=== PATIENT | female | born 1940 | race Caucasian/White ===

== ENCOUNTER → 2017-08-31 12:13 | Outpatient (CLI) | payer MEDICARE, OTHER, SELFPAY ==
--- NOTE | 2017-08-31 12:18 | US_ITS ---
STUDY: ULTRASOUND BREAST - RIGHT REASON FOR EXAM: Female, 76 years old. Tenderness in the lower inner quadrant of the right breast. TECHNIQUE: Axial and longitudinal images of the RIGHT breast were performed with a high resolution ultrasound transducer. COMPARISON: Comparison is made with prior mammogram done earlier in the day. FINDINGS: RIGHT Breast: The lower inner quadrant of the breast was examined by ultrasound. There is a homogeneous fibroglandular tissue. No solid or cystic mass lesion is seen. US/Breast Limited Unilateral IMPRESSION: Unremarkable sonographic examination of the lower inner quadrant of the right breast. ASSESSMENT CATEGORY: BIRADS Category 1: Negative. A letter regarding these results will be sent to the patient by the facility within 30 days. Electronically Signed: Avi Umana MD at 9:20 EDT Tel [phone], Service support ,
--- NOTE | 2017-08-31 12:18 | BI_ITS ---
MAMMOGRAPHY - BILATERAL DIAGNOSTIC REASON FOR EXAM: Female, 76 years old. History of right breast lump. PERTINENT HISTORY: Non-contributory. TECHNIQUE: Digital bilateral breast lamonte (3D mammographic acquisition) in the CC and MLO projections. 2-D mediolateral oblique (MLO) and craniocaudad (CC) views of both breasts were obtained. CAD: Full Field Digital Mammography with Computer Added Detection was performed. COMPARISON: None. FINDINGS: Breast Composition: There are scattered areas of fibroglandular density. There are no dominant masses or suspicious calcifications. No other significant abnormalities are identified. BI/DIAG MAMM W/CAD, BILAT IMPRESSION: With the patient's history of a palpable abnormality in the right breast, correlation with ultrasound is recommended. ASSESSMENT CATEGORY: BIRADS Category 0: Incomplete. Need additional imaging evaluation. A letter regarding these results will be sent to the patient by the facility within 30 days. Approximately 10% of breast cancers are not detected by mammography. A normal mammogram should not delay biopsy of a clinically suspicious abnormality. Electronically Signed: Avi Umana MD at 11:18 EDT Tel [phone], Service support ,
== END ==
PROVIDERS: Family Provider Family Medicine; PCP Family Medicine; Visit Provider Family Medicine
DX: N60.11 Diffuse cystic mastopathy of right breast (principal)
CPT/HCPCS: 76642; 77062; 77063; 77066; G0279

== ENCOUNTER → 2017-10-26 07:36 | Outpatient (CLI) | payer MEDICARE, OTHER, SELFPAY ==
--- NOTE | 2017-10-26 07:49 | US_ITS ---
STUDY: THYROID ULTRASOUND REASON FOR EXAM: Female, 76 years old. Right thyroid nodule. TECHNIQUE: Ultrasound evaluation of the thyroid was performed with real-time and static mayers-scale imaging. COMPARISON: None. FINDINGS: RIGHT LOBE: The right lobe of the thyroid gland measures 3.7 cm x 1.7 cm x 1.3 cm. There is a homogeneous echotexture. There is a 3 mm x 3 mm x 3 mm cyst in the upper pole. Adjacent to this, there is a 4 mm x 4 mm x 2 mm cyst. In the lower pole, there is a 3 mm x 3 mm x 2 mm cyst with a septation. LEFT LOBE: The left lobe of the thyroid gland measures 4.1 cm x 1.8 cm x 1.0 cm. There is a homogeneous echotexture. There is a 5 mm x 5 mm x 4 mm hypoechoic solid and cystic nodule in the midpole. Adjacent to this, there is a 4 mm x 3 mm x 2 mm cyst. ISTHMUS: The isthmus measures 3.0 mm. The regional lymph nodes are normal. US/Thyroid IMPRESSION: Small bilateral thyroid cysts. Hypoechoic solid nodule measuring 5 mm x 5 mm x 4 mm in the midportion of the left lobe of the thyroid. Electronically Signed: Avi Umana MD at 12:38 EDT Tel [phone], Service support ,
== END ==
PROVIDERS: Family Provider Family Medicine; PCP Family Medicine; Visit Provider Otolaryngology Otolaryngology/Facial Plastic Surgery
DX: E04.1 Nontoxic single thyroid nodule (principal)
CPT/HCPCS: 76536

== ENCOUNTER → 2017-11-29 08:54 | Outpatient (CLI) | payer MEDICARE, OTHER, SELFPAY ==
--- NOTE | 2017-11-29 08:57 | NM_ITS ---
CLINICAL: 77-year-old female with reported history of thyroid nodularity and complaint of dysphagia. I-123 THYROID UPTAKE and SCAN COMPARISON: Thyroid ultrasound report 10/26/2017 FINDINGS: The patient was administered a 291 uCi I-123 capsule by mouth. The 4-hour I-123 radioactive iodine thyroidal uptake was calculated to be 12.2 % (normal 5 to 25 %). The 24-hour I-123 radioactive iodine thyroidal uptake was calculated to be 37.0 % (normal 5 to 40 %). The I-123 thyroid scan demonstrates homogeneous radiopharmaceutical concentration throughout both lobes of a U-shaped thyroid gland. There are no colloidal parenchymal hypofunctioning cold nodules noted in either lobe of the thyroid gland. NM/Thyroid Uptake Single or Mult IMPRESSION: 1. NORMAL 4- and UPPER LIMITS OF NORMAL 24-hour I-123 radioactive iodine thyroidal uptakes. Correlation with in vitro thyroid function studies may be of benefit if not recently obtained. 2. 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 (Royal et al, J Nucl Med 32: 1455, 1990). 3. No hypofunctioning-cold nodules are identified. Electronically Signed: Checo Multani DO at 10:03 EDT Tel , Service support ,
== END ==
PROVIDERS: Family Provider Family Medicine; PCP Family Medicine; Visit Provider Surgery
DX: K21.9 Gastro-esophageal reflux disease without esophagitis (principal); R13.10 Dysphagia, unspecified
CPT/HCPCS: 78012; A9516

== ENCOUNTER 2017-12-17 06:17 | Day surgery (SDC) | payer MEDICARE, OTHER, SELFPAY ==
[2017-12-17 06:30] VITALS: BP 141/60; PULSE 76; RESP 18; TEMP 36.3; O2SAT 98; BMI 29.7
--- NOTE | 2017-12-17 07:35 | PCM.OPRPT ---
Problem List (1) GERD (gastroesophageal reflux disease) Status: Chronic Qualifiers: Esophagitis presence: without esophagitis Qualified Code(s): K21.9 - Gastro-esophageal reflux disease without esophagitis (2) Dysphagia Status: Acute Qualifiers: Dysphagia type: unspecified Qualified Code(s): R13.10 - Dysphagia, unspecified Report of Operation Date of Procedure: 12/17/17 Pre-Operative Diagnosis: k21.9 gastroesophageal reflux disease without esophagitis. R 13.10 dysphagia Post-Operative Diagnosis: Same Surgery/Procedure Performed:: [id number] esophagogastroduodenoscopy with biopsy Type of Anesthesia:: MAC Description of Procedure: Patient was brought into the endoscopy suite back of her throat was sprayed with benzocaine spray. Bite-block was placed. She was given graded anesthesia. Scope was inserted into the back of the oropharynx and directed down through the esophagus into the stomach and into the duodenum without difficulty. Operative findings: 1. Duodenum: Normal appearance no mass lesions no ulcerations no signs of any bleeding. 2. Stomach normal in appearance no mass lesions slight erythema in the cardia of the stomach biopsy for H. pylori was obtained. There were no ulcerations there were no mass lesions prepylorus area looked entirely normal and the pylorus itself was widely patent. 3. Esophagus: Z line was at 37-38 cm. It looked entirely normal. There was no signs of esophagitis, there is no signs of stricturing, there is no signs of mass lesions, there is no varices. The rest of the esophagus all appeared normal. The upper esophageal sphincter was widely patent and the scope was easily able to traverse this. No obvious signs of anatomic defects related to her dysphagia. - Admit VTE Documentation VTE Present on Admission: No VTE Mechan Device Prophylaxis: None VTE Pharm Prophylaxis ordered?: No Reason prophylaxis not ordered:: Treatment Not Indicated
[2017-12-17 07:38] VITALS: BP 119/59; BP 141/60; PULSE 84; RESP 12; TEMP 36.3; O2SAT 95
[2017-12-17 07:43] VITALS: BP 141/60; BP 97/50; PULSE 65; RESP 14; O2SAT 94
[2017-12-17 07:48] VITALS: BP 105/52; BP 141/60; PULSE 63; RESP 14; O2SAT 94
[2017-12-17 07:55] VITALS: BP 102/50; BP 141/60; PULSE 77; RESP 16; TEMP 37.1
[2017-12-17 08:23] VITALS: BP 141/60
== END 2017-12-17 08:30 | disposition home or self-care (01) ==
LOC: EN 06:17 → AC 06:19
PROVIDERS: Family Provider Family Medicine; PCP Family Medicine; Visit Provider Surgery
PROC: 0DJ08ZZ Inspection of Upper Intestinal Tract, Via Natural or Artificial Opening Endoscopic (ICD-10-PCS; CPT 43235; principal; 2017-12-17 07:25)
DX: K21.9 Gastro-esophageal reflux disease without esophagitis (principal); R13.10 Dysphagia, unspecified; E04.2 Nontoxic multinodular goiter; Z78.0 Asymptomatic menopausal state; Z79.899 Other long term (current) drug therapy
CPT/HCPCS: 43239; J7120

== ENCOUNTER 2018-07-22 06:21 | Day surgery (SDC) | payer MEDICARE, OTHER, SELFPAY ==
[2018-07-01 08:07] VITALS: BMI 29.4
[2018-07-22 06:49] VITALS: BP 137/55; PULSE 73; RESP 16; TEMP 36.4; O2SAT 97; BMI 29.7
--- NOTE | 2018-07-22 07:30 | COLBX_PTH ---
PATIENT: JACI NAJERA LOC: EN U#:[id number] AGE/SX: 77/F ROOM: RE07/22/[address]: Dr. Jose Eduardo Gomez MD : 1940 BED: DIS: 07/22/2018 SPEC #: [id number] RECD: 07/22/18 09:59 STATUS: ANJALI JENNIFER #: [id number] NASH: 07/22/18 07:[address]: Jose Eduardo Gomez DEPT: SURGICAL PATHOLOGY RECD BY: Chris Whaley ENTERED: 07/22/18 13:11 SP TYPE: COLON BX OTHR DR: Dr. Yaya Lopez, Tissues: COLON BIOPSY Procedures: Surgery Specimen Level IV HEADER OPERATION: Colonoscopy (MAC) PRE-OP DIAGNOSIS: Diarrhea TISSUE SUBMITTED: Random colon biopsy MICROSCOPIC DIAGNOSIS Colon, random biopsy: Fragments of colonic mucosa with pigmented laden macrophages, consistent with melanosis coli. SJ:xiao 07/23/18 MICROSCOPIC DESCRIPTION Slides are reviewed. GROSS DESCRIPTION Received in fixative is one container labeled with the patient's name and designated random colon biopsy. The specimen consists of multiple irregular fragments of light vang soft tissue that in aggregate measure 1.5 x 0.5 x 0.1 cm. The specimen is totally submitted in one cassette. / SJ:rg 07/22/18 TC:5 CPT: 20395
[2018-07-22 08:00] VITALS: BP 121/55; BP 137/55; PULSE 71; RESP 16; TEMP 36.4; O2SAT 97
--- NOTE | 2018-07-22 08:01 | OP.ENDO_ITS ---
07/22/2018 Yaya Lopez Re : Colonoscopy procedure for Carmen Wilburnwen Lopez This procedure was performed on Sunday, July 22, 2018. My impressions and recommendations are as follows: Impressions : - Non-bleeding internal hemorrhoids. - The examination was otherwise normal. - Biopsies were taken with a cold forceps from the entire colon for evaluation of microscopic colitis. Recommendations : - Discharge patient to home. - Resume previous diet. - Continue present medications. - Await pathology results. - Repeat colonoscopy in 5 years for surveillance. - Return to my office in 1 week. My findings are described in the full procedure note, which is enclosed. If I can be of further assistance, please feel free to contact me at Doctor phone number(s): , Fax: [phone], Work: . Sincerely, MD Jose Eduardo Francois MD 07/22/2018 8:00:58 AM This report has been signed electronically.
[2018-07-22 08:05] VITALS: BP 118/63; BP 137/55; PULSE 77; RESP 16; O2SAT 98
[2018-07-22 08:10] VITALS: BP 126/64; BP 137/55; PULSE 64; RESP 18; O2SAT 97
[2018-07-22 08:15] VITALS: BP 124/64; BP 137/55; PULSE 62; RESP 77; TEMP 36.2; O2SAT 98
[2018-07-22 08:38] VITALS: BP 137/55
== END 2018-07-22 08:50 | disposition home or self-care (01) ==
LOC: EN 06:21 → AC 06:24
PROVIDERS: Family Provider Family Medicine; PCP Family Medicine; Referring Provider Surgery; Visit Provider Surgery
PROC: 0DJD8ZZ Inspection of Lower Intestinal Tract, Via Natural or Artificial Opening Endoscopic (ICD-10-PCS; CPT 45378; principal; 2018-07-22 07:25)
DX: R19.7 Diarrhea, unspecified (principal); K64.8 Other hemorrhoids; K21.9 Gastro-esophageal reflux disease without esophagitis; M19.90 Unspecified osteoarthritis, unspecified site; M54.9 Dorsalgia, unspecified; G89.29 Other chronic pain; Z78.0 Asymptomatic menopausal state; Z79.899 Other long term (current) drug therapy
CPT/HCPCS: 45380; 88305; J7120

== ENCOUNTER → 2018-10-17 09:17 | Outpatient (CLI) | payer MEDICARE, OTHER, SELFPAY ==
--- NOTE | 2018-10-17 09:21 | US_ITS ---
STUDY: ULTRASOUND BREAST - RIGHT REASON FOR EXAM: Female, 77 years old. Palpable lump in the right breast. TECHNIQUE: Axial and longitudinal images of the RIGHT breast were performed with a high resolution ultrasound transducer. COMPARISON: Comparison is made with prior ultrasound of the breasts dated August 31, 2017. FINDINGS: RIGHT Breast: Once again, the inferior aspect of the right breast was examined by ultrasound. No sonographic abnormality is seen. US/Breast Limited Unilateral IMPRESSION: No sonographic abnormality is seen. ASSESSMENT CATEGORY: BIRADS Category 1: Negative. A letter regarding these results will be sent to the patient by the facility within 30 days. Electronically Signed: Avi Umana, at 11:28 EDT , Service support ,
--- NOTE | 2018-10-17 09:21 | BI_ITS ---
MAMMOGRAPHY - BILATERAL DIAGNOSTIC REASON FOR EXAM: Female, 77 years old. Palpable abnormality in the lower inner quadrant of the right breast. PERTINENT HISTORY: Non-contributory. TECHNIQUE: Digital bilateral breast lamonte (3D mammographic acquisition) in the CC and MLO projections. 2-D mediolateral oblique (MLO) and craniocaudad (CC) views of both breasts were obtained. CAD: Full Field Digital Mammography with Computer Added Detection was performed. COMPARISON: Comparison is made with prior study dated August 31, 2017. FINDINGS: Breast Composition: There are scattered areas of fibroglandular density. There are no dominant masses or suspicious calcifications. No other significant abnormalities are identified. There has been no significant change since the prior study. BI/DIAG MAMM W/CAD, BILAT IMPRESSION: Stable bilateral diagnostic mammogram. With the patient's history of a palpable abnormality in the right breast, correlation with ultrasound is recommended. ASSESSMENT CATEGORY: BIRADS Category 0: Incomplete. Need additional imaging evaluation. A letter regarding these results will be sent to the patient by the facility within 30 days. Approximately 10% of breast cancers are not detected by mammography. A normal mammogram should not delay biopsy of a clinically suspicious abnormality. Electronically Signed: Avi Umana, at 11:27 EDT , Service support ,
== END ==
PROVIDERS: Family Provider Family Medicine; PCP Family Medicine; Referring Provider Family Medicine; Visit Provider Family Medicine
DX: N60.11 Diffuse cystic mastopathy of right breast (principal); N63.14 Unspecified lump in the right breast, lower inner quadrant
CPT/HCPCS: 76642; 77062; 77066; G0279

== ENCOUNTER 2019-01-19 11:52 | Emergency (ER) | payer MEDICARE, OTHER, SELFPAY ==
[2019-01-19 11:53] VITALS: BP 171/73; PULSE 77; RESP 18; TEMP 36.8; O2SAT 98; BMI 29.9
--- NOTE | 2019-01-19 12:13 | RAD_ITS ---
STUDY: X-RAY CHEST REASON FOR EXAM: Female, 78 years old. Cough and dyspnea TECHNIQUE: Single AP portable view of the chest. COMPARISON: 08/07/2015 FINDINGS: The lungs are clear and expanded. There is no demonstrated pleural abnormality. Normal size heart. Normal mediastinum and gt. Normal visualized pulmonary arteries. Normal visualized aortic arch and descending thoracic aorta. Normal visualized thoracic spine. Normal visualized ribs, clavicles, and shoulders. There is no demonstrated abnormality of the visualized soft tissue structures of the upper abdomen. RAD/Chest 1 View (Portable) IMPRESSION: Normal x-ray examination of the chest. Electronically Signed: Napoleon Miller DO at 12:45 EDT Tel , Service support ,
--- NOTE | 2019-01-19 12:13 | EKG12_ITS ---
Test Reason : SOB Blood Pressure : / mmHG Vent. Rate : 060 BPM Atrial Rate : 060 BPM P-R Int : 188 ms QRS Dur : 082 ms QT Int : 396 ms P-R-T Axes : 051 -42 018 degrees QTc Int : 396 ms Normal sinus rhythm Left axis deviation Minimal voltage criteria for LVH, may be normal variant Abnormal ECG Confirmed by KAREN JUSTICE, SHRADDHA ([id number]), field map editor RAKEL STEPHEN ([id number]) on 01/20/2019 9:07:11 AM Referred By: EL Confirmed By:SHRADDHA JONES MD
[2019-01-19 12:40] LABS: Absolute Lymphocyte Count 1.43 X10^3/uL (0.83-4.51); Absolute Neutrophil Count 2.5 X10^3/uL (2.0-7.7); Basophil# 0.02 X10^3/uL; Basophil% 0.4 % (0-1); Eosinophils% 2.1 % (0-5); Hematocrit 37.8 % (37-47); Hemoglobin 12.3 g/dL (12.0-15.0); Lymphocyte # 1.43 X10^3/ul (4.0); Lymphocyte % 30.6 % (19-41); Mean Corp Hgb Conc 32.5 g/dL (32-36); Mean Corpuscular Hgb 29.7 pg (27.0-32.0); Mean Corpuscular Volume 91.3 fL (81-99); Mean Platelet Vol. 10.4 fl (6.2-12.0); Monocyte# 0.57 X10^3/uL; Monocyte% 12.2 % (0-10); NRBC Flagged by Analyzer 0 % (0-5); Neutrophil # 2.54 X10^3/uL (2.7-7.7); Neutrophil % 54.5 % (47-70); Platelet Count 189 K/mm3 (150-450); RBC Distribution Width CV 12.8 % (11.6-14.6); RBC Distribution Width SD 42.6 fl (35.1-43.9); Red Blood Count 4.14 M/mm3 (4.2-5.4); White Blood Count 4.7 K/mm3 (4.4-11.0)
[2019-01-19 12:47] VITALS: BP 136/62; BP 137/66; BP 141/69; PULSE 61; PULSE 63
[2019-01-19] MEDS: 0.9% Normal Saline 1,000 ML 150 ML IV (12:56)
[2019-01-19 13:03] LABS: Anion Gap 3 (5-15); BUN 16 mg/dL (7-18); BUN/Creat Ratio 17.7 RATIO (10-20); Calcium,Total 8.7 mg/dL (8.5-10.1); Chloride 107 mmol/L (98-107); EST Glomerular Filtration Rate 64 mL/min (>60); Est Glom Filt Rate - Afr Amer 77 mL/min (>60); Estimated Creatinine Clearance 42.62 ml/min; Glucose 126 mg/dL (74-106); Potassium 3.7 mmol/L (3.5-5.1); Sodium Level 139 mmol/L (136-145)
[2019-01-19 13:06] LABS: Bacteria 0 SEEN /hpf (None Seen); Mucous, Urine 0 SEEN /hpf (<or=2+); Red Blood Cells-Urine 0 SEEN /hpf (0-5); White Blood Cells 0 SEEN /hpf (0-5)
[2019-01-19 13:13] LABS: Color, Urine Yellow (Yellow); Glucose, Dipstick Normal (Normal); Ketone-Dipstick Negative (Negative); Leukocyte Esterase-Dipstick Negative /ul (Negative); Nitrite-Dipstick Negative (Negative); Occult Blood-Urine Negative /ul (Negative); Protein-Dipstick Negative (Negative); Specific Gravity, Urine 1.005 (1.002-1.030); Urine Bilirubin Dipstick Negative (Negative); Urine Clarity Sl. Cloudy (Clear); Urine Urobilinogen Normal (Normal)
[2019-01-19 13:19] LABS: Squamous Epithelial Cells - UA 0-5 SEEN /hpf (5-10)
--- NOTE | 2019-01-19 13:25 | ED.VISSUMM ---
- ER Visit Summary Date of Service: 01/19/19 Chief Complaint: [Not feeling well and generalized weakness.] History of Present Illness: The patient is a 78 F [presents with symptoms of not feeling well that she noticed this morning. Patient states that she had an episode 2 days ago where she had a spell that lasted about an hour to where she felt like maybe her heart was racing and felt like maybe she could get a full breath. Patient states after that resolved had no issues until this morning. Once again patient just feels very fatigued and somewhat lightheaded. Patient states that she felt like her arms were weak. Patient felt like her whole body was shaking. Patient states that she had similar symptoms a few years ago when she had a stress test at that time and no etiology was ever found. Patient states that she does not feel more stress than usual. She has no history of prior anxiety or panic attacks. She denies any chest pain. She denies recent travel or surgery. She denies recent illness other than she did have a sore throat and was recently started on cefuroxime. She does have a slight cough.] Physical Examination: [HEENT-PERRLA, EOMI. Cranial nerves II through XII grossly intact. TMs clear. Mucous membranes moist. No adenopathy. No significant pharyngeal erythema. Uvula midline without trismus. Cardiovascular-regular rate and rhythm without murmur or ectopy Lungs-clear to auscultation, chest wall stable without crepitus or subcu emphysema Abdomen-normoactive bowel sounds, soft, nontender, no rebound or rigidity, no peritoneal signs. Extremities-intact ?4, normal range of motion, normal pulses, atraumatic] Test Results: [EKG obtained on arrival showed sinus rhythm with a ventricular rate of 60 bpm with no acute segment changes. CBC with differential was normal. Chemistries normal. Urinalysis normal. Troponin was less than 0.15. Orthostatic vital signs were negative. Chest x-ray was normal.] Emergency Department Course and Treatment: [Patient was given normal saline on arrival.] Treatment Plan: [Follow-up with primary care physician 3 to 5 days.] Etiology of symptoms unclear although I suspect possibly anxiety. Disposition: [Discharged home stable condition.] Impression: [Generalized weakness-etiology uncertain] This note was generated with [employer] software. It may contain incorrect words, spelling, and punctuation that were not noted in review of the chart prior to signing ED Disposition - Plan for ED Patient: Referrals: Yaya Lopez [Primary Care Provider] -
--- NOTE | 2019-01-19 13:28 | ED.DEP ---
ED Disposition - Plan for ED Patient: Instructions: WEAKNESS, Unk Cause Referrals: Yaya Lopez [Primary Care Provider] - 3-5 Days
[2019-01-19 13:34] VITALS: BP 116/69; PULSE 64; RESP 17; O2SAT 96
== END 2019-01-19 13:43 | disposition home or self-care (01) ==
LOC: ED 12:16
PROVIDERS: Emergency Provider Emergency Medicine; Family Provider Family Medicine; PCP Family Medicine
DX: R53.1 Weakness (principal); R19.7 Diarrhea, unspecified; R35.0 Frequency of micturition; J02.9 Acute pharyngitis, unspecified; R05 Cough; K21.9 Gastro-esophageal reflux disease without esophagitis; Z79.899 Other long term (current) drug therapy
CPT/HCPCS: 71045; 80048; 81001; 84484; 85025; 93005; 96360; 99285; J7030; A4216

== ENCOUNTER → 2019-05-07 09:51 | Outpatient (CLI) | payer MEDICARE, OTHER, SELFPAY ==
[2019-05-07 09:51] VITALS: BMI 29.1
[2019-05-07 10:10] LABS: Absolute Lymphocyte Count 1.76 X10^3/uL (0.83-4.51); Absolute Neutrophil Count 3.1 X10^3/uL (2.0-7.7); Basophil# 0.02 X10^3/uL; Basophil% 0.4 % (0-1); Eosinophil# 0.05 X10^3/uL; Eosinophils% 0.9 % (0-5); Hematocrit 41.3 % (37-47); Hemoglobin 13.6 g/dL (12.0-15.0); Lymphocyte # 1.76 X10^3/ul (4.0); Lymphocyte % 31.9 % (19-41); Mean Corp Hgb Conc 32.9 g/dL (32-36); Mean Corpuscular Hgb 29.8 pg (27.0-32.0); Mean Corpuscular Volume 90.6 fL (81-99); Mean Platelet Vol. 9.8 fl (6.2-12.0); Monocyte# 0.57 X10^3/uL; Monocyte% 10.3 % (0-10); NRBC Flagged by Analyzer 0 % (0-5); Neutrophil % 56.3 % (47-70); Platelet Count 190 K/mm3 (150-450); RBC Distribution Width CV 13.2 % (11.6-14.6); RBC Distribution Width SD 43.9 fl (35.1-43.9); Red Blood Count 4.56 M/mm3 (4.2-5.4); White Blood Count 5.5 K/mm3 (4.4-11.0)
[2019-05-07 10:32] LABS: AST(SGOT) 29 U/L (15-37); Alanine Aminotransfer ALT/SGPT 31 U/L (13-56); Albumin, Serum 3.6 g/dL (3.2-5.0); Alkaline Phosphatase 157 U/L (45-117); Anion Gap 4 (5-15); BUN 14 mg/dL (7-18); BUN/Creat Ratio 13.7 RATIO (10-20); Chloride 104 mmol/L (98-107); Creatinine, Serum 1.02 mg/dL (0.55-1.02); EST Glomerular Filtration Rate 56 mL/min (>60); Est Glom Filt Rate - Afr Amer 67 mL/min (>60); Globulin 3.6 g/dL (2.2-4.2); Glucose 105 mg/dL (74-106); Potassium 4.1 mmol/L (3.5-5.1); Protein, Total 7.2 g/dL (6.4-8.2); Sodium Level 139 mmol/L (136-145)
== END ==
PROVIDERS: Family Provider Family Medicine; PCP Family Medicine; Referring Provider Surgery; Visit Provider Surgery
DX: K80.20 Calculus of gallbladder without cholecystitis without obstruction (principal); Q44.5 Other congenital malformations of bile ducts
CPT/HCPCS: 36415; 80053; 85025

== ENCOUNTER 2019-05-08 11:24 | Observation (INO) | payer MEDICARE, OTHER, SELFPAY ==
[2019-05-07 09:26] VITALS: BMI 29.1
[2019-05-07 09:53] VITALS: BMI 29.9
--- NOTE | 2019-05-07 09:55 | PCM.HP.BLA ---
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 History and Physical Date of Admission: 05/08/19 Intake Vital Signs 05/07/19 Height 5 ft 3 in 05/07/19 Weight: 164 lb 8 oz 05/07/19 BP 152/83 H 05/07/19 Respiration 1 L 05/07/19 Pulse 79 05/07/19 Temp 98.2 F 05/07/19 Pulse Oximetry (%) 95 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 Required: No Is patient in pain?: No Allergies clarithromycin [From Biaxin] Adverse Reaction (Verified 05/07/19 09:25) Nausea Sulfa (Sulfonamide Antibiotics) Adverse Reaction (Verified 05/07/19 09:25) Nausea Medications Calcium Carbonate/Vitamin D3 [Calcium 600-Vit D3 400 Caplet] 1 ea PO DAILY 08/07/15 [History Confirmed 05/07/19] Omeprazole [Prilosec] 20 mg PO BID 08/07/15 [History Confirmed 05/07/19] ascorbate calcium (vitamin C) 500 mg tablet 500 mg PO DAILY 05/07/19 [History Confirmed 05/07/19] PFS Medical History GERD (gastroesophageal reflux disease) (Chronic) Chronic back pain (Acute) Osteoarthritis (Acute) Surgical History History of colonoscopy (Acute ~06/2018) S/P appendectomy (Acute) S/P cardiac catheterization (Acute) S/P colonoscopy (Acute) S/P hemorrhoidectomy (Acute) S/P partial hysterectomy (Acute) Family History Father Heart disease Thyroid disorder goiter Mother Cancer stomach Social History (Updated 05/07/19 @ 09:53 by Joni Garcias MD) Smoking Status: Never smoker alcohol intake: never substance use type: does not use additional social history: no aspirin no ibuprofen HPI HPI HPI: JACI NAJERA, is a 78 F who presents to the office today for HPI HPI HPI: JACI NAJERA, is a 78 F who presents to the office today for right upper quadrant pain. The patient reports that for the last few months she has been having right upper quadrant pain as well as epigastric pain. Patient reports nausea but no vomiting. She reports that fried food makes the pain worse. ROS General General: Yes fatigue; no weight change, appetite, colon cancer or breast cancer HEENT HEENT: Yes difficulty swallowing; no eye injury, eye surgery, swollen glands or hoarseness Endo Endocrine: No thyroid disease, diabetes mellitus, thyroid cancer, Hair loss, heat intolerance or cold intolerance Skin Skin: Yes changing moles; no rash Breast Breast: No left breast lump, right breast lump, nipple discharge, breast pain, abnormal mammogram, abnormal US or breast enlargement Musc Musculoskeletal: Yes arthritis; no back problems, rheumatoid arthritis, gout or joint pain Cardio Cardiovascular: No murmur, pacemaker, heart disease, atrial fibrillation, high blood pressure, heart attack, heart stent, palpitations, shortness of breat with exertion or chest pain Psych Psychiatric: No depression, anxiety or hearing voices Resp Respiratory: No shortness of breath, No sleep apnea, Yes cough, No COPD, No asthma, No emphysema, No wheezing Gastro Gastrointestinal: Yes abdominal pain, No nausea or vomiting, Yes diarrhea, No constipation, No blood in stool, Yes acid reflux, No hemorrhoids, No ulcers, No gallbladder problem, No black,tarry stools Jordan Hematologic: No blood thinners, No blood disorders, No bleeding, No anemia, No blood clots Exam Const General: cooperative Orientation: alert, oriented x3 HENAZ Head: normal to inspection Ears: hearing grossly normal bilaterally Eyes General: appearance normal, both eyes and all related structures Visual Alvarez: normal visual alvarez by confrontation Neck Neck: normal visual inspection Chest Chest palpation & inspection: normal inspection of the chest Breast Palpation: No nipple discharge Resp Effort & Inspection: normal respiratory effort Auscultation: clear to auscultation bilaterally Cardio Rate: regular rate Rhythm: regular rhythm Heart Sounds: no murmurs GI Inspection: non-distended Palpation: soft, tender in the RUQ Musc Cervical Spine: normal cervical lordosis, cervical ROM normal Skin General: no rashes or lesions noted Neuro General: alert, oriented x3 Cranial Nerves: CN's II-XI intact bilaterally Cognition: normal cognition Extrem General: normal to inspection, full ROM Psych Appearance: grossly normal Affect: normal affect Assessment & Plan Problems 1. 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 Bile duct, common, cystic dilatation Q44.5 Plan The patient is having right upper quadrant pain. She had an outside ultrasound performed in March which showed low-level echoes in the gallbladder as well as sludge and dilation of her common bile duct suspicious for distal obstruction. She has been having right upper quadrant pain especially with eating fatty foods. She is also been having diarrhea and nausea. I recommend laparoscopic cholecystectomy with possible common duct exploration. I discussed that she may be having common bile duct dilation due to a stone in the common bile duct. I discussed possibility of performing ERCP if I was unable to remove the stone through a common duct exploration. I discussed the procedure in detail with the patient. I discussed the risks, benefits, and alternatives of the procedure. I discussed the risks including but not limited to bleeding, infection, injury to surrounding organs such as the liver, bile duct, bowels. I did discuss the possibility of having to convert to an open procedure as well as the possibility that if any injuries occurred this may necessitate further surgery at a tertiary care center. I will order labs today to check LFTs. Joni Garcias MD Pager: [facility] [address] [place] [address], [address] [place] [address] Office:
[2019-05-08] VITALS (16 sets, daily range): BP systolic 93–157; BP diastolic 46–67; PULSE 75–94; RESP 14–18; TEMP 36.4–37.9; O2SAT 91–99; BMI 29.0
--- NOTE | 2019-05-08 08:00 | EKG12_ITS ---
Test Reason : PRE-OP Blood Pressure : / mmHG Vent. Rate : 084 BPM Atrial Rate : 084 BPM P-R Int : 158 ms QRS Dur : 082 ms QT Int : 356 ms P-R-T Axes : 037 -44 047 degrees QTc Int : 420 ms Normal sinus rhythm Left axis deviation Abnormal ECG When compared with ECG of 19-JAN-2019 12:29, No significant change was found Confirmed by KIRK JUSTICE, BINH ([id number]), make up editor MARI SANDERSON ([id number]) on 05/09/2019 1:32:05 PM Referred By: Joni Garcias Confirmed By:ARIANA BRADLEY MD
[2019-05-08] MEDS: Lactated Ringers 1,000 ML 100 ML IV (08:39)
--- NOTE | 2019-05-08 09:35 | GALL_PTH ---
PATIENT: JACI NAJERA LOC: MS3 U#:[id number] AGE/SX: 78/F ROOM: OH323 RE05/08/[address]: Dr. Joni Garcias MD : 1940 BED: 1 DIS: 05/09/2019 SPEC #: [id number] RECD: 05/08/19 11:32 STATUS: ANJALI REWendy #: [id number] NASH: 05/08/19 09:[address]: Joni Garcias DEPT: SURGICAL PATHOLOGY RECD BY: Chris Whaley ENTERED: 05/08/19 13:44 SP TYPE: KRISTY QUINONES DR: Dr. Yaya Lopez DO Tissues: Gallbladder, NOS Procedures: Surgery Specimen Level III HEADER OPERATION: Laparoscopic cholecystectomy with IOC PRE-OP DIAGNOSIS: Calculus of gallbladder with chronic cholecystitis with obstruction K80.11; bile duct dilatation Q44.5 TISSUE SUBMITTED: Gallbladder MICROSCOPIC DIAGNOSIS Gallbladder, cholecystectomy: Chronic cholecystitis and sludge. AM:xiao 05/09/19 MICROSCOPIC DESCRIPTION Slides are reviewed. GROSS DESCRIPTION Received is one container labeled with the patient's name and designated gallbladder. The specimen consists of a gallbladder measuring 6.5 x 3 x 2 cm. The external surface is smooth and glistening. Focally, it is granular, hemorrhagic and contains cautery artifact. The lumen of the gallbladder contains yellow-green mucoid bile and sludge. No stones are identified in the container or in the gallbladder. The mucosa is bile-stained and without any mass lesions. The gallbladder wall averages 0.2 cm in thickness and is free of mass lesions. Risk Control Analyst sections of the gallbladder and the cystic duct at margin of resection are submitted in one cassette. / AM:xiao 05/08/19 TC:3 [facility]: [id number]
--- NOTE | 2019-05-08 09:35 | RAD_ITS ---
STUDY: INTRAOPERATIVE CHOLANGIOGRAM. REASON FOR EXAM: Female, 78 years old. 1 CHOLANGIOGRAM, PT GIVEN GLUCO VIANEY AFTER CINE RUN AND 3 STILL PICTURES FOLLOWED. FLUOROSCOPY TIME (if supplied): ( 83.5 seconds ) minutes/seconds TECHNIQUE: An intraoperative Cholangiogram was performed by the surgeon. Imaging was submitted. COMPARISON: None. FINDINGS: There is evidence of dilated intrahepatic biliary ducts. The common bile duct is dilated. Multiple small filling defects are seen in the distal portion of the common bile duct. A small amount of contrast is seen entering the duodenum. Findings are in keeping with retained stones. RAD/Cholangiogram/ O R,Initial IMPRESSION: Dilated intrahepatic and extrahepatic biliary ducts with findings suggesting multiple tiny stones in the distal portion of the common bile duct. Electronically Signed: Avi Umana, at 11:10 EST , Service support ,
[2019-05-08] MEDS: Bupiv/Epi 0.25% 30 ML Vial (10:34)
[2019-05-08] MEDS: 0.9% Normal Saline 1,000 ML 100 ML IV ×2 (13:18→23:27)
--- NOTE | 2019-05-08 14:08 | OP.PCM_ITS ---
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 Specimen's removed: Gallbladder and contents Description of Procedure: After obtaining informed consent patient was brought back to the operating room. General anesthesia was induced. The abdomen was prepped and draped in usual sterile fashion. A small midline incision was made superior to the umbilicus and deepened to the level of fascia. The fascia was elevated and incised. Next the peritoneum was elevated and incised in the same fashion. Finger sweep was performed and the Roberts trocar was placed into the abdomen. The balloon was inflated. The abdomen was inflated to 15 mmHg. Next a camera was introduced into the abdomen and the abdomen was inspected. Next under direct visualization three 5-mm ports were placed one subxiphoid and 2 subcostal. Next the gallbladder was elevated and retracted toward the right shoulder. The peritoneum was stripped from the gallbladder. The infundibulum was located and retracted laterally. Next the triangle of Calot was dissected and the cystic duct and cystic artery were identified. Cholangiograms were performed. A clip was placed in the proximal cystic duct. Next the cystic duct was nicked with the scissors and the Ranfac catheter was placed through a right upper quadrant incision and into the cystic duct and a clip was placed over it. Under fluoroscopy contrast was instilled into the gallbladder and the common duct, cystic duct as well as proximal hepatic ducts were identified. There was good filling of the common bile duct and it appeared dilated. There was poor filling of the duodenum. There was a small wisp of contrast I did make it into the du odenum. The patient appeared to have several small stones in distal common bile duct causing partial obstruction. The clip was removed from the cystic duct and the Ranfac catheter was removed from the cystic duct. The infundibulum was grasped once more. Three hemolock clips were placed across the cystic duct. The cystic duct was then divided leaving 2 clips on the stump. The cystic artery was clipped and divided in the same fashion. The hook cautery was then used to take the gallbladder off of the gallbladder bed. Hemostasis was obtained. Gallbladder fossa was irrigated and no active bleeding or bile leakage was noted. Next the camera switched to a 5 mm camera and introduced in the subxiphoid port. An Endopouch bag was placed through the umbilical port and the gallbladder was placed into it. The gallbladder was then removed through the umbilical incision. The camera was then reinserted through the umbilical port. The gallbladder fossa was inspected once more and noted to be hemostatic with no leaking bile. The abdomen was suctioned dry. The 5 mm ports were removed under direct visualization. The umbilical port was then removed and the air was removed from the abdomen. Next using an 0 Vicryl suture the umbilical fascia was closed in a [id number] fashion. The umbilical port site was irrigated local anesthetic was administered to all the incisions. All the incisions were closed with interrupted subcuticular 4-0 Monocryl sutures followed by Steri-Strips and dressings. The patient was awoken and taken to PACU in stable condition. - Admit VTE Documentation VTE Mechan Device Prophylaxis: SCD's
--- NOTE | 2019-05-08 14:11 | PN_ITS ---
Progress Note The patient was have found to have several small stones in the distal common bile duct causing partial obstruction of the common duct with dilation. I discussed ERCP with the patient and her family. I will perform ERCP tomorrow morning. I discussed the risks including but not limited to bleeding, infection, perforation of the bile duct or bowel, pancreatitis. The patient understands and is well to proceed. Joni Garcias MD Pager: [facility] [address] [address] [address] [place] [address] Office: [facility] Vital Signs/Narrative: Vital Signs Temp Pulse Resp BP Pulse Ox 05/08/19 13:10 98.2 F 89 16 137/58 H 94 05/08/19 12:36 99.0 F 78 16 133/55 H 95 05/08/19 12:30 94 16 129/51 H 95 05/08/19 12:15 88 18 144/56 H 95 05/08/19 12:00 84 18 133/61 H 94 05/08/19 11:45 76 16 140/63 H 99 05/08/19 11:30 81 16 139/55 H 98 05/08/19 11:15 79 16 157/62 H 96 05/08/19 11:00 97.6 F L 75 16 150/61 H 98
[2019-05-08] MEDS: 0.9% Saline Lock 10 ML Syringe IV (23:53)
[2019-05-08] MEDS: Acetaminophen 325 MG Tablet 650 MG PO (23:53)
[2019-05-09] VITALS (7 sets, daily range): BP systolic 99–115; BP diastolic 46–59; PULSE 68–86; RESP 12–20; TEMP 36.2–37.3; O2SAT 89–100; BMI 29.0
[2019-05-09 05:55] LABS: Absolute Lymphocyte Count 0.91 X10^3/uL (0.83-4.51); Absolute Neutrophil Count 7.9 X10^3/uL (2.0-7.7); Basophil# 0.01 X10^3/uL; Basophil% 0.1 % (0-1); Eosinophil# 0.13 X10^3/uL; Eosinophils% 1.3 % (0-5); Hematocrit 31.6 % (37-47); Hemoglobin 10.5 g/dL (12.0-15.0); Lymphocyte # 0.91 X10^3/ul (4.0); Lymphocyte % 8.9 % (19-41); Mean Corp Hgb Conc 33.2 g/dL (32-36); Mean Corpuscular Hgb 30.3 pg (27.0-32.0); Mean Corpuscular Volume 91.1 fL (81-99); Mean Platelet Vol. 10.3 fl (6.2-12.0); Monocyte% 11.8 % (0-10); NRBC Flagged by Analyzer 0 % (0-5); Neutrophil # 7.92 X10^3/uL (2.7-7.7); Neutrophil % 77.6 % (47-70); POSITIVE MORPHOLOGY YES; Platelet Count 136 K/mm3 (150-450); RBC Distribution Width CV 13.5 % (11.6-14.6); RBC Distribution Width SD 45.5 fl (35.1-43.9); Red Blood Count 3.47 M/mm3 (4.2-5.4); White Blood Count 10.2 K/mm3 (4.4-11.0)
--- NOTE | 2019-05-09 06:00 | RAD_ITS ---
STUDY: ERCP. REASON FOR EXAM: Female, 78 years old. SPHINCTEROTOMY, BALLOON PASS. 50 IMAGES FLUOROSCOPY TIME (if supplied): ( 100 seconds. ) minutes/seconds TECHNIQUE: An ERCP was performed by the surgeon. Contrast was injected. A single loop of the 49 images was submitted. COMPARISON: Comparison is made with prior examination dated May 08, 2019. FINDINGS: The surgeon performed sphincterotomy with balloon extraction of the distal common bile ducts. There is free flow of contrast into the duodenum. RAD/ERCP Biliary Only IMPRESSION: Successful sphincterotomy and extraction of the multiple small distal common bile duct stones. Electronically Signed: Avi Umana, at 8:20 EST , Service support ,
[2019-05-09 06:20] LABS: Differential Indicated SCAN CRITERIA MET
[2019-05-09 06:31] LABS: Differential Comment SCANNED
--- NOTE | 2019-05-09 06:40 | DCINST_ITS ---
Discharge Diet: Light diet - advance as tolerated Discharge Activity: Return to Normal Activity, May Not Drive - for 2-3 days or while taking narcotic pain medicataions., - - Do not drive, work heavy equipment or sign legal documents for 24 hours. May shower in (days): 1 - with the bandage in place. Lifting Restrictions: 20 lbs for 2 weeks Additional Activity Instructions:: Pain medication may cause nausea. You should typically eat light foods as you take your pain medications. Pain medication may also cause constipation. If this is a problem for you, please discuss with your doctor. Call your doctor if your incision/area has: Continuous Slow Oozing, Sudden Increased Bleeding, Increased Pain/ Swelling, Increased Redness, Foul Smelling Discharge, Fever of 101 or Higher Call your doctor if you observe: Fever of 101 or Higher Suture Line Care: Avoid Pulling/Pushing, Avoid Pinching/Bending Additional Dressing/Incision Instructions:: Leave operative bandaids on for 2 days. When you remove dressing, leave Steri-Strips on until your follow-up appointment, or until the Steri-Strips fall off on their own. Allergies/Adverse Reactions: Allergies clarithromycin [From Biaxin] Adverse Reaction (Verified 05/08/19 08:13) Nausea Sulfa (Sulfonamide Antibiotics) Adverse Reaction (Verified 05/08/19 08:13) Nausea Medications to take at Discharge Calcium Carbonate/Vitamin D3 [Calcium 600-Vit D3 400 Caplet] 1 ea PO DAILY 08/07/15 Omeprazole [Prilosec] 20 mg PO BID 08/07/15 ascorbate calcium (vitamin C) 500 mg tablet 500 mg PO DAILY 05/07/19 Acetaminophen [Tylenol Tablet] 650 mg PO Q6H PRN PRN tab 05/09/19 Ibuprofen [Motrin] 600 mg PO Q6H PRN PRN tab 05/09/19 Primary Care Physician: Yaya Lopez [Primary Care Provider] - Test Results: Test results from this visit will be discussed in further detail at your follow- up appointment, if applicable. Please Follow Up With: Joni Garcias MD When: Please call to schedule 2 week follow up appointment. [phone]
[2019-05-09 06:43] LABS: ALB/GLOB Ratio 0.9 RATIO (0.9-2.4); AST(SGOT) 273 U/L (15-37); Alanine Aminotransfer ALT/SGPT 404 U/L (13-56); Albumin, Serum 2.4 g/dL (3.2-5.0); Alkaline Phosphatase 115 U/L (45-117); Anion Gap 5 (5-15); BUN 13 mg/dL (7-18); BUN/Creat Ratio 15.6 RATIO (10-20); Calcium,Total 7.8 mg/dL (8.5-10.1); Chloride 108 mmol/L (98-107); Creatinine, Serum 0.83 mg/dL (0.55-1.02); EST Glomerular Filtration Rate 70 mL/min (>60); Est Glom Filt Rate - Afr Amer 85 mL/min (>60); Estimated Creatinine Clearance 46.21 ml/min; Globulin 2.8 g/dL (2.2-4.2); Glucose 85 mg/dL (74-106); Potassium 3.8 mmol/L (3.5-5.1); Protein, Total 5.2 g/dL (6.4-8.2); Sodium Level 140 mmol/L (136-145)
[2019-05-09] MEDS: Lactated Ringers 1,000 ML 100 ML IV (06:58)
[2019-05-09] MEDS: Pantoprazole Sodium 20 MG Tablet PO (10:57)
--- NOTE | 2019-05-14 10:39 | OP.ERCP_ITS ---
Patient Name: Carmen Porter Procedure Date: 05/09/2019 5:46 AM Date of : 1940 Age: 78 Procedure: ERCP Indications: Bile duct stone(s) Providers: Joni Garcias MD Referring MD: Joni Garcias MD Medicines: General Anesthesia Patient Profile: This is a 78 year old female. Refer to note in patient chart for documentation of history and physical. Complications: No immediate complications. Estimated blood loss: Minimal. Procedure: Pre-Anesthesia Assessment: - Prior to the procedure, a History and Physical was performed, and patient medications and allergies were reviewed. The patient's tolerance of previous anesthesia was also reviewed. The risks and benefits of the procedure and the sedation options and risks were discussed with the patient. All questions were answered, and informed consent was obtained. Prior Anticoagulants: The patient has taken no previous anticoagulant or antiplatelet agents. After reviewing the risks and benefits, the patient was deemed in satisfactory condition to undergo the procedure. After obtaining informed consent, the scope was passed under direct vision. Throughout the procedure, the patient's blood pressure, pulse, and oxygen saturations were monitored continuously. The duodenoscope was introduced through the mouth, and advanced to the duodenum and used to inject contrast into the bile duct. The ERCP was accomplished without difficulty. The patient tolerated the procedure well. Scope In: 6:21:56 AM Scope Out: 6:29:13 AM Total Procedure Duration Time 0 hours 7 minutes 17 seconds Findings: The major papilla was normal. A 0.035 inch x 260 cm straight Dreamwire was passed into the biliary tree. The sphincterotome was passed over the guidewire and the bile duct was then deeply cannulated. Contrast was injected. Biliary sphincterotomy was made with a monofilament sphincterotome using ERBE electrocautery. There was no post-sphincterotomy bleeding. The biliary tree was swept with a 12 mm balloon starting at the bifurcation. Sludge was swept from the duct. The endoscope was withdrawn from the patient. Impression: - The major papilla appeared normal. - A biliary sphincterotomy was performed. - The biliary tree was swept and sludge was found. Recommendation: - [facility]. - Resume previous diet. Procedure Code(s): --- Professional --- 39009, Endoscopic retrograde cholangiopancreatography (ERCP); with removal of calculi/debris from biliary/pancreatic duct(s) Diagnosis Code(s): --- Professional --- K80.50, Calculus of bile duct without cholangitis or cholecystitis without obstruction CPT copyright 2017 [employer]. All rights reserved. The codes documented in this report are preliminary and upon radiologic technologist chief review may be revised to meet current compliance requirements. Joni Garcias MD 05/09/2019 6:42:37 AM This report has been signed electronically. Number of Addenda: 0 Note Initiated On: 05/09/2019 5:46 AM
== END 2019-05-09 14:47 | disposition home or self-care (01) ==
LOC: SDC 12:41 → MS3 12:41
PROVIDERS: Admitting Provider Surgery; Family Provider Family Medicine; PCP Family Medicine; Referring Provider Surgery; Visit Provider Surgery
PROC: (CPT 47610; principal; 2019-05-08 09:15)
DX: K80.65 Calculus of gallbladder and bile duct with chronic cholecystitis with obstruction (principal); K21.9 Gastro-esophageal reflux disease without esophagitis; M19.90 Unspecified osteoarthritis, unspecified site; Z79.899 Other long term (current) drug therapy; Q44.5 Other congenital malformations of bile ducts
CPT/HCPCS: 43264; 47563; 36415; 74300; 74328; 76000; 80053; 85025; 88304; 93005; 96360; 96361; 99218; 99251; J7030; J7120; A4216; G0378; G0379; G0463; J1610; J2405

== ENCOUNTER → 2019-05-08 15:13 | Outpatient (CLI) | payer MEDICARE, OTHER, SELFPAY ==
[2019-05-08 13:10] VITALS: BMI 29.0
[2019-05-08 18:34] LABS: HIV - WCH Non-Reactive (Nonreactive); Hepatitis B Surface Antibody Non-Reactive; Hepatitis B Surface Antigen Non-Reactive (Nonreactive); Hepatitis C Antibody Non-Reactive (Nonreactive)
[2019-05-10 15:24] LABS: Hepatitis B Core Ab Total Negative (Negative)
== END ==
LOC: ED 15:43 → EDREF 05-22 13:45
PROVIDERS: Family Provider Family Medicine; PCP Family Medicine
DX: T75.89XA Other specified effects of external causes, initial encounter (principal)
CPT/HCPCS: 36415; 86703; 86704; 86706; 86803; 87340

== ENCOUNTER → 2019-05-14 09:51 | Outpatient (CLI) | payer MEDICARE, OTHER, SELFPAY ==
[2019-05-09 05:30] VITALS: BMI 29.0
[2019-05-14 10:53] LABS: Absolute Lymphocyte Count 1.43 X10^3/uL (0.83-4.51); Absolute Neutrophil Count 5.5 X10^3/uL (2.0-7.7); Basophil# 0.02 X10^3/uL; Basophil% 0.3 % (0-1); Eosinophil# 0.06 X10^3/uL; Eosinophils% 0.8 % (0-5); Hematocrit 40.1 % (37-47); Lymphocyte # 1.43 X10^3/ul (4.0); Lymphocyte % 18.9 % (19-41); Mean Corp Hgb Conc 32.4 g/dL (32-36); Mean Corpuscular Hgb 29.7 pg (27.0-32.0); Mean Corpuscular Volume 91.8 fL (81-99); Mean Platelet Vol. 10.2 fl (6.2-12.0); Monocyte# 0.58 X10^3/uL; Monocyte% 7.7 % (0-10); NRBC Flagged by Analyzer 0 % (0-5); Neutrophil # 5.46 X10^3/uL (2.7-7.7); Platelet Count 260 K/mm3 (150-450); RBC Distribution Width CV 13.3 % (11.6-14.6); RBC Distribution Width SD 45.3 fl (35.1-43.9); Red Blood Count 4.37 M/mm3 (4.2-5.4); White Blood Count 7.6 K/mm3 (4.4-11.0)
[2019-05-14 11:03] LABS: ALB/GLOB Ratio 0.8 RATIO (0.9-2.4); AST(SGOT) 21 U/L (15-37); Alanine Aminotransfer ALT/SGPT 89 U/L (13-56); Albumin, Serum 2.9 g/dL (3.2-5.0); Alkaline Phosphatase 131 U/L (45-117); Anion Gap 6 (5-15); BUN 10 mg/dL (7-18); BUN/Creat Ratio 11.6 RATIO (10-20); Calcium,Total 8.9 mg/dL (8.5-10.1); Chloride 105 mmol/L (98-107); Creatinine, Serum 0.86 mg/dL (0.55-1.02); EST Glomerular Filtration Rate 68 mL/min (>60); Est Glom Filt Rate - Afr Amer 82 mL/min (>60); Globulin 3.8 g/dL (2.2-4.2); Glucose 179 mg/dL (74-106); Potassium 3.7 mmol/L (3.5-5.1); Protein, Total 6.7 g/dL (6.4-8.2); Sodium Level 141 mmol/L (136-145)
== END ==
PROVIDERS: Family Provider Family Medicine; PCP Family Medicine; Referring Provider Surgery; Visit Provider Surgery
DX: K80.20 Calculus of gallbladder without cholecystitis without obstruction (principal); Q44.5 Other congenital malformations of bile ducts; R10.9 Unspecified abdominal pain; R14.0 Abdominal distension (gaseous)
CPT/HCPCS: 36415; 80053; 85025

== ENCOUNTER → 2020-01-02 10:45 | Outpatient (CLI) | payer MEDICARE, OTHER, SELFPAY ==
[2019-11-04 13:00] VITALS: BMI 29.0
--- NOTE | 2020-01-02 10:52 | BI_ITS ---
MAMMOGRAPHY - BILATERAL SCREENING REASON FOR EXAM: Female, 79 years old. Routine annual screening examination. PERTINENT HISTORY: Non-contributory. TECHNIQUE: Digital bilateral breast isaura (3D mammographic acquisition) in the CC and MLO projections. 2-D mediolateral oblique (MLO) and craniocaudad (CC) views of both breasts were obtained. CAD: Full Field Digital Mammography with Computer Added Detection was performed. COMPARISON: Comparison is made with prior study dated 10/17/2018 and 08/31/2017. FINDINGS: Breast Composition: There are scattered areas of fibroglandular density. There are no dominant masses or suspicious calcifications. Stable benign-appearing bilateral axillary lymph nodes. No other significant abnormalities are identified. There has been no significant change since the prior study. BI/SCREEN MAMM (CAD) W/ISAURA BILAT IMPRESSION: Stable bilateral screening mammogram. Yearly follow-up mammogram recommended. (A) ASSESSMENT CATEGORY: BIRADS Category 2: Benign. A letter regarding these results will be sent to the patient by the facility within 30 days. Approximately 10% of breast cancers are not detected by mammography. A normal mammogram should not delay biopsy of a clinically suspicious abnormality. [id number] Electronically Signed: Avi Umana, at 12:32 EDT , Service support ,
== END ==
PROVIDERS: PCP Family Medicine; Referring Provider Family Medicine; Visit Provider Family Medicine
DX: Z12.31 Encounter for screening mammogram for malignant neoplasm of breast (principal)
CPT/HCPCS: 77063; 77067

== ENCOUNTER 2020-08-25 10:41 | Emergency (ER) | payer MEDICARE, OTHER, SELFPAY ==
[2019-11-04 13:00] VITALS: BMI 29.0
[2020-08-25 10:42] VITALS: BP 163/72; PULSE 80; RESP 15; TEMP 36.4; O2SAT 98; BMI 29.7
--- NOTE | 2020-08-25 11:13 | EKG12_ITS ---
Test Reason : Blood Pressure : / mmHG Vent. Rate : 068 BPM Atrial Rate : 068 BPM P-R Int : 200 ms QRS Dur : 086 ms QT Int : 396 ms P-R-T Axes : 053 -40 034 degrees QTc Int : 421 ms Normal sinus rhythm Left axis deviation Poor R wave progression Abnormal ECG Confirmed by DELMY JUSTICE, RITA ([id number]), editor producer RAKEL STEPHEN ([id number]) on 08/27/2020 10:02:26 AM Referred By: ZANDER Confirmed By:RITA BROCK MD
--- NOTE | 2020-08-25 11:13 | CT_ITS ---
STUDY: CT BRAIN WITHOUT CONTRAST REASON FOR EXAM: Female, 79 years old. Headache RADIATION DOSAGE (If Supplied By Facility): CTDIvol = ( 44.99 ) mGy, DLP = ( 812.98 ) mGycm TECHNIQUE: Transaxial CT imaging of the brain was performed without administration of intravenous contrast material. Individualized dose optimization techniques were used for this CT. COMPARISON: None. FINDINGS: There is no acute bleed or infarct. There are chronic ischemic and atrophic changes. The ventricles are normal in configuration. There is no hydrocephalus. The visualized paranasal sinuses are clear. The mastoid air cells are well aerated. There is no skull fracture. There are postsurgical changes from a right frontal craniotomy. CT/Brain/Head without Contrast IMPRESSION: No acute intracranial abnormality. Chronic ischemic and atrophic changes. Electronically Signed: El Lock MD at 12:05 EDT Tel , Service support ,
--- NOTE | 2020-08-25 11:16 | EX.ED.VIS.HA ---
ED.HPI.ROSAS History of Present Illness Chief Complaint: Headache Informant: patient Onset/Context/Timing Onset: Today Context: Gradual Timing: Continuous Quality -Headache: Positive for Dull Location: Occiput and left anterior neck Worsened by: Nothing Relieved by: Nothing Associated Symptoms/Injury Associated Symptoms: Negative for Fever, Nausea, Vomiting, Sore Throat, Sinus Pressure, Numbness, Tingling, Preceding Aura, Visual Changes, Blurred Vision and Visual Loss Narrative Narrative: Patient presents with headache that began today. Patient states the pain started in her left anterior neck and is radiating up to her occipital area. 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 Patient denies any nausea or vomiting. Patient describes the pain as dull. Patient states nothing makes it better and nothing makes it worse. Patient denies any nausea or vomiting. Patient denies any photophobia. Patient denies any auras. Patient denies any paresthesias or weakness. Patient also states she had an episode of chest pain yesterday but this resolved after several minutes. Patient has not had any recurrence of the chest pain today. [facility] Medical History (Updated 08/25/20 @ 12:[address] Russell Tillman, DO) Chronic back pain GERD (gastroesophageal reflux disease) Osteoarthritis Home Medications calcium carbonate-vitamin D3 1 ea PO DAILY 08/07/15 [History Last Taken 08/07/15 08:30] omeprazole 20 mg PO BID 08/07/15 [History Last Taken 05/08/19 06:30 20 MG] ascorbate calcium (vitamin C) 500 mg tablet 500 mg PO DAILY 05/07/19 [History Last Taken Unknown] acetaminophen 650 mg PO Q6H PRN PRN tab 05/09/19 [Rx Last Taken Unknown] cetirizine [Zyrtec] 10 mg PO DAILY PRN 08/25/20 [History Last Taken Unknown] Allergy/AdvReac Type Severity Reaction Status Date / Time clarithromycin [From Biaxin] AdvReac Nausea Verified 08/25/20 10:44 Sulfa (Sulfonamide AdvReac Nausea Verified 08/25/20 10:44 Antibiotics) Family History Father Heart disease Thyroid disorder goiter Mother Cancer stomach Surgical History (Updated 08/25/20 @ 11:[address] Russell Tillman, DO) History of cholecystectomy (~04/2019) History of colonoscopy (~06/2018) History of craniotomy S/P appendectomy S/P cardiac catheterization S/P colonoscopy S/P hemorrhoidectomy S/P partial hysterectomy Social History Smoking Status: Never smoker alcohol intake: never substance use type: does not use additional social history: no aspirin no ibuprofen ROS ROS ED Constitutional Constitutional ED: Denies chills or fever(s) Eyes Eyes: Denies blurry vision or change in vision ENT ENT ED: Denies rhinorrhea or sore throat Cardiovascular Cardiovascular: Reports chest pain; Denies palpitations Respiratory/Chest Respiratory/Chest: Reports cough; Denies dyspnea Gastrointestinal Gastrointestinal: Denies nausea or vomiting Genitourinary Genitourinary ED: Denies dysuria or hematuria Musculoskeletal Musculoskeletal: Reports back pain and neck pain Integumentary Denies abscess or rash Neurologic Neurologic: Reports headache(s) Allergic/Immunologic Allergic/Immunologic ED: Denies mouth swelling or urticaria EXAM Physical Exam Const Vital Signs: 08/25/20 10:42 08/25/20 12:45 Temperature 97.5 F L Temperature Source Temporal Pulse Rate 80 66 Respiratory Rate 15 16 Blood Pressure 163/72 H 126/66 H Blood Pressure Mean 102 86 Pulse Ox 98 96 Oxygen Delivery Method Room Air Room Air Positive well nourished and well developed General Appearance ED: well developed HEENT Reports normocephalic and moist mucous membranes Resp normal respiratory effort and clear to auscultation bilaterally Cardio regular rate and regular rhythm GI non-tender and non-distended Auscultation: normoactive bowel sounds Palpation: soft Neuro oriented x3 and CN's II-XII intact bilaterally Sensorium / Orientation: awake and alert Motor Exam: strength 5/5 throughout MDM MDM MDM Narrative Medical decision making narrative: Patient was given Reglan and Benadryl. Patient was feeling better on reevaluation. Patient states her headache has nearly resolved. Patient was advised of her findings. Patient was instructed to follow-up with her primary care physician in 3 to 5 days. Patient understood and was agreeable with the plan. All questions were answered. Lab Data Attestation: I reviewed the patient's lab results. Labs: Laboratory Results - last 24 hr 08/25/20 08/25/20 08/25/20 11:30 11:30 11:30 WBC 4.8 RBC 4.35 Hgb 12.6 Hct 40.3 MCV 92.6 MCH 29.0 MCHC 31.3 L RDW Std Deviation 43.5 RDW Coeff of Haresh 12.7 Plt Count 198 MPV 9.4 Immature Gran % (Auto) 1.200 H Neut % (Auto) 64.1 Lymph % (Auto) 22.9 Gosper % (Auto) 11.2 H Eos % (Auto) 0.2 Baso % (Auto) 0.4 Absolute Neuts (auto) 3.1 Absolute Lymphs (auto) 1.11 Nucleated RBC % 0 Sodium 140 Potassium 3.5 Chloride 105 Carbon Dioxide 30.0 Anion Gap 5 BUN 13 Creatinine 0.89 Estim Creat Clear Calc 42.40 Est GFR (MDRD) Af Amer 78 Est GFR (MDRD) Non-Af 65 BUN/Creatinine Ratio 14.5 Glucose 124 H Calcium 9.0 Total Bilirubin 0.30 AST 14 L ALT 22 Alkaline Phosphatase 150 H Troponin I < 0.015 Total Protein 7.0 Albumin 3.5 Globulin 3.5 Albumin/Globulin Ratio 1.0 Urine Color Yellow Urine Clarity Clear Urine pH 6.5 Ur Specific Russell 1.010 Urine Protein Negative Urine Glucose (UA) Normal Urine Ketones Negative Urine Occult Blood Negative Urine Nitrite Negative Urine Bilirubin Negative Urine Urobilinogen Normal Ur Leukocyte Esterase Negative Urine RBC 0 SEEN Urine WBC 0 SEEN Ur Squamous Epith Cells 0-5 SEEN Urine Bacteria 0 SEEN Urine Mucus 0 SEEN Radiography Diagnostic Testing: Radiology Impression Brain CT 08/25/20 11:13 IMPRESSION: No acute intracranial abnormality. Chronic ischemic and atrophic changes. Electronically Signed: El Lock MD at 12:05 EDT Tel , Service support , EKG Initial EKG: Attestation: I personally reviewed and interpreted this EKG as follows: Interpretation: Sinus Rhythm (68) and No Acute Injury Pattern Comments: There is left axis deviation at -40 Prior EKG tracings: available for review Prior: Unchanged Discharge Plan Triage Chief Complaint: Headache ED Provider: Russell Tillman Dx/Rx/DC Orders Clinical Impression: Headache Instructions: ED Headache Unspecified Prescriptions: No Action ascorbate calcium (vitamin C) 500 mg tablet 500 mg PO DAILY RF: 0 omeprazole 40 MG capsule 20 mg PO BID RF: 0 calcium carbonate-vitamin D3 1 EACH tablet 1 ea PO DAILY RF: 0 acetaminophen 325 MG tablet 650 mg PO Q6H PRN PRN (Reason: Pain Score 1-10/10) RF: 0 cetirizine [Zyrtec] 10 mg Tablet 10 mg PO DAILY PRN (Reason: Allergy Symptoms) RF: 0 Primary Care Provider: Yaya Lopez Referrals: Yaya Lopez [Primary Care Provider] - 3-5 Days Disposition Disposition: Home, self care
[2020-08-25] MEDS: DiphenhydrAMINE 50 MG/ML Syringe 25 MG IV (11:36)
[2020-08-25] MEDS: Metoclopramide 10 MG/2 ML Vial IV (11:36)
[2020-08-25 11:48] LABS: Bacteria 0 SEEN /hpf (None Seen); Mucous, Urine 0 SEEN /hpf (<or=2+); Red Blood Cells-Urine 0 SEEN /hpf (0-5); White Blood Cells 0 SEEN /hpf (0-5)
[2020-08-25 11:52] LABS: Color, Urine Yellow (Yellow); Glucose, Dipstick Normal (Normal); Ketone-Dipstick Negative (Negative); Leukocyte Esterase-Dipstick Negative /ul (Negative); Nitrite-Dipstick Negative (Negative); Occult Blood-Urine Negative /ul (Negative); Protein-Dipstick Negative (Negative); Urine Bilirubin Dipstick Negative (Negative); Urine Clarity Clear (Clear); Urine Urobilinogen Normal (Normal); Urine pH 6.5 (5.0 - 8.0)
[2020-08-25 11:54] LABS: Absolute Lymphocyte Count 1.11 X10^3/uL (0.83-4.51); Absolute Neutrophil Count 3.1 X10^3/uL (2.0-7.7); Basophil# 0.02 X10^3/uL; Basophil% 0.4 % (0-1); Eosinophil# 0.01 X10^3/uL; Eosinophils% 0.2 % (0-5); Hematocrit 40.3 % (37-47); Hemoglobin 12.6 g/dL (12.0-15.0); Lymphocyte # 1.11 X10^3/ul (0.83-4.51); Lymphocyte % 22.9 % (19-41); Mean Corp Hgb Conc 31.3 g/dL (32-36); Mean Corpuscular Volume 92.6 fL (81-99); Mean Platelet Vol. 9.4 fl (6.2-12.0); Monocyte# 0.54 X10^3/uL; Monocyte% 11.2 % (0-10); NRBC Flagged by Analyzer 0 % (0-5); Neutrophil % 64.1 % (47-70); Platelet Count 198 K/mm3 (150-450); RBC Distribution Width CV 12.7 % (11.6-14.6); RBC Distribution Width SD 43.5 fl (35.1-43.9); Red Blood Count 4.35 M/mm3 (4.2-5.4); White Blood Count 4.8 K/mm3 (4.4-11.0)
[2020-08-25 11:57] LABS: Squamous Epithelial Cells - UA 0-5 SEEN /hpf (5-10)
[2020-08-25 12:08] LABS: Albumin, Serum 3.5 g/dL (3.2-5.0); BUN 13 mg/dL (7-18); BUN/Creat Ratio 14.5 RATIO (10-20); Creatinine, Serum 0.89 mg/dL (0.55-1.02); EST Glomerular Filtration Rate 65 mL/min (>60); Est Glom Filt Rate - Afr Amer 78 mL/min (>60); Glucose 124 mg/dL (74-106)
[2020-08-25 12:09] LABS: AST(SGOT) 14 U/L (15-37); Alanine Aminotransfer ALT/SGPT 22 U/L (13-56); Alkaline Phosphatase 150 U/L (45-117); Anion Gap 5 (5-15); Chloride 105 mmol/L (98-107); Globulin 3.5 g/dL (2.2-4.2); Potassium 3.5 mmol/L (3.5-5.1); Sodium Level 140 mmol/L (136-145)
[2020-08-25 12:45] VITALS: BP 126/66; PULSE 66; RESP 16; O2SAT 96
== END 2020-08-25 12:54 | disposition home or self-care (01) ==
PROVIDERS: Emergency Provider Emergency Medicine; PCP Family Medicine
DX: R51.9 Headache, unspecified (principal); M54.2 Cervicalgia; M54.9 Dorsalgia, unspecified; G89.29 Other chronic pain; M19.90 Unspecified osteoarthritis, unspecified site; K21.9 Gastro-esophageal reflux disease without esophagitis; Z79.899 Other long term (current) drug therapy
CPT/HCPCS: 70450; 80053; 81001; 84484; 85025; 93005; 96374; 96375; 99284; A4216

== ENCOUNTER → 2020-11-18 09:53 | Outpatient (CLI) | payer MEDICARE, OTHER, SELFPAY ==
[2020-11-18 12:57] LABS: CRP < 2.90 mg/L (0.0-3.0)
[2020-11-19 16:08] LABS: Endomysial Antibody IgA Negative (Negative)
[2020-11-19 22:39] LABS: Immunoglobulin A 70 mg/dL (64-422); t-Transglutaminase IgA <2 U/mL (0-3)
== END ==
PROVIDERS: PCP Family Medicine; Referring Provider Internal Medicine Gastroenterology; Visit Provider Internal Medicine Gastroenterology
DX: R19.7 Diarrhea, unspecified (principal)
CPT/HCPCS: 36415; 82784; 83516; 86140; 86255

== ENCOUNTER → 2021-01-25 08:51 | Outpatient (CLI) | payer MEDICARE, OTHER, SELFPAY ==
--- NOTE | 2021-01-25 08:54 | US_ITS ---
STUDY: ULTRASOUND BREAST - RIGHT REASON FOR EXAM: Female, 80 years old. Painful right palpable lump. TECHNIQUE: Axial and longitudinal images of the RIGHT breast were performed with a high resolution ultrasound transducer. # OF IMAGES: 15 COMPARISON: Comparison is made with prior mammogram done earlier in the day as well as prior ultrasound of the right breast dated 10/17/2018. FINDINGS: RIGHT Breast: The medial half of the right breast was examined by ultrasound. No sonographic abnormality is seen. US/Breast Limited Unilateral IMPRESSION: No sonographic abnormality is seen. ASSESSMENT CATEGORY: BIRADS Category 1: Negative. A letter regarding these results will be sent to the patient by the facility within 30 days. Electronically Signed: Avi Umana MD at 10:21 EDT , Service support ,
--- NOTE | 2021-01-25 08:54 | BI_ITS ---
MAMMOGRAPHY - BILATERAL DIAGNOSTIC REASON FOR EXAM: Female, 80 years old. Several year history of lump in the lower inner quadrant of the right breast. PERTINENT HISTORY: Non-contributory. TECHNIQUE: Digital bilateral breast lamonte (3D mammographic acquisition) in the CC and MLO projections. 2-D mediolateral oblique (MLO) and craniocaudad (CC) views of both breasts were obtained. CAD: Full Field Digital Mammography with Computer Added Detection was performed. COMPARISON: Comparison is made with prior study of 01/02/2020 and 10/17/2018. FINDINGS: Breast Composition: There are scattered areas of fibroglandular density. There are no dominant masses or suspicious calcifications. No other significant abnormalities are identified. There has been no significant change since the prior study. BI/DIAG MAMM W/CAD, BILAT IMPRESSION: Stable bilateral diagnostic mammogram. One year follow-up recommended. (A) ASSESSMENT CATEGORY: BIRADS Category 1: Negative. A letter regarding these results will be sent to the patient by the facility within 30 days. Approximately 10% of breast cancers are not detected by mammography. A normal mammogram should not delay biopsy of a clinically suspicious abnormality. Electronically Signed: Avi Umana MD at 10:05 EDT , Service support ,
== END ==
PROVIDERS: PCP Family Medicine; Referring Provider Family Medicine; Visit Provider Family Medicine
DX: R92.2 Inconclusive mammogram (principal); N63.15 Unspecified lump in the right breast, overlapping quadrants
CPT/HCPCS: 76642; 77062; 77066; G0279

== ENCOUNTER → 2021-02-23 14:30 | Outpatient (CLI) | payer MEDICARE, OTHER, SELFPAY ==
--- NOTE | 2021-02-23 14:33 | MRI_ITS ---
STUDY: MRI CERVICAL SPINE WITHOUT CONTRAST REASON FOR EXAM: Female, 80 years old. DISC DISEASE, N/T IN HANDS, neck pain, bilat shoulder pain TECHNIQUE: Standardized fat and water weighted pulse sequences were obtained in the sagittal and axial planes. COMPARISON: None FINDINGS: Normal foramen magnum and brainstem-cervical cord junction. There is straightening of the normal cervical lordosis. C2-3: There is minimal disc space narrowing and endplate spondylosis. There is no significant disc herniation, central canal or foraminal stenosis C3-4: There is moderate disc space narrowing and endplates spondylosis mild disc osteophyte complex without significant central canal stenosis. Uncovertebral and facet arthropathy with mild right and mild left foraminal stenosis. C4-5: There is mild disc space narrowing and endplates spondylosis. Minimal disc osteophyte complex without significant central canal stenosis. Uncovertebral and facet arthropathy with minimal right and mild left foraminal stenosis. C5-6: There is severe disc space narrowing and endplates spondylosis. Mild disc osteophyte complex with mild central canal stenosis. Uncovertebral and facet arthropathy with minimal right and moderate left foraminal stenosis. C6-7: There is moderate disc space narrowing and endplates spondylosis. Mild disc osteophyte complex with mild central canal stenosis. Uncovertebral and foraminal arthropathy with minimal right and moderate left foraminal stenosis. There is subcentimeter right cata neural cyst. C7-T1: There is minimal disc space narrowing and endplate spondylosis. There is no significant disc herniation, central canal or foraminal stenosis minimal anterolisthesis. Normal cervical cord. MRI/Spine Cervical (Routine) IMPRESSION: C5/C6: Moderate left foraminal stenosis. C6/C7: Moderate left foraminal stenosis. Electronically Signed: Tim Hernandez MD at 12:26 EDT Tel , Service support ,
== END ==
PROVIDERS: PCP Family Medicine; Visit Provider Family Medicine
DX: M50.90 Cervical disc disorder, unspecified, unspecified cervical region (principal); R20.0 Anesthesia of skin; R20.2 Paresthesia of skin
CPT/HCPCS: 72141

== ENCOUNTER → 2021-04-15 08:43 | Outpatient (CLI) | payer MEDICARE, OTHER, SELFPAY ==
--- NOTE | 2021-04-15 09:00 | RAD_ITS ---
STUDY: X-RAY - ESOPHAGUS (BARIUM SWALLOW) WITH FLUOROSCOPY REASON FOR EXAM: Female, 80 years old. DYSPHAGIA TECHNIQUE: 21 view(s) of the esophagus were obtained following swallowing of barium. FLUOROSCOPY TIME (if supplied): (30 seconds) minutes/seconds COMPARISON: None. FINDINGS: There is no demonstrated esophageal foreign body. There is no demonstrated stricture or mucosal abnormality. Normal gastroesophageal junction, without a demonstrated hiatal hernia. The patient ingested a 12 mm tablet of barium without any difficulty. There is atherosclerotic calcification of the aortic arch with tortuosity of the descending aorta. Normal visualized pulmonary parenchyma. There are diffuse degenerative changes of the visualized thoracic spine. RAD/Esophagus Dual Contrast IMPRESSION: Normal plain film x-ray examination (barium swallow) of the esophagus. Electronically Signed: Avi Umana MD at 9:28 EST , Service support ,
== END ==
PROVIDERS: PCP Family Medicine; Referring Provider Internal Medicine Gastroenterology; Visit Provider Internal Medicine Gastroenterology
DX: R13.10 Dysphagia, unspecified (principal)
CPT/HCPCS: 74221

== ENCOUNTER 2021-07-25 00:33 | Emergency (ER) | payer MEDICARE, OTHER, SELFPAY ==
[2021-07-25] VITALS (7 sets, daily range): BP systolic 131–159; BP diastolic 58–72; PULSE 66–79; RESP 15–18; TEMP 36.4; O2SAT 97–99; BMI 30.4
--- NOTE | 2021-07-25 00:45 | RAD_ITS ---
STUDY: X-RAY CHEST REASON FOR EXAM: Female, 80 years old. chest pain TECHNIQUE: Single AP portable view of the chest. COMPARISON: None. FINDINGS: Ill-defined subpleural groundglass opacities are seen more prominent in the upper lobes, may represent atypical pneumonia or viral pneumonia (COVID-19 ?). There is no demonstrated pleural abnormality. Normal size heart. Normal mediastinum and gt. Normal visualized pulmonary arteries. Normal visualized aortic arch and descending thoracic aorta. Normal visualized thoracic spine. Normal visualized ribs, clavicles, and shoulders. There is no demonstrated abnormality of the visualized soft tissue structures of the upper abdomen. RAD/Chest 1 View (Portable) IMPRESSION: Ill-defined subpleural groundglass opacities are seen more prominent in the upper lobes, may represent atypical pneumonia or viral pneumonia (COVID-19 ?). Electronically Signed: Armando Leonardo MD at 1:16 EDT ,
--- NOTE | 2021-07-25 00:45 | EDS_ITS ---
HPI History of Present Illness Chief Complaint: Chest Pain Informant: patient Onset/Context/Timing Onset: Weeks Timing: Intermittent Current Severity: Gone Maximum Severity: Moderate Narrative Narrative: Patient presents secondary to concerns for intermittent chest pain as well as elevated blood pressure. Over the past 2 to 3 weeks she has been having episodes of intermittent chest pain. She states she will get sharp chest pain in the left anterior chest that would last only a few seconds at a time. She will have more of a pressure or aching pain on the left side of her upper back that she states tends to last longer. She states she will occasionally get pain that radiates up around her left jaw and ear. When she gets this more severe back pain she will get short of breath. She also has been watching her blood pressure recently and noting it is elevated above baseline. She states normally she runs around 140/70. Today her blood pressure was in the 160s systolic. She does not take any antihypertensive medication. [facility] Medical History Chronic back pain GERD (gastroesophageal reflux disease) Osteoarthritis Home Medications calcium carbonate-vitamin D3 1 ea PO DAILY 08/07/15 [History Last Taken 08/07/15 08:30] omeprazole 20 mg PO BID 08/07/15 [History Last Taken 05/08/19 06:30 20 MG] ascorbate calcium (vitamin C) 500 mg tablet 500 mg PO DAILY 05/07/19 [History Last Taken Unknown] acetaminophen 650 mg PO Q6H PRN PRN tab 05/09/19 [Rx Last Taken Unknown] cetirizine [Zyrtec] 10 mg PO DAILY PRN 08/25/20 [History Last Taken Unknown] azithromycin [Zithromax Z-Robbie] 250 mg PO DAILY 4 Days #4 tab 07/25/21 [Rx Last Taken Unknown] Allergy/AdvReac Type Severity Reaction Status Date / Time clarithromycin [From Biaxin] AdvReac Nausea Verified 07/25/21 00:38 Sulfa (Sulfonamide AdvReac Nausea Verified 07/25/21 00:38 Antibiotics) Family History Father Heart disease Thyroid disorder goiter Mother Cancer stomach Surgical History History of cholecystectomy (~04/2019) History of colonoscopy (~06/2018) History of craniotomy S/P appendectomy S/P cardiac catheterization S/P colonoscopy S/P hemorrhoidectomy S/P partial hysterectomy Social History Smoking Status: Never smoker alcohol intake: never substance use type: does not use additional social history: no aspirin no ibuprofen ROS ROS ED Constitutional Constitutional ED: Denies chills or fever(s) Eyes Eyes: Denies change in vision ENT ENT ED: Denies sore throat Cardiovascular Cardiovascular: Reports chest pain Respiratory/Chest Respiratory/Chest: Reports cough, dyspnea and sputum Gastrointestinal Gastrointestinal: Denies abdominal pain, nausea or vomiting Genitourinary Genitourinary ED: Denies dysuria Musculoskeletal Musculoskeletal: Reports back pain and neck pain Integumentary Denies rash Neurologic Neurologic: Denies headache(s) or weakness Allergic/Immunologic Allergic/Immunologic ED: Denies urticaria EXAM Physical Exam Const Vital Signs: 07/25/21 00:34 07/25/21 00:38 07/25/21 01:10 Temperature 97.6 F L Temperature Source Temporal Pulse Rate 79 Respiratory Rate 16 Respiratory Effort Normal Respiratory Pattern Normal Blood Pressure 159/59 H Blood Pressure Mean 92 Pulse Ox 99 97 Oxygen Delivery Method Room Air Room Air 07/25/21 01:26 07/25/21 02:40 Temperature Temperature Source Pulse Rate 71 66 Respiratory Rate 18 16 Respiratory Effort Respiratory Pattern Blood Pressure 147/58 H 132/68 H Blood Pressure Mean 87 89 Pulse Ox 97 97 Oxygen Delivery Method Room Air Room Air Positive well nourished and well developed General Appearance ED: well developed HEENT Reports moist mucous membranes Eyes PERRL and EOMs intact bilaterally Neck supple Chest Wall inspection of chest normal and palpation of chest normal Resp normal respiratory effort and clear to auscultation bilaterally Cardio regular rate and regular rhythm GI normal to inspection, nondistended, normoactive bowel sounds and non-tender Palpation: soft Extremity normal to inspection Neuro oriented x3 Sensorium / Orientation: alert Psych mental status grossly normal Skin no rashes or lesions noted MDM MDM MDM Narrative Medical decision making narrative: EKG, chest x-ray, lab work obtained. Patient had received aspirin with EMS. She denied chest pain on arrival. Lab Data Attestation: I reviewed the patient's lab results. Labs: Laboratory Results - last 24 hr 07/25/21 07/25/21 07/25/21 00:53 00:53 00:53 WBC 5.9 RBC 4.28 Hgb 12.8 Hct 38.8 MCV 90.7 MCH 29.9 MCHC 33.0 RDW Std Deviation 46.8 H RDW Coeff of Haresh 14.0 Plt Count 248 MPV 9.9 Immature Gran % (Auto) 0.200 Neut % (Auto) 40.8 L Lymph % (Auto) 44.7 H Saline % (Auto) 11.5 H Eos % (Auto) 2.5 Baso % (Auto) 0.3 Absolute Neuts (auto) 2.4 Absolute Lymphs (auto) 2.65 Nucleated RBC % 0 D-Dimer Quant (PE/DVT) 0.98 H* Sodium 138 Potassium 3.8 Chloride 105 Carbon Dioxide 27.0 Anion Gap 6 BUN 21 H Creatinine 1.14 H Estim Creat Clear Calc 32.56 Est GFR (MDRD) Af Amer 59 L Est GFR (MDRD) Non-Af 49 L BUN/Creatinine Ratio 18.4 Glucose 149 H Calcium 9.0 Troponin I High Sens < 3 L 07/25/21 02:45 WBC RBC Hgb Hct MCV MCH MCHC RDW Std Deviation RDW Coeff of Haresh Plt Count MPV Immature Gran % (Auto) Neut % (Auto) Lymph % (Auto) Saline % (Auto) Eos % (Auto) Baso % (Auto) Absolute Neuts (auto) Absolute Lymphs (auto) Nucleated RBC % D-Dimer Quant (PE/DVT) Sodium Potassium Chloride Carbon Dioxide Anion Gap BUN Creatinine Estim Creat Clear Calc Est GFR (MDRD) Af Amer Est GFR (MDRD) Non-Af BUN/Creatinine Ratio Glucose Calcium Troponin I High Sens < 3 L Radiography Chest X-Ray - ED: 1 View, Read by ED Physician and Chronic Changes Diagnostic Testing: Clinical Impression(s) from Imaging Studies Chest X-Ray 07/25/21 00:45 IMPRESSION: Ill-defined subpleural groundglass opacities are seen more prominent in the upper lobes, may represent atypical pneumonia or viral pneumonia (COVID-19 ?). Electronically Signed: Armando Leonardo MD at 1:16 EDT , Chest CTA 07/25/21 01:54 IMPRESSION: No demonstrated pulmonary embolism or arterial dissection. Ill-defined subpleural groundglass opacities are seen more prominent in the upper lobes, may represent atypical pneumonia or viral pneumonia (COVID-19 ?). Electronically Signed: Armando Leonardo MD at 2:31 EDT , EKG Initial EKG: Attestation: I personally reviewed and interpreted this EKG as follows: Interpretation: Sinus Rhythm (Sinus at 75 with no acute ischemia.) Treatment and Re-Evaluation Narrative: Repeat evaluation patient resting comfortably. EKG reveals no ischemia. Lab work reveals normal white count. Troponin is less than 3. D- dimer is elevated at 0.98. Chest x-ray per my interpretation was chronic changes. Radiology feels that there may be some groundglass opacities consistent with atypical pneumonia or potentially Covid pneumonia. CTA of the chest is obtained and reveals no evidence of PE or dissection. Groundglass opacities are confirmed on CTA. 2-hour repeat troponin returns at less than 3. Patient does report recently having COVID and recovering approximately 4 weeks ago. With patient having this new increased pain with some shortness of breath and cough with sputum she will be covered with Zithromax to cover atypical pneumonia as is possible after her Covid infection. She is to follow-up with her PCP. Return instructions provided. Discharge Plan Triage Chief Complaint: Chest Pain ED Provider: Velia Murillo Dx/Rx/DC Orders Clinical Impression: Atypical chest pain, Atypical pneumonia Instructions: ED Pneumonia (Adult) Prescriptions: New azithromycin [Zithromax Z-Robbie] 250 mg tablet 250 mg PO DAILY 4 Days Qty: 4 RF: 0 No Action ascorbate calcium (vitamin C) 500 mg tablet 500 mg PO DAILY RF: 0 omeprazole 40 MG capsule 20 mg PO BID RF: 0 calcium carbonate-vitamin D3 1 EACH tablet 1 ea PO DAILY RF: 0 acetaminophen 325 MG tablet 650 mg PO Q6H PRN PRN (Reason: Pain Score 1-10/10) RF: 0 cetirizine [Zyrtec] 10 mg Tablet 10 mg PO DAILY PRN (Reason: Allergy Symptoms) RF: 0 Primary Care Provider: Yaya Lopez Referrals: Yaya Lopez [Primary Care Provider] - 1-2 Weeks Disposition Disposition: Home, Self Care
--- NOTE | 2021-07-25 00:45 | EKG12_ITS ---
Test Reason : CP Blood Pressure : / mmHG Vent. Rate : 075 BPM Atrial Rate : 075 BPM P-R Int : 186 ms QRS Dur : 084 ms QT Int : 374 ms P-R-T Axes : 057 -41 053 degrees QTc Int : 417 ms Normal sinus rhythm Left axis deviation Abnormal ECG Confirmed by KAREN JUSTICE, SHRADDHA ([id number]), publication editor RAKEL STEPHEN ([id number]) on 07/26/2021 10:40:17 AM Referred By: Confirmed By:SHRADDHA JONES MD
[2021-07-25 01:05] LABS: Absolute Lymphocyte Count 2.65 X10^3/uL (0.83-4.51); Absolute Neutrophil Count 2.4 X10^3/uL (2.0-7.7); Basophil# 0.02 X10^3/uL; Basophil% 0.3 % (0-1); Eosinophil# 0.15 X10^3/uL; Eosinophils% 2.5 % (0-5); Hematocrit 38.8 % (37-47); Hemoglobin 12.8 g/dL (12.0-15.0); Lymphocyte # 2.65 X10^3/ul (0.83-4.51); Lymphocyte % 44.7 % (19-41); Mean Corpuscular Hgb 29.9 pg (27.0-32.0); Mean Corpuscular Volume 90.7 fL (81-99); Mean Platelet Vol. 9.9 fl (6.2-12.0); Monocyte# 0.68 X10^3/uL; Monocyte% 11.5 % (0-10); NRBC Flagged by Analyzer 0 % (0-5); Neutrophil # 2.42 X10^3/uL (2.7-7.7); Neutrophil % 40.8 % (47-70); Platelet Count 248 K/mm3 (150-450); RBC Distribution Width SD 46.8 fl (35.1-43.9); Red Blood Count 4.28 M/mm3 (4.2-5.4); White Blood Count 5.9 K/mm3 (4.4-11.0)
[2021-07-25 01:22] LABS: D-Dimer Quantitative (DVT/PE) 0.98 FEU/ug/m (0.27-0.49)
[2021-07-25 01:40] LABS: Anion Gap 6 (5-15); BUN 21 mg/dL (7-18); BUN/Creat Ratio 18.4 RATIO (10-20); Chloride 105 mmol/L (98-107); Creatinine, Serum 1.14 mg/dL (0.55-1.02); EST Glomerular Filtration Rate 49 mL/min (>60); Est Glom Filt Rate - Afr Amer 59 mL/min (>60); Estimated Creatinine Clearance 32.56 ml/min; Glucose 149 mg/dL (74-106); Potassium 3.8 mmol/L (3.5-5.1); Sodium Level 138 mmol/L (136-145); Troponin-I HS < 3 pg/mL (3.0-54.0)
--- NOTE | 2021-07-25 01:54 | CT_ITS ---
STUDY: CTA CHEST REASON FOR EXAM: Female, 80 years old. cp RADIATION DOSAGE (If Supplied By Facility): CTDIvol = ( 13.37 ) mGy, DLP = ( 414.67 ) mGycm TECHNIQUE: The examination was performed with the intravenous administration of IV 100mL Isovue-370. Post-processing of the angiographic images was performed, with multiplanar reformation and 3D reconstruction. Individualized dose optimization techniques were used for this CT. COMPARISON: None. FINDINGS: Normal enhancement of the main pulmonary artery and right and left pulmonary arteries. Normal enhancement of the bilateral peripheral pulmonary arteries. There is no demonstrated pulmonary embolism. Normal thoracic aorta and visualized great vessels. There is no demonstrated aortic dissection. Normal heart and pericardium. Normal mediastinum. Normal hilar regions. Normal visualized trachea and bronchi. The lungs are well expanded. Ill-defined subpleural groundglass opacities are seen more prominent in the upper lobes, may represent atypical pneumonia or viral pneumonia (COVID-19 ?). Normal pleura. Normal chest wall structures. Normal osseous structures. Normal visualized upper abdomen. CT/CTA Chest W/WO Contrast IMPRESSION: No demonstrated pulmonary embolism or arterial dissection. Ill-defined subpleural groundglass opacities are seen more prominent in the upper lobes, may represent atypical pneumonia or viral pneumonia (COVID-19 ?). Electronically Signed: Armando Leonardo MD at 2:31 EDT ,
[2021-07-25 03:21] LABS: Troponin-I HS < 3 pg/mL (3.0-54.0)
[2021-07-25] MEDS: Azithromycin 250 MG Tablet 500 MG PO (03:46)
== END 2021-07-25 03:55 | disposition home or self-care (01) ==
PROVIDERS: Emergency Provider Emergency Medicine; PCP Family Medicine; Visit Provider Emergency Medicine
DX: J18.9 Pneumonia, unspecified organism (principal); M54.9 Dorsalgia, unspecified; R07.89 Other chest pain; H92.09 Otalgia, unspecified ear; R68.84 Jaw pain; G89.29 Other chronic pain; H21.9 Unspecified disorder of iris and ciliary body; M19.90 Unspecified osteoarthritis, unspecified site; Z79.899 Other long term (current) drug therapy; Z86.16 Personal history of COVID-19
CPT/HCPCS: 71045; 71275; 80048; 84484; 85025; 85379; 93005; 99285; Q9967

== ENCOUNTER 2021-08-11 12:37 | Outpatient (CLI) | payer MEDICARE, OTHER, SELFPAY ==
[2021-08-11 15:09] LABS: Absolute Lymphocyte Count 1.16 X10^3/uL (0.83-4.51); Absolute Neutrophil Count 5.6 X10^3/uL (2.0-7.7); Basophil# 0.02 X10^3/uL; Basophil% 0.3 % (0-1); Eosinophil# 0.01 X10^3/uL; Eosinophils% 0.1 % (0-5); Hemoglobin 11.7 g/dL (12.0-15.0); Lymphocyte # 1.16 X10^3/ul (0.83-4.51); Lymphocyte % 15.2 % (19-41); Mean Corp Hgb Conc 33.4 g/dL (32-36); Mean Corpuscular Hgb 29.8 pg (27.0-32.0); Mean Corpuscular Volume 89.1 fL (81-99); Mean Platelet Vol. 10.7 fl (6.2-12.0); Monocyte# 0.78 X10^3/uL; Monocyte% 10.2 % (0-10); NRBC Flagged by Analyzer 0 % (0-5); Neutrophil # 5.64 X10^3/uL (2.7-7.7); Neutrophil % 73.9 % (47-70); POSITIVE MORPHOLOGY YES; Platelet Count 214 K/mm3 (150-450); RBC Distribution Width CV 13.4 % (11.6-14.6); RBC Distribution Width SD 44.1 fl (35.1-43.9); Red Blood Count 3.93 M/mm3 (4.2-5.4); White Blood Count 7.6 K/mm3 (4.4-11.0)
[2021-08-11 15:11] LABS: Differential Indicated SCAN CRITERIA MET
[2021-08-11 15:36] LABS: ALB/GLOB Ratio 0.9 RATIO (0.9-2.4); AST(SGOT) 18 U/L (15-37); Alanine Aminotransfer ALT/SGPT 41 U/L (13-56); Albumin, Serum 3.2 g/dL (3.2-5.0); Alkaline Phosphatase 134 U/L (45-117); Anion Gap 4 (5-15); BUN 10 mg/dL (7-18); Calcium,Total 8.2 mg/dL (8.5-10.1); Chloride 103 mmol/L (98-107); Creatinine, Serum 0.71 mg/dL (0.55-1.02); EST Glomerular Filtration Rate 84 mL/min (>60); Est Glom Filt Rate - Afr Amer 101 mL/min (>60); Globulin 3.6 g/dL (2.2-4.2); Glucose 106 mg/dL (74-106); Potassium 3.4 mmol/L (3.5-5.1); Protein, Total 6.8 g/dL (6.4-8.2); Sodium Level 136 mmol/L (136-145); Uric Acid 3.9 mg/dL (2.6-6.0)
[2021-08-11 15:49] LABS: Atypical Lymphocyte 1+ %; Platelet Estimate ADEQUATE (ADEQ); Red Cell Morphology NORM C+C NORMAL (NORM C&C)
== END 2021-08-11 23:59 | disposition home or self-care (01) ==
PROVIDERS: PCP Family Medicine; Referring Provider Podiatrist; Visit Provider Podiatrist
DX: M10.9 Gout, unspecified (principal)
CPT/HCPCS: 36415; 80053; 84550; 85025

== ENCOUNTER 2021-10-31 19:09 | Emergency (ER) | payer MEDICARE, OTHER, SELFPAY ==
[2021-10-31 19:10] VITALS: BP 139/71; PULSE 75; PULSE 76; RESP 16; TEMP 37.1; O2SAT 95; O2SAT 97; BMI 29.5
--- NOTE | 2021-10-31 19:23 | EDS_ITS ---
HPI History of Present Illness Chief Complaint: Chest Pain Detail of Chief Complaint: Chest pain that started a couple hours ago Informant: patient Narrative Narrative: Patient presents to the emergency department with chest pain that started couple of hours ago. Patient states that it is located in the left chest and is a burning and hard to describe discomfort. It seems to have moved up higher onto the chest wall near the clavicle now. EMS gave patient aspirin and nitro which did not seem to improve her pain. Patient states the pain is worse with certain movements but not with breathing. She denies recent travel or surgery. Patient tells me that her in July suddenly unexpectedly. She has been under more stress of late. Patient has no history of PE or DVT. She had COVID in the spring. She denies recent illness of fever or cough. Prior Similar Symptoms: Yes PFSH PFSH Medical History Chronic back pain GERD (gastroesophageal reflux disease) Osteoarthritis Home Medications calcium carbonate 600 mg-vitamin D3 10 mcg (400 unit) tablet 1 ea PO DAILY 08/07/15 [History Last Taken 08/07/15 08:30] omeprazole 40 mg capsule,delayed release 20 mg PO BID 08/07/15 [History Last Taken 05/08/19 06:30 20 MG] ascorbate calcium (vitamin C) 500 mg tablet 500 mg PO DAILY 05/07/19 [History Last Taken Unknown] acetaminophen 325 mg tablet 650 mg PO Q6H PRN PRN Pain Score 1-10/10 05/09/19 [Rx Last Taken Unknown] cetirizine 10 mg tablet (Zyrtec) 10 mg PO DAILY PRN Allergy Symptoms 08/25/20 [History Last Taken Unknown] azithromycin 250 mg tablet (Zithromax Z-Robbie) 250 mg PO DAILY 4 days #4 tabs 07/25/21 [Rx Last Taken Unknown] Allergy/AdvReac Type Severity Reaction Status Date / Time clarithromycin [From Biaxin] AdvReac Nausea Verified 07/25/21 00:38 Sulfa (Sulfonamide AdvReac Nausea Verified 07/25/21 00:38 Antibiotics) Family History Father Heart disease Thyroid disorder goiter Mother Cancer stomach Surgical History History of cholecystectomy (~04/2019) History of colonoscopy (~06/2018) History of craniotomy S/P appendectomy S/P cardiac catheterization S/P colonoscopy S/P hemorrhoidectomy S/P partial hysterectomy Social History Smoking Status: Never smoker alcohol intake: never substance use type: does not use additional social history: no aspirin no ibuprofen ROS ROS ED Review of Systems ROS Unobtainable: other Constitutional Constitutional ED: Reports lethargy; Denies chills, fever(s), sweats or weight loss Eyes Eyes: Denies blurry vision, change in vision or diplopia ENT ENT ED: Denies rhinorrhea or sore throat Cardiovascular Cardiovascular: Reports chest pain and racing heartbeat; Denies orthopnea Respiratory/Chest Respiratory/Chest: Reports dyspnea and dyspnea on exertion; Denies cough, orthopnea or sputum Gastrointestinal Gastrointestinal: Denies abdominal pain, diarrhea, nausea or vomiting Genitourinary Genitourinary ED: Denies dysuria, hematuria or urinary frequency Musculoskeletal Musculoskeletal: Denies arthralgias, back pain, myalgias or neck pain Integumentary Denies abscess, Abrasions or rash Neurologic Neurologic: Denies headache(s) or weakness Psychiatric Psychiatric: Denies anxiety, depression or suicidal thoughts Endocrine Endocrinology: Denies polydipsia, polyphagia or polyuria Hematologic/Lymphatic Hematologic/Lymphatic: Denies easy bleeding, easy bruising or lymphadenopathy Allergic/Immunologic Allergic/Immunologic ED: Denies mouth swelling, tongue swelling or urticaria EXAM Physical Exam Const Vital Signs: 10/31/21 19:10 10/31/21 19:10 10/31/21 19:31 Temperature 98.8 F 98.8 F Temperature Source Temporal Temporal Pulse Rate 75 76 Respiratory Rate 16 16 Blood Pressure 139/71 H 139/71 H Blood Pressure Mean 93 93 Pulse Ox 95 97 96 Oxygen Delivery Method Room Air Room Air Room Air 10/31/21 20:33 10/31/21 21:01 10/31/21 22:22 Temperature Temperature Source Pulse Rate 71 65 64 Respiratory Rate 17 17 18 Blood Pressure 113/100 H 121/60 H 131/77 H Blood Pressure Mean 104 80 95 Pulse Ox 99 99 98 Oxygen Delivery Method Room Air Room Air Positive well nourished and well developed General Appearance ED: well developed and NAD HEENT Reports TM's clear and moist mucous membranes normocephalic and atraumatic; Negative for trauma or tenderness Tympanic Membrane ED: Yes TM's clear Eyes PERRL and EOMs intact bilaterally General Eye ED: Negative for pale conjunctiva or scleral icterus Neck no lymphadenopathy, supple and no JVD General: Negative for tenderness Chest Wall inspection of chest normal and palpation of chest normal Chest: Negative for tenderness Resp normal respiratory effort and clear to auscultation bilaterally Effort and Inspection: Negative for respiratory distress or pain with movement Auscultation: Negative for rhonchi, wheezes or diminished lung sounds Cardio regular rate, regular rhythm, S1 normal heart sound, S2 normal heart sound and no murmurs Peripheral Pulses: pulses 2+ throughout GI normal to inspection, nondistended, normoactive bowel sounds, soft to palpation, non-tender, non-distended and no masses Back/Spine no CVA tenderness and no thoracic nor lumbar tenderness Extremity normal to inspection General Extremety ED: Negative for edema General Extremity: Negative for edema Neuro oriented x3, CN's II-XII intact bilaterally, no sensory deficits noted and gait normal Sensorium / Orientation: awake, alert, oriented to person, oriented to place and oriented to time Motor Exam: strength 5/5 throughout and strength abnormal Psych mental status grossly normal Skin no rashes or lesions noted and no wounds Heart Score History: Slightly/Non-Suspicious ECG: Normal Age: >/= 65 years Risk Factors: No Risk Factors Troponin: </= Normal Limit Score: 2 MDM MDM MDM Narrative Medical decision making narrative: IV line established on arrival. Patient did not want anything for pain. Lab work-up significant for an elevated D-dimer. She had a CT of the chest that was negative for PE or dissection. Troponin was normal. Delta troponin also normal without change significantly. Patient has a heart score of 2. At this point she is low risk and clinically do not feel her chest pain is cardiac or related to acute coronary syndrome. Patient is comfortable going home. Patient advised to follow-up with her primary care physician 3 to 5 days. She is to return if worsening pain, increasing shortness of breath, or condition should worsen anyway. Lab Data Attestation: I reviewed the patient's lab results. Labs: Laboratory Results - last 24 hr 0710/31/21 10/31/21 19:15 19:15 19:15 WBC 5.9 RBC 4.14 L Hgb 12.2 Hct 37.8 MCV 91.3 MCH 29.5 MCHC 32.3 RDW Std Deviation 43.5 RDW Coeff of Haresh 13.0 Plt Count 206 MPV 10.1 Immature Gran % (Auto) 0.200 Neut % (Auto) 41.3 L Lymph % (Auto) 45.3 H Webster % (Auto) 10.2 H Eos % (Auto) 2.7 Baso % (Auto) 0.3 Absolute Neuts (auto) 2.4 Absolute Lymphs (auto) 2.68 Nucleated RBC % 0 D-Dimer Quant (PE/DVT) 0.94 H* Sodium 143 Potassium 4.3 Chloride 106 Carbon Dioxide 31.0 Anion Gap 6 BUN 15 Creatinine 0.92 Estim Creat Clear Calc 40.34 Est GFR (MDRD) Af Amer 75 Est GFR (MDRD) Non-Af 62 BUN/Creatinine Ratio 16.3 Glucose 178 H Calcium 8.9 Troponin I High Sens 3 10/31/21 21:13 WBC RBC Hgb Hct MCV MCH MCHC RDW Std Deviation RDW Coeff of Haresh Plt Count MPV Immature Gran % (Auto) Neut % (Auto) Lymph % (Auto) Webster % (Auto) Eos % (Auto) Baso % (Auto) Absolute Neuts (auto) Absolute Lymphs (auto) Nucleated RBC % D-Dimer Quant (PE/DVT) Sodium Potassium Chloride Carbon Dioxide Anion Gap BUN Creatinine Estim Creat Clear Calc Est GFR (MDRD) Af Amer Est GFR (MDRD) Non-Af BUN/Creatinine Ratio Glucose Calcium Troponin I High Sens 4 Radiography Chest X-Ray - ED: 1 View Diagnostic Testing: Clinical Impression(s) from Imaging Studies Chest X-Ray 10/31/21 19:35 IMPRESSION: There are no acute findings. Electronically Signed: Nicola Dominguez MD at 19:48 EDT , Chest CTA 10/31/21 20:00 IMPRESSION: No demonstrated pulmonary embolism or arterial dissection. Electronically Signed: Nicola Dominguez MD at 20:56 EDT Reading Location ID and State: [facility] / [place] , Service support , 1 view chest x-ray obtained interpreted by myself as no acute disease process. Radiology in agreement. EKG Initial EKG: Attestation: I personally reviewed and interpreted this EKG as follows: Comments: Sinus rhythm with a ventricular rate of 75 bpm with no acute ST segment changes Discharge Plan Triage Chief Complaint: Chest Pain ED Provider: Devin Child Dx/Rx/DC Orders Clinical Impression: Chest pain Instructions: ED Chest Pain, Uncertain Cause Prescriptions: No Action ascorbate calcium (vitamin C) 500 mg tablet 500 mg PO DAILY omeprazole 40 MG capsule 20 mg PO BID Label Comments: acid refulux calcium carbonate-vitamin D3 1 EACH tablet 1 ea PO DAILY Label Comments: bone health acetaminophen 325 MG tablet 650 mg PO Q6H PRN PRN (Reason: Pain Score 1-10/10) 0RF cetirizine [Zyrtec] 10 mg Tablet 10 mg PO DAILY PRN (Reason: Allergy Symptoms) azithromycin [Zithromax Z-Robbie] 250 mg tablet 250 mg PO DAILY 4 Days Qty: 4 0RF Rx Instructions: start on day 2 of therapy Primary Care Provider: Yaya Lopez Referrals: Yaya Lopez [Primary Care Provider] - 3-5 Days Disposition Disposition: Home, Self Care
--- NOTE | 2021-10-31 19:23 | EKG12_ITS ---
Test Reason : CP Blood Pressure : / mmHG Vent. Rate : 075 BPM Atrial Rate : 075 BPM P-R Int : 184 ms QRS Dur : 090 ms QT Int : 388 ms P-R-T Axes : 049 -43 047 degrees QTc Int : 433 ms Normal sinus rhythm Left axis deviation Poor R wave progression Abnormal ECG Confirmed by DELMY JUSTICE, RITA ([id number]), newspaper managing editor RAKEL STEPHEN ([id number]) on 11/02/2021 8:17:42 AM Referred By: KERRI Confirmed By:RITA BROCK MD
[2021-10-31 19:31] VITALS: O2SAT 96
--- NOTE | 2021-10-31 19:35 | RAD_ITS ---
STUDY: XR Chest 1 View 10/31/2021 7:33 PM REASON FOR EXAM: Female, 80 years old. CHEST PAIN chest pain COMPARISON: 07/25/2021 TECHNIQUE: XR Chest 1 View FINDINGS: There is no demonstrated pleural abnormality. Normal heart size. Normal mediastinum. Normal gt. Prominent appearing increased interstitial lung markings. Normal visualized pulmonary arteries. There is atherosclerotic calcification of the aortic arch with tortuosity. There are diffuse degenerative changes of the visualized thoracic spine. There is degenerative osteoarthritis of the bilateral shoulders. There is no demonstrated abnormality of the visualized soft tissue structures of the upper abdomen. RAD/Chest 1 View (Portable) IMPRESSION: There are no acute findings. Electronically Signed: Nicola Dominguez MD at 19:48 EDT ,
[2021-10-31 19:37] LABS: Absolute Lymphocyte Count 2.68 X10^3/uL (0.83-4.51); Absolute Neutrophil Count 2.4 X10^3/uL (2.0-7.7); Basophil# 0.02 X10^3/uL; Basophil% 0.3 % (0-1); Eosinophil# 0.16 X10^3/uL; Eosinophils% 2.7 % (0-5); Hematocrit 37.8 % (37-47); Hemoglobin 12.2 g/dL (12.0-15.0); Lymphocyte # 2.68 X10^3/ul (0.83-4.51); Lymphocyte % 45.3 % (19-41); Mean Corp Hgb Conc 32.3 g/dL (32-36); Mean Corpuscular Hgb 29.5 pg (27.0-32.0); Mean Corpuscular Volume 91.3 fL (81-99); Mean Platelet Vol. 10.1 fl (6.2-12.0); Monocyte% 10.2 % (0-10); NRBC Flagged by Analyzer 0 % (0-5); Neutrophil # 2.44 X10^3/uL (2.7-7.7); Neutrophil % 41.3 % (47-70); Platelet Count 206 K/mm3 (150-450); RBC Distribution Width SD 43.5 fl (35.1-43.9); Red Blood Count 4.14 M/mm3 (4.2-5.4); White Blood Count 5.9 K/mm3 (4.4-11.0)
[2021-10-31] MEDS: 0.9% Normal Saline 1,000 ML 150 ML IV (19:37)
[2021-10-31 19:53] LABS: D-Dimer Quantitative (DVT/PE) 0.94 FEU/ug/m (0.27-0.49)
[2021-10-31 19:56] LABS: Anion Gap 6 (5-15); BUN 15 mg/dL (7-18); BUN/Creat Ratio 16.3 RATIO (10-20); Calcium,Total 8.9 mg/dL (8.5-10.1); Chloride 106 mmol/L (98-107); Creatinine, Serum 0.92 mg/dL (0.55-1.02); EST Glomerular Filtration Rate 62 mL/min (>60); Est Glom Filt Rate - Afr Amer 75 mL/min (>60); Estimated Creatinine Clearance 40.34 ml/min; Glucose 178 mg/dL (74-106); Potassium 4.3 mmol/L (3.5-5.1); Sodium Level 143 mmol/L (136-145); Troponin-I HS (w/2H Reflex) 3 pg/mL (3.0-54.0)
--- NOTE | 2021-10-31 20:00 | CT_ITS ---
EXAM: CT ANGIOGRAPHY CHEST WITHOUT AND WITH INTRAVENOUS CONTRAST CLINICAL INDICATION: chest pain, elevated d-dimer TECHNIQUE: Helically acquired angiography images were obtained of the chest without and with intravenous contrast. This CT exam was performed using one or more of the following dose reduction techniques: automated exposure control, adjustment of the mA and/or kV according to patient size, and/or use of iterative reconstruction technique. This report was created using [employer] report generation technology. MIP reconstructed images were created and reviewed. CONTRAST: IV 100mL Isovue-370 RADIATION DOSE: CTDIvol = 12.96 mGy, DLP = 371.67 mGy-cm COMPARISON: None. FINDINGS: PULMONARY ARTERIES: No demonstrated pulmonary embolism or arterial dissection. AORTA: There is atherosclerotic calcification of the aortic arch with tortuosity and elongation of the aortic arch and descending thoracic aorta. Normal in caliber. No evidence of dissection. GREAT VESSELS OF AORTIC ARCH: Unremarkable. Normal in caliber. No evidence of dissection. LUNGS AND PLEURAL SPACES: Unremarkable. No mass. No consolidation or edema. No pleural effusion or thickening. No pneumothorax. HEART: Unremarkable. Heart size is normal. No pericardial effusion. No signs of right heart strain, ratio of right ventricle to left ventricle measures less than 1. MEDIASTINUM: Unremarkable. No mediastinal or hilar adenopathy. Esophagus is unremarkable. No hiatal hernia. THYROID: Unremarkable. No thyroid lesions. BONES/JOINTS: There are degenerative changes of the shoulders. There are multi-level degenerative changes of the thoracic spine. No suspicious lytic or blastic abnormality. GALLBLADDER AND BILE DUCTS: The gallbladder is surgically absent. CT/CTA Chest W/WO Contrast IMPRESSION: No demonstrated pulmonary embolism or arterial dissection. Electronically Signed: Nicola Dominguez MD at 20:56 EDT ,
[2021-10-31 20:33] VITALS: BP 113/100; PULSE 71; RESP 17; O2SAT 99
[2021-10-31 21:01] VITALS: BP 121/60; PULSE 65; RESP 17; O2SAT 99
[2021-10-31 21:31] LABS: Reflex Troponin-HS? (from REC) Y
[2021-10-31 22:22] VITALS: BP 131/77; PULSE 64; RESP 18; O2SAT 98
[2021-10-31 22:41] LABS: Troponin-I HS 4 pg/mL (3.0-54.0)
[2021-10-31 23:23] VITALS: BP 131/77; PULSE 64; RESP 18; O2SAT 98
== END 2021-10-31 23:38 | disposition home or self-care (01) ==
PROVIDERS: Emergency Provider Emergency Medicine; PCP Family Medicine; Visit Provider Emergency Medicine
DX: R07.9 Chest pain, unspecified (principal); R06.00 Dyspnea, unspecified; M54.9 Dorsalgia, unspecified; G89.29 Other chronic pain; Z86.16 Personal history of COVID-19
CPT/HCPCS: 71045; 71275; 80048; 84484; 85025; 85379; 93005; 96360; 96361; 99285; J7030; Q9967; A4216

== ENCOUNTER → 2022-01-31 | Outpatient (CLI) | payer MEDICARE, OTHER, SELFPAY ==
--- NOTE | 2022-01-31 09:28 | US_ITS ---
STUDY: ULTRASOUND BREAST - RIGHT REASON FOR EXAM: Female, 81 years old. History of right breast cyst. TECHNIQUE: Axial and longitudinal images of the RIGHT breast were performed with a high resolution ultrasound transducer. # OF IMAGES: 24 COMPARISON: Comparison is made with prior mammogram done earlier today as well as prior sonogram of the right breast dated 01/25/2021. FINDINGS: RIGHT Breast: The medial aspect of the right breast was examined by ultrasound. There is homogeneous fibroglandular tissue. No sonographic abnormality is seen. US/Breast Limited Unilateral IMPRESSION: No sonographic abnormality is seen. ASSESSMENT CATEGORY: BIRADS Category 1: Negative. A letter regarding these results will be sent to the patient by the facility within 30 days. Electronically Signed: Avi Umana MD at 10:35 EDT ,
--- NOTE | 2022-01-31 09:28 | BI_ITS ---
MAMMOGRAPHY - BILATERAL DIAGNOSTIC REASON FOR EXAM: Female, 81 years old. History of right breast cyst. PERTINENT HISTORY: Non-contributory. TECHNIQUE: Digital bilateral breast lamonte (3D mammographic acquisition) in the CC and MLO projections. 2-D mediolateral oblique (MLO) and craniocaudad (CC) views of both breasts were obtained. CAD: Full Field Digital Mammography with Computer Added Detection was performed. COMPARISON: Comparison is made with prior study 01/25/2021 and 01/02/2020. FINDINGS: Breast Composition: There are scattered areas of fibroglandular density. There are no dominant masses or suspicious calcifications. No other significant abnormalities are identified. There has been no significant change since the prior study. BI/DIAG MAMM W/CAD, BILAT IMPRESSION: Stable bilateral diagnostic mammogram. One year follow-up recommended. (A) ASSESSMENT CATEGORY: BIRADS Category 1: Negative. A letter regarding these results will be sent to the patient by the facility within 30 days. Approximately 10% of breast cancers are not detected by mammography. A normal mammogram should not delay biopsy of a clinically suspicious abnormality. Electronically Signed: Avi Umana MD at 12:49 EDT ,
== END | disposition home or self-care (01) ==
LOC: OPBI 09:23
PROVIDERS: PCP Family Medicine; Visit Provider Family Medicine
DX: N60.11 Diffuse cystic mastopathy of right breast (principal)
CPT/HCPCS: 76642; 77062; 77066; G0279

== ENCOUNTER → 2023-05-21 | Outpatient (CLI) | payer MEDICARE, OTHER, SELFPAY | END | disposition home or self-care (01) | LOC: LABSPEC 10:15 | PROVIDERS: PCP Family Medicine; Referring Provider Nurse Practitioner Family; Visit Provider Nurse Practitioner Family | DX: R30.0 Dysuria (principal) | CPT/HCPCS: 87086; 87088 ==

== ENCOUNTER → 2023-07-05 | Outpatient (CLI) | payer MEDICARE, OTHER, SELFPAY ==
--- NOTE | 2023-07-05 13:26 | CT_ITS ---
EXAM: CT Abdomen And Pelvis W/ Contrast Injection HISTORY: LLQ abd pain TECHNIQUE: Routine protocol CT abdomen pelvis. IV Contrast: IV 100mL Isovue-300 . Oral Contrast: with. Sagittal and coronal images were reconstructed. RADIATION DOSAGE (If Supplied By Facility): CTDIvol = ( 13.70 ) mGy, DLP = ( 877.99 ) mGycm Individualized dose optimization techniques were used for this CT. COMPARISON: CT chest 10/31/2021. LIMITATIONS: None. FINDINGS: LOWER CHEST: Lung bases are clear. LIVER: Small cyst in the right lobe. GALLBLADDER/BILE DUCTS: Gallbladder is surgically absent.. PANCREAS: Unremarkable. SPLEEN: Unremarkable. ADRENAL GLANDS: Unremarkable. KIDNEYS / URETERS: Unremarkable. BOWEL / MESENTERY: Unremarkable. No bowel obstruction. APPENDIX: Not identified. PERITONEUM: No free air. No free fluid. VESSELS: Abdominal aorta is normal caliber. RETROPERITONEUM: Unremarkable. REPRODUCTIVE ORGANS: Uterus not identified. BLADDER: Unremarkable. ABDOMINAL WALL: Small bilateral inguinal hernias containing only fat, no bowel, with no associated stranding or fluid. BONES: No acute abnormality. Degenerative changes lumbar spine with minimal anterolisthesis at L4-5, and L5-S1 OTHER: None. CT/Abdomen/Pelvis WITH Contrast IMPRESSION: No acute findings. Small fat-containing bilateral inguinal hernias without evidence of complication. Electronically Signed: Liza Blackwell MD at 8:11 EST ,
[2023-07-05 14:13] LABS: CREATININE FINGERSTICK < 1.0 mg/dL (0.55-1.02); EGFR FINGERSTICK > 60.0000 mL/min (>60)
== END | disposition home or self-care (01) ==
LOC: CT 13:25
PROVIDERS: PCP Family Medicine; Referring Provider Surgery; Visit Provider Surgery
DX: R10.32 Left lower quadrant pain (principal)
CPT/HCPCS: 74177; Q9967

== ENCOUNTER → 2023-10-23 | Outpatient (CLI) | payer MEDICARE, OTHER, SELFPAY ==
--- NOTE | 2023-10-23 15:31 | MRI_ITS ---
EXAM: MR HEAD WITHOUT AND WITH INTRAVENOUS CONTRAST CLINICAL INDICATION: Headache. History of meningioma. TECHNIQUE: Multiplanar and multisequence MR images of the brain were obtained without and with intravenous contrast. CONTRAST: 15 mL of IV Clariscan. COMPARISON: CT head without contrast 08/25/2020. FINDINGS: BRAIN AND EXTRA-AXIAL SPACES: No focal signal abnormalities throughout the brain parenchyma in all pulse sequences. Normal ventricles and cisterns. No intra- or extra-axial hemorrhage. No evidence of acute infarct. No intracranial mass or mass effect. There is preservation of the mayers/white matter interface. Posterior fossa structures are unremarkable. No hydrocephalus. Following IV contrast administration, there are no abnormally enhancing lesions intra-axially or extra-axially. SELLA: Unremarkable. Normal sella turcica, pituitary gland, infundibular stalk, optic chiasm and hypothalamus. AUDITORY SYSTEM: Unremarkable. The internal auditory canals are patent. BONES/JOINTS: Right-sided craniotomy. No discrete lytic or blastic abnormalities. SINUSES: Unremarkable as visualized. Clear. MASTOID AIR CELLS: Unremarkable as visualized. Clear. ORBITS: Unremarkable as visualized. Both globes, extraocular muscles, optic nerves and retrobulbar fat appear unremarkable. VASCULATURE: Unremarkable as visualized. Normal flow voids in the major intracranial circulation. MRI/Brain W/WO Contrast IMPRESSION: 1. No MRI evidence of recurrent or residual meningioma. 2. Negative MRI brain with and without contrast. Electronically Signed: Andrei Velazquez MD at 9:49 EDT ,
[2023-10-23 16:03] LABS: CREATININE FINGERSTICK 1.1 mg/dL (0.55-1.02)
== END | disposition home or self-care (01) ==
LOC: MRI 15:25
PROVIDERS: PCP Family Medicine; Referring Provider Physician Assistant; Visit Provider Physician Assistant
DX: R51.9 Headache, unspecified (principal); Z86.011 Personal history of benign neoplasm of the brain
CPT/HCPCS: 70553; A9575

== ENCOUNTER 2024-01-09 18:50 | Emergency (ER) | payer MEDICARE, OTHER, SELFPAY ==
[2024-01-09 18:50] VITALS: BP 170/77; PULSE 93; RESP 20; TEMP 36.1; O2SAT 97; BMI 28.8
[2024-01-09 18:52] VITALS: BP 170/77; PULSE 93; RESP 20; TEMP 36.1; O2SAT 98
[2024-01-09 19:02] VITALS: O2SAT 98
--- NOTE | 2024-01-09 19:02 | EKG12_ITS ---
Test Reason : SOB Blood Pressure : / mmHG Vent. Rate : 071 BPM Atrial Rate : 071 BPM P-R Int : 192 ms QRS Dur : 086 ms QT Int : 370 ms P-R-T Axes : 043 -37 028 degrees QTc Int : 402 ms Normal sinus rhythm Left axis deviation Minimal voltage criteria for LVH, may be normal variant ( R in aVL ) Abnormal ECG Confirmed by KAREN JUSTICE, SHRADDHA ([id number]), commissioning editor ENRIKE TOVAR ([id number]) on 01/11/2024 7:59:53 AM Referred By: NII Confirmed By:SHRADDHA JONES MD
--- NOTE | 2024-01-09 19:03 | EDS_ITS ---
HPI History of Present Illness Chief Complaint: Shortness of Breath Detail of Chief Complaint: Cough and chest pain Informant: patient Narrative Narrative: Patient presents to the emergency department with complaint of a cough that started initially yesterday. She describes pain between her shoulder blades with cough and deep breath. She denies recent travel or surgery. No history of PE or DVT. She has not had a fever. Patient states that about a week and a half ago to 2 weeks ago she was treated for a sinus infection and she had a COVID test at that time that was negative. Patient denies headache or bodyaches. 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 GERD (gastroesophageal reflux disease) Osteoarthritis Home Medications ?Medication ?Instructions ?Recorded ?Last Taken ?Type calcium carbonate 600 mg-vitamin 1 ea PO DAILY 08/07/15 08/07/15 08:30 History D3 10 mcg (400 unit) tablet omeprazole 40 mg capsule,delayed 20 mg PO BID 08/07/15 05/08/19 06:30 History release 20 MG ascorbate calcium (vitamin C) 500 500 mg PO DAILY 05/07/19 Unknown History mg tablet acetaminophen 325 mg tablet 650 mg (2 x 325 mg) PO Q6H PRN PRN 05/09/19 Unknown Rx Pain Score 1-02/06 cetirizine 10 mg tablet (Zyrtec) 10 mg PO DAILY PRN Allergy Symptoms 08/25/20 Unknown History meloxicam 7.5 mg tablet 7.5 mg PO 06/22/23 Unknown History azithromycin 250 mg tablet See Rx Instructions PO .COMPLEX #6 12/26/23 Unknown Rx tabs Allergy/AdvReac Type Severity Reaction Status Date / Time clarithromycin (From Biaxin) AdvReac Nausea Verified 01/09/24 18:50 Sulfa (Sulfonamide AdvReac Nausea Verified 01/09/24 18:50 Antibiotics) Family History Father Heart disease Thyroid disorder goiter Mother Cancer stomach Surgical History History of cholecystectomy (~04/2019) History of colonoscopy (~06/2018) History of craniotomy S/P appendectomy S/P cardiac catheterization S/P colonoscopy S/P hemorrhoidectomy S/P partial hysterectomy Social History Smoking Status: Never smoker alcohol intake: never substance use type: does not use additional social history: no aspirin no ibuprofen ROS ROS ED Review of Systems ROS Unobtainable: other Constitutional Constitutional ED: Reports lethargy; Denies chills, fever(s), sweats or weight loss Eyes Eyes: Denies blurry vision, change in vision or diplopia ENT ENT ED: Denies rhinorrhea or sore throat Cardiovascular Cardiovascular: Reports chest pain; Denies orthopnea or racing heartbeat Respiratory/Chest Respiratory/Chest: Reports cough and dyspnea; Denies dyspnea on exertion, orthopnea or sputum Gastrointestinal Gastrointestinal: Denies abdominal pain, diarrhea, nausea or vomiting Genitourinary Genitourinary ED: Denies dysuria, hematuria or urinary frequency Musculoskeletal Musculoskeletal: Reports back pain; Denies arthralgias, myalgias or neck pain Integumentary Denies abscess, Abrasions or rash Neurologic Neurologic: Denies headache(s) or weakness Psychiatric Psychiatric: Denies anxiety, depression or suicidal thoughts Endocrine Endocrinology: Denies polydipsia, polyphagia or polyuria Hematologic/Lymphatic Hematologic/Lymphatic: Denies easy bleeding, easy bruising or lymphadenopathy Allergic/Immunologic Allergic/Immunologic ED: Denies mouth swelling, tongue swelling or urticaria EXAM Physical Exam Const Vital Signs: 01/09/24 18:50 01/09/24 18:50 Temperature 96.9 F L Temperature Source Temporal Pulse Rate 93 Respiratory Rate 20 H Respiratory Effort Short of Breath Respiratory Depth Normal Respiratory Pattern Normal Blood Pressure 170/77 H Blood Pressure Mean 108 Pulse Ox 97 Oxygen Delivery Method Room Air Positive well nourished and well developed General Appearance ED: well developed and NAD HEENT Reports TM's clear and moist mucous membranes normocephalic and atraumatic; Negative for trauma or tenderness Tympanic Membrane ED: Yes TM's clear Eyes PERRL and EOMs intact bilaterally General Eye ED: Negative for pale conjunctiva or scleral icterus Neck no lymphadenopathy, supple and no JVD General: Negative for tenderness Chest Wall inspection of chest normal and palpation of chest normal Chest: Negative for tenderness Resp normal respiratory effort and clear to auscultation bilaterally Effort and Inspection: Negative for respiratory distress or pain with movement Auscultation: Negative for rhonchi, wheezes or diminished lung sounds Cardio regular rate, regular rhythm, S1 normal heart sound, S2 normal heart sound and no murmurs Peripheral Pulses: pulses 2+ throughout GI normal to inspection, nondistended, normoactive bowel sounds, soft to palpation, non-tender, non-distended and no masses Back/Spine no CVA tenderness and no thoracic nor lumbar tenderness Extremity normal to inspection General Extremety ED: Negative for edema General Extremity: Negative for edema Neuro oriented x3, CN's II-XII intact bilaterally, no sensory deficits noted and gait normal Sensorium / Orientation: awake, alert, oriented to person, oriented to place and oriented to time Motor Exam: strength 5/5 throughout and strength abnormal Psych mental status grossly normal Skin no rashes or lesions noted and no wounds MDM MDM MDM Narrative Medical decision making narrative: Patient presents to the emergency department with a slight dry cough and some chest discomfort and pain between her shoulder blades with cough and movement. In the differential would be pneumonia versus viral URI versus chest wall strain and pleurisy or PE which I feel is less likely. Low suspicion for acute coronary syndrome. IV line established on arrival. EKG obtained showed a sinus rhythm with rate of 71 bpm with no acute ST segment changes. CBC with differential was unremarkable. Chemistries unremarkable. Troponin was normal. D-dimer when corrected for age was normal. 1 view chest x-ray was unremarkable. This point suspect possibly a viral URI and pleurisy or chest wall strain. Advised to use ibuprofen for discomfort. Patient to follow-up with her primary care physician within next 3 to 5 days. I do not feel any antibiotics are indicated. Lab Data Attestation: I reviewed the patient's lab results. Radiography Diagnostic Testin view chest x-ray obtained interpreted by myself as no evidence of infiltrate or pneumothorax or acute disease process. Radiology in agreement EKG Initial EKG: Attestation: I personally reviewed and interpreted this EKG as follows: Comments: Sinus rhythm with rate of 71 bpm with no acute ST segment changes Discharge Plan Triage Chief Complaint: Shortness of Breath ED Provider: Devin Child Dx/Rx/DC Orders Clinical Impression: Viral URI, Chest pain Instructions: ED Chest Pain, Uncertain Cause, ED URI, Viral, No Abx (Adult) Prescriptions: No Action ascorbate calcium (vitamin C) 500 mg tablet 500 mg PO DAILY meloxicam 7.5 mg tablet 7.5 mg PO Patient Comments: take 1 tablet by mouth once daily azithromycin 250 mg tablet See Rx Instructions PO .COMPLEX Qty: 6 0RF Rx Instructions: For 250 mg dose pack: take 500 mg today (day 1), then 250 mg for 4 days (days 2-5) PO omeprazole 40 MG capsule 20 mg PO BID Patient Comments: acid refulux calcium carbonate-vitamin D3 1 EACH tablet 1 ea PO DAILY Patient Comments: bone health acetaminophen 325 MG tablet 650 mg PO Q6H PRN PRN (Reason: Pain Score 1-10/10) 0RF cetirizine [Zyrtec] 10 mg Tablet 10 mg PO DAILY PRN (Reason: Allergy Symptoms) Primary Care Provider: Earl Mora Referrals: Earl Mora DO [Primary Care Provider] - 3-5 Days Print Language: Italian Disposition Disposition: Home, Self Care
[2024-01-09] MEDS: 0.9% Normal Saline (1000mL) 1,000 ML 150 ML IV (19:10)
[2024-01-09 19:22] LABS: Absolute Lymphocyte Count 1.41 X10^3/uL (0.83-4.51); Absolute Neutrophil Count 2.7 X10^3/uL (2.0-7.7); Basophil# 0.02 X10^3/uL; Basophil% 0.4 % (0-1); Eosinophil# 0.11 X10^3/uL; Eosinophils% 2.3 % (0-5); Hematocrit 36.9 % (37-47); Hemoglobin 12.1 g/dL (12.0-15.0); Lymphocyte # 1.41 X10^3/ul (0.83-4.51); Lymphocyte % 29.7 % (19-41); Mean Corp Hgb Conc 32.8 g/dL (32-36); Mean Corpuscular Volume 91.6 fL (81-99); Mean Platelet Vol. 9.5 fl (6.2-12.0); Monocyte% 10.5 % (0-10); NRBC Flagged by Analyzer 0 % (0-5); Neutrophil % 56.9 % (47-70); Platelet Count 193 K/mm3 (150-450); RBC Distribution Width CV 12.3 % (11.6-14.6); RBC Distribution Width SD 41.4 fl (35.1-43.9); Red Blood Count 4.03 M/mm3 (4.2-5.4); White Blood Count 4.8 K/mm3 (4.4-11.0)
--- NOTE | 2024-01-09 19:25 | RAD_ITS ---
STUDY: X-RAY CHEST REASON FOR EXAM: Female, 83 years old. Cough TECHNIQUE: Single AP portable view of the chest. COMPARISON: None. FINDINGS: The lungs are clear and expanded. There is no demonstrated pleural abnormality. Normal size heart. Normal mediastinum and gt. Normal visualized pulmonary arteries. There is atherosclerotic calcification of the aortic arch with tortuosity. There is demineralization of the osseous structures. There is degenerative change of the spine. Normal visualized ribs, clavicles, and shoulders. There is no demonstrated abnormality of the visualized soft tissue structures of the upper abdomen. RAD/Chest 1 View (Portable) IMPRESSION: Degenerative changes, as described above. No demonstrated acute cardiopulmonary process. Electronically Signed: Benigno Arredondo MD at 19:51 EDT ,
[2024-01-09 19:35] LABS: Anion Gap 8 (5-15); BUN 20 mg/dL (7-18); BUN/Creat Ratio 26.8 RATIO (10-20); Calcium,Total 9.2 mg/dL (8.5-10.1); Chloride 104 mmol/L (98-107); Creatinine, Serum 0.74 mg/dL (0.55-1.02); EST Glomerular Filtration Rate 79 mL/min (>60); Est Glom Filt Rate - Afr Amer 96 mL/min (>60); Estimated Creatinine Clearance 51.31 ml/min; Glucose 162 mg/dL (74-106); Sodium Level 139 mmol/L (136-145); Troponin-I HS 4 pg/mL (3.0-54.0)
[2024-01-09 19:50] LABS: D-Dimer Quantitative (DVT/PE) 0.64 FEU/ug/m (0.27-0.49)
[2024-01-09 19:52] VITALS: BP 137/80; PULSE 81; RESP 18; TEMP 36.6; O2SAT 98
[2024-01-09 20:15] VITALS: BP 137/80; PULSE 81; RESP 18; TEMP 36.6; O2SAT 95
== END 2024-01-09 20:16 | disposition home or self-care (01) ==
PROVIDERS: Emergency Provider Emergency Medicine; PCP Family Medicine; Visit Provider Emergency Medicine
DX: J06.9 Acute upper respiratory infection, unspecified (principal); R07.89 Other chest pain
CPT/HCPCS: 71045; 80048; 84484; 85025; 85379; 87631; 93005; 96360; 99284; J7030; A4216

== ENCOUNTER 2024-04-18 08:02 | Day surgery (SDC) | payer MEDICARE, OTHER, SELFPAY ==
--- NOTE | 2024-04-16 12:35 | PAT.ANE_ITS ---
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 When Was Last Pacemaker Check QUESTION #4 FULL TEXT: You/Your Family Experience fever (hyperthermia) with Anesthesia Last Oral Intake Last Oral intake: Last Oral Intake NPO since Meds taken in AM with sips of water? Meds patient instructed to take am of surgery PONV PONV - respiratory therapy technician: PONV - respiratory therapy technician Female Yes 04/16/24 12:21 HX of Motion Sickness No 04/16/24 12:21 HX of N/V After Surgery No 04/16/24 12:21 Non-Smoker Yes 04/16/24 12:21 Duration of Surgery greater No 04/16/24 12:21 than 60 minutes Number of Risk Factors 2 04/16/24 12:21 PONV Score Moderate Risk 04/16/24 12:21 Height & Weight Height & Weight: Anesthesia: Height & Weight Height 5 ft 3 in 03/03/24 09:46 Respiratory Assessment Respiratory Assessment - respiratory therapy technician: Respiratory Tract Infection Hx - respiratory therapy technician Hx Respiratory Tract Infection No 04/16/24 12:21 STOP Sleep Apnea STOP Sleep Apnea - respiratory therapy technician: STOP Sleep Apnea - respiratory therapy technician Hx Hypertension Yes: CONTROLLED WITH MED 04/16/24 12:21 Hx Sleep Apnea No 04/16/24 12:21 CPAP No 03/17/23 09:43 BIPAP Do you snore loudly (louder No 04/16/24 12:21 than talking or can be heard Do you often feel tired/ No 04/16/24 12:21 fatigued/ sleepy during daytime? Has anyone observed you stop No 04/16/24 12:21 breathing during sleep? STOP Results Negative 04/16/24 12:21 QUESTION #5 FULL TEXT : Do you snore loudly (louder than talking or can be heard through closed doors)? 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 Specify any problems Hx of Preganancy in last 3 No 04/16/24 12:21 Months Nurse Filling Out Transfusion DSCHRIBER 04/16/24 12:21 & Questions: Date: 04/16/24 04/16/24 12:21 Time: 12:22 04/16/24 12:21 Patient unable to answer at this time (ie. confused, unrespo /Reproduction History /Reproductive History - respiratory therapy technician: /Reproductive Hx- respiratory therapy technician Hx Now No 04/16/24 12:21 Gestational Age (in weeks): EDC: Hx Hx Para Hx Section SAB No 04/16/24 12:21 PFSH Medical History (Updated 04/16/24 @ 12:27 by Claudia Colindres) Wears hearing aid Wears glasses Wears partial dentures Wears dentures Post-menopausal Bladder disease Arthritis Back pain Migraine headache Difficulty swallowing Non-smoker History of edema History of stress test Hypertension Osteoarthritis Chronic back pain GERD (gastroesophageal reflux disease) Home Medications ?Medication ?Instructions ?Recorded ?Last Taken ?Type calcium 600 mg (as 1 ea PO DAILY 08/07/15 08/07/15 08:30 History carbonate)-vitamin D3 10 mcg (400 unit) tablet omeprazole 40 mg capsule,delayed 20 mg PO DAILY 08/07/15 05/08/19 06:30 History release 20 MG ascorbate calcium (vitamin C) 500 500 mg PO DAILY 05/07/19 Unknown History mg tablet acetaminophen 325 mg tablet 650 mg (2 x 325 mg) PO Q6H PRN PRN 05/09/19 Unknown Rx Pain Score 1-02/06 cetirizine 10 mg tablet (Zyrtec) 10 mg PO DAILY PRN Allergy Symptoms 08/25/20 Unknown History meloxicam 7.5 mg tablet 7.5 mg PO DAILY 06/22/23 Unknown History benzonatate 100 mg capsule 200 mg (2 x 100 mg) PO TID PRN 03/07/24 Unknown Rx cough #30 caps carvedilol 6.25 mg tablet 6.25 mg PO BID BP 04/16/24 Unknown History Allergy/AdvReac Type Severity Reaction Status Date / Time clarithromycin (From Biaxin) AdvReac Nausea Verified 04/16/24 12:18 Sulfa (Sulfonamide AdvReac Nausea Verified 04/16/24 12:18 Antibiotics) Family History Father Heart disease Thyroid disorder goiter Mother Cancer stomach Surgical History (Updated 04/16/24 @ 12:27 by Claudia Colindres) History of ERCP History of craniotomy History of cholecystectomy (~04/2019) History of colonoscopy (~06/2018) S/P hemorrhoidectomy S/P appendectomy S/P partial hysterectomy S/P cardiac catheterization S/P colonoscopy Social History Smoking Status: Never smoker alcohol intake: never substance use type: does not use additional social history: no aspirin no ibuprofen Audit: Pertinent Findings Pertinent Findings EKG Perinent findings: 01/11/2024 normal sinus rhythms the rhythm 71 left axis deviation LVH Stress test pertinent findings: 08/09/2015 normal perfusion stress test preserved EF 80% Recommendation Anesthesia Recommendation Anesthesia recommendation: OPTIMIZED for anesthesia
[2024-04-18] VITALS (8 sets, daily range): BP systolic 88–118; BP diastolic 40–65; PULSE 66–74; RESP 16–18; TEMP 36.2–37.3; O2SAT 94–98; BMI 29.3
--- NOTE | 2024-04-18 | ESO_PTH ---
PATIENT: JACI NAJERA LOC: EN U#:[id number] AGE/SX: 83/F ROOM: RE04/18/[address]: Dr. Joni Garcias MD : 1940 BED: DIS: 04/18/2024 SPEC #: [id number] RECD: 04/18/24 13:06 STATUS: ANJALI JENNIFER #: [id number] NASH: 04/18/24 00:[address]: Joni Garcias DEPT: SURGICAL PATHOLOGY RECD BY: John Peguero ENTERED: 04/18/24 13:06 SP TYPE: MARINA QUINONES DR: Dr. Earl Mora DO Tissues: Esophagus, NOS Procedures: Surgery Specimen Level IV HEADER OPERATION: EGD with biopsy PRE-OP DIAGNOSIS: Dysphagia TISSUE SUBMITTED: Esophagus biopsy MICROSCOPIC DIAGNOSIS Esophagus biopsy: Fragments of benign squamous epithelium. See comment. RAFAELA 04/21/2024 COMMENT Increased number of eosinophils consists with eosinophilic esophagitis are not seen. Correlation with clinical, endoscopic findings and appropriate follow up are necessary. MICROSCOPIC DESCRIPTION Slides are reviewed. GROSS DESCRIPTION Received in fixative is one container labeled with the patient's name and designated Esophagus biopsy. The specimen consists of multiple irregular fragments of light vang soft tissue that in aggregate measure 0.1 x 0.2 x 1.0 cm. The specimen is totally submitted in one cassette. MS/mr 04/18/2024 TC:5 CPT:78132
--- NOTE | 2024-04-18 09:01 | PCM.PRE.AN2 ---
ASA Classification* ASA Classification ASA Classification: 2 Assessment & Plan Anesthesia* Anesthesia Assessment Anesthesia Assessment: Discussed sedation and/or anesthesia options, risks, benefits, and alternatives with patient/parents/legal guardian/POA. Questions invited. The patient/parents/legal guardian/POA seems to understand and agrees to proceed with anesthesia plan. Reviewed the physical assessment, medical history, allergy history and patient home medications list prior to surgery/procedure/anesthetic and documented any changes. Performed airway and anesthesia risk assessments. Anesthesia Type Anesthesia Type: MAC Anesthesia Focused Assessment* Temperature: 99.2 F Pulse Rate: 71 Blood Pressure: 118/65 Respiratory Rate: 18 Pulse Ox: 98 Airway Assessment Mouth opens: >3 cm Mallampati Score: II Focused Labs Anesthesia Preop lab: CBC WBC 4.8 K/mm3 (4.4-11.0) 01/09/24 19:08 RBC 4.03 M/mm3 (4.2-5.4) L 01/09/24 19:08 Hgb 12.1 g/dL (12.0-15.0) 01/09/24 19:08 Hct 36.9 % (37-47) L 01/09/24 19:08 Plt Count 193 K/mm3 (150-450) 01/09/24 19:08 CHEMISTRY Potassium 4.0 mmol/L (3.5-5.1) 01/09/24 19:08 Sodium 139 mmol/L (136-145) 01/09/24 19:08 Magnesium 2.3 mg/dL (1.8-2.4) 08/07/15 15:55 BUN 20 mg/dL (7-18) H 01/09/24 19:08 Creatinine 0.74 mg/dL (0.55-1.02) 01/09/24 19:08 Glucose 162 mg/dL (74-106) H 01/09/24 19:08 TSH 1.53 uIU/mL (0.358-3.74) 08/07/15 09:07 COAG Pre-Assessment Diagnosis/Proposed Procedure Planned Operative Procedure(s): EGD POSS DILATION Anesthesia History 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 When Was Last Pacemaker Check QUESTION #4 FULL TEXT: You/Your Family Experience fever (hyperthermia) with Anesthesia Last Oral Intake Last Oral intake: Last Oral Intake NPO since 07:00 04/18/24 08:33 Meds taken in AM with sips of Yes 04/18/24 08:33 water? 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 Female Yes 04/16/24 12:21 HX of Motion Sickness No 04/16/24 12:21 HX of N/V After Surgery No 04/16/24 12:21 Non-Smoker Yes 04/16/24 12:21 Duration of Surgery greater No 04/16/24 12:21 than 60 minutes Number of Risk Factors 2 04/16/24 12:21 PONV Score Moderate Risk 04/16/24 12:21 Height & Weight Height & Weight: Anesthesia: Height & Weight Height 5 ft 3 in 04/18/24 08:33 Weight: 75.2 kg 04/18/24 08:33 Body Mass Index (BMI) 29.3 04/18/24 08:33 Respiratory Assessment Respiratory Assessment - flux plant operator: Respiratory Tract Infection Hx - flux plant operator Hx Respiratory Tract Infection No 04/16/24 12:21 STOP Sleep Apnea STOP Sleep Apnea - flux plant operator: STOP Sleep Apnea - flux plant operator Hx Hypertension Yes: CONTROLLED WITH MED 04/16/24 12:21 Hx Sleep Apnea No 04/16/24 12:21 CPAP No 03/17/23 09:43 BIPAP Do you snore loudly (louder No 04/16/24 12:21 than talking or can be heard Do you often feel tired/ No 04/16/24 12:21 fatigued/ sleepy during daytime? Has anyone observed you stop No 04/16/24 12:21 breathing during sleep? STOP Results Negative 04/16/24 12:21 QUESTION #5 FULL TEXT : Do you snore loudly (louder than talking or can be heard through closed doors)? 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: Tobacco Use History - flux plant operator Tobacco Use Non-smoker 03/17/23 09:43 Smoking Status Never smoker 04/16/24 12:21 Hx Tobacco Use No 04/16/24 12:21 Years Smoking Packs Smoked per Day Smoking Cessation Date was within the last 15 years Hx Smoking Cessation Date Hx Smoking Cessation Counseling Hematologic Medial History Hematologic Hx - flux plant operator: Hematologic Medical Hx - primary counselor Hx of Blood Transfusion No 04/16/24 12:21 Hx of Transfusion in last 3 No 04/16/24 12:21 Months Date of Last Transfusion (if within last 3 months) Ever experience any problems No 04/16/24 12:21 with transfusion(s)? Specify any problems Hx of Preganancy in last 3 No 04/16/24 12:21 Months Nurse Filling Out Transfusion DSCHRIBER 04/16/24 12:21 & Questions: Date: 04/16/24 04/16/24 12:21 Time: 12:22 04/16/24 12:21 Patient unable to answer at this time (ie. confused, unrespo /Reproduction History /Reproductive History - flux plant operator: /Reproductive Hx- flux plant operator Hx Now No 04/16/24 12:21 Gestational Age (in weeks): EDC: Hx Hx Para Hx Section SAB No 04/16/24 12:21 PFSH Medical History Wears hearing aid Wears glasses Wears partial dentures Wears dentures Post-menopausal Bladder disease Arthritis Back pain Migraine headache Difficulty swallowing Non-smoker History of edema History of stress test Hypertension Osteoarthritis Chronic back pain GERD (gastroesophageal reflux disease) Home Medications ?Medication ?Instructions ?Recorded ?Last Taken ?Type calcium 600 mg (as 1 ea PO DAILY 08/07/15 08/07/15 08:30 History carbonate)-vitamin D3 10 mcg (400 unit) tablet omeprazole 40 mg capsule,delayed 20 mg PO DAILY 08/07/15 04/18/24 History release ascorbate calcium (vitamin C) 500 500 mg PO DAILY 05/07/19 Unknown History mg tablet acetaminophen 325 mg tablet 650 mg (2 x 325 mg) PO Q6H PRN PRN 05/09/19 Unknown Rx Pain Score 1-02/06 cetirizine 10 mg tablet (Zyrtec) 10 mg PO DAILY PRN Allergy Symptoms 08/25/20 04/18/24 History meloxicam 7.5 mg tablet 7.5 mg PO DAILY 06/22/23 Unknown History benzonatate 100 mg capsule 200 mg (2 x 100 mg) PO TID PRN 03/07/24 Unknown Rx cough #30 caps carvedilol 6.25 mg tablet 6.25 mg PO BID BP 04/16/24 04/18/24 History Allergy/AdvReac Type Severity Reaction Status Date / Time clarithromycin (From Biaxin) AdvReac Nausea Verified 04/18/24 08:32 Sulfa (Sulfonamide AdvReac Nausea Verified 04/18/24 08:32 Antibiotics) Family History Father Heart disease Thyroid disorder goiter Mother Cancer stomach Surgical History History of ERCP History of craniotomy History of cholecystectomy (~04/2019) History of colonoscopy (~06/2018) S/P hemorrhoidectomy S/P appendectomy S/P partial hysterectomy S/P cardiac catheterization S/P colonoscopy Social History Smoking Status: Never smoker alcohol intake: never substance use type: does not use additional social history: no aspirin no ibuprofen Review of Systems (Anesthesia) ROS Narrative System reviewed and no additional complaints, except as documented.
--- NOTE | 2024-04-18 09:17 | PCM.HP.BLA ---
History and Physical Date of Admission: 04/18/24 Intake Vital Signs 01/08/2418:50 03/03/2409:46 Height 5 ft 3 in 5 ft 3 in Weight: 166 lb BMI 29.4 BP 165/79 H Blood Pressure Location Rt brachial Position Sitting Respiration 18 Intake Visit Reasons: UPPER AND LOWER - GERD Chief Complaint: egd Community Support Associate Required: No Is patient in pain?: No Allergies clarithromycin (From Biaxin) Adverse Reaction (Verified 03/03/24 09:48) NauseaSulfa (Sulfonamide Antibiotics) Adverse Reaction (Verified 03/03/24 09:48) Nausea Medications ?Medication ?Instructions ?Recorded ?Confirmed ?Type calcium 600 mg (as 1 ea PO DAILY 08/07/15 03/03/24 History carbonate)-vitamin D3 10 mcg (400 unit) tablet omeprazole 40 mg capsule,delayed 20 mg PO BID 08/07/15 03/03/24 History release ascorbate calcium (vitamin C) 500 500 mg PO DAILY 05/07/19 03/03/24 History mg tablet acetaminophen 325 mg tablet 650 mg (2 x 325 mg) PO Q6H PRN PRN 05/09/19 03/03/24 Rx Pain Score 1-1010 cetirizine 10 mg tablet (Zyrtec) 10 mg PO DAILY PRN Allergy Symptoms 08/25/20 03/03/24 History meloxicam 7.5 mg tablet 7.5 mg PO 06/22/23 03/03/24 History Have you fallen in the past year?: No PFSH Medical History 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 She reports that she feels like it is in her throat. She says it has been slowly getting worse over the years. She feels like she has had a dilation several years ago but does not remember when. She had an EGD in 2018 which was normal. ROS General General: Yes fatigue; No weight change, appetite, colon cancer, breast cancer or weakness HEENT HEENT: Yes difficulty swallowing; No eye injury, eye surgery, swollen glands or hoarseness Endo Endocrine: No thyroid disease, diabetes mellitus, thyroid cancer, Hair loss, heat intolerance or cold intolerance Skin Skin: No rash or changing moles Musc Musculoskeletal: Yes back problems and arthritis; No rheumatoid arthritis, gout or joint pain Cardio Cardiovascular: No murmur, pacemaker, heart disease, atrial fibrillation, high blood pressure, heart attack, heart stent, palpitations, shortness of breat with exertion or chest pain Psych Psychiatric: No depression, anxiety or hearing voices Resp Respiratory: Yes shortness of breath, Yes sleep apnea, Yes cough, No COPD, No asthma, No emphysema and No wheezing Gastro Gastrointestinal: Yes abdominal pain, No nausea or vomiting, Yes diarrhea, No constipation, No blood in stool, Yes acid reflux, No hemorrhoids, No ulcers, No gallbladder problem and No black,tarry stools [place] Hematologic: No blood thinners, No blood disorders, No bleeding, No anemia and No blood clots Neuro Neurologic: No system reviewed and no additional complaints, except as documented, No as per HPI, No abnormal gait, No abnormal hearing, No abnormal movements, No abnormal speech, No behavioral changes, No burning sensations, No confusion, No convulsions, No disequilibrium, No dizziness, No localized weakness, No frequent falls, No headache(s), No lack of coordination, No loss of vision, No memory loss, No numbness, No other visual disturbances, No radicular pain, No restless legs, No sensory deficit, No syncope, No tingling, No tremor(s), No weakness and No other Exam Const General: cooperative Orientation: alert and oriented x3 HENMT Head: normal to inspection Neck Neck: normal visual inspection and full ROM Chest Chest palpation & inspection: normal inspection of the chest Resp Effort & Inspection: normal respiratory effort Auscultation: clear to auscultation bilaterally Cardio Rate: regular rate Rhythm: regular rhythm GI Inspection: non-distended Palpation: soft and nontender Skin General: no rashes or lesions noted Neuro General: patient alert and patient oriented x3 Extrem General: full ROM Psych Appearance: grossly normal Mental Status: mental status grossly normal Assessment and Plan Assessment and Plan (1) Dysphagia: Status: Acute Qualifiers: Dysphagia type: unspecified Qualified Code(s): R13.10 - Dysphagia, unspecified Plan: The patient has dysphagia and discussed performing EGD with possible dilation. I discussed the risks including but not limited to bleeding, infection, perforation of the GI tract and need for further surgery. Patient is willing to proceed with EGD and possible dilation. Joni Garcias MD Pager: [facility] [address] [place] [address], [address] [place] [address] Office: I have examined the patient and the H&P has been reviewed. There are no clinical changes since date of exam.
--- NOTE | 2024-04-18 09:38 | OP.CCLET_ITS ---
04/18/2024 Earl Mora Re : Upper GI endoscopy procedure for Carmen Wilburnwen Mora This procedure was performed on Thursday, April 18, 2024. My impressions and recommendations are as follows: Impressions : - Normal esophagus. - Normal stomach. - Normal examined duodenum. - Biopsies were taken with a cold forceps for evaluation of eosinophilic esophagitis. Recommendations : - Discharge patient to home. - Resume previous diet. - Continue present medications. - Await pathology results. My findings are described in the full procedure note, which is enclosed. If I can be of further assistance, please feel free to contact me at Doctor phone number(s): , Work: . Sincerely, Joni Garcias MD 04/18/2024 9:37:39 AM This report has been signed electronically.
--- NOTE | 2024-04-18 09:38 | OP.EGD_ITS ---
Patient Name: Carmen Porter Procedure Date: 04/18/2024 9:22 AM Date of : 1940 Age: 83 Procedure: Upper GI endoscopy Indications: Dysphagia Providers: Joni Garcias MD Referring MD: Joni Garcias MD Medicines: Propofol per Anesthesia Patient Profile: This is an 83 year old female. Refer to note in patient chart for documentation of history and physical. Complications: No immediate complications. Estimated blood loss: Minimal. Procedure: Pre-Anesthesia Assessment: - Prior to the procedure, a History and Physical was performed, and patient medications and allergies were reviewed. The patient's tolerance of previous anesthesia was also reviewed. The risks and benefits of the procedure and the sedation options and risks were discussed with the patient. All questions were answered, and informed consent was obtained. Prior Anticoagulants: The patient has taken no anticoagulant or antiplatelet agents. After reviewing the risks and benefits, the patient was deemed in satisfactory condition to undergo the procedure. After obtaining informed consent, the endoscope was passed under direct vision. Throughout the procedure, the patient's blood pressure, pulse, and oxygen saturations were monitored continuously. The gastroscope was introduced through the mouth, and advanced to the third part of duodenum. The upper GI endoscopy was accomplished without difficulty. The patient tolerated the procedure well. Scope In: 9:29:59 AM Scope Out: 9:33:36 AM Total Procedure Duration Time 0 hours 3 minutes 37 seconds Findings: The esophagus was normal. The stomach was normal. The examined duodenum was normal. Biopsies were obtained from the proximal and distal esophagus with cold forceps for histology of suspected eosinophilic esophagitis. Impression: - Normal esophagus. - Normal stomach. - Normal examined duodenum. - Biopsies were taken with a cold forceps for evaluation of eosinophilic esophagitis. Recommendation: - Discharge patient to home. - Resume previous diet. - Continue present medications. - Await pathology results. Procedure Code(s): --- Professional --- 45360, Esophagogastroduodenoscopy, flexible, transoral; with biopsy, single or multiple Diagnosis Code(s): --- Professional --- R13.10, Dysphagia, unspecified CPT copyright 2021 [employer]. All rights reserved. The codes documented in this report are preliminary and upon computer technology instructor review may be revised to meet current compliance requirements. Joni Garcias MD 04/18/2024 9:37:39 AM This report has been signed electronically. Number of Addenda: 0 Note Initiated On: 04/18/2024 9:22 AM
--- NOTE | 2024-04-18 09:43 | PCM.POST.ANE ---
Anesthesia: Postop Eval I Current Vital Signs Temperature: 97.8 F Pulse Rate: 67 Blood Pressure: 89/40 Respiratory Rate: 16 Pulse Ox: 96 Oxygen Delivery Method: Room Air Assessment Airway patent: Yes Spontaneous unlabored respirations: Yes Mental status: Asleep nausea: No Vomiting: No Anesthesia Complication: No Fluid Hydration Crystalloid volume administer (ml): 30 Total IV fluid infused: 30 Progress Note Anesthesia document: Postop Eval 1 completed: Yes
--- NOTE | 2024-04-18 09:58 | PCM.POSTANE2 ---
Anesthesia Postop Eval I Sum Postop Eval Completion status Anesthesia document: Postop Eval 1 completed: Yes Anesthesia Postop Eval I Summary Anesthesia Postop Eval I Summary: Anesthesia Postop Eval I: Assessment Summary Airway patent Yes 04/18/24 09:44 [email or web address] Spontaneous unlabored Yes 04/18/24 09:44 [email or web address] respirations Mental status Asleep 04/18/24 09:44 [email or web address] nausea No 04/18/24 09:44 [email or web address] Vomiting No 04/18/24 09:44 [email or web address] Anesthesia Postop Eval I: Fluid Summary Crystalloid volume administer 30 04/18/24 09:44 [email or web address] (ml) Colloids volume administered ( ml) Blood Product volume administered (ml) Total IV fluid infused 30 04/18/24 09:44 [email or web address] Anesthesia Postop Eval I: Summary Notes Anesthesia Complication No 04/18/24 09:44 [email or web address] Anesthesia Complication Comment: Post-operative progress note Anesthesia: Postop Eval II Evaluation Mental status: Awake Pain Level: 0 nausea: No Vomiting: No
== END 2024-04-18 10:18 | disposition home or self-care (01) ==
LOC: EN 08:02 → AC 08:03
PROVIDERS: PCP Family Medicine; Referring Provider Family Medicine; Visit Provider Surgery
PROC: 0DJ08ZZ Inspection of Upper Intestinal Tract, Via Natural or Artificial Opening Endoscopic (ICD-10-PCS; CPT 43235; principal; 2024-04-18 09:10)
DX: R13.10 Dysphagia, unspecified (principal); K21.9 Gastro-esophageal reflux disease without esophagitis; I10 Essential (primary) hypertension; Z79.899 Other long term (current) drug therapy
CPT/HCPCS: 43239; 88305; J2405

== ENCOUNTER → 2024-08-27 | Outpatient (CLI) | payer MEDICARE, OTHER, SELFPAY ==
--- NOTE | 2024-08-27 09:26 | RAD_ITS ---
PROCEDURE: CHEST PA AND LATERAL 08/27/2024 REASON FOR EXAM: COUGH TECHNIQUE: Frontal and lateral views of the chest. COMPARISON: January 09 2024 FINDINGS: Heart size and mediastinal configuration are within normal limits. There is no focal infiltrate or consolidation. There is no pneumothorax or effusion. Aortic calcifications are visible. There is no acute bony abnormality. Lumbar scoliosis is visible. RAD/Chest PA and Lateral IMPRESSION: No acute infiltrate or consolidation is identified. Reading Location: [facility]
== END | disposition home or self-care (01) ==
LOC: MTRAD 09:26
PROVIDERS: PCP Family Medicine; Referring Provider Physician Assistant; Visit Provider Physician Assistant
DX: R05.9 Cough, unspecified (principal)
CPT/HCPCS: 71046

== ENCOUNTER 2024-09-04 08:54 | Emergency (ER) | payer MEDICARE, OTHER, SELFPAY ==
[2024-09-04 08:55] VITALS: BP 165/89; PULSE 79; RESP 14; TEMP 37.2; O2SAT 98; BMI 29.0
--- NOTE | 2024-09-04 09:07 | ED.VIS.DYS ---
HPI History of Present Illness Chief Complaint: Shortness of Breath Narrative Narrative: 83-year-old female presents with her daughter because of not feeling well, shortness of breath with cough. Patient relates history that approximately 2 weeks ago she started out having a sinus infection. She was put on Augmentin. She started having cough as well with subjective fever. She states that chest x-ray was performed and that she was told she had the beginnings of pneumonia so a Z-Robbie was added. She saw her primary care provider, and was put on Levaquin recently. She took her second dose last night, and experienced facial redness. She feels she may be having a reaction to her third antibiotic. She states that she was told that if she is not feeling better, that she should come to the emergency department. Patient states that last night she slept in her recliner because she was not feeling well. [facility] Medical History Wears hearing aid Wears glasses Wears partial dentures Wears dentures Post-menopausal Bladder disease Arthritis Back pain Migraine headache Difficulty swallowing Non-smoker History of edema History of stress test Hypertension Osteoarthritis Chronic back pain GERD (gastroesophageal reflux disease) Home Medications ?Medication ?Instructions ?Recorded ?Last Taken ?Type calcium 600 mg (as 1 ea PO DAILY 08/07/15 08/07/15 08:30 History carbonate)-vitamin D3 10 mcg (400 unit) tablet omeprazole 40 mg capsule,delayed 20 mg PO DAILY 08/07/15 04/18/24 History release ascorbate calcium (vitamin C) 500 500 mg PO DAILY 05/07/19 Unknown History mg tablet meloxicam 7.5 mg tablet 7.5 mg PO DAILY 06/22/23 Unknown History carvedilol 6.25 mg tablet 6.25 mg PO BID BP 04/16/24 04/18/24 History lisinopril 5 mg tablet 5 mg PO QDAY 08/23/24 Unknown History mecobalamin (vitamin B12) 500 mcg mcg PO 08/23/24 Unknown History chewable tablet montelukast 10 mg tablet 10 mg PO QDAY 08/23/24 Unknown History azithromycin 250 mg tablet See Rx Instructions PO .COMPLEX #6 08/27/24 Unknown Rx tabs albuterol sulfate 90 mcg/actuation 1 - 2 puff inhalation Q4H PRN PRN 09/04/24 Unknown Rx aerosol inhaler (Ventolin HFA) Wheezing #1 ea Allergy/AdvReac Type Severity Reaction Status Date / Time clarithromycin (From Biaxin) AdvReac Nausea Verified 09/04/24 08:55 Sulfa (Sulfonamide AdvReac Nausea Verified 09/04/24 08:55 Antibiotics) Family History Father Heart disease Thyroid disorder goiter Mother Cancer stomach Surgical History History of ERCP History of craniotomy History of cholecystectomy (~04/2019) History of colonoscopy (~06/2018) S/P hemorrhoidectomy S/P appendectomy S/P partial hysterectomy S/P cardiac catheterization S/P colonoscopy Social History (Updated 09/04/24 @ 09:35 by Susy Bach) household members: spouse housing: house Smoking Status: Never smoker alcohol intake: never substance use type: does not use additional social history: no aspirin no ibuprofen ROS ROS ED ROS Narrative Review of systems positive for subjective fever, cough with sputum production, mild shortness of breath. No chest pain. No leg swelling. She has been treated for sinusitis and postnasal drip as well. EXAM Physical Exam Narrative Exam Narrative: Afebrile. Vital signs noted. Nontoxic-appearing. Ambulatory to room. HEENT examination grossly unremarkable. Cardiovascular examination regular rate and rhythm. Occasional expiratory wheeze right base greater than left. Abdomen soft nontender with normoactive bowel sounds. No pedal edema. Neurological examination nonfocal, nonlateralizing. Const Vital Signs: 09/04/24 08:55 09/04/24 09:21 09/04/24 09:34 Temperature 98.9 F 98.3 F Temperature Source Temporal Oral Pulse Rate 79 79 79 Respiratory Rate 14 16 12 Respiratory Effort Respiratory Depth Respiratory Pattern Blood Pressure 165/89 H 117/69 Blood Pressure Mean 114 85 Pulse Ox 98 96 Oxygen Delivery Method Room Air Room Air 09/04/24 09:34 09/04/24 09:34 Temperature Temperature Source Pulse Rate Respiratory Rate Respiratory Effort Normal Non-Labored Respiratory Depth Normal Respiratory Pattern Normal Blood Pressure Blood Pressure Mean Pulse Ox 100 Oxygen Delivery Method Room Air Room Air MDM MDM MDM Narrative Medical decision making narrative: Differential diagnosis includes but not limited to bronchitis versus worsening pneumonia versus pneumothorax. History and physical does not support pneumothorax. Pulse ox 98% on room air without evidence of hypoxia. CHF would also be in the differential versus undiagnosed COPD. Comprehensive workup was pursued. She was given albuterol aerosolized treatment. She states that she was started on levofloxacin and prednisone, but is not currently using an inhaler. EKG obtained and interpreted by myself independently as normal sinus rhythm at 70 bpm without ectopy or acute ST changes. No STEMI. No significant change from EKG in December 2023 when compared. I reviewed her laboratory work and she has normal white count of 9.2 with hemoglobin 12.1, platelet count normal at 262. Electrolyte panel grossly unremarkable. BNP 382. Chest x-ray in 2 views interpreted by myself independently shows no pneumothorax or pneumonia. I reviewed the radiology report which confirms my independent interpretation. Repeat examination after aerosolized treatment shows no expiratory wheezing, moving a good amount of air. However, she states that she really did not feel a difference. She is already on steroids. She had redness and a reaction to the Levaquin. She has already taken Augmentin and azithromycin so I do not feel that she requires more antibiotics and was told to discontinue use of the Levaquin and perhaps avoid its use in the future if she was having a reaction. I do not feel that she has anaphylaxis or requires epinephrine currently. She is stable. She was written a prescription for an albuterol inhaler to use 1 to 2 puffs inhaled every 4-6 hours as needed, and she will continue the prednisone that she was given. At this point in time, I do not feel she requires observation or hospitalization. I feel she can be discharged to follow-up with her primary care provider with diagnosis of bronchitis. She was told that she could cough for up to a month, and states that she has a chronic cough regardless. Disposition is discharged home in stable condition. History & Record Review Discussion w/independent historian: Patient and Family Lab Data Attestation: I reviewed the patient's lab results. Labs: Laboratory Results - last 24 hr 09/04/24 09:19 WBC 9.2 RBC 3.97 L Hgb 12.1 Hct 34.7 L MCV 87.4 MCH 30.5 MCHC 34.9 RDW Std Deviation 38.9 RDW Coeff of Haresh 12.1 Plt Count 262 MPV 9.3 Immature Gran % (Auto) 0.800 Neut % (Auto) 77.1 H Lymph % (Auto) 12.9 L Weakley % (Auto) 9.0 Eos % (Auto) 0.0 Baso % (Auto) 0.2 Absolute Neuts (auto) 7.1 Absolute Lymphs (auto) 1.19 Nucleated RBC % 0 Sodium 140 Potassium 3.6 Chloride 106 Carbon Dioxide 23.3 Anion Gap 10 BUN 19 Creatinine 0.81 Estim Creat Clear Calc 50.84 Est GFR (MDRD) Non-Af 72 BUN/Creatinine Ratio 22.8 H Glucose 110 H Calcium 9.2 NT pro BNP II 382 Radiography Chest X-Ray - ED: 2 View, Read by ED Physician, Read by Radiologist and No Infiltrates Diagnostic Testing: Clinical Impression(s) from Imaging Studies Chest X-Ray 09/04/24 09:40 IMPRESSION: No acute cardiopulmonary process. Reading [facility] Discharge Plan Triage Chief Complaint: Shortness of Breath ED Provider: Andrei Rios Dx/Rx/DC Orders Clinical Impression: Bronchitis, Medication reaction Instructions: ED Bronchitis, No Antibiotic (Adult) Prescriptions: New albuterol sulfate [Ventolin HFA] 90 mcg/actuation HFA aerosol inhaler 1 - 2 puff inhalation Q4H PRN PRN (Reason: Wheezing) Qty: 1 0RF No Action ascorbate calcium (vitamin C) 500 mg tablet 500 mg PO DAILY meloxicam 7.5 mg tablet 7.5 mg PO DAILY Patient Comments: take 1 tablet by mouth once daily montelukast 10 mg tablet 10 mg PO QDAY lisinopril 5 mg tablet 5 mg PO QDAY mecobalamin (vitamin B12) 500 mcg tablet,chewable PO azithromycin 250 mg tablet See Rx Instructions PO .COMPLEX Qty: 6 0RF Rx Instructions: For 250 mg dose pack: take 500 mg today (day 1), then 250 mg for 4 days (days 2-5) PO omeprazole 40 MG capsule 20 mg PO DAILY Patient Comments: acid refulux calcium carbonate-vitamin D3 1 EACH tablet 1 ea PO DAILY Patient Comments: bone health carvedilol 6.25 mg tablet 6.25 mg PO BID Primary Care Provider: Earl Mora Referrals: Earl Mora DO [Primary Care Provider] - 3-5 Days Activity Restrictions/Additional Instructions: Avoid use of Levaquin. You have already taken Augmentin and azithromycin. Follow-up with your primary care provider. Use albuterol inhaler 1 to 2 puffs inhaled every 4-6 hours for shortness of breath. Return with difficulty breathing, new or worsening symptoms. Print Language: Andorran Disposition Disposition: Home, Self Care
[2024-09-04 09:21] VITALS: PULSE 79; RESP 16
[2024-09-04] MEDS: Albuterol 2.5 MG/3 ML VIAL.NEB. INHALATION (09:21)
[2024-09-04 09:31] LABS: Absolute Lymphocyte Count 1.19 X10^3/uL (0.83-4.51); Absolute Neutrophil Count 7.1 X10^3/uL (2.0-7.7); Basophil# 0.02 X10^3/uL; Basophil% 0.2 % (0-1); Hematocrit 34.7 % (37-47); Hemoglobin 12.1 g/dL (12.0-15.0); Lymphocyte # 1.19 X10^3/ul (0.83-4.51); Lymphocyte % 12.9 % (19-41); Mean Corp Hgb Conc 34.9 g/dL (32-36); Mean Corpuscular Hgb 30.5 pg (27.0-32.0); Mean Corpuscular Volume 87.4 fL (81-99); Mean Platelet Vol. 9.3 fl (6.2-12.0); Monocyte# 0.83 X10^3/uL; NRBC Flagged by Analyzer 0 % (0-5); Neutrophil # 7.09 X10^3/uL (2.7-7.7); Neutrophil % 77.1 % (47-70); Platelet Count 262 K/mm3 (150-450); RBC Distribution Width CV 12.1 % (11.6-14.6); RBC Distribution Width SD 38.9 fl (35.1-43.9); Red Blood Count 3.97 M/mm3 (4.2-5.4); White Blood Count 9.2 K/mm3 (4.4-11.0)
[2024-09-04 09:34] VITALS: BP 117/69; PULSE 79; RESP 12; TEMP 36.8; O2SAT 100; O2SAT 96
--- NOTE | 2024-09-04 09:40 | RAD_ITS ---
EXAM: XR Chest, 2 Views CLINICAL INDICATION: SHORTNESS OF BREATH TECHNIQUE: Frontal and lateral views of the chest. COMPARISON: No relevant prior studies available. FINDINGS: LUNGS AND PLEURAL SPACES: Unremarkable. No consolidation. No pneumothorax. HEART: Unremarkable. No cardiomegaly. MEDIASTINUM: Unremarkable. Normal mediastinal contour. BONES/JOINTS: Unremarkable. No acute fracture. RAD/Chest PA and Lateral IMPRESSION: No acute cardiopulmonary process. Reading Location: [facility]
[2024-09-04 09:52] LABS: Anion Gap 10 (5-15); BUN 19 mg/dL (4-19); BUN/Creat Ratio 22.8 RATIO (10-20); Calcium,Total 9.2 mg/dL (7.6-11.0); Carbon Dioxide 23.3 mmol/L (21.0-32.0); Chloride 106 mmol/L (98-108); Creatinine, Serum 0.81 mg/dL (0.70-1.20); EST Glomerular Filtration Rate 72 (>60); Estimated Creatinine Clearance 50.84 ml/min (50-250); Glucose 110 mg/dL (70-99); Potassium 3.6 mmol/L (3.3-5.1); Sodium Level 140 mmol/L (133-145)
[2024-09-04 10:00] VITALS: BP 120/78; PULSE 78; RESP 18; TEMP 36.8; O2SAT 98
[2024-09-04 10:19] LABS: Pro- Brain NATRIURETIC PEPTIDE 382 pg/mL (<=1800)
[2024-09-04 11:00] VITALS: BP 120/78; PULSE 78; RESP 18; TEMP 36.8; O2SAT 98
== END 2024-09-04 11:00 | disposition home or self-care (01) ==
PROVIDERS: Emergency Provider Emergency Medicine; PCP Family Medicine; Visit Provider Emergency Medicine
DX: J40 Bronchitis, not specified as acute or chronic (principal); L53.8 Other specified erythematous conditions; T36.8X5A Adverse effect of other systemic antibiotics, initial encounter; I10 Essential (primary) hypertension; Z79.899 Other long term (current) drug therapy
CPT/HCPCS: 71046; 80048; 83880; 85025; 93005; 94640; 99283

== ENCOUNTER 2024-11-21 13:10 | Emergency (ER) | payer MEDICARE, OTHER, SELFPAY ==
[2024-11-21 13:10] VITALS: BP 151/71; PULSE 86; RESP 18; TEMP 37; O2SAT 99
--- NOTE | 2024-11-21 13:52 | EKG12_ITS ---
Test Reason : Blood Pressure : */* mmHG Vent. Rate : 71 BPM Atrial Rate : 71 BPM P-R Int : 204 ms QRS Dur : 84 ms QT Int : 382 ms P-R-T Axes : 54 -41 37 degrees QTcB Int : 415 ms Normal sinus rhythm with sinus arrhythmia Left axis deviation Minimal voltage criteria for LVH, may be normal variant ( R in aVL ) Abnormal ECG Confirmed by KAREN JUSTICE, SHRADDHA ([id number]), market editor ENRIKE TOVAR ([id number]) on 11/24/2024 8:31:40 AM Referred By: Confirmed By: SHRADDHA JONES MD
--- NOTE | 2024-11-21 13:53 | ED.VIS.CHEST ---
HPI History of Present Illness Chief Complaint: Chest Pain Informant: patient and family Narrative Narrative: 84-year-old female states couple hours ago this morning she was resting and had sudden spontaneous onset of discomfort in her left hemithorax that is pleuritic. She feels it more in her back around the tip of her scapula, it does not hurt to move but it does hurt to breathe. She feels some discomfort in her left shoulder as well but it does not hurt to move her shoulder. No numbness in her hand. No jaw or neck discomfort, however she felt lightheaded several times and to some degree near syncopal, which prompted her to come to the ED. She denies a history of DVT or PE and she takes no anticoagulants for anything else. She denies any recent travel, immobilization, hospitalization, or surgery. No calf pain. She states her left ankle swells off-and-on chronically that is no different today. She denies any recent illness although she has had a cough that is chronic, and has been worse a little recently, but nonproductive. [facility] Medical History Wears hearing aid Wears glasses Wears partial dentures Wears dentures Post-menopausal Bladder disease Arthritis Back pain Migraine headache Difficulty swallowing Non-smoker History of edema History of stress test Hypertension Osteoarthritis Chronic back pain GERD (gastroesophageal reflux disease) Home Medications ?Medication ?Instructions ?Recorded ?Last Taken ?Type calcium 600 mg (as 1 ea PO DAILY 08/07/15 08/07/15 08:30 History carbonate)-vitamin D3 10 mcg (400 unit) tablet omeprazole 40 mg capsule,delayed 20 mg PO DAILY 08/07/15 04/18/24 History release ascorbate calcium (vitamin C) 500 500 mg PO DAILY 05/07/19 Unknown History mg tablet meloxicam 7.5 mg tablet 7.5 mg PO DAILY 06/22/23 Unknown History carvedilol 6.25 mg tablet 6.25 mg PO BID BP 04/16/24 04/18/24 History lisinopril 5 mg tablet 5 mg PO QDAY 08/23/24 Unknown History mecobalamin (vitamin B12) 500 mcg mcg PO 08/23/24 Unknown History chewable tablet montelukast 10 mg tablet 10 mg PO QDAY 08/23/24 Unknown History azithromycin 250 mg tablet See Rx Instructions PO .COMPLEX #6 08/27/24 Unknown Rx tabs albuterol sulfate 90 mcg/actuation 1 - 2 puff inhalation Q4H PRN PRN 09/04/24 Unknown Rx aerosol inhaler (Ventolin HFA) Wheezing #1 ea Allergy/AdvReac Type Severity Reaction Status Date / Time clarithromycin (From Biaxin) AdvReac Nausea Verified 11/21/24 13:12 Sulfa (Sulfonamide AdvReac Nausea Verified 11/21/24 13:12 Antibiotics) Family History Father Heart disease Thyroid disorder goiter Mother Cancer stomach Surgical History History of ERCP History of craniotomy History of cholecystectomy (~04/2019) History of colonoscopy (~06/2018) S/P hemorrhoidectomy S/P appendectomy S/P partial hysterectomy S/P cardiac catheterization S/P colonoscopy Social History household members: spouse housing: house Smoking Status: Never smoker alcohol intake: never substance use type: does not use additional social history: no aspirin no ibuprofen ROS ROS ED Constitutional Constitutional ED: Denies chills or fever(s) Eyes Eyes: Denies change in vision or diplopia ENT ENT ED: Denies rhinorrhea or sore throat Cardiovascular Cardiovascular: Reports lightheadedness; Denies chest pain, orthopnea, palpitations or syncope Respiratory/Chest Respiratory/Chest: Reports dyspnea; Denies cough or orthopnea Gastrointestinal Gastrointestinal: Denies abdominal pain, diarrhea, nausea or vomiting Genitourinary Genitourinary ED: Denies dysuria or hematuria Musculoskeletal Musculoskeletal: Reports back pain; Denies neck pain Integumentary Denies abscess or rash Neurologic Neurologic: Denies headache(s), paresthesias or weakness Psychiatric Psychiatric: Denies anxiety or suicidal thoughts EXAM Physical Exam Const Vital Signs: 11/21/24 13:10 11/21/24 13:52 11/21/24 14:10 Temperature 98.6 F Temperature Source Oral Pulse Rate 86 73 Respiratory Rate 18 Blood Pressure 151/71 H 141/61 H Blood Pressure Mean 97 87 Pulse Ox 99 97 Oxygen Delivery Method Room Air Room Air Room Air 11/21/24 15:00 11/21/24 16:00 Temperature Temperature Source Pulse Rate Respiratory Rate Blood Pressure 159/56 H 144/58 H Blood Pressure Mean 90 86 Pulse Ox 99 97 Oxygen Delivery Method Room Air Room Air Positive well nourished and well developed Constitutional Narrative: Well-appearing in no distress General Appearance ED: well developed and NAD HEENT Reports moist mucous membranes normocephalic and atraumatic Eyes PERRL and EOMs intact bilaterally Neck full ROM and supple Chest Wall inspection of chest normal and palpation of chest normal Resp normal respiratory effort and clear to auscultation bilaterally Cardio regular rate, regular rhythm and no murmurs Peripheral Pulses: pulses 2+ throughout GI non-tender and non-distended Auscultation: normoactive bowel sounds Palpation: soft Back/Spine no CVA tenderness General Back: other FROM Extremity normal to inspection Extremity Narrative: A little bit of swelling around the left ankle that the patient states is chronic, there is no pedal edema more proximally, and no calf tenderness or palpable cords. General Extremety ED: Negative for pulses abnormal or tenderness General Extremity: Negative for pulses abnormal Neuro oriented x3, CN's II-XII intact bilaterally and no sensory deficits noted Sensorium / Orientation: awake and alert Motor Exam: strength 5/5 throughout Psych mental status grossly normal Skin no rashes or lesions noted and no wounds MDM MDM MDM Narrative Medical decision making narrative: Differential here includes musculoskeletal etiologies, pleurisy, pulmonary embolus, pneumothorax, pneumonia. Chest x-ray 2 views of my interpretation shows no evidence of pneumonia or pneumothorax. Her EKG is unremarkable, less likely to be acute coronary syndrome, her initial troponin is 16 slightly abnormal, we are awaiting a second troponin. In meantime also sent basic labs showing no significant anemia, her D-dimer is a little bit abnormal at 0.69 but when corrected for age it is within normal limits and has enough power to rule out PE without further studies. She has had a cough recently, I do not see pneumonia on the x-ray. Offered her analgesics but she declined. Second troponin came back a little lower at 15. These are nonspecific findings but trending down no further emergent readings need to be obtained. She is doing well and declines analgesics again. There is no effusion on her x-ray, etiology of this is unknown. Could be viral. If the symptoms persist a week or so I would follow-up with her doctor. She comfortable with that plan we discussed reasons to return. Lab Data Attestation: I reviewed the patient's lab results. Labs: Laboratory Results - last 24 hr 11/21/24 11/21/24 14:08 15:45 WBC 4.1 L RBC 4.08 L Hgb 12.3 Hct 37.0 MCV 90.7 MCH 30.1 MCHC 33.2 RDW Std Deviation 41.5 RDW Coeff of Haresh 12.5 Plt Count 195 MPV 9.7 Immature Gran % (Auto) 0.200 Neut % (Auto) 62.5 Lymph % (Auto) 24.7 Powell % (Auto) 10.9 H Eos % (Auto) 1.2 Baso % (Auto) 0.5 Absolute Neuts (auto) 2.6 Absolute Lymphs (auto) 1.02 Nucleated RBC % 0 D-Dimer Quant (PE/DVT) 0.69 H* Sodium 139 Potassium 4.0 Chloride 105 Carbon Dioxide 23.5 Anion Gap 11 BUN 17 Creatinine 0.91 Est GFR (MDRD) Non-Af 63 BUN/Creatinine Ratio 19.1 Glucose 147 H Calcium 9.2 Troponin T High Sens 16 H Troponin T Hi Sens 2 Hr 15 H Radiography Diagnostic Testing: Clinical Impression(s) from Imaging Studies Chest X-Ray 11/21/24 14:14 IMPRESSION: No acute abnormality Reading Location: [facility] Rhythm Strip Rhythm Strip: Sinus Rhythm Rate: 70 Ectopy: None EKG Initial EKG: Attestation: I personally reviewed and interpreted this EKG as follows: Interpretation: Sinus Rhythm, No Acute Injury Pattern and LAFB Comments: Nml intervals; left axis; otherwise nml EKG Prior EKG tracings: available for review Prior: Unchanged Discharge Plan Triage Chief Complaint: Chest Pain ED Provider: Benigno Sifuentes Dx/Rx/DC Orders Clinical Impression: Pleurisy, Lightheadedness Instructions: ED Pleurisy Prescriptions: No Action ascorbate calcium (vitamin C) 500 mg tablet 500 mg PO DAILY meloxicam 7.5 mg tablet 7.5 mg PO DAILY Patient Comments: take 1 tablet by mouth once daily montelukast 10 mg tablet 10 mg PO QDAY lisinopril 5 mg tablet 5 mg PO QDAY mecobalamin (vitamin B12) 500 mcg tablet,chewable PO azithromycin 250 mg tablet See Rx Instructions PO .COMPLEX Qty: 6 0RF Rx Instructions: For 250 mg dose pack: take 500 mg today (day 1), then 250 mg for 4 days (days 2-5) PO omeprazole 40 MG capsule 20 mg PO DAILY Patient Comments: acid refulux calcium carbonate-vitamin D3 1 EACH tablet 1 ea PO DAILY Patient Comments: bone health carvedilol 6.25 mg tablet 6.25 mg PO BID albuterol sulfate [Ventolin HFA] 90 mcg/actuation HFA aerosol inhaler 1 - 2 puff inhalation Q4H PRN PRN (Reason: Wheezing) Qty: 1 0RF Primary Care Provider: Earl Mora Referrals: Earl Mora DO [Primary Care Provider] - 3-5 Days if not improving Print Language: Urdu Disposition Disposition: Home, Self Care
[2024-11-21 14:10] VITALS: BP 141/61; PULSE 73; O2SAT 97
--- NOTE | 2024-11-21 14:14 | RAD_ITS ---
PROCEDURE: CHEST PA AND LATERAL 11/21/2024 REASON FOR EXAM: CHEST PAIN LEFT, PLEURITIC TECHNIQUE: CHEST PA AND LATERAL COMPARISON: September 04, 2024 FINDINGS: Hardware: EKG leads are present. Heart: Normal. Aortic atherosclerotic disease Mediastinum: Normal Lungs: Clear Bones: Curvature thoracolumbar spine to the left. Degenerative changes throughout the thoracic and lumbar spine. RAD/Chest PA and Lateral IMPRESSION: No acute abnormality Reading Location: [id number]
[2024-11-21 14:17] LABS: Hematocrit 37.0 % (37-47); Hemoglobin 12.3 g/dL (12.0-15.0); Immature Granulocytes Count 0.010 X10^3/uL (0.0-0.0); Mean Corp Hgb Conc 33.2 g/dL (32-36); Mean Corpuscular Volume 90.7 fL (81-99); Mean Platelet Vol. 9.7 fl (6.2-12.0); NRBC Flagged by Analyzer 0 % (0-5); Platelet Count 195 K/mm3 (150-450); RBC Distribution Width CV 12.5 % (11.6-14.6); RBC Distribution Width SD 41.5 fl (35.1-43.9); Red Blood Count 4.08 M/mm3 (4.2-5.4); White Blood Count 4.1 K/mm3 (4.4-11.0)
[2024-11-21 14:36] LABS: Anion Gap 11 (5-15); BUN 17 mg/dL (4-19); BUN/Creat Ratio 19.1 RATIO (10-20); Calcium,Total 9.2 mg/dL (7.6-11.0); Carbon Dioxide 23.5 mmol/L (21.0-32.0); Chloride 105 mmol/L (98-108); Glucose 147 mg/dL (70-99); Potassium 4.0 mmol/L (3.3-5.1); Troponin T High Sensitivity 16 ng/L (<=14)
[2024-11-21 14:42] LABS: D-Dimer Quantitative (DVT/PE) 0.69 FEU/ug/m (0.27-0.49)
[2024-11-21 15:00] VITALS: BP 159/56; O2SAT 99
[2024-11-21 16:00] VITALS: BP 144/58; O2SAT 97
[2024-11-21 16:17] LABS: Troponin T High Sens 2 HR 15 ng/L (<=14)
[2024-11-21 17:00] VITALS: BP 150/66; PULSE 69; O2SAT 96
[2024-11-21 17:33] VITALS: BP 121/58; PULSE 74; RESP 16; TEMP 37; O2SAT 100
== END 2024-11-21 17:38 | disposition home or self-care (01) ==
PROVIDERS: Emergency Provider Emergency Medicine; PCP Family Medicine; Visit Provider Emergency Medicine
DX: R09.1 Pleurisy (principal); R42 Dizziness and giddiness; I10 Essential (primary) hypertension; K21.9 Gastro-esophageal reflux disease without esophagitis; Z79.899 Other long term (current) drug therapy; M19.90 Unspecified osteoarthritis, unspecified site; Z90.49 Acquired absence of other specified parts of digestive tract; Z90.710 Acquired absence of both cervix and uterus
CPT/HCPCS: 71046; 80048; 84484; 85025; 85379; 93005; 99285; A4216

== ENCOUNTER → 2025-03-17 | Outpatient (CLI) | payer MEDICARE, OTHER, SELFPAY ==
[2025-03-17 17:56] LABS: AST(SGOT) 20 U/L (<=31); Alanine Aminotransfer ALT/SGPT 15 U/L (<=34); Albumin, Serum 3.9 g/dL (3.4-4.8); Alkaline Phosphatase 165 U/L (35-104); Anion Gap 10 (5-15); BUN 22 mg/dL (4-19); BUN/Creat Ratio 24.9 RATIO (10-20); Calcium,Total 9.1 mg/dL (7.6-11.0); Carbon Dioxide 25.9 mmol/L (21.0-32.0); Chloride 106 mmol/L (98-108); Globulin 2.7 g/dL (2.2-4.2); Glucose 110 mg/dL (70-99); Potassium 4.1 mmol/L (3.3-5.1)
--- OUTSIDE RECORDS SUMMARY | 2025-03-17 19:07 | XMS RPT_ITS | CCD ---
Author Organization [facility] Care Team Providers Care Group Chief Operator Name Role Phone ANDREA YAÑEZ Unavailable Unavailable YAYA LOPEZ Unavailable Unavailable Earl Mora Unavailable Unavailable UNKNOWN, PROVIDER Unavailable Unavailable Yaya Lopez Unavailable Unavailable Yaya Lopez Unavailable Unavailable UNKNOWN, PROVIDER Unavailable Unavailable John Yaya Unavailable Unavailable Earl Mora Unavailable Unavailable UNKNOWN, PROVIDER Unavailable Unavailable Yaya Lopez Unavailable Unavailable Yaya Lopez Primary Care Provider Yaya Lopez Primary Care Provider Earl Mora Primary Care Provider Yaya Lopez DO Primary Care Provider Yaya Lopez DO Primary Care Provider Yaya Lopez DO Primary Care Provider Earl Mora DO Primary Care Provider Yaya Roblero Primary Care Provider Unavail able Yaya Roblero Referring Provider UnavailNIGEL Dunbar Attending Provider GEREMIAS Novak Attending Provider Yaya Roblero Primary Care Provider Unavail able Yaya Roblero Referring Provider UnavailNIGEL Dunbar Attending Provider GEREMIAS Novak Attending Provider Dr. Joni Garcias Attending Provider Dr. Earl Mora Primary Care Provider Dr. Earl Mora Referring Provider Abby SINGH, Dr. Elliott Primary Care Provider Abby SINGH, Dr. Elliott Referring Provider Dieter JUSTICE, Dr. Quinones Attending Provider [phone] Lauren Smith Attending Provider El Grace Attending Provider El Grace Referring Provider Andrei Rios MD Emergency Provider Abby SINGH, Dr. Elliott Primary Care Provider Abby SINGH, Dr. Elliott Referring Provider Andrei Rios MD Attending Provider Maria JUSTICE, Dr. Pelaez Emergency Provider Abby, Earl Primary Care Unavailable Joni Garcias Attending Unavailable Fostera, Earl Referring Unavailable Petrilla, Earl Referring Unavailable Kings Hwang Attending Unavailable Petrilla, Earl Primary Care Unavailable Petrilla, Earl Primary Care Unavailable Joni Garcias Attending Unavailable Fostera, Earl Referring Unavailable Petrilla, Earl Primary Care Unavailable El Grace Attending Unavailable El Grace Referring Unavailable Benigno Sifuentes Attending Unavailable Petrilla, Earl Primary Care Unavailable Andrei Rios Attending Unavailable Petrilla, Earl Primary Care Unavailable Petrilla, Earl Primary Care Unavailable El Grace Attending Unavailable Enriquella, Earl Referring Unavailable Petrilla, Earl Primary Care Unavailable Lauren Smith Attending Unavailable Enriquella, Earl Referring Unavailable Petrilla, Earl Primary Care Unavailable Joni Garcias Attending Unavailable Fostera, Earl Referring Unavailable Enriquella, Earl Primary Care Unavailable Joni Garcias Consulting Unavailable Joni Garcias Attending Unavailable Enriquella, Earl Referring Unavailable Petrilla, Earl Primary Care Unavailable Lino Montanez Attending Unavailable Petrilla, Earl Referring Unavailable Nitza Novak Attending Unavailable Petrilla, Earl Primary Care Unavailable Petrilla, Earl Referring Unavailable PETRILLA, EARL Primary Care Unavailable PETRILLA, EARL Attending Unavailable PETRILLA, EARL Primary Care Unavailable ENRIQUENATALIEToño EARL Attending Unavailable FOSTERToñoEARL Referring Unavailable ENRIQUENATALIEToño, EARL Primary Care Unavailable ENRIQUENATALIEToño, EARL Primary Care Unavailable TORRES, SAMANTHA Attending Unavailable ABBY, EARL Primary Care Unavailable ABBY, EARL Attending Unavailable ENRIQUENATALIEToño, EARL Primary Care Unavailable ENRIQUENATALIEToño, EARL Primary Care Unavailable Abby SINGH, Dr. Elliott Primary Care Physician Maria JUSTICE, Dr. Pelaez Attending Physician Maria JUSTICE, Dr. Pelaez Emergency Department Phys ician Dr. Earl Mora DO Referring Provider Kings Turner Attending Physician Allergies Allergy Classification Reported Allergen(s) Allergy Type Date of Onset Reaction(s) Facility (17 sources) Clarithromycin Drug Allergy 11-10-19 15 Diarrhea [place], [place] (8 sources) Sulfonamides (Antibiotic) Propensity to adverse reactions to drug 11-10-19 15 Nausea And Vomiting [place], [place] (10 sources) Sulfonamides (Antibiotic); Translations: [Sulfa (Sulfonamide Antibiotics)] Propensity to adverse reactions 07-26-19 22 Nausea [facility] (20 sources) Clarithromycin Propensity to adverse reactions 11-10-19 15 Diarrhea [facility] (20 sources) Sulfonamides (Antibiotic) Drug Intolerance 11-10-19 15 Nausea And Vomiting [facility] (20 sources) Other Propensity to adverse reactions 07-26-19 22 [facility] (1 source) Clarithromycin Drug Allergy 02-15-20 25 [facility] Medications Current Medications Medication Drug Class(es) Dates Sig (Normalized) Sig (Original) [id number] 200 actuat albuterol 0.09 mg/actuat metered dose inhaler (3 sources) beta2-Adrenergic Agonist Start: 09-04-2024 amoxicillin 875 mg oral tablet (10 sources) Penicillin-class Antibacterial Start: 02-14-2025 End: 02-21-2025 take 1 tablet by mouth twice daily Amoxicillin 875 mg tablet Discontinued 875 mg PO TWICE A DAY 14 7 0 February 13, 2025 11:00pm February 19, 2025 11:00pm February 20, 2025 11:14pm Start: 07-03-2023 End: 12-21-2023 take 1 tablet by mouth three times daily Amoxicillin 500 mg tablet Discontinued 500 mg PO THREE TIMES A DAY 30 0 July 03, 2023 12:00am December 21, 2023 9:44am Start: 03-17-2023 End: 03-27-2023 take 1 capsule by mouth three times daily Amoxicillin 500 mg capsule Discontinued 500 mg PO THREE TIMES A DAY 30 10 0 March 17, 2023 12:00am March 26, 2023 12:00am March 27, 2023 12:05am ascorbic acid 100 mg oral tablet (20 sources) Vitamin C take 4 tablets by mouth once daily ascorbic acid (Vitamin C) 100 MG tablet Take 400 mg by mouth daily. Active benzonatate 100 mg oral capsule (15 sources) Non-narcotic Antitussive Start: benzonatate (Tessalon) 100 MG capsule 1-2 qid prn , no more than 6 a day 42 capsule 09/02/2024 Active Start: 03-07-2024 End: 08-23-2024 take 2 capsules by mouth three times daily as needed for cough Benzonatate 100 mg capsule Discontinued 200 mg PO THREE TIMES A DAY as needed for cough 30 0 March 07, 2024 12:00am August 23, 2024 10:03am Calcium (20 sources) Phosphate Binder, Calcium take 1 tablet by mouth once daily calcium 500 MG tablet Take 500 mg by mouth daily. Active take 1 tablet by mouth once pietro y calcium 500 MG tablet Take 500 mg by mouth daily. 0 Active calcium ascorbate 500 mg oral tablet (9 sources) Start: 05-07-2019 take 1 tablet by mouth once daily calcium carbonate 500 mg oral tablet (8 sources) take 1 tablet by mouth once daily calcium carbonate (OSCAL) 500 MG TABS tablet Take 500 mg by mouth daily 0 Active take 1 tablet by mouth once pietro y calcium carbonate (OSCAL) 500 MG TABS tablet Take 500 mg by mouth daily 0 Active calcium carbonate 1500 mg / cholecalciferol 0.01 mg oral tablet (9 sources) Vitamin D Start: 08-07-2015 Start: 08-07-2015 Calcium Carbon ate-Vitamin D3 Active 1 EACH PO DAILY August 07, 2015 12:00am carvedilol 6.25 mg oral tablet (15 sources) alpha-Adrenergic Rolando, beta-Adrenergic Rolando Start: 04-03-2024 End: 04-03-2025 take 1 tablet by mouth twice daily Start: 03-14-2024 End: 03-14-2025 take 1 tablet by mouth twice daily at mealtime carvedilol (Coreg) 3.125 MG tablet Take 1 tablet (3.125 mg) by mouth 2 times daily (with meals). 60 tablet 3 03/14/2024 04/03/2024 Discontinued cefuroxime 500 mg oral tablet (2 sources) Cephalosporin Antibacterial Start: 10-02-2019 End: 10-12-2019 take 1 tablet by mouth twice daily cefUROXime (CEFTIN) 500 MG tablet Take 1 tablet by mouth 2 times daily for 10 days 20 tablet 0 10/02/2019 10/12/2019 Active Start: 04-11-2019 End: 04-18-2019 take 1 tablet by mouth twice daily cefUROXime (CEFTIN) 500 MG tablet Take 1 tablet by mouth 2 times daily for 7 days 14 tablet 0 04/11/2019 04/18/2019 dexamethasone 1 mg/ml / neomycin 3.5 mg/ml / polymyxin b [id number] unt/ml ophthalmic suspension (20 sources) Aminoglycoside Antibacterial, Polymyxin-class Antibacterial, Corticosteroid Start: 02-14-2024 [id number] sone (Maxitrol) [id number] ophthalmic suspension Administer 1 drop into the right eye in the morning and 1 drop at noon and 1 drop in the evening and 1 drop before bedtime. 02/14/2024 Active diclofenac sodium 0.01 mg/mg topical gel (20 sources) Nonsteroidal Anti-inflammatory Drug Start: 03-01-2023 End: 10-23-2024 Diclofenac Sodium (Voltaren) 1 % gel Indications: Arthralgia of both knees Apply 2 g topically 2 times daily. 150 g 1 10/24/2024 Active levoFLOXacin 500 mg oral tablet (1 source) Quinolone Antimicrobial Start: 09-02-2024 End: 09-09-2024 take 1 tablet by mouth once daily levoFLOXacin (Levaquin) 500 MG tablet Take 1 tablet (500 mg) by mouth daily for 7 doses. 7 tablet 09/02/2024 09/09/2024 Active lisinopril 10 mg oral tablet (15 sources) Angiotensin Converting Enzyme Inhibitor Start: 09-02-2024 End: 03-01-2025 take 1 tablet by mouth once daily lisinopril 10 MG tablet Take 1 tablet (10 mg) by mouth daily. 90 tablet 1 09/02/2024 Active Start: 06-25-2024 End: 12-22-2024 take 1 tablet by mouth once daily mecobalamin (2 sources) Start: 08-23-2024 Mecobalamin (Vitamin B12) 500 mcg tablet,chewable Active ug PO August 23, 2024 12:00am meloxicam 7.5 mg oral tablet (20 sources) Nonsteroidal Anti-inflammatory Drug Start: 03-01-2023 End: 09-02-2025 take 1 tablet by mouth once daily montelukast 10 mg oral tablet (20 sources) Leukotriene Receptor Antagonist Start: 08-23-2024 take 1 tablet by mouth once daily Start: 05-24-2021 End: 07-03-2024 take 1 tablet by mouth once daily montelukast (Singulair) 10 MG tablet Take 1 tablet (10 mg) by mouth daily. 90 tablet 1 07/03/2024 Active Start: 11-26-2019 take 1 tablet by virgilio th once daily montelukast (SINGULAIR) 10 MG tablet Take 1 tablet by mouth daily 90 tablet 0 11/26/2019 Active Start: 09-17-2018 take 1 tablet by virgilio th once daily montelukast (SINGULAIR) 10 MG tablet Take 1 tablet by mouth daily 30 tablet 3 09/17/2018 Active mupirocin 0.02 mg/mg topical ointment (20 sources) RNA Synthetase Inhibitor Antibacterial Start: 02-14-2025 End: 02-21-2025 Mupirocin (Centany) 2 % ointment Discontinued 1 NMA TOPICAL THREE TIMES A DAY 15 7 0 February 13, 2025 11:00pm February 19, 2025 11:00pm February 20, 2025 11:14pm Start: 03-26-2024 mupirocin (Ashley troban) 2 % ointment Apply topically. 03/26/2024 Active Start: 08-17-2022 End: 02-18-2024 mupirocin (Bactroban) 2 % oi ntment apply SMALL AMOUNT topically to affected area three times a day 08/17/2022 02/18/2024 Discontinued (Therapy completed) omeprazole 40 mg delayed release oral capsule (20 sources) Proton Pump Inhibitor Start: 06-25-2024 End: 06-23-2025 take 1 capsule by mouth once daily before breakfast omeprazole (PriLOSEC) [address] capsule Take 1 capsule (40 mg) by mouth every morning (before breakfast). Do not crush or chew. 90 capsule 1 12/25/2024 06/23/2025 Active Start: 08-07-2015 Start: 08-07-2015 take 20 mg by mouth twice daily Omeprazole Active 20 MG PO TWICE A DAY August 07, 2015 12:00am End: 06-25-2024 omeprazole (PriLOSEC) [address] capsule Take 20 mg by mouth. 06/25/2024 Discontinued predniSONE 20 mg oral tablet (3 sources) Start: 09-02-2024 End: 09-07-2024 take 1 tablet by mouth twice daily predniSONE (Deltasone) 20 MG tablet Take 1 tablet (20 mg) by mouth 2 times daily for 10 doses. 10 tablet 09/02/2024 09/07/2024 Active Start: 06-13-2021 predniSONE (DE LTASONE) 10 MG tablet 5 qday for 3 days, then 3 qday for 3 days, then one qday till gone 27 tablet 0 06/13/2021 Active Start: 10-02-2019 predniSONE (DE LTASONE) 10 MG tablet one q.i.d. for 2 days then one t.i.d. for 2 days then one b.i.d. for 2 days and one daily for 2 days. 20 tablet 0 10/02/2019 Active vitamin b12 0.5 mg chewable tablet (1 source) Vitamin B12 Start: 08-23-2024 Completed/Discontinued Medications Medication Drug Class(es) Dates Sig (Normalized) Sig (Original) acetaminophen 325 mg oral tablet (20 sources) Start: 05-09-2019 End: 06-05-2024 take 2 tablets by mouth every six hours as needed for pain Acetaminophen 325 MG tablet Discontinued 650 mg PO EVERY 6 HOURS NEEDED as needed for Pain Score 0 May 09, 2019 12:00am June 05, 2024 1:14pm Start: 05-09-2019 take 650 mg by mouth every six hours as needed Acetaminophen Active 650 MG PO EVERY 6 HOURS NEEDED May 09, 2019 1:00am take 650 mg by mouth once daily Acetaminophen (TYLENOL ARTHRITIS PAIN PO) Take 650 mg by mouth daily. Active amoxicillin 875 mg / clavulanate 125 mg oral tablet (6 sources) Penicillin-class Antibacterial Start: 08-23-2024 End: 09-02-2024 Amoxicillin-Pot Clavulanate 875-125 mg tablet Discontinued 1 {tbl} PO Q12H 20 10 0 August 22, 2024 11:00pm August 31, 2024 11:00pm September 01, 2024 11:07pm Start: 03-07-2024 End: 03-17-2024 Amoxicillin-Pot Clavulanate 875-125 mg tablet Discontinued 1 {tbl} PO Q12H 20 10 0 March 07, 2024 12:00am March 16, 2024 12:00am March 17, 2024 12:09am Acute sinusitis, unspecified azithromycin 250 mg oral tablet (15 sources) Macrolide Antimicrobial Start: 08-27-2024 End: 02-14-2025 Azithromycin 250 mg tablet Discontinued 0 PO .COMPLEX 6 0 August 26, 2024 11:00pm February 14, 2025 8:31am For 250 mg dose pack: take 500 mg today (day 1), then 250 mg for 4 days (days 2-5) PO Start: 12-26-2023 End: 03-01-2024 Azithromycin 250 mg tablet Discontinued 0 PO .COMPLEX 6 0 December 25, 2023 11:00pm March 01, 2024 9:42am For 250 mg dose pack: take 500 mg today (day 1), then 250 mg for 4 days (days 2-5) PO Start: 07-25-2021 End: 06-22-2023 take 2 tablets by mouth once daily Azithromycin (Zithromax Z-Robbie) 250 mg tablet Discontinued 250 mg PO DAILY 4 4 0 July 24, 2021 11:00pm June 22, 2023 8:38am start on day 2 of therapy cetirizine hydrochloride 10 mg oral tablet (20 sources) Histamine-1 Receptor Antagonist Start: 08-25-2020 End: 08-23-2024 take 1 tablet by mouth once daily as needed Cetirizine (Zyrtec) 10 mg Tablet Discontinued 10 mg PO DAILY as needed for Allergy Symptoms August 25, 2020 12:00am August 23, 2024 11:03am dicyclomine hydrochloride 10 mg oral capsule (11 sources) Anticholinergic Start: 10-21-2019 End: 07-27-2020 take 1 capsule by mouth three times daily Dicyclomine 10 mg capsule Discontinued 10 mg PO THREE TIMES A DAY 90 0 October 20, 2019 11:00pm July 27, 2020 12:40pm gadobutrol (GADAVIST) injection 7.5 mL (1 source) Start: 01-31-2021 End: 01-31-2021 gadobutrol (GADAVIST) injection 7.5 mL Iopamidol (2 sources) Radiographic Contrast Agent Start: 03-12-2019 End: 03-12-2019 iopamidol (ISOVUE-370) 76 % injection 75 mL Start: 02-12-2019 End: 02-12-2019 iopamidol (ISOVUE-370) 76 % injection 75 mL iopamidol (ISOVUE-370) 76 % injection 75 mL (1 source) Start: 09-25-2019 End: 09-25-2019 iopamidol (ISOVUE-370) 76 % injection 75 mL methylPREDNISolone 4 mg oral tablet (3 sources) Corticosteroid Start: 12-21-2023 End: 12-27-2023 take 1 tablet by mouth once Methylprednisolone (Medrol (Robbie)) 4 mg tablets,dose pack Discontinued 4 mg PO per package directions 21 6 0 December 20, 2023 11:00pm December 25, 2023 11:00pm December 26, 2023 11:03pm nitrofurantoin, macrocrystals 25 mg / nitrofurantoin, monohydrate 75 mg oral capsule (5 sources) Nitrofuran Antibacterial Start: 05-19-2023 End: 05-24-2023 take 1 capsule by mouth every twelve hours at mealtime Nitrofurantoin Monohyd/M-Cryst (Macrobid) 100 mg capsule Discontinued 100 mg PO Q12H 10 5 0 May 19, 2023 12:00am May 23, 2023 12:00am May 24, 2023 12:05am must administer with a meal/food raloxifene hydrochloride 60 mg oral tablet (9 sources) Estrogen Agonist/Antagonist Start: 08-07-2015 End: 07-01-2018 take 1 tablet by mouth once daily Raloxifene 60 MG tablet Discontinued 60 mg PO DAILY August 06, 2015 11:00pm July 01, 2018 8:07am sucralfate 1000 mg oral tablet (3 sources) Aluminum Complex Start: 06-05-2024 End: 08-23-2024 take 1 tablet by mouth at bedtime Sucralfate (Carafate) 1 gram tablet Discontinued 1 g PO before meals and at bedtime 20 2 June 05, 2024 12:00am August 23, 2024 10:03am Problems Active Problems Problem Classification Problem Date Documented Da te Episodic/Chronic Abdominal pain (16 sources) Left lower quadrant pain; Translations: [Abdominal pain] Onset: 7 Resolved: 7 11-22-2016 Episodic Biliary tract disease (9 sources) Biliary calculus; Translations: [Calculus of gallbladder without cholecystitis without obstruction] 05-07-2019 Episodic Cancer; other and unspecified primary (1 source) H/O: neoplasm; Translations: [Personal history of other benign neoplasm] Episodic Chronic obstructive pulmonary disease and bronchiectasis (4 sources) Bronchitis; Translations: [Bronchitis, not specified as acute or chronic] 09-04-2024 Episodic Conditions associated with dizziness or vertigo (2 sources) Lightheadedness; Translations: [Dizziness and giddiness] 11-21-2024 Episodic Digestive congenital anomalies (9 sources) Choledochal cyst; 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 E Codes: Adverse effects of medical drugs (3 sources) Adverse reaction to drug; Translations: [Adverse effect of unspecified drugs, medicaments and biological substances, initial encounter] 09-04-2024 Episodic Esophageal disorders (20 sources) Gastroesophageal reflux disease; Translations: [Gastro-esophageal reflux disease without esophagitis] Onset: 7 11-22-2016 Chronic Comment on above: CONTROLLED WITH MED Essential hypertension (20 sources) Labile essential hypertension; Translations: [Essential (primary) hypertension] Onset: 4 02-18-2024 Chronic Headache; including migraine (12 sources) Headache; Translations: [Headache] Onset: 8 Episodic Heart valve disorders (17 sources) Mitral valve prolapse; Translations: [Nonrheumatic mitral (valve) prolapse] 04-03-2024 Chronic Nausea and vomiting (4 sources) Nausea; Translations: [Nausea] 06-05-2024 Episodic Nonspecific chest pain (20 sources) Atypical chest pain; Translations: [Other chest pain] 08-02-2021 Episodic Occlusion or stenosis of precerebral arteries (2 sources) Carotid artery occlusion; Translations: [Carotid artery stenosis] Chronic Other aftercare (4 sources) Patient encounter status; Translations: [skilled nursing (current) use of non-steroidal anti-inflammatories (NSAID)] Onset: 4 09-17-2023 Episodic Other bone disease and musculoskeletal deformities (1 source) Disorder of bone; Translations: [Other specified disorders of bone density and structure, multiple sites] 03-01-2023 Episodic Other connective tissue disease (2 sources) Pain in left leg; Translations: [Pain in left leg] Onset: 8 Episodic Other connective tissue disease (1 source) Ganglion cyst of left wrist; Translations: [Ganglion, left wrist] 03-01-2023 Episodic Other ear and sense organ disorders (4 sources) Does use hearing aid; Translations: [Hearing aid worn] 11-22-2016 Other gastrointestinal disorders (11 sources) Dysphagia; Translations: [Dysphagia, unspecified] 05-07-2019 Episodic Other lower respiratory disease (3 sources) H/O: pneumonia; Translations: [Personal history of pneumonia (recurrent)] 09-02-2024 Episodic Other non-traumatic joint disorders (1 source) Multiple joint pain; Translations: [Pain in unspecified joint] 03-01-2023 Episodic Other upper respiratory disease (20 sources) Allergic rhinitis; Translations: [Allergic rhinitis, unspecified] Onset: 7 11-22-2016 Chronic Other upper respiratory disease (1 source) Allergic rhinitis due to pollen; Translations: [Allergic rhinitis due to pollen] 02-18-2024 Chronic Other upper respiratory infections (11 sources) Chronic maxillary sinusitis; Translations: [Recurrent sinusitis] Onset: 8 09-02-2024 Chronic Pleurisy; pneumothorax; pulmonary collapse (3 sources) Pleurisy; Translations: [Pleurisy] Onset: 5 11-21-2024 Episodic Pneumonia (except that caused by tuberculosis or sexually transmitted disease) (9 sources) Atypical pneumonia; Translations: [Pneumonia, unspecified organism] 08-02-2021 Episodic Residual codes; unclassified (2 sources) Other specified postprocedural states; Translations: [Other specified postprocedural states] Onset: 8 Skin and subcutaneous tissue infections (2 sources) Impetigo; Translations: [Impetigo, unspecified] 02-14-2025 Episodic Spondylosis; intervertebral disc disorders; other back problems (20 sources) Degeneration of lumbosacral intervertebral disc; Translations: [Degeneration of cervical intervertebral disc] Onset: 7 11-22-2016 Chronic Spondylosis; intervertebral disc disorders; other back problems (2 sources) Neck pain; Translations: [Cervicalgia] Episodic Unclassified (1 source) Patient encounter status; Translations: [Pre-procedure lab exam] Unclassified (1 source) Cough, unspecified; Translations: [Cough, unspecified] Onset: 5 Unclassified (1 source) Other intervertebral disc degeneration, 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; Translations: [Other intervertebral disc degeneration, 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] Onset: 2 Unclassified (2 sources) Medication Reaction; Translations: [Medication Reaction] Onset: 5 Unclassified (2 sources) Blood Pressure Check; Translations: [Blood Pressure Check] Onset: 4 Urinary tract infections (7 sources) Urinary tract infectious disease; Translations: [Urinary tract infection, site not specified] 05-19-2023 Episodic Past or Other Problems Problem Classification Problem Date Documented Da te Episodic/Chronic Cancer; other and unspecified primary (20 sources) History of meningioma; Translations: [Personal history of other benign neoplasm] Onset: 08-15-2018 Episodic Genitourinary symptoms and ill-defined conditions (5 sources) Polyuria; Translations: [Polyuria] Onset: 04-03-2024 04-03-2024 Episodic Other aftercare (20 sources) intermediate frame tender current use of non-steroidal anti-inflammatory drug; Translations: [skilled nursing (current) use of non-steroidal anti-inflammatories (NSAID)] Onset: 09-17-2023 02-18-2024 Episodic Other aftercare (2 sources) skilled nursing (current) use of non-steroidal anti-inflammatories (NSAID); Translations: [intermediate frame tender (current) use of non-steroidal anti-inflammatories (nsaid)] Onset: 09-17-2023 Episodic Other and unspecified benign neoplasm (20 sources) History of polyp of colon; Translations: [Personal history of colonic polyps] Onset: 06-25-2017 Resolved: 04-03-2024 08-15-2018 Episodic Other circulatory disease (20 sources) Carotid bruit; Translations: [Other specified symptoms and signs involving the circulatory and respiratory systems] Onset: 09-27-2018 Resolved: 09-17-2023 09-27-2018 Episodic Other ear and sense organ disorders (20 sources) Does use hearing aid; Translations: [Presence of external hearing-aid] Onset: 11-22-2016 11-22-2016 Episodic Other gastrointestinal disorders (3 sources) Dysphagia, unspecified; Translations: [Dysphagia, unspecified] Onset: 04-03-2024 Episodic Other lower respiratory disease (2 sources) Cough; Translations: [Cough] Onset: 07-13-2017 Episodic Other lower respiratory disease (1 source) Chronic cough; Translations: [Chronic cough] Episodic Other lower respiratory disease (1 source) Cough; Translations: [Cough] Episodic Other lower respiratory disease (1 source) Shortness of breath; Translations: [Shortness of breath] Onset: 09-08-2024 Episodic Other lower respiratory disease (2 sources) Personal history of pneumonia (recurrent); Translations: [Personal history of pneumonia (recurrent)] Onset: 09-24-2024 Episodic Other nervous system disorders (8 sources) H/O: brain disorder; Translations: [Personal history of benign neoplasm of the brain] Onset: 03-04-2018 08-15-2018 Episodic Other non-traumatic joint disorders (7 sources) Pain in right knee; Translations: [Pain in joint, lower leg] Onset: 09-02-2024 02-18-2024 Episodic Other non-traumatic joint disorders (2 sources) Pain in left knee; Translations: [Pain in left knee] Onset: 09-02-2024 Episodic Other upper respiratory infections (15 sources) Viral pharyngitis; Translations: [Acute pharyngitis due to other specified organisms] Onset: 03-01-2024 03-01-2024 Episodic Residual codes; unclassified (20 sources) Family history of cancer of colon; Translations: [Family history of malignant neoplasm of digestive organs] Onset: 06-25-2017 Resolved: 04-03-2024 08-15-2018 Episodic Residual codes; unclassified (17 sources) History of colonoscopy; Translations: [Other specified postprocedural states] Onset: 06-28-2018 04-03-2024 Episodic Unclassified (1 source) Other intervertebral disc degeneration, 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; Translations: [Other intervertebral disc degeneration, 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] Onset: 09-02-2024 Varicose veins of lower extremity (20 sources) Varicose veins of lower extremity; Translations: [Asymptomatic varicose veins of unspecified lower extremity] Onset: 05-28-2017 08-15-2018 Episodic Viral infection (1 source) Other viral agents as the cause of diseases classified elsewhere; Translations: [Other viral agents as the cause of diseases classified elsewhere] Onset: 03-01-2024 Episodic Results Test Name Value Interpretation Reference Range Facility 36on 03-03-2025 36 Patient aware Normal [facility] Urgent Care Visit Reporton 1 Urgent Care Visit Report [facility] [address], [address] [place] [address] OFFICE VISIT Date of Service: 02/14/25 MR#: [id number] Acct: [id number] Name: JACI PORTER Rep #: [id number] : 1940 Provider: NIGEL Acosta Age/Sex: 84/F Location: [facility] Status: Signed Intake Vital Signs 11/21/24 13:10 02/14/25 09:30 Height 5 ft 3 in BP 148/62 H Blood Pressure Location Lt brachial Position Sitting Respiration 16 Pulse 78 Pulse Source NIBP Temp 97.9 F Temp Source Oral Pulse Oximetry (%) 98 Oxygen Delivery Method room air Intake Visit Reasons: CONCERN FOR SINUS INFECTION Chief Complaint: ROSAS, face/eye pain, drainage Service Tester Required: No Is patient in pain?: Yes Allergies clarithromycin (From Biaxin) Adverse Reaction (Verified 02/14/25 09:31) Nausea Sulfa (Sulfonamide Antibiotics) Adverse Reaction (Verified 02/14/25 09:31) Nausea Medications ???Medication ???Instructions ???Recorded ???Confirmed ???Type calcium 600 mg (as 1 ea PO DAILY 08/07/15 08/23/24 Hi story carbonate)-vitamin D3 10 mcg (400 unit) tablet omeprazole 40 mg capsule,delayed 20 mg PO DAILY 08/07/15 08/23/24 H istory release ascorbate calcium (vitamin C) 500 500 mg PO DAILY 05/07/19 08/23/24 History mg tablet meloxicam 7.5 mg tablet 7.5 mg PO DAILY 06/22/23 08/23/24 History carvedilol 6.25 mg tablet 6.25 mg PO BID BP 04/16/24 5 History lisinopril 5 mg tablet 5 mg PO QDAY 08/23/24 08/23/24 His tory mecobalamin (vitamin B12) 500 mcg mcg PO 08/23/24 08/23/24 History chewable tablet montelukast 10 mg tablet 10 mg PO QDAY 08/23/24 08/23/24 Hi story albuterol sulfate 90 mcg/actuation 1 - 2 puff inhalation Q4H PRN NH N 09/04/24 Rx aerosol inhaler (Ventolin HFA) Wheezing #1 ea amoxicillin 875 mg tablet 875 mg PO BID 7 days #14 tabs 01/2802/14/25 Rx mupirocin 2 % topical ointment 1 applic topical TID 7 days #15 02/14/25 Rx (Centany) grams Is last menstrual period known: No Post menopausal: Yes Patient : No Have you fallen in the past year?: No Nurse's Note: ROSAS, face/eye pain, drainage x 3 days. hx frequent sinus infections, feels same. declines viral testing. [facility] Medical History Wears hearing aid Wears glasses Wears partial dentures Wears dentures Post-menopausal Bladder disease Arthritis Back pain Migraine headache Difficulty swallowing Non-smoker History of edema History of stress test Hypertension Osteoarthritis Chronic back pain GERD (gastroesophageal reflux disease) Surgical History History of ERCP History of craniotomy History of cholecystectomy ( 04/2019) History of colonoscopy ( 06/2018) S/P hemorrhoidectomy S/P appendectomy S/P partial hysterectomy S/P cardiac catheterization S/P colonoscopy Family History Father Heart disease Thyroid disorder goiter Mother Cancer stomach Social History household members: spouse housing: house Smoking Status: Never smoker alcohol intake: never substance use type: does not use additional social history: no aspirin no ibuprofen HPI HPI Chief Complaint: ROSAS, face/eye pain, drainage Details: JACI PORTER, is a 84 F who presents to the office today for evaluation of URI symptoms. Patient states that over the past 3-4 days she has been experiencing headaches, nasal congestion, sinus pain, and nasal discharge. Patient states that she has a history of recurrent sinusitis for which she was last treated approximately 6 months ago. She states that she is limited in regards to OTC treatment options due to current medication regimen and inability to use nasal sprays/rinses, currently patient is utilizing OTC Zyrtec and acetaminophen for symptom relief with little improvement. Patient denies recent contact with other individuals with similar symptoms. Patient also notes concern for a sore on the inner aspect of her left nares, she would like this evaluated since it does not seem to be improving with use of OTC Triple Antibiotic Ointment. ROS Const Constitutional: Positive for headache(s); No chills, fever(s) or weakness Eyes Eyes: Positive for eye pain; No irritation or discharge ENT ENT: Positive for nasal congestion, sinus pressure, sinus pain, nasal discharge and headache(s); No ear or mastoid pain or sore throat Resp Respiratory: Positive for cough; No chest congestion, excessive phlegm production, shortness of breath or wheezing Cardio Cardiology: No chest pain at rest, chest pain with exertion, dyspnea on exertion, irregular heart rhythm (more content not included)... Normal [facility] 36on 12-25-2024 36 Medication name: omeprazole (PriLOSEC) DR capsule Medication dosage: 40 mg (Miligrams Monthly quantity needed: 30 How many day supply requestin days Medication route: oral (PO) Medication administration time(s): daily If taking medication PRN, reason for taking medication: N/A If this is a controlled substance do you receive this or any other controlled medication from any other doctor or facility: N/A Ordering provider: Jamel Date of last office visit: 09.24.2024 Date of next office visit: None Date of last refill: (see medication tab): 06.25.2024 Updated/Validated preferred pharmacy: Yes Patient instructed to contact the pharmacy prior to picking up the medication: Yes Normal [facility] 12 Lead EKGon 11-21-2024 12 Lead EKG [facility] [address] [place] [address] 12 Lead EKG 11/21/24 1358 MR#: [id number] Acct: [id number] Name: JACI PORTER Rep #: [id number] : 1940 84 From: Toney Freeman MD Attending Dr: Status: DEP ER Ordering Dr: Benigno Sifuentes MD Date: 11/21/24 Location: ED Sex: F C Admitted: Test Reason : Blood Pressure : */* mmHG Vent. Rate : 71 BPM Atrial Rate : 71 BPM P-R Int : 204 ms QRS Dur : 84 ms QT Int : 382 ms P-R-T Axes : 54 -41 37 degrees QTcB Int : 415 ms Normal sinus rhythm with sinus arrhythmia Left axis deviation Minimal voltage criteria for LVH, may be normal variant ( R in aVL ) Abnormal ECG Confirmed by TONEY FREEMAN MD ([id number]), supervising editor news reel ENRIKE TOVAR ([id number]) on 11/24/2024 8:31:40 AM Referred By: Confirmed By: TONEY FREEMAN MD 11/24/24 0831 Date Toney Freeman MD CC: Dr. Benigno Sifuentes MD; Dr. Earl Mora DO Signed Normal [facility] Absolute lymphocyte countOrd ered By: Benigno Sifuentes on 11-21-2024 Lymphocytes Auto (Unsp spec) [#/Vol] 1.02 10*3/uL 0.83-4.51 [facility] Absolute neutrophil countOrd ered By: Benigno Sifuentes on 11-21-2024 Neutrophils (Bld) [#/Vol] 2.6 10*3/uL 2.0-7.7 [facility] Anion gap in Serum or Plasma Ordered By: Benigno Sifuentes on 11-21-2024 Anion gap [Moles/Vol] 11 mmol/L 09-11 [facility] Automated lymphocyte count a s percentage of total leukocytesOrdered By: Benigno Sifuentes on 11-21-2024 Lymphocytes/100 WBC Auto (Unsp spec) 24.7 % [facility] BUN/creatinine ratioOrdered By: Benigno Sifuentes on 11-21-2024 Urea nitrogen/Creatinine [Mass ratio] 19.1 mg/mg 02-16 [facility] Basic Metabolic Profile (BMP )on 11-21-2024 BUN/CRE 19.1 RATIO Normal 02-16 [facility] Comment on above: Performed By: #### L 500.2500, L100.0100, L501.4021 #### [facility] [address] [place], [address] Calcium [Mass/Vol] 9.2 mg/dL Normal 7.6-11.0 [facility] Comment on above: Performed By: #### L 500.2500, L100.0100, L501.4021 #### [facility] [address] [place], [address] Chloride [Moles/Vol] 105 mmol/L Normal 98-108 [facility] Comment on above: Performed By: #### L 500.2500, L100.0100, L501.4021 #### [facility] [address] [place], [address] CO2 [Moles/Vol] 23.5 mmol/L Normal 21.0-32.0 [facility] Comment on above: Performed By: #### L 500.2500, L100.0100, L501.4021 #### [facility] [address] [place], [address] Creatinine [Mass/Vol] 0.91 mg/dL Normal 0.70-1.20 [facility] Comment on above: Performed By: #### L 500.2500, L100.0100, L501.4021 #### [facility] [address] [place], [address] GAP 11 Normal 5-15 [facility] Comment on above: Performed By: #### L 500.2500, L100.0100, L501.4021 #### [facility] [address] [place], [address] GFR/1.73 sq M.predicted among non-blacks MDRD (S/P/Bld) [Vol rate/Area] 63 mL/min/{1.73_m2} Normal >60 [facility] Comment on above: Result Comment: mL/m in/1.73m2 CKD-EPI Creatinine Equation (2020) Performed By: #### L 500.2500, L100.0100, L501.4021 #### [facility] [address] [place], [address] Glucose [Mass/Vol] 147 mg/dL High 70-99 [facility] Comment on above: Performed By: #### L 500.2500, L100.0100, L501.4021 #### [facility] [address] [place], [address] Potassium [Moles/Vol] 4.0 mmol/L Normal 3.3-5.1 [facility] Comment on above: Performed By: #### L 500.2500, L100.0100, L501.4021 #### [facility] [address] [place], [address] Sodium [Moles/Vol] 139 mmol/L Normal 133-145 [facility] Comment on above: Performed By: #### L 500.2500, L100.0100, L501.4021 #### [facility] [address] [place], [address] Urea nitrogen [Mass/Vol] 17 mg/dL Normal 4-19 [facility] Comment on above: Performed By: #### L 500.2500, L100.0100, L501.4021 #### [facility] [address] [place], [address] Basophil percentageOrdered B y: Benigno Sifuentes on 11-21-2024 Basophils/100 WBC (Bld) 0.5 % 0-1 [facility] CBC W/Diff, Automatedon 10-29 Absolute Lymph 1.02 X10 3/uL Normal 0.83-4.51 [facility] Comment on above: Performed By: #### L 500.2500, L100.0100, L501.4021 #### [facility] [address] [place], [address] Absolute Neut 2.6 X10 3/uL Normal 2.0-7.7 [facility] Comment on above: Performed By: #### L 500.2500, L100.0100, L501.4021 #### [facility] [address] [place], [address] Basophils/100 WBC (Bld) 0.5 % Normal 0-1 [facility] Comment on above: Performed By: #### L 500.2500, L100.0100, L501.4021 #### [facility] [address] [place], [address] Eosinophils/100 WBC (Bld) 1.2 % Normal 0-5 [facility] Comment on above: Performed By: #### L 500.2500, L100.0100, L501.4021 #### [facility] [address] [place], [address] Erythrocyte distribution width (RBC) [Ratio] 12.5 % Normal 11.6-14.6 [facility] Comment on above: Performed By: #### L 500.2500, L100.0100, L501.4021 #### [facility] [address] [place], [address] Hematocrit (Bld) [Volume fraction] 37.0 % Normal 37-47 [facility] Comment on above: Performed By: #### L 500.2500, L100.0100, L501.4021 #### [facility] [address] [place], [address] Hemoglobin (Bld) [Mass/Vol] 12.3 g/dL Normal 12.0-15.0 [facility] Comment on above: Performed By: #### L 500.2500, L100.0100, L501.4021 #### [facility] [address] [place], [address] IG% 0.200 Normal 0.0-0.9 [facility] Comment on above: Result Comment: IG% - Immature Granulocytes (promyelocytes, myelocytes and metamyelocytes) > 1% indicates that a LEFT SHIFT is Present. Performed By: #### L 500.2500, L100.0100, L501.4021 #### [facility] [address] [place], [address] Lymphocytes/100 WBC (Bld) 24.7 % Normal 19-41 [facility] Comment on above: Performed By: #### L 500.2500, L100.0100, L501.4021 #### [facility] [address] [place], [address] MCH (RBC) [Entitic mass] 30.1 pg Normal 27.0-32.0 [facility] Comment on above: Performed By: #### L 500.2500, L100.0100, L501.4021 #### [facility] [address] [place], [address] MCHC (RBC) [Mass/Vol] 33.2 g/dL Normal 32-36 [facility] Comment on above: Performed By: #### L 500.2500, L100.0100, L501.4021 #### [facility] [address] [place], [address] MCV (RBC) [Entitic vol] 90.7 fL Normal 81-99 [facility] Comment on above: Performed By: #### L 500.2500, L100.0100, L501.4021 #### [facility] [address] [place], [address] Monocytes/100 WBC (Bld) 10.9 % High 0-10 [facility] Comment on above: Performed By: #### L 500.2500, L100.0100, L501.4021 #### [facility] [address] [place], [address] Neutrophils/100 WBC (Bld) 62.5 % Normal 47-70 [facility] Comment on above: Performed By: #### L 500.2500, L100.0100, L501.4021 #### [facility] [address] [place], [address] Nucleated RBC (Bld) [#/Vol] 0 10*3/uL Normal 0-5 [facility] Comment on above: Performed By: #### L 500.2500, L100.0100, L501.4021 #### [facility] [address] [place], [address] Platelet mean volume (Bld) [Entitic vol] 9.7 fL Normal 6.2-12.0 [facility] Comment on above: Performed By: #### L 500.2500, L100.0100, L501.4021 #### [facility] [address] [place], [address] Platelets (Bld) [#/Vol] 195 10*3/uL Normal 150-450 [facility] Comment on above: Performed By: #### L 500.2500, L100.0100, L501.4021 #### [facility] [address] [place], [address] RBC (Bld) [#/Vol] 4.08 10*6/uL Low 4.2-5.4 [facility] Comment on above: Performed By: #### L 500.2500, L100.0100, L501.4021 #### [facility] [address] [place], [address] RDW SD 41.5 fl Normal 35.1-43.9 [facility] Comment on above: Performed By: #### L 500.2500, L100.0100, L501.4021 #### [facility] [address] [place], [address] WBC (Bld) [#/Vol] 4.1 10*3/uL Low 4.4-11.0 [facility] Comment on above: Performed By: #### L 500.2500, L100.0100, L501.4021 #### [facility] [address] [place], [address] Carbon dioxide, total [Moles /volume] in Central venous bloodOrdered By: Benigno Sifuentes on 11-21-2024 CO2 [Moles/Vol] 23.5 mmol/L 21.0-32.0 [facility] Chest PA and Lateralon 11-21 Chest PA and Lateral [facility] Services [address] [place] [address] Chest PA and Lateral MR#: [id number] Acct: [id number] Name: JACI PORTER Rep #: [id number] : 1940 F 84 From: Redd Edge MD PCP: Dr. Earl Mora, DO Status: [facility] ER Study: Chest PA and Lateral Date of Exam: 11/21/24 Exam# [id number] Ordering Dr: Benigno Sifuentes MD PROCEDURE: CHEST PA AND LATERAL 11/21/2024 REASON FOR EXAM: CHEST PAIN LEFT, PLEURITIC TECHNIQUE: CHEST PA AND LATERAL COMPARISON: September 04, 2024 FINDINGS: Hardware: EKG leads are present. Heart: Normal. Aortic atherosclerotic disease Mediastinum: Normal Lungs: Clear Bones: Curvature thoracolumbar spine to the left. Degenerative changes throughout the thoracic and lumbar spine. RAD/Chest PA and Lateral IMPRESSION: No acute abnormality Reading Location: [id number] CC: Dr. Benigno Sifuentes MD; Dr. Earl Mora DO Paper Inserter: Signed Normal [facility] Chloride assayOrdered By: Flavio Sifuentes on 11-21-2024 Chloride [Moles/Vol] 105 mmol/L 98-108 [facility] D-Dimer Quantitative (DVT/PE )on 11-21-2024 D-DIMER QUANT 0.69 FEU/ug/m Invalid Interpretation Code 0.27-0.49 [facility] Comment on above: Order Comment: CRITI CATRINA VALUE CALLED TO JAYSON EPPS 11/21/24 1442 Denisse Thomas. RESULTS READ BACK BY SAME. Result Comment: D-Di michelle ELEVATED (>0.49): Additional studies and clinical assessments are indicated to conclude diagnosis of: Deep Vein Thrombosis (DVT) or Pulmonary Embolism (PE) Performed By: #### L 300.8000 #### [facility] [address] [facility] [place], [address] Emergency Department Summary on 11-21-2024 Emergency Department Summary [facility] Medical Records Department [address] [place] [address] Emergency Department Summary 11/21/24 MR#: [id number] Acct: [id number] Name: JACI OPRTER Rep #: [id number] : 1940 84 From: Benigno Sifuentes MD PCP: Dr. Earl Mora DO Status:REG ER Location: ED HPI History of Present Illness Chief Complaint: Chest Pain Informant: patient and family Narrative Narrative: 84-year-old female states couple hours ago this morning she was resting and had sudden spontaneous onset of discomfort in her left hemithorax that is pleuritic. She feels it more in her back around the tip of her scapula, it does not hurt to move but it does hurt to breathe. She feels some discomfort in her left shoulder as well but it does not hurt to move her shoulder. No numbness in her hand. No jaw or neck discomfort, however she felt lightheaded several times and to some degree near syncopal, which prompted her to come to the ED. She denies a history of DVT or PE and she takes no anticoagulants for anything else. She denies any recent travel, immobilization, hospitalization, or surgery. No calf pain. She states her left ankle swells off-and-on chronically that is no different today. She denies any recent illness although she has had a cough that is chronic, and has been worse a little recently, but nonproductive. [facility] Medical History Wears hearing aid Wears glasses Wears partial dentures Wears dentures Post-menopausal Bladder disease Arthritis Back pain Migraine headache Difficulty swallowing Non-smoker History of edema History of stress test Hypertension Osteoarthritis Chronic back pain GERD (gastroesophageal reflux disease) Home Medications ???Medication ???Instructions ???Recorded ???Last Taken ???Type calcium 600 mg (as 1 ea PO DAILY 08/07/15 08/07/15 08 :30 History carbonate)-vitamin D3 10 mcg (400 unit) tablet omeprazole 40 mg capsule,delayed 20 mg PO DAILY 08/07/1524 H istory release ascorbate calcium (vitamin C) 500 500 mg PO DAILY 05/07/19 Unknown History mg tablet meloxicam 7.5 mg tablet 7.5 mg PO DAILY 06/22/23 Unknown H istory carvedilol 6.25 mg tablet 6.25 mg PO BID BP 04/16/24 4 History lisinopril 5 mg tablet 5 mg PO QDAY 08/23/24 Unknown Hist ory mecobalamin (vitamin B12) 500 mcg mcg PO 08/23/24 Unknown History chewable tablet montelukast 10 mg tablet 10 mg PO QDAY 08/23/24 Unknown His tory azithromycin 250 mg tablet See Rx Instructions PO .COMPLEX #6 08/27/24 Unknown Rx tabs albuterol sulfate 90 mcg/actuation 1 - 2 puff inhalation Q4H PRN NH N 09/04/24 Unknown Rx aerosol inhaler (Ventolin HFA) Wheezing #1 ea Allergy/AdvReac Type Severity Reaction Status Date / Time clarithromycin (From Biaxin) AdvReac Nausea Verified 11/21/24 13:12 Sulfa (Sulfonamide AdvReac Nausea Verified 11/21/24 13:12 Antibiotics) Family History Father Heart disease Thyroid disorder goiter Mother Cancer stomach Surgical History History of ERCP History of craniotomy History of cholecystectomy ( 04/2019) History of colonoscopy ( 06/2018) S/P hemorrhoidectomy S/P appendectomy S/P partial hysterectomy S/P cardiac catheterization S/P colonoscopy Social History household members: spouse housing: house Smoking Status: Never smoker alcohol intake: never substance use type: does not use additional social history: no aspirin no ibuprofen ROS ROS ED Constitutional Constitutional ED: Denies chills or fever(s) Eyes Eyes: Denies change in vision or diplopia ENT ENT ED: Denies rhinorrhea or sore throat Cardiovascular Cardiovascular: Reports lightheadedness; Denies chest pain, orthopnea, palpitations or syncope Respiratory/Chest Respiratory/Chest: Reports dyspnea; Denies cough or orthopnea Gastrointestinal Gastrointestinal: Denies abdominal pain, diarrhea, nausea or vomiting Genitourinary Genitourinary ED: Denies dysuria or hematuria Musculoskeletal Musculoskeletal: Reports back pain; Denies neck pain Integumentary Denies abscess or rash Neurologic Neurologic: Denies headache(s), paresthesias or weakness Psychiatric Psychiatric: Denies anxiety or suicidal thoughts EXAM Physical Exam Const Vital Signs: 11/21/24 13:10 11/21/24 13:52 11/21/24 14:10 Temperature 98.6 F Temperature Source Oral Pulse Rate 86 73 Respiratory Rate 18 Blood Pressure 151/71 H 141/61 H Blood Pressure Mean 97 87 Pulse Ox 99 97 Oxygen Delivery Method Room Air Room Air Room Air 11/21/24 15:00 11/21/24 16:00 Temperature (more content not included)... Normal [facility] Eosinophil percentageOrdered By: Benigno Sifuentes on 11-21-2024 Eosinophils/100 WBC (Bld) 1.2 % 0-5 [facility] Erythrocyte distribution wid th ratioOrdered By: Benigno Sifuentes on 11-21-2024 Erythrocyte distribution width (RBC) [Ratio] 12.5 % 11.6-14.6 [facility] Erythrocyte distribution wid th standard deviationOrdered By: Benigno Sifuentes on 11-21-2024 Erythrocyte distribution width (RBC) [Ratio] 41.5 fl 35.1-43.9 [facility] Glomerular filtration rate ( GFR) estimation/1.73 sq m using serum, plasma, or whole bOrdered By: Benigno Sifuentes on 11-21-2024 GFR/1.73 sq M.predicted among non-blacks MDRD (S/P/Bld) [Vol rate/Area] 63 mL/min/{1.73_m2} >60 [facility] Comment on above: mL/min/1.73m2 CKD-EP I Creatinine Equation (2020) Hematocrit Auto (Bld) [Volum e fraction]Ordered By: Benigno Sifuentes on 11-21-2024 Hematocrit (Bld) [Volume fraction] 37.0 % 37-47 [facility] Hemoglobin measurementOrdere d By: Benigno Sifuentes on 11-21-2024 Hemoglobin (Bld) [Mass/Vol] 12.3 g/dL 12.0-15.0 [facility] Immature granulocytes/100 WB C Auto (Bld)Ordered By: Benigno Sifuentes on 11-21-2024 Immature granulocytes/100 WBC (Bld) 0.200 % 0.0-0.9 [facility] Comment on above: IG% - Immature Granu locytes (promyelocytes, myelocytes and metamyelocytes) > 1% indicates that a LEFT SHIFT is Present. L501.4021on 11-21-2024 Trop T High Sen 16 ng/L High <=14 [facility] Comment on above: Performed By: #### L 500.2500, L100.0100, L501.4021 ####[facility] [id number] [place], [place], [id number] MCV (mean corpuscular volume ) determinationOrdered By: Benigno Sifuentes on 11-21-2024 MCV (RBC) [Entitic vol] 90.7 fL 81-99 [facility] Mean corpuscular hemoglobin (MCH) determinationOrdered By: Benigno Sifuentes on 11-21-2024 MCH (RBC) [Entitic mass] 30.1 pg 27.0-32.0 [facility] Mean corpuscular hemoglobin concentration (MCHC) determinationOrdered By: Benigno Sifuentes on 11-21-2024 MCHC (RBC) [Mass/Vol] 33.2 g/dL 32-36 [facility] Mean platelet volume determi nationOrdered By: Benigno Sifuentes on 11-21-2024 Platelet mean volume (Bld) [Entitic vol] 9.7 fL 6.2-12.0 [facility] Monocyte percentageOrdered B y: Benigno Sifuentes on 11-21-2024 Monocytes/100 WBC (Bld) 10.9 % High 0-10 [facility] Neutrophil percentageOrdered By: Benigno Sifuentes on 11-21-2024 Neutrophils/100 WBC (Bld) 62.5 % 47-70 [facility] Nucleated red blood cell per centageOrdered By: Benigno Sifuentes on 11-21-2024 Nucleated RBC/100 WBC (Bld) [Ratio] 0 % 0-5 [facility] Platelet countOrdered By: Flavio Sifuentes on 11-21-2024 Platelets (Bld) [#/Vol] 195 10*3/uL 150-450 [facility] Potassium measurement (mass/ volume)Ordered By: Benigno Sifuentes on 11-21-2024 Potassium (Unsp spec) [Mass/Vol] 4.0 mmol/L 3.3-5.1 [facility] RBC Auto (Bld) [#/Vol]Ordere d By: Benigno Sifuentes on 11-21-2024 RBC (Bld) [#/Vol] 4.08 10*6/uL Low 4.2-5.4 [facility] Serum creatinine measurement (mass/volume)Ordered By: Benigno Sifuentes on 11-21-2024 Creatinine [Mass/Vol] 0.91 mg/dL 0.70-1.20 [facility] Serum glucose measurement (m ass/volume)Ordered By: Benigno Sifuentes on 11-21-2024 Glucose [Mass/Vol] 147 mg/dL High 70-99 [facility] Serum or plasma calcium sandhya urement (mass/volume)Ordered By: Benigno Sifuentes on 11-21-2024 Calcium [Mass/Vol] 9.2 mg/dL 7.6-11.0 [facility] Serum or plasma urea nitroge n measurement (mass/volume)Ordered By: Benigno Sifuentes on 11-21-2024 Urea nitrogen [Mass/Vol] 17 mg/dL 4-19 [facility] Sodium levelOrdered By: Kranthi Sifuentes on 11-21-2024 Sodium [Moles/Vol] 139 mmol/L 133-145 [facility] Troponin T HS 2 HRon 025 Trop T High Sen 15 ng/L High <=14 [facility] Comment on above: Performed By: #### L 499.0042 #### [facility] [address] [place], [place], [id number] Troponin T HS 4 HRon 025 Trop T High Sen Normal <=14 [facility] Comment on above: Result Comment: Canc elled via OM: Order cancelled - Patient discharged Performed By: #### L 499.0043 #### [facility] [address] [place], [place], [phone] (461) Troponin T.cardiac [Mass/vol ume] in Serum or Plasma by High sensitivity methodOrdered By: Benigno Sifuentes on 11-21-2024 Troponin T.cardiac High sensitivity method [Mass/Vol] 15 ng/L High <14 [facility] Troponin T.cardiac High sensitivity method [Mass/Vol] 16 ng/L High <14 [facility] White blood cell (WBC) count Ordered By: Benigno Sifuentes on 11-21-2024 WBC (Bld) [#/Vol] 4.1 10*3/uL Low 4.4-11.0 [facility] 36on 10-23-2024 36 Medication name: Diclofenac Sodium (Voltaren) 1 % gel Medication dosage: 2 g (Grams) Monthly quantity needed: 150 g How many day supply requestin days Medication route: topical (on skin) Medication administration time(s): 2 times a day (BID) If taking medication PRN, reason for taking medication: N/A If this is a controlled substance do you receive this or any other controlled medication from any other doctor or facility: N/A Ordering provider: Dr. Mora Date of last office visit: 09/02/24 Date of next office visit: none Date of last refill: (see medication tab): 02/18/24 Updated/Validated preferred pharmacy: Yes Patient instructed to contact the pharmacy prior to picking up the medication: Yes Normal [facility] XR Chest 2 Viewson No acute cardiopulmonary process. Report Dictated on Electronically Signed By: John Greenberg MD Electronically Signed Date/Time: 09/25/2024 7:12 AM EDT [facility] Patient Name: JACI PORTER : 1940 Exam Date/Time: 09/24/2024 13:31 Procedure: XR CHEST 2 VIEWS Ordering Provider: MORA EUGENE Reason For Exam: cough, f/u pneumonia CHEST X-RAY PA and lateral CLINICAL INDICATION: Cough PA and lateral radiographs of the chest were obtained. COMPARISON: October 02, 2019 FINDINGS: The cardiac silhouette is within normal limits. No focal consolidation is seen within the lungs. No pleural effusion or pneumothorax is identified. Degenerative changes of the thoracic spine are noted. [facility] John Greenberg MD - 09/25/2024 Patient Name: JACI PORTER : 1940 Exam Date/Time: 09/24/2024 13:31 Procedure: XR CHEST 2 VIEWS Ordering Provider: MORA EUGENE Reason For Exam: cough, f/u pneumonia CHEST X-RAY PA and lateral CLINICAL INDICATION: Cough PA and lateral radiographs of the chest were obtained. COMPARISON: October 02, 2019 FINDINGS: The cardiac silhouette is within normal limits. No focal consolidation is seen within the lungs. No pleural effusion or pneumothorax is identified. Degenerative changes of the thoracic spine are noted. IMPRESSION: No acute cardiopulmonary process. Report Dictated on Electronically Signed By: John Greneberg MD Electronically Signed Date/Time: 09/25/2024 7:12 AM EDT [facility] XR Chest 2 ViewsOrdered By: John Greenberg on 09-25-2024 [facility] Work Phone: Progress Noteon 09-24-2024 Progress Note [address] [facility] [address] [facility] [id number] @patname@ Patient arrived for nurse visit today. Two patient identifiers used to confirm correct patient yes Supervising provider for clinic visit Dr. Mora is taking Lisinopril 10mg BID for hypertension with excellent compliance and no side effects regular Shortness of breath no Medication compliance yes Medication Reconciliation yes BP Medication taken prior to visit yes at what time 6:45am B/P Reading taken manual Home Monitoring no Patient advised if follow up is needed, outreach will occur in 48 hours BP:125/70 HR:78 Normal [facility] Progress Note Blood pressure stabl e, no med changes Normal [facility] XR Chest 2 Viewson Radiology Study observation (narrative) [facility] eben Absolute lymphocyte countOrd ered By: Andrei Rios on 09-04-2024 Lymphocytes Auto (Unsp spec) [#/Vol] 1.19 10*3/uL 0.83-4.51 [facility] Absolute neutrophil countOrd ered By: Andrei Rios on 09-04-2024 Neutrophils (Bld) [#/Vol] 7.1 10*3/uL 2.0-7.7 [facility] Anion gap in Serum or Plasma Ordered By: Andrei Rios on 09-04-2024 Anion gap [Moles/Vol] 10 mmol/L 5-15 [facility] Automated lymphocyte count a s percentage of total leukocytesOrdered By: Andrei Rios on 09-04-2024 Lymphocytes/100 WBC Auto (Unsp spec) 12.9 % Low 19-41 [facility] BUN/creatinine ratioOrdered By: Andrei Rios on 09-04-2024 Urea nitrogen/Creatinine [Mass ratio] 22.8 mg/mg High 10-20 [facility] Basic Metabolic Profile (BMP )on 09-04-2024 BUN/CRE 22.8 RATIO High 10-20 [facility] Comment on above: Performed By: #### L 500.2500, L100.0100 ####[facility] [address] [place], [address] Calcium [Mass/Vol] 9.2 mg/dL Normal 7.6-11.0 [facility] Comment on above: Performed By: #### L 500.2500, L100.0100 ####[facility] [address] [place], [address] Chloride [Moles/Vol] 106 mmol/L Normal 98-108 [facility] Comment on above: Performed By: #### L 500.2500, L100.0100 ####[facility] [address] [place], [address] CO2 [Moles/Vol] 23.3 mmol/L Normal 21.0-32.0 [facility] Comment on above: Performed By: #### L 500.2500, L100.0100 ####[facility] [address] [place], [address] Creatinine [Mass/Vol] 0.81 mg/dL Normal 0.70-1.20 [facility] Comment on above: Performed By: #### L 500.2500, L100.0100 ####[facility] [address] [place], [address] ECRCL 50.84 ml/min Normal 50-250 [facility] Comment on above: Performed By: #### L 500.2500, L100.0100 ####[facility] [address] [place], [address] GAP 10 Normal 5-15 [facility] Comment on above: Performed By: #### L 500.2500, L100.0100 ####[facility] [address] [place], [address] GFR/1.73 sq M.predicted among non-blacks MDRD (S/P/Bld) [Vol rate/Area] 72 mL/min/{1.73_m2} Normal >60 [facility] Comment on above: Result Comment: mL/m in/1.73m2 CKD-EPI Creatinine Equation (2020) Performed By: #### L 500.2500, L100.0100 ####[facility] [address] [place], [address] Glucose [Mass/Vol] 110 mg/dL High 70-99 [facility] Comment on above: Performed By: #### L 500.2500, L100.0100 ####[facility] [address] [place], [address] Potassium [Moles/Vol] 3.6 mmol/L Normal 3.3-5.1 [facility] Comment on above: Performed By: #### L 500.2500, L100.0100 ####[facility] [address] [place], [address] Sodium [Moles/Vol] 140 mmol/L Normal 133-145 [facility] Comment on above: Performed By: #### L 500.2500, L100.0100 ####[facility] [address] [place], [address] Urea nitrogen [Mass/Vol] 19 mg/dL Normal 4-19 [facility] Comment on above: Performed By: #### L 500.2500, L100.0100 ####[facility] [address] [place], [address] Basophil percentageOrdered B y: Andrei Rios on 09-04-2024 Basophils/100 WBC (Bld) 0.2 % 0-1 [facility] CBC W/Diff, Automatedon 05-0 Absolute Lymph 1.19 X10 3/uL Normal 0.83-4.51 [facility] Comment on above: Performed By: #### L 500.2500, L100.0100 ####[facility] [address] [place], [address] Absolute Neut 7.1 X10 3/uL Normal 2.0-7.7 [facility] Comment on above: Performed By: #### L 500.2500, L100.0100 ####[facility] [address] [place], [address] Basophils/100 WBC (Bld) 0.2 % Normal 0-1 [facility] Comment on above: Performed By: #### L 500.2500, L100.0100 ####[facility] [address] [place], [address] Eosinophils/100 WBC (Bld) 0.0 % Normal 0-5 [facility] Comment on above: Performed By: #### L 500.2500, L100.0100 ####[facility] [address] [place], [address] Erythrocyte distribution width (RBC) [Ratio] 12.1 % Normal 11.6-14.6 [facility] Comment on above: Performed By: #### L 500.2500, L100.0100 ####[facility] [address] [place], [address] Hematocrit (Bld) [Volume fraction] 34.7 % Low 37-47 [facility] Comment on above: Performed By: #### L 500.2500, L100.0100 ####[facility] [address] [place], [address] Hemoglobin (Bld) [Mass/Vol] 12.1 g/dL Normal 12.0-15.0 [facility] Comment on above: Performed By: #### L 500.2500, L100.0100 ####[facility] [address] [place], [address] IG% 0.800 Normal 0.0-0.9 [facility] Comment on above: Result Comment: IG% - Immature Granulocytes (promyelocytes, myelocytes and metamyelocytes) > 1% indicates that a LEFT SHIFT is Present. Performed By: #### L 500.2500, L100.0100 ####[facility] [address] [place], [address] Lymphocytes/100 WBC (Bld) 12.9 % Low 19-41 [facility] Comment on above: Performed By: #### L 500.2500, L100.0100 ####[facility] [address] [place], [address] MCH (RBC) [Entitic mass] 30.5 pg Normal 27.0-32.0 [facility] Comment on above: Performed By: #### L 500.2500, L100.0100 ####[facility] [address] [place], [address] MCHC (RBC) [Mass/Vol] 34.9 g/dL Normal 32-36 [facility] Comment on above: Performed By: #### L 500.2500, L100.0100 ####[facility] [address] [place], [address] MCV (RBC) [Entitic vol] 87.4 fL Normal 81-99 [facility] Comment on above: Performed By: #### L 500.2500, L100.0100 ####[facility] [address] [place], [address] Monocytes/100 WBC (Bld) 9.0 % Normal 0-10 [facility] Comment on above: Performed By: #### L 500.2500, L100.0100 ####[facility] [address] [place], [address] Neutrophils/100 WBC (Bld) 77.1 % High 47-70 [facility] Comment on above: Performed By: #### L 500.2500, L100.0100 ####[facility] [address] [place], [address] Nucleated RBC (Bld) [#/Vol] 0 10*3/uL Normal 0-5 [facility] Comment on above: Performed By: #### L 500.2500, L100.0100 ####[facility] [address] [place], [address] Platelet mean volume (Bld) [Entitic vol] 9.3 fL Normal 6.2-12.0 [facility] Comment on above: Performed By: #### L 500.2500, L100.0100 ####[facility] [address] [place], [address] Platelets (Bld) [#/Vol] 262 10*3/uL Normal 150-450 [facility] Comment on above: Performed By: #### L 500.2500, L100.0100 ####[facility] [address] [place], [address] RBC (Bld) [#/Vol] 3.97 10*6/uL Low 4.2-5.4 [facility] Comment on above: Performed By: #### L 500.2500, L100.0100 ####[facility] [address] [place], [address] RDW SD 38.9 fl Normal 35.1-43.9 [facility] Comment on above: Performed By: #### L 500.2500, L100.0100 ####[facility] [address] [place], [address] WBC (Bld) [#/Vol] 9.2 10*3/uL Normal 4.4-11.0 [facility] Comment on above: Performed By: #### L 500.2500, L100.0100 ####[facility] [address] [place], [address] Carbon dioxide, total [Moles /volume] in Central venous bloodOrdered By: Andrei Rios on 09-04-2024 CO2 [Moles/Vol] 23.3 mmol/L 21.0-32.0 [facility] Chest PA and Lateralon 09-04 Chest PA and Lateral [facility] [address] [place] [address] Chest PA and Lateral MR#: [id number] Acct: [id number] Name: JACI PORTER Rep #: [id number] : 1940 F 83 From: Mac Rojas MD PCP: Dr. Earl Mora DO Status: REG ER Study: Chest PA and Lateral Date of Exam: 09/04/24 Exam# [id number] Ordering Dr: Andrei Rios MD EXAM: XR Chest, 2 Views CLINICAL INDICATION: SHORTNESS OF BREATH TECHNIQUE: Frontal and lateral views of the chest. COMPARISON: No relevant prior studies available. FINDINGS: LUNGS AND PLEURAL SPACES: Unremarkable. No consolidation. No pneumothorax. HEART: Unremarkable. No cardiomegaly. MEDIASTINUM: Unremarkable. Normal mediastinal contour. BONES/JOINTS: Unremarkable. No acute fracture. RAD/Chest PA and Lateral IMPRESSION: No acute cardiopulmonary process. Reading [facility] CC: Dr. Andrei Rios MD; Dr. Earl Mora DO Paper Inserter: Signed Normal [facility] Chloride assayOrdered By: Jerald Rios on 09-04-2024 Chloride [Moles/Vol] 106 mmol/L 98-108 [facility] Emergency Department Summary on 09-04-2024 Emergency Department Summary [facility] Medical Records Department [address] [place] [address] Emergency Department Summary 09/04/24 MR#: [id number] Acct: [id number] Name: JACI PORTER Rep #: [id number] : 1940 83 From: Andrei Rios MD PCP: Dr. Earl Petrilla, DO Status:REG ER Location: ED HPI History of Present Illness Chief Complaint: Shortness of Breath Narrative Narrative: 83-year-old female presents with her daughter because of not feeling well, shortness of breath with cough. Patient relates history that approximately 2 weeks ago she started out having a sinus infec tion. She was put on Augmentin. She started having cough as well with subjective fever. She states that chest x-ray was performed and that she was told she had the beginnings of pneumonia so a Z-Robbie was added. She saw her primary care provider, and was put on Levaquin recently. She took her second dose last night, and experienced facial redness. She feels she may be having a reaction to her third antibiotic. She states that she was told that if she is not feeling better, that she should come to the emergency department. Patient states that last night she slept in her recliner because she was not feeling well. [facility] Medical History Wears hearing aid Wears glasses Wears partial dentures Wears dentures Post-menopausal Bladder disease Arthritis Back pain Migraine headache Difficulty swallowing Non-smoker History of edema History of stress test Hypertension Osteoarthritis Chronic back pain GERD (gastroesophageal reflux disease) Home Medications ???Medication ???Instructions ???Recorded ???Last Taken ???Type calcium 600 mg (as 1 ea PO DAILY 08/07/15 08/07/15 08 :30 History carbonate)-vitamin D3 10 mcg (400 unit) tablet omeprazole 40 mg capsule,delayed 20 mg PO DAILY 08/07/15 04/18/24 H istory release ascorbate calcium (vitamin C) 500 500 mg PO DAILY 05/07/19 Unknown History mg tablet meloxicam 7.5 mg tablet 7.5 mg PO DAILY 06/22/23 Unknown H istory carvedilol 6.25 mg tablet 6.25 mg PO BID BP 04/16/24 4 History lisinopril 5 mg tablet 5 mg PO QDAY 08/23/24 Unknown Hist ory mecobalamin (vitamin B12) 500 mcg mcg PO 08/23/24 Unknown History chewable tablet montelukast 10 mg tablet 10 mg PO QDAY 08/23/24 Unknown His tory azithromycin 250 mg tablet See Rx Instructions PO .COMPLEX #6 08/27/24 Unknown Rx tabs albuterol sulfate 90 mcg/actuation 1 - 2 puff inhalation Q4H PRN NH N 09/04/24 Unknown Rx aerosol inhaler (Ventolin HFA) Wheezing #1 ea Allergy/AdvReac Type Severity Reaction Status Date / Time clarithromycin (From Biaxin) AdvReac Nausea Verified 09/04/24 08:55 Sulfa (Sulfonamide AdvReac Nausea Verified 09/04/24 08:55 Antibiotics) Family History Father Heart disease Thyroid disorder goiter Mother Cancer stomach Surgical History History of ERCP History of craniotomy History of cholecystectomy ( 04/2019) History of colonoscopy ( 06/2018) S/P hemorrhoidectomy S/P appendectomy S/P partial hysterectomy S/P cardiac catheterization S/P colonoscopy Social History (Updated 09/04/24 @ 09:35 by Jayson Bach) household members: spouse housing: house Smoking Status: Never smoker alcohol intake: never substance use type: does not use additional social history: no aspirin no ibuprofen ROS ROS ED ROS Narrative Review of systems positive for subjective fever, cough with sputum production, mild shortness of breath. No chest pain. No leg swelling. She has been treated for sinusitis and postnasal drip as well. EXAM Physical Exam Narrative Exam Narrative: Afebrile. Vital signs noted. Nontoxic-appearing. Ambulatory to room. HEENT examination grossly unremarkable. Cardiovascular examination regular rate and rhythm. Occasional expiratory wheeze right base greater than left. Abdomen soft nontender with normoactive bowel sounds. No pedal edema. Neurological examination nonfocal, nonlateralizing. Const Vital Signs: 09/04/24 08:55 09/04/24 09:21 09/04/24 09:34 Temperature 98.9 F 98.3 F Temperature Source Temporal Oral Pulse Rate 79 79 79 Respiratory Rate 14 16 12 Respiratory Effort Respiratory Depth Respiratory Pattern Blood Pressure 165/89 H 117/69 Blood Pressure Mean 114 85 Pulse Ox 98 96 Oxygen Delivery Method Room Air Room Air 09/04/24 09:34 09/04/24 09:34 Temperature Temperature Source Pulse Rate Respiratory Rate Respiratory Effort Normal Non-Labored Respiratory Depth Normal Respiratory Pattern Normal Blood Pressure Blood Pressure Mean Pulse Ox 100 Oxygen Del (more content not included)... Normal [facility] Eosinophil percentageOrdered By: Andrei Rios on 09-04-2024 Eosinophils/100 WBC (Bld) 0.0 % 0-5 [facility] Erythrocyte distribution wid th ratioOrdered By: Andrei Rios on 09-04-2024 Erythrocyte distribution width (RBC) [Ratio] 12.1 % 11.6-14.6 [facility] Erythrocyte distribution wid th standard deviationOrdered By: Andrei Rios on 09-04-2024 Erythrocyte distribution width (RBC) [Ratio] 38.9 fl 35.1-43.9 [facility] Glomerular filtration rate ( GFR) estimation/1.73 sq m using serum, plasma, or whole bOrdered By: Andrei Rios on 09-04-2024 GFR/1.73 sq M.predicted among non-blacks MDRD (S/P/Bld) [Vol rate/Area] 72 mL/min/{1.73_m2} >60 [facility] Comment on above: mL/min/1.73m2 CKD-EP I Creatinine Equation (2020) Hematocrit Auto (Bld) [Volum e fraction]Ordered By: Andrei Rios on 09-04-2024 Hematocrit (Bld) [Volume fraction] 34.7 % Low 37-47 [facility] Hemoglobin measurementOrdere d By: Andrei Rios on 09-04-2024 Hemoglobin (Bld) [Mass/Vol] 12.1 g/dL 12.0-15.0 [facility] Immature granulocytes/100 WB C Auto (Bld)Ordered By: Andrei Rios on 09-04-2024 Immature granulocytes/100 WBC (Bld) 0.800 % 0.0-0.9 [facility] Comment on above: IG% - Immature Granu locytes (promyelocytes, myelocytes and metamyelocytes) > 1% indicates that a LEFT SHIFT is Present. L503.7505on 09-04-2024 Natriuretic peptide B (Bld) [Mass/Vol] 382 pg/mL Normal <=1800 [facility] Comment on above: Result Comment: Hear t Failure Unlikely: < 300 pg/mL Heart Failure Likely < 50 Years: > 450 pg/mL 50-75 Years: > 900 pg/mL >75 Years: > 1800 pg/mL Performed By: #### L 503.7505 ####[facility] [address] [place], [address] MCV (mean corpuscular volume ) determinationOrdered By: Andrei Rios on 09-04-2024 MCV (RBC) [Entitic vol] 87.4 fL 81-99 [facility] Mean corpuscular hemoglobin (MCH) determinationOrdered By: Andrei Rios on 09-04-2024 MCH (RBC) [Entitic mass] 30.5 pg 27.0-32.0 [facility] Mean corpuscular hemoglobin concentration (MCHC) determinationOrdered By: Andrei Rios on 09-04-2024 MCHC (RBC) [Mass/Vol] 34.9 g/dL 32-36 [facility] Mean platelet volume determi nationOrdered By: Andrei Rios on 09-04-2024 Platelet mean volume (Bld) [Entitic vol] 9.3 fL 6.2-12.0 [facility] Monocyte percentageOrdered B y: Andrei Rios on 09-04-2024 Monocytes/100 WBC (Bld) 9.0 % 0-10 [facility] Natriuretic peptide.B prohor claudia N-Terminal [Mass/volume] in Serum or PlasmaOrdered By: Andrei Rios on 09-04-2024 Natriuretic peptide.B prohormone N-Terminal [Mass/Vol] 382 pg/mL <1800 [facility] Comment on above: Heart Failure Unlike ly: < 300 pg/mLHeart Failure Likely< 50 Years: > 450 pg/mL50-75 Years: > 900 pg/mL>75 Years: > 1800 pg/mL Neutrophil percentageOrdered By: Andrei Rios on 09-04-2024 Neutrophils/100 WBC (Bld) 77.1 % High 47-70 [facility] Nucleated red blood cell per centageOrdered By: Andrei Rios on 09-04-2024 Nucleated RBC/100 WBC (Bld) [Ratio] 0 % 0-5 [facility] Platelet countOrdered By: Jerald Rios on 09-04-2024 Platelets (Bld) [#/Vol] 262 10*3/uL 150-450 [facility] Potassium measurement (mass/ volume)Ordered By: Andrei Rios on 09-04-2024 Potassium (Unsp spec) [Mass/Vol] 3.6 mmol/L 3.3-5.1 [facility] RBC Auto (Bld) [#/Vol]Ordere d By: Andrei Rios on 09-04-2024 RBC (Bld) [#/Vol] 3.97 10*6/uL Low 4.2-5.4 [facility] Serum creatinine measurement (mass/volume)Ordered By: Andrei Rios on 09-04-2024 Creatinine [Mass/Vol] 0.81 mg/dL 0.70-1.20 [facility] Serum glucose measurement (m ass/volume)Ordered By: Andrei Rios on 09-04-2024 Glucose [Mass/Vol] 110 mg/dL High 70-99 [facility] Serum or plasma calcium sandhya urement (mass/volume)Ordered By: Andrei Rios on 09-04-2024 Calcium [Mass/Vol] 9.2 mg/dL 7.6-11.0 [facility] Serum or plasma urea nitroge n measurement (mass/volume)Ordered By: Andrei Rios on 09-04-2024 Urea nitrogen [Mass/Vol] 19 mg/dL 4-19 [facility] Sodium levelOrdered By: Andrei Rios on 09-04-2024 Sodium [Moles/Vol] 140 mmol/L 133-145 [facility] White blood cell (WBC) count Ordered By: Andrei Rios on 09-04-2024 WBC (Bld) [#/Vol] 9.2 10*3/uL 4.4-11.0 [facility] 37on 09-02-2024 37 Blood pressure ch in 4 wks Normal [facility] Office Visiton 09-02-2024 Follow-up visit [id number] Corwin Porter 1940 F Date Provider Department Center 09/02/2024 [id number]-PTERCEWXEARL MORA [facility] Family History Problem Relation Age of Onset Colon cancer Mother Comments: age 45- ? [employer] [place] Ulcers Mother Prostate cancer Father Heart disease Father Comments: MS at age 77 Lung cancer Sister Comments: Probable lung cancer with brain met, age 72 in 11/14 Heart disease Sister Comments: Congenital heart Heart attack Brother Comments: age 77 Heart disease Father's Sister Comments: sudden cardiac Family Status - Relation Status Age at Mother Father Sister Sister Alive Brother Father's Sister Level of Service:28128 [place] OFFICE/OUTPATIENT ESTABLISHED MOD MDM 30 MIN Reason for Visit and Comments: Follow-up [345675] - Med Check Pneumonia [164] - Dx this past [facility] patient finished antibiotics this morning, patient still having cough (yellow mucus) and nasal drainage Normal [facility] Progress Noteon 09-02-2024 Progress Note [facility] - [address] [facility] [id number] Visit type: Established Patient Reason for Visit: Follow-up (Med Check ) and Pneumonia (Dx this past Sunday [facility] patient finished antibiotics this morning, patient still having cough (yellow mucus) and nasal drainage ) Assessment / Plan: Jaci was seen today for follow-up and pneumonia. Diagnoses and all orders for this visit: Essential hypertension (Primary) Comments: Control, to streamline meds stop carvedilol and increased lisinopril to 10 mg daily. BP check 4 weeks Orders: - CBC auto differential; Future - Comprehensive metabolic panel; Future - CBC auto differential - Comprehensive metabolic panel NSAID long-term use Comments: Stable on meloxicam, GI precautions discussed show continue Prilosec Gastroesophageal reflux disease without esophagitis Comments: Stable continue Prilosec History of pneumonia Comments: X-ray, add Levaquin and prednisone Orders: - XR chest 2 views; Future Recurrent sinus infections Arthralgia of both knees Comments: Stable, meloxicam and diclofenac Orders: - meloxicam (Mobic) 7.5 MG tablet; Take 1 tablet (7.5 mg) by mouth daily. Degeneration of intervertebral disc of lumbosacral region with discogenic back pain - Handicap Placard Other orders - benzonatate (Tessalon) 100 MG capsule; 1-2 qid prn , no more than 6 a day - lisinopril 10 MG tablet; Take 1 tablet (10 mg) by mouth daily. - levoFLOXacin (Levaquin) 500 MG tablet; Take 1 tablet (500 mg) by mouth daily for 7 doses. - predniSONE (Deltasone) 20 MG tablet; Take 1 tablet (20 mg) by mouth 2 times daily for 10 doses. Subjective: Patient ID: Jaci Porter is a 83 y.o. female. HPI checkup for hypertensive non-smoker on NSAID therapy for knee and lumbar pain. Was doing well until she developed "pneumonia" that was found by chest x-ray through [facility] evaluations. Has been on Augmentin and Z-Robbie with partial improvement. No fever or chest pain. Some cough and wheezing. Not allergies but her rhinorrhea is still purulent. No facial pain headache or fever or confusion. Review of Systems no constitutional symptoms. Has a good appetite. No heartburn on Prilosec. Takes meloxicam daily. No change in arthralgias. She does need a parking placard. Denies exertional chest pain or dyspnea or PND orthopnea or edema. No vomiting or diarrhea. No abdominal pain. No dysuria. Allergies Allergen Reactions Clarithromycin Diarrhea Other reaction(s): Nausea Other reaction(s): Nausea Other reaction(s): Nausea Other reaction(s): Nausea Other Other reaction(s): Nausea Sulfa Antibiotics Nausea And Vomiting Other reaction(s): Nausea Current Outpatient Medications: Acetaminophen (TYLENOL ARTHRITIS PAIN PO), Take 650 mg by mouth daily., Disp: , Rfl: ascorbic acid (Vitamin C) 100 MG tablet, Take 400 mg by mouth daily., Disp: , Rfl: calcium 500 MG tablet, Take 500 mg by mouth daily., Disp: , Rfl: cetirizine (ZyrTEC) 10 MG tablet, Take 10 mg by mouth Daily as needed., Disp: , Rfl: Diclofenac Sodium (Voltaren) 1 % gel, Apply 2 g topically 2 times daily., Disp: 150 g, Rfl: 1 montelukast (Singulair) 10 MG tablet, Take 1 tablet (10 mg) by mouth daily., Disp: 90 tablet, Rfl: 1 mupirocin (Bactroban) 2 % ointment, Apply topically., Disp: , Rfl: bzirknml-ladxrdsiq-edy AMETHasone (Maxitrol) 3.5-55964-6.1 ophthalmic suspension, Administer 1 drop into the right eye in the morning and 1 drop at noon and 1 drop in the evening and 1 drop before bedtime., Disp: , Rfl: omeprazole (PriLOSEC) [address] capsule, Take 1 capsule (40 mg) by mouth every morning (before breakfast). Do not crush or chew., Disp: 90 capsule, Rfl: 1 benzonatate (Tessalon) 100 MG capsule, 1-2 qid prn , no more than 6 a day, Disp: 42 capsule, Rfl: 0 levoFLOXacin (Levaquin) 500 MG tablet, Take 1 tablet (500 mg) by mouth daily for 7 doses., Disp: 7 tablet, Rfl: 0 lisinopril 10 MG tablet, Take 1 tablet (10 mg) by mouth daily., Disp: 90 tablet, Rfl: 1 meloxicam (Mobic) 7.5 MG tablet, Take 1 tablet (7.5 mg) by mouth daily., Disp: 90 tablet, Rfl: 1 predniSONE (Deltasone) 20 MG tablet, Take 1 tablet (20 mg) by mouth 2 times daily for 10 doses., Disp: 10 tablet, Rfl: 0 Patient Active Problem List Diagnosis H/O meningioma of the brain Family history of colon cancer in mother DDD (degenerative disc disease), cervical Varicosities of leg Hearing aid worn Allergic rhinitis DDD (degenerative disc disease), lumbosacral GERD (gastroesophageal reflux disease) NSAID long-term use Essential hypertension H/O colonoscopy with polypectomy MVP (mitral valve prolapse) Social History Tobacco Use Smoking status: Never Smokeless tobacco: Never Substance Use Topics Alcohol use: No Alcohol/week: 0.0 standard drinks of alcohol Past Surgical History: Procedure Laterality Date APPE (more content not included)... Normal [facility] Chest PA and Lateralon 08-27 Chest PA and Lateral [facility] [address] [place], [place] [id number] Chest PA and Lateral MR#: [id number] Acct: [id number] Name: JACI PORTER Ant Rep #: [id number] : 1940 F 83 From: Albino Mabry MD PCP: Dr. Earl Mora, DO Status: [facility] CLI Study: Chest PA and Lateral Date of Exam: 08/27/24 Exam# [id number] Ordering Dr: El Abraham PA PROCEDURE: CHEST PA AND LATERAL 08/27/2024 REASON FOR EXAM: COUGH TECHNIQUE: Frontal and lateral views of the chest. COMPARISON: January 09 2024 FINDINGS: Heart size and mediastinal configuration are within normal limits. There is no focal infiltrate or consolidation. There is no pneumothorax or effusion. Aortic calcifications are visible. There is no acute bony abnormality. Lumbar scoliosis is visible. RAD/Chest PA and Lateral IMPRESSION: No acute infiltrate or consolidation is identified. Reading Location: [facility] CC: Dr. Earl Mora DO; NIGEL Mack Paper Inserter: Signed Normal [facility] Visit Reporton 0 08-27-2024 Urgent Care Visit Report [facility] [address], [address] [place] [address] OFFICE VISIT Date of Service: 08/27/24 MR#: [id number] Acct: [id number] Name: JACI PORTER Rep #: [id number] : 1940 Provider: NIGEL Mack Age/Sex: 83/F Location: [facility] Status: Signed Intake Vital Signs 06/05/24 13:13 08/27/24 09:08 Height 5 ft 3 in Weight: 152 lb BMI 26.9 BP 143/73 H 134/62 H Blood Pressure Location Rt brachial Lt brachial Position Sitting Sitting Respiration 18 16 Pulse 72 77 Pulse Source Monitor NIBP Temp 97.5 F L 98.6 F Temp Source Temporal Oral Pulse Oximetry (%) 99 98 Oxygen Delivery Method room air room air Intake Visit Reasons: COUGH, BODYACHES Chief Complaint: cough, increased mucus Service Tester Required: No Is patient in pain?: No Allergies clarithromycin (From Biaxin) Adverse Reaction (Verified 08/27/24 09:08) Nausea Sulfa (Sulfonamide Antibiotics) Adverse Reaction (Verified 08/27/24 09:08) Nausea Is last menstrual period known: No Post menopausal: Yes Patient : No Have you fallen in the past year?: No Nurse's Note: seen here 08/23 for sinus infection, given augmentin and taking as prescribed. pt states now s/s have moved into chest. worsened fatigue and cough worsened and has become productive. feels chest is "gurgly". denies fever PFSH Medical History Wears hearing aid Wears glasses Wears partial dentures Wears dentures Post-menopausal Bladder disease Arthritis Back pain Migraine headache Difficulty swallowing Non-smoker History of edema History of stress test Hypertension Osteoarthritis Chronic back pain GERD (gastroesophageal reflux disease) Surgical History History of ERCP History of craniotomy History of cholecystectomy ( 04/2019) History of colonoscopy ( 06/2018) S/P hemorrhoidectomy S/P appendectomy S/P partial hysterectomy S/P cardiac catheterization S/P colonoscopy Family History Father Heart disease Thyroid disorder goiter Mother Cancer stomach Social History Smoking Status: Never smoker alcohol intake: never substance use type: does not use additional social history: no aspirin no ibuprofen HPI HPI Chief Complaint: cough, increased mucus Details: JACI PORTER, is a 83 F who presents to the office today for follow-up at the [facility] status post having been diagnosed with sinusitis on 08/23/2024. Patient presents with symptoms onset 8 days ago. Specifically she describes postnasal drainage, cough, right maxillary sinus pressure/ tenderness, and progressively worsening chest congestion as she describes. No fever chills or other constitutional complaint. She denies any chest pressure with shortness of breath, dyspnea on exertion, or abdominal pain. No complaints of fever, chills, sweats, lightheadedness/dizzin ess, nausea/vomiting/diarrh ea. Still no concern for COVID or influenza. No other associated symptoms and no other alleviating/aggravatin g factors. ROS Const Constitutional: As above Exam Const General: cooperative, healthy appearing and no acute distress HENMT Head: normal to inspection, normocephalic and atraumatic Ears: hearing grossly normal bilaterally, TM's normal bilaterally and EAC's normal Nose: nasal discharge purulent Face and sinus: sinus tenderness frontal and maxillary Mouth: oral mucosae normal Throat: normal tonsils and postnasal drainage Resp Effort Inspection: normal respiratory effort Auscultation: Bilateral: scant rhonchi throughout partially clearing with cough Cardio Palpation: normal PMI Rate: regular rate Rhythm: regular rhythm Neuro General: patient alert and CN's II-XI intact bilaterally Psych Appearance: grossly normal Mental Status: mental status grossly normal Diagnoses Sinusitis J32.9 Pneumonia J18.9 Assessment and Plan Assessment and Plan (1) Sinusitis: Status: Acute (2) pneumonia: Status: Acute Plan: PA and lateral chest x-ray reviewed with patient and daughter in office today with concerns for pneumonia, with radiologist interpretation pending at the time patient discharge. Patient is to continue Augmentin as previously prescribed on 08/23/2024. Azithromycin as prescribed today. Supportive measures as instructed today. Follow-up with PCP in 3 to 5 days should symptoms not improve, ED sooner should symptoms only worsen or any other concerns develop. Patient states acknowledging understanding all the above. This note was generated with [employer] dictation software. It may contain incorrect words, spelling, and punctuation (more content not included)... Normal [facility] Visit Reporton 0 08-23-2024 Urgent Care Visit Report [facility] [address], [address] [place] [id number] OFFICE VISIT Date of Service: 08/23/24 MR#: [id number] Acct: [id number] Name: JACI PORTER Rep #: [id number] : 1940 Provider: Rio Delgado Age/Sex: 83/F Location: [facility] Status: Signed Intake Vital Signs 06/05/24 13:13 08/23/24 11:05 Height 5 ft 3 in Weight: 152 lb BMI 26.9 BP 143/73 H 120/80 Blood Pressure Location Rt brachial Position Sitting Sitting Respiration 18 Pulse 72 73 Pulse Source Monitor Temp 97.5 F L 98.6 F Temp Source Temporal Oral Pulse Oximetry (%) 99 96 Oxygen Delivery Method room air room air Intake Visit Reasons: SINUS INFECTION Accompanied by: Daughter In Law Allergies clarithromycin (From Biaxin) Adverse Reaction (Verified 08/23/24 11:04) Nausea Sulfa (Sulfonamide Antibiotics) Adverse Reaction (Verified 08/23/24 11:04) Nausea Medications ???Medication ???Instructions ???Recorded ???Confirmed ???Type calcium 600 mg (as 1 ea PO DAILY 08/07/15 08/23/24 Hi story carbonate)-vitamin D3 10 mcg (400 unit) tablet omeprazole 40 mg capsule,delayed 20 mg PO DAILY 08/07/15 08/23/24 H istory release ascorbate calcium (vitamin C) 500 500 mg PO DAILY 05/07/19 08/23/24 History mg tablet meloxicam 7.5 mg tablet 7.5 mg PO DAILY 06/22/23 08/23/24 History carvedilol 6.25 mg tablet 6.25 mg PO BID BP 04/16/24 5 History amoxicillin 875 mg-potassium 1 tab PO Q12H 10 days #20 tabs 08/23/24 Rx clavulanate 125 mg tablet lisinopril 5 mg tablet 5 mg PO QDAY 08/23/24 08/23/24 His tory mecobalamin (vitamin B12) 500 mcg mcg PO 08/23/24 08/23/24 History chewable tablet montelukast 10 mg tablet 10 mg PO QDAY 08/23/24 08/23/24 Hi story Have you fallen in the past year?: No Nurse's Note: Patient has a sinus infection. Patient states it started tues. Patient has drainage and a cough that is giving her a sore throat. Patient also has sinus pressure and her right side of her face is swollen. [facility] Medical History Wears hearing aid Wears glasses Wears partial dentures Wears dentures Post-menopausal Bladder disease Arthritis Back pain Migraine headache Difficulty swallowing Non-smoker History of edema History of stress test Hypertension Osteoarthritis Chronic back pain GERD (gastroesophageal reflux disease) Surgical History History of ERCP History of craniotomy History of cholecystectomy ( 04/2019) History of colonoscopy ( 06/2018) S/P hemorrhoidectomy S/P appendectomy S/P partial hysterectomy S/P cardiac catheterization S/P colonoscopy Family History Father Heart disease Thyroid disorder goiter Mother Cancer stomach Social History Smoking Status: Never smoker alcohol intake: never substance use type: does not use additional social history: no aspirin no ibuprofen HPI HPI Details: JACI PORTER, is a 83 F who presents to the office today for evaluation of the above complaint. Patient presents with symptoms onset Sunday. Specifically she describes postnasal drainage cough sinus pressure and tenderness. Mild sore throat. Slight headache. No vision changes. No dizziness. No fever chills or other constitutional complaint. She denies any chest pain, shortness of breath or abdominal pain. No nausea vomit diarrhea or urinary symptoms. No other recent illnesses well contacts. No concern for COVID or influenza. She admits to a history of sinusitis in the past and is concerned for this. ROS Const Constitutional: Positive for headache(s); No body ache, chills, fatigue, fever(s), night sweats or abnormal sleep pattern Eyes Eyes: No blurry vision, change in vision or discharge ENT ENT: Positive for nasal congestion, sinus pressure, sinus pain, nasal discharge and headache(s); No ear or mastoid pain, ear discharge, hearing loss or tinnitus Resp Respiratory: No cough or shortness of breath Cardio Cardiology: No shortness of breath, irregular heart rhythm or fast heart rate Neuro Neurology: Positive for headache(s); No confusion Psych Psychiatric: No abnormal sleep pattern and No confusion Endo Endocrine: No fatigue Exam Const General: cooperative, healthy appearing and no acute distress HENMD Head: normal to inspection, normocephalic and atraumatic Ears: hearing grossly normal bilaterally, TM's normal bilaterally and EAC's normal Nose: nasal discharge purulent Face and sinus: sinus tenderness frontal and maxillary Mouth: oral mucosae normal Throat: normal tonsils and postn (more content not included)... Normal [facility] 36on 07-03-2024 36 Medication name: montelukast (Singulair) 10 MG tablet Medication dosage: 10 mg (Miligrams Monthly quantity needed: 30 How many day supply requestin days Medication route: oral (PO) Medication administration time(s): daily If taking medication PRN, reason for taking medication: N/A If this is a controlled substance do you receive this or any other controlled medication from any other doctor or facility: N/A Ordering provider: Dr. Mora Date of last office visit: 06/25/24 Date of next office visit: 08/18/24 Date of last refill: (see medication tab): 09/25/23 Updated/Validated preferred pharmacy: Yes Patient instructed to contact the pharmacy prior to picking up the medication: Yes Please send to [facility] on chart. Pt is completely out of medication. Please advise [facility] 36on 06-25-2024 36 S: Patient spoke andressa almaguer [facility] nurse regarding possible medication side effects to carvedilol, wants blood pressure checked. B: Onset of symptoms/concern began over a month ago. A: Patient has been having a dull headache and upset stomach, believes it could be side effects from carvedilol that she started in March. Symptoms started a few weeks after starting the medication. States does not know how her blood pressures have been running. She is still taking the medication as directed. Requesting an appt to discuss and have her blood pressure checked. No COVID symptoms. R: Appt made with Samantha Torres PAC for today at 3:00p. Insurance verified with patient as Medicare/[employer]. Advised patient to bring photo ID, insurance card, and arrive 15 minutes early to appointment. No further needs at this time. Patient instructed to call back with new or worsening symptoms. Reason for Disposition Patient wants to be seen Protocols used: Blood Pressure - [id number] [facility] Office Visiton 06-25-2024 Follow-up visit [id number] Corwin Porter 1940 F Date Provider Department Center 06/25/2024 [id number] BOYER [facility] Family History Problem Relation Age of Onset Colon cancer Mother Comments: age 45- ? [employer] [place] Ulcers Mother Prostate cancer Father Heart disease Father Comments: MS at age 77 Lung cancer Sister Comments: Probable lung cancer with brain met, age 72 in 11/14 Heart disease Sister Comments: Congenital heart Heart attack Brother Comments: age 77 Heart disease Father's Sister Comments: sudden cardiac Family Status - Relation Status Age at Mother Father Sister Sister Alive Brother Father's Sister Level of Service:[id number] [place] OFFICE/OUTPATIENT ESTABLISHED MOD MDM 30 MIN Reason for Visit and Comments: Medication Reaction [742661] - To BP med Normal [facility] Progress Noteon 06-25-2024 Progress Note - Chronic and unstab le increasing omeprazole up to 40 mg daily was previously taking 20 mg [id number]-uqodxsl. Normal [facility] Progress Note - Chronic and unstab le not tolerating the increased dose of carvedilol well so we are going to cut her back to one 6.25 mg tablet in the evening and add lisinopril 5 mg in the morning. Normal [facility] Progress Note [facility] [address] [facility] [address] Dept: [phone] Dept Loc: [phone] Visit type: Established Patient Reason for Visit: Medication Reaction (To BP med) Assessment and Plan 1. Essential hypertension Assessment & Plan: - Chronic and unstable not tolerating the increased dose of carvedilol well so we are going to cut her back to one 6.25 mg tablet in the evening and add lisinopril 5 mg in the morning. 2. Gastroesophageal reflux disease without esophagitis Assessment & Plan: - Chronic and unstable increasing omeprazole up to 40 mg daily was previously taking 20 mg sska-hnl-cxewuag. No follow-ups on file. Subjective HPI this is an elderly 83-year-old female with an underlying history of hypertension and mitral valve prolapse and chronic degenerative disc disease who was last seen in March blood pressure was uncontrolled and her carvedilol was increased to 6.25 mg twice daily. Patient reports that ever since then she has been having dull headaches upset stomach and believes it is a possible side effect of carvedilol she feels the symptoms started back in March and she was requesting a follow-up immediately today to determine if this is the medication or something else was going on. Medicine has been upsetting stomach and was given medicine for stomach medicine and given sucralafate but never work Feeling ok today, but stomach still upset and BP still up Did try to cut back coffee. But still drinking about 2 cups a day. Patient does report ongoing issues with her stomach but she does states seems to be little bit better since cutting out the coughing or at least cutting back on the coffee she still continues to drink her coffee in the morning. She does report occasional headaches as well. Otherwise she feels like she is doing well and her health has been doing well. She does report multiple blood pressure readings at home are usually 140s to 150s systolic range Review of Systems Constitutional: Negative for chills and fever. HENT: Negative for congestion and sore throat. Respiratory: Negative for cough and shortness of breath. Cardiovascular: Negative for chest pain. Gastrointestinal: Positive for abdominal pain. Negative for diarrhea, nausea and vomiting. Genitourinary: Negative for difficulty urinating, dysuria, frequency and urgency. Musculoskeletal: Negative for back pain. Neurological: Positive for headaches. Negative for dizziness and light-headedness. All other systems reviewed and are negative. Allergies Allergen Reactions Clarithromycin Diarrhea Other reaction(s): Nausea Other reaction(s): Nausea Other reaction(s): Nausea Other reaction(s): Nausea Other Other reaction(s): Nausea Sulfa Antibiotics Nausea And Vomiting Other reaction(s): Nausea Current Outpatient Medications Medication Sig Dispense Refill Acetaminophen (TYLENOL ARTHRITIS PAIN PO) Take 650 mg by mouth daily. ascorbic acid (Vitamin C) 100 MG tablet Take 400 mg by mouth daily. calcium 500 MG tablet Take 500 mg by mouth daily. carvedilol (Coreg) 6.25 MG tablet Take 1 tablet (6.25 mg) by mouth 2 times daily (with meals). 180 tablet 1 cetirizine (ZyrTEC) 10 MG tablet Take 10 mg by mouth Daily as needed. Diclofenac Sodium (Voltaren) 1 % gel Apply 2 g topically 2 times daily. 150 g 1 meloxicam (Mobic) 7.5 MG tablet Take 1 tablet (7.5 mg) by mouth daily. 90 tablet 1 montelukast (Singulair) 10 MG tablet take 1 tablet by mouth once daily 90 tablet 1 mupirocin (Bactroban) 2 % ointment Apply topically. ianladif-dydpsdxrz-qcy AMETHasone (Maxitrol) 3.5-46430-1.1 ophthalmic suspension Administer 1 drop into the right eye in the morning and 1 drop at noon and 1 drop in the evening and 1 drop before bedtime. lisinopril 5 MG tablet Take 1 tablet (5 mg) by mouth daily. 30 tablet 5 omeprazole (PriLOSEC) [address] capsule Take 1 capsule (40 mg) by mouth every morning (before breakfast). Do not crush or chew. 90 capsule 1 No current facility-administered medications for this visit. Past Medical History: Diagnosis Date Allergic rhinitis Kim eval 2007 DDD (degenerative disc disease), cervical [address] DDD (degenerative disc disease), lumbosacral Essential hypertension 02/2024 Family history of colon cancer in mother age 45 GERD (gastroesophageal reflux disease) 2017 EGD per Patricia, negative H/O colonoscopy with polypectomy 06/2018 small polyps- Christin/ Patricia- ? need to repeat H/O meningioma of the brain 03/2003 right side ([place]) - neg MRI 10/21 Hearing aid worn 2016 MVP (mitral valve prolapse) Varicosities of leg 2018 Social History Tobacco Use Smoking status: Never Smokeless tobacco: Never Substance Use Topics Alcohol use: No Alcohol/week: 0.0 standard drinks of alcohol Past Surgical History: Procedure Lat (more content not included)... Normal [facility] Surgery Visit Reporton 06-05 Surgery Visit Report [facility] [address] [place] [address] OFFICE VISIT Date of Service: 06/05/24 MR#: [id number] Acct: [id number] Name: JACI PORTER Rep #: [id number] : 1940 Provider: Dr. Joni patel MD Age/Sex: 83/F Location: [facility] Status: Signed Intake Vital Signs 04/18/24 08:33 06/05/24 13:13 Height 5 ft 3 in 5 ft 3 in Weight: 152 lb BMI 26.9 BP 143/73 H Blood Pressure Location Rt brachial Position Sitting Respiration 18 Pulse 72 Pulse Source Monitor Temp 97.5 F L Temp Source Temporal Pulse Oximetry (%) 99 Oxygen Delivery Method room air Intake Visit Reasons: PERSISTENT ABD PAIN Chief Complaint: persistent abd pain Is patient in pain?: Yes ("feels sick to my stomach all the time" ) Allergies clarithromycin (From Biaxin) Adverse Reaction (Verified 06/05/24 13:14) Nausea Sulfa (Sulfonamide Antibiotics) Adverse Reaction (Verified 06/05/24 13:14) Nausea Medications ???Medication ???Instructions ???Recorded ???Confirmed ???Type calcium 600 mg (as 1 ea PO DAILY 08/07/15 04/16/24 Hi story carbonate)-vitamin D3 10 mcg (400 unit) tablet omeprazole 40 mg capsule,delayed 20 mg PO DAILY 08/07/15 04/18/24 H istory release ascorbate calcium (vitamin C) 500 500 mg PO DAILY 05/07/19 04/16/24 History mg tablet cetirizine 10 mg tablet (Zyrtec) 10 mg PO DAILY PRN Allergy Symptom s 08/25/20 04/18/24 History meloxicam 7.5 mg tablet 7.5 mg PO DAILY 06/22/23 04/16/24 History benzonatate 100 mg capsule 200 mg (2 x 100 mg) PO TID PRN 12/2104/16/24 Rx cough #30 caps carvedilol 6.25 mg tablet 6.25 mg PO BID BP 04/16/24 4 History sucralfate 1 gram tablet (Carafate) 1 g PO QACHS #20 tabs 06/05/24 06/05/24 Rx Have you fallen in the past year?: No PFSH Medical History Wears hearing aid Wears glasses Wears partial dentures Wears dentures Post-menopausal Bladder disease Arthritis Back pain Migraine headache Difficulty swallowing Non-smoker History of edema History of stress test Hypertension Osteoarthritis Chronic back pain GERD (gastroesophageal reflux disease) Surgical History History of ERCP History of craniotomy History of cholecystectomy ( 04/2019) History of colonoscopy ( 06/2018) S/P hemorrhoidectomy S/P appendectomy S/P partial hysterectomy S/P cardiac catheterization S/P colonoscopy Family History Father Heart disease Thyroid disorder goiter Mother Cancer stomach Social History Smoking Status: Never smoker alcohol intake: never substance use type: does not use additional social history: no aspirin no ibuprofen HPI HPI HPI: Patient is an 83-year-old female who is here because since her EGD she has been having nausea. She reports that she has upset stomach and nausea that does not get improve or made worse by eating food. She says it happens [id number]. ROS General General: Yes fatigue; No weight change, appetite, colon cancer, breast cancer or weakness HEENT HEENT: Yes difficulty swallowing; No eye injury, eye surgery, swollen glands or hoarseness Endo Endocrine: No thyroid disease, diabetes mellitus, thyroid cancer, Hair loss, heat intolerance or cold intolerance Skin Skin: No rash or changing moles Musc Musculoskeletal: Yes back problems and arthritis; No rheumatoid arthritis, gout or joint pain Cardio Cardiovascular: No murmur, pacemaker, heart disease, atrial fibrillation, high blood pressure, heart attack, heart stent, palpitations, shortness of breat with exertion or chest pain Psych Psychiatric: No depression, anxiety or hearing voices Resp Respiratory: Yes shortness of breath, Yes sleep apnea, Yes cough, No COPD, No asthma, No emphysema and No wheezing Gastro Gastrointestinal: Yes abdominal pain, Yes nausea or vomiting, Yes diarrhea, No constipation, No blood in stool, Yes acid reflux, No hemorrhoids, No ulcers, No gallbladder problem and No black,tarry stools Jordan Hematologic: No blood thinners, No blood disorders, No bleeding, No anemia and No blood clots Neuro Neurologic: No system reviewed and no additional complaints, except as documented, No as per HPI, No abnormal gait, No abnormal hearing, No abnormal movements, No abnormal speech, No behavioral changes, No burning sensations, No confusion, No convulsions, No disequilibrium, No dizziness, No localized weakness, No frequent falls, No headache(s), No lack of coordination, No loss of vision, No memory loss, No numbness, No other visual disturb (more content not included)... Normal [facility] EGD Reporton 04-18-2024 EGD Report [facility] Medical Records Department [address] [place] [address] EGD Report MR#: [id number] Acct: [id number] Name: JACI PORTER Rep #: [id number] : 1940 83 From: Joni Garcias MD PCP: Dr. Earl Mora, DO Status:[facility] Patient Name: Jaci Porr Procedure Date: 04/18/2024 9:22 AM Date of : 1940 Age: 83 Procedure: Upper GI endoscopy Indications: Dysphagia Providers: Joni Garcias MD Referring MD: Joni Garcias MD Medicines: Propofol per Anesthesia Patient Profile: This is an 83 year old female. Refer to note in patient chart for documentation of history and physical. Complications: No immediate complications. Estimated blood loss: Minimal. Procedure: Pre-Anesthesia Assessment: - Prior to the procedure, a History and Physical was performed, and patient medications and allergies were reviewed. The patient's tolerance of previous anesthesia was also reviewed. The risks and benefits of the procedure and the sedation options and risks were discussed with the patient. All questions were answered, and informed consent was obtained. Prior Anticoagulants: The patient has taken no anticoagulant or antiplatelet agents. After reviewing the risks and benefits, the patient was deemed in satisfactory condition to undergo the procedure. After obtaining informed consent, the endoscope was passed under direct vision. Throughout the procedure, the patient's blood pressure, pulse, and oxygen saturations were monitored continuously. The gastroscope was introduced through the mouth, and advanced to the third part of duodenum. The upper GI endoscopy was accomplished without difficulty. The patient tolerated the procedure well. Scope In: 9:29:59 AM Scope Out: 9:33:36 AM Total Procedure Duration Time 0 hours 3 minutes 37 seconds Findings: The esophagus was normal. The stomach was normal. The examined duodenum was normal. Biopsies were obtained from the proximal and distal esophagus with cold forceps for histology of suspected eosinophilic esophagitis. Impression: - Normal esophagus. - Normal stomach. - Normal examined duodenum. - Biopsies were taken with a cold forceps for evaluation of eosinophilic esophagitis. Recommendation: - Discharge patient to home. - Resume previous diet. - Continue present medications. - Await pathology results. Procedure Code(s): --- Professional --- 96134, Esophagogastroduodenos copy, flexible, transoral; with biopsy, single or multiple Diagnosis Code(s): --- Professional --- R13.10, Dysphagia, unspecified CPT copyright 2021 [employer]. All rights reserved. The codes documented in this report are preliminary and upon desk top publisher review may be revised to meet current compliance requirements. Joni Garcias MD 04/18/2024 9:37:39 AM This report has been signed electronically. Number of Addenda: 0 Note Initiated On: 04/18/2024 9:22 AM 04/18/24936 Date Joni Plata Signature: Date (if indicated) CC: Dr. Joni Garcias MD; Dr. Earl Mora DO Date Dictated: 04/18/24921 Date Transcribed: Paper Inserter: LESTER Jacobs [facility] MR/POSTOP.[facility] 04-18-2024 MR/POSTOP.[facility] Medical Records Department [address] [place] [address] Anesthesia Postop Eval I 04/18/24942 MR#: [id number] Acct: [id number] Name: JACI PORTER Rep #: [id number] : 1940 83 From: Alvarado Álvarez PCP: Dr. Earl Mora DO Status:REG SDC Y Race: C Location: [place] [address] Anesthesia: Postop Eval I Current Vital Signs Temperature: 97.8 F Pulse Rate: 67 Blood Pressure: 89/40 Respiratory Rate: 16 Pulse Ox: 96 Oxygen Delivery Method: Room Air Assessment Airway patent: Yes Spontaneous unlabored respirations: Yes Mental status: Asleep nausea: No Vomiting: No Anesthesia Complication: No Fluid Hydration Crystalloid volume administer (ml): 30 Total IV fluid infused: 30 Progress Note Anesthesia document: Postop Eval 1 completed: Yes 04/18/24943 Date Alvarado Plata Signature: Date CC: Signed [facility] MR/[id number] 04-18-2024 MR/POSTOPAN2 [facility] Medical Records Department [address] [place] [address] Anesthesia Postop Eval II 04/18/24957 MR#: [id number] Acct: [id number] Name: JACI PORTER Rep #: [id number] : 1940 83 From: Toni James MD PCP: Dr. Earl Mora, DO Status:REG SDC Y Race: C Location: [address] Anesthesia Postop Eval I Sum Postop Eval Completion status Anesthesia document: Postop Eval 1 completed: Yes Anesthesia Postop Eval I Summary Anesthesia Postop Eval I Summary: Anesthesia Postop Eval I: Assessment Summary Airway patent Yes 04/18/24 09:44 [email or web address] Spontaneous unlabored Yes 04/18/24 09:44 [email or web address] respirations Mental status Asleep 04/18/24 09:44 [email or web address] nausea No 04/18/24 09:44 [email or web address] Vomiting No 04/18/24 09:44 [email or web address] Anesthesia Postop Eval I: Fluid Summary Crystalloid volume administer 30 04/18/24 09:44 [email or web address] (ml) Colloids volume administered ( ml) Blood Product volume administered (ml) Total IV fluid infused 30 04/18/24 09:44 [email or web address] Anesthesia Postop Eval I: Summary Notes Anesthesia Complication No 04/18/24 09:44 [email or web address] Anesthesia Complication Comment: Post-operative progress note Anesthesia: Postop Eval II Evaluation Mental status: Awake Pain Level: 0 nausea: No Vomiting: No 04/18/24957 Toni James MD Cosigner Signature: Date CC: Signed [facility] Surgery Specimen Level Jaja 04-18-2024 Surgery Specimen Level IV ---- Patient Age/Sex Location Account Attending Physician ---- JACI PORTER 83/F EN [id number] Dr. Joni Garcias MD ---- Specimen: [id number] Received: 04/18/24 Status: ANJALI Mckeon Num: [id number] Spec Type: MARINA Parker Dr: Dr. Joni Garcias MD HEADER OPERATION: EGD with biopsy PRE-OP DIAGNOSIS: Dysphagia TISSUE SUBMITTED: Esophagus biopsy ---- MICROSCOPIC DIAGNOSIS Esophagus biopsy: Fragments of benign squamous epithelium. See comment. SJ 04/21/2024 COMMENT Increased number of eosinophils consists with eosinophilic esophagitis are not seen. Correlation with clinical, endoscopic findings and appropriate follow up are necessary. MICROSCOPIC DESCRIPTION Slides are reviewed. GROSS DESCRIPTION Received in fixative is one container labeled with the patient's name and designated Esophagus biopsy. The specimen consists of multiple irregular fragments of light vang soft tissue that in aggregate measure 0.1 x 0.2 x 1.0 cm. The specimen is totally submitted in one cassette. MS/mr 04/18/2024 TC:5 [place]:[id number] ---- Patient Age/Sex Location Account Attending Physician ---- JACI OPRTER 83/F EN [id number] Dr. Joni Garcias MD ---- Signed (signature on file) Dr. Mingo Ford MD 04/21/24 1150 ---- [facility] Comment on above: Performed By: #### P SUIV ####[facility] [id number] [place], [place], [address] Progress Noteon 04-17-2024 Progress Note Pt aware. Stated her score went well today. Nurse visit scheduled [facility] Progress Note [address] [facility] [address] [facility] [phone] @patname@ Patient arrived for nurse visit today. Two patient identifiers used to confirm correct patient yes Supervising provider for clinic visit Dr. Mora is taking Carvedilol 6.25mg for hypertension with excellent compliance and no side effects regular Shortness of breath no Medication compliance yes Medication Reconciliation yes BP Medication taken prior to visit no at what time 7am B/P Reading taken manual Home Monitoring yes Patient advised if follow up is needed, outreach will occur in 48 hours First BP:152/90 Second BP:142/88 HR:70 Patient stated she feels her BP could be elevated dur to being nervous for her endoscopy tomorrow and her lower back pain from making cookies all week [facility] Progress Note Since the patient feels she has had some stress at this time lets have her continue carvedilol as is and recheck blood pressure with staff in 4 weeks [facility] MR/PAT.ANEon 04-16-2024 MR/PAT.ANE [facility] Medical Records Department [address] [place] [address] PAT - Anesthesia 04/16/24 1235 MR#: [id number] Acct: [id number] Name: JACI PORTER Rep #: [id number] : 1940 83 From: Toni James MD PCP: Dr. Earl Mora, DO Status:PRE SDC Y Race: C Location: [place] Pre-Assessment Diagnosis/Proposed Procedure Planned Operative Procedure(s): EGD POSS DILATION Anesthesia History Anesthesia History - slitter processed film: Anesthesia History - slitter processed film Hx Hospitalization No 04/16/24 12:21 Any Problems With Anesthesia No 04/16/24 12:21 Cholinesterase deficiency No 04/16/24 12:21 You/Your Family Experience No 04/16/24 12:21 fever (hyperthermia) with Relationship Recent Exposure to Contagious No 03/17/23 09:43 Disease Does patient have nerve No 04/16/24 12:21 stimulator Patient instructed to have device shut off --Does patient have Pacemaker or ICD? When Was Last Pacemaker Check QUESTION #4 FULL TEXT: You/Your Family Experience fever (hyperthermia) with Anesthesia Last Oral Intake Last Oral intake: Last Oral Intake NPO since Meds taken in AM with sips of water? Meds patient instructed to take am of surgery PONV PONV - slitter processed film: PONV - slitter processed film Female Yes 04/16/24 12:21 HX of Motion Sickness No 04/16/24 12:21 HX of N/V After Surgery No 04/16/24 12:21 Non-Smoker Yes 04/16/24 12:21 Duration of Surgery greater No 04/16/24 12:21 than 60 minutes Number of Risk Factors 2 04/16/24 12:21 PONV Score Moderate Risk 04/16/24 12:21 Height Weight Height Weight: Anesthesia: Height Weight Height 5 ft 3 in 03/03/24 09:46 Respiratory Assessment Respiratory Assessment - slitter processed film: Respiratory Tract Infection Hx - slitter processed film Hx Respiratory Tract Infection No 04/16/24 12:21 STOP Sleep Apnea STOP Sleep Apnea - slitter processed film: STOP Sleep Apnea - slitter processed film Hx Hypertension Yes: CONTROLLED WITH MED 04/16/24 12:21 Hx Sleep Apnea No 04/16/24 12:21 CPAP No 03/17/23 09:43 BIPAP Do you snore loudly (louder No 04/16/24 12:21 than talking or can be heard Do you often feel tired/ No 04/16/24 12:21 fatigued/ sleepy during daytime? Has anyone observed you stop No 04/16/24 12:21 breathing during sleep? STOP Results Negative 04/16/24 12:21 QUESTION #5 FULL TEXT : Do you snore loudly (louder than talking or can be heard through closed doors)? Tobacco Use History Tobacco Use History - slitter processed film: Tobacco Use History - slitter processed film Tobacco Use Non-smoker 03/17/23 09:43 Smoking Status Never smoker 04/16/24 12:21 Hx Tobacco Use No 04/16/24 12:21 Years Smoking Packs Smoked per Day Smoking Cessation Date was within the last 15 years Hx Smoking Cessation Date Hx Smoking Cessation Counseling Hematologic Medial History Hematologic Hx - slitter processed film: Hematologic Medical Hx - loss prevention officer Hx of Blood Transfusion No 04/16/24 12:21 Hx of Transfusion in last 3 No 04/16/24 12:21 Months Date of Last Transfusion (if within last 3 months) Ever experience any problems No 04/16/24 12:21 with transfusion(s)? Specify any problems Hx of Preganancy in last 3 No 04/16/24 12:21 Months Nurse Filling Out Transfusion DSCHRIBER 04/16/24 12:21 Questions: Date: 04/16/24 04/16/24 12:21 Time: 12:22 04/16/24 12:21 Patient unable to answer at this time (ie. confused, unrespo /Reproduction History /Reproductive History - slitter processed film: /Reproductive Hx- slitter processed film Hx Now No 04/16/24 12:21 Gestational Age (in weeks): EDC: Hx Hx Para Hx Section SAB No 04/16/24 12:21 PFSH Medical History (Updated 04/16/24 @ 12:27 by Claudia Colindres) Wears hearing aid Wears glasses Wears partial dentures Wears dentures Post-menopausal Bladder disease Arthritis Back pain Migraine headache Difficulty swallowing Non-smoker History of edema History of stress test Hypertension Osteoarthritis Chronic back pain GERD (gastroesophageal reflux disease) Home Medications ???Medication ???Instructions ???Recorded ???Last Taken ???Type calcium 600 mg (as 1 ea PO DAILY 08/07/15 08/07/15 08:30 History carbonate)-vitamin D3 10 mcg (400 unit) tablet omeprazole 40 mg capsule,delayed 20 mg PO DAILY 08/07/15 05/08/19 06:30 History release 20 MG ascorbate calcium (vitamin C) 500 500 mg PO DAILY 05/07/19 Unknown History mg tablet acetaminophen 325 mg tablet 650 mg (2 x 325 mg) PO Q6H PRN PRN 01/10/20 Unknown Rx Pain Score 1-10/10 cetirizine 10 mg tablet (Zy (more content not included)... Normal [facility] 37on 04-03-2024 37 BP check with staff in 2 wks Normal [facility] Office Visiton 04-03-2024 Follow-up visit [id number] Corwin Porter 1940 F Date Provider Department Center 04/03/2024 [id number] MORA F [facility] Family History Problem Relation Age of Onset Colon cancer Mother Comments: age 45- ? [employer] [place] Ulcers Mother Prostate cancer Father Heart disease Father Comments: MS at age 77 Lung cancer Sister Comments: Probable lung cancer with brain met, age 72 in 11/14 Heart disease Sister Comments: Congenital heart Heart attack Brother Comments: age 77 Heart disease Father's Sister Comments: sudden cardiac Family Status - Relation Status Age at Mother Father Sister Sister Alive Brother Father's Sister Level of Service:35955 [place] OFFICE/OUTPATIENT ESTABLISHED LOW [facility] 20 MIN Reason for Visit and Comments: Follow-up [828642] - Bp Flu Vaccine [189] - Patient has declined the flu vaccine Normal [facility] Progress Noteon 04-03-2024 Progress Note [facility] - [address] [facility] [phone] Visit type: Established Patient Reason for Visit: Follow-up (Bp ) and Flu Vaccine (Patient has declined the flu vaccine ) Assessment / Plan: Jaci was seen today for follow-up and flu vaccine. Diagnoses and all orders for this visit: Essential hypertension (Primary) Comments: Uncontrolled, increased carvedilol 6.25 twice daily. BP check 4 weeks Polyuria - POCT urinalysis dipstick manually resulted Gastroesophageal reflux disease without esophagitis Comments: Stable for EGD Dysphagia, unspecified type Other orders - carvedilol (Coreg) 6.25 MG tablet; Take 1 tablet (6.25 mg) by mouth 2 times daily (with meals). Subjective: Patient ID: Jaci Porter is a 83 y.o. female. HPI newly diagnosed hypertensive patient presents for refill on carvedilol. Blood pressure still slightly elevated at home. Of note she will be getting upper endoscopy for possible esophageal dilatation in a few weeks. cardiac and pulmonary hernandez she feels fine Review of Systems no recent headache or chest pain or palpitations. No dyspnea. Having some difficulty swallowing pills and getting upper endoscopy in a few weeks. No loss of weight or appetite. No melena or blood. No abdominal pain. No colonoscopy indicated. Does complain of polyuria but no dysuria hematuria. No flank pain. History of hysterectomy and bladder suspension years ago Allergies Allergen Reactions Clarithromycin Diarrhea Other reaction(s): Nausea Other reaction(s): Nausea Other reaction(s): Nausea Other reaction(s): Nausea Other Other reaction(s): Nausea Sulfa Antibiotics Nausea And Vomiting Other reaction(s): Nausea Current Outpatient Medications on File Prior to Visit Medication Sig Dispense Refill Acetaminophen (TYLENOL ARTHRITIS PAIN PO) Take 650 mg by mouth daily. ascorbic acid (Vitamin C) 100 MG tablet Take 400 mg by mouth daily. calcium 500 MG tablet Take 500 mg by mouth daily. cetirizine (ZyrTEC) 10 MG tablet Take 10 mg by mouth Daily as needed. Diclofenac Sodium (Voltaren) 1 % gel Apply 2 g topically 2 times daily. 150 g 1 meloxicam (Mobic) 7.5 MG tablet Take 1 tablet (7.5 mg) by mouth daily. 90 tablet 1 montelukast (Singulair) 10 MG tablet take 1 tablet by mouth once daily 90 tablet 1 mupirocin (Bactroban) 2 % ointment Apply topically. phqwrydz-pmfnhzjej-aou AMETHasone (Maxitrol) 3.5-47548-9.1 ophthalmic suspension Administer 1 drop into the right eye in the morning and 1 drop at noon and 1 drop in the evening and 1 drop before bedtime. omeprazole (PriLOSEC) [address] capsule Take 20 mg by mouth. [DISCONTINUED] carvedilol (Coreg) 3.125 MG tablet Take 1 tablet (3.125 mg) by mouth 2 times daily (with meals). 60 tablet 3 No current facility-administered medications on file prior to visit. Patient Active Problem List Diagnosis H/O meningioma of the brain Family history of colon cancer in mother DDD (degenerative disc disease), cervical Varicosities of leg Hearing aid worn Allergic rhinitis DDD (degenerative disc disease), lumbosacral GERD (gastroesophageal reflux disease) NSAID long-term use Essential hypertension H/O colonoscopy with polypectomy MVP (mitral valve prolapse) Social History Tobacco Use Smoking status: Never Smokeless tobacco: Never Substance Use Topics Alcohol use: No Alcohol/week: 0.0 standard drinks of alcohol Past Surgical History: Procedure Laterality Date APPENDECTOMY 195 BLADDER REPAIR 1973 BRAIN TUMOR EXCISION 2003 benign tumor CARDIAC CATHETERIZATION 1991 neg per [facility] CATARACT EXTRACTION Bilateral 2017 CHOLECYSTECTOMY 2019 ERCP and Sphincterotomy-Dr. Garcias COLONOSCOPY 06/2018 neg per [place]- int hem COLONOSCOPY 2016 [facility] COLONOSCOPY W/ POLYPECTOMY 2013 HEMORRHOID SURGERY 2007 PARTIAL HYSTERECTOMY 1973 unilat SO UPPER GASTROINTESTINAL ENDOSCOPY 2012 with dilation UPPER GASTROINTESTINAL ENDOSCOPY 2017 neg per [place] Family History Problem Relation Name Age of Onset Colon cancer Mother age 45- ? [employer] [place] Ulcers Mother Prostate cancer Father Ed [place] Heart disease Father Ed [place] MS at age 77 Lung cancer Sister Probable lung cancer with brain met, age 72 in 11/14 Heart disease Sister Kinjal Congenital heart Heart attack Brother age 77 Heart disease Father's Sister 50 sudden cardiac Objective: BP (!) 150/74 Pulse 68 Temp 36.4 ?C (97.5 ?F) (Temporal) Ht 5' 3" (1.6 m) Wt 165 lb (74.8 kg) SpO2 99% BMI 29.23 kg/m? Physical Exam he is is unchanged. Blood pressure recheck is too high. No neck masses JVD or adenopathy. No thyroid lesions. No carotid bruits. Heart is regular with a faint mitral regurg murmur. Lungs are clear. Abdomen without pain hepatosplenomegaly masses or bruits. No ascites. Extremities are pink without appreciable edema. Normal [facility] 36on 03-14-2024 36 error Normal [facility] Progress Noteon 03-14-2024 Progress Note Blood pressure still too high. I recommend beginning a blood pressure lowering med called carvedilol. That has been prescribed. Checkup with me in 1 month or so Normal [facility] Progress Note Blood pressure readings still too high. I recommend beginning low-dose beta-rolando for hypertension management. That has been prescribed. Checkup with me in 3 to 4 weeks Normal [facility] Progress Note Pt aware. Appointmen t scheduled. Normal [facility] Progress Note [address] [place] [address] @patname@ Patient arrived for nurse visit today. Two patient identifiers used to confirm correct patient yes Supervising provider for clinic visit Dr. Mora is currently not taking any anti- hypertensive medications regular Shortness of breath no Medication compliance yes Medication Reconciliation yes BP Medication taken prior to visit no at what time n/a B/P Reading taken manual Home Monitoring yes Patient advised if follow up is needed, outreach will occur in 48 hours Patient walked in for a blood pressure check, stated it has been high at home and she is having headaches, eye burning, and flush/hot face, nose bleeds Fist check:150/80 Second check:146/80 HR:82 Patient was instructed to go to ED with any chest pains, back pain, jaw pain, arm pain, SOB Normal [facility] Urgent Care Visit Reporton 05-07-2023 Urgent Care Visit Report [facility] [address], [address] [place] [address] OFFICE VISIT Date of Service: 03/07/24 MR#: [id number] Acct: [id number] Name: SAMANTHALennoxJACI Ant Rep #: [id number] : 1940 Provider: NIGEL Garvey Age/Sex: 83/F Location: [facility] Status: Signed Intake Vital Signs 03/03/24 09:46 03/07/24 09:46 Height 5 ft 3 in Weight: 166 lb BMI 29.4 BP 165/79 H 144/82 H Blood Pressure Location Rt brachial Rt brachial Position Sitting Sitting Respiration 18 12 Pulse 101 H Pulse Source Monitor Temp 98.6 F Temp Source Oral Pulse Oximetry (%) 96 Oxygen Delivery Method room air Intake Visit Reasons: CONGESTION Allergies clarithromycin (From Biaxin) Adverse Reaction (Verified 03/07/24 09:48) Nausea Sulfa (Sulfonamide Antibiotics) Adverse Reaction (Verified 03/07/24 09:48) Nausea Have you fallen in the past year?: No PFSH Medical History Disease of gingiva due to infection Osteoarthritis Chronic back pain GERD (gastroesophageal reflux disease) Surgical History History of craniotomy History of cholecystectomy ( 04/2019) History of colonoscopy ( 06/2018) S/P hemorrhoidectomy S/P appendectomy S/P partial hysterectomy S/P cardiac catheterization S/P colonoscopy Family History Father Heart disease Thyroid disorder goiter Mother Cancer stomach Social History Smoking Status: Never smoker alcohol intake: never substance use type: does not use additional social history: no aspirin no ibuprofen HPI HPI Details: JACI PORETR, is a 83 F who presents to the office today for complaint of sinus congestion/pressure and pain for the past 2 weeks. Patient denies hemoptysis, shortness of breath or difficulty breathing. No loss of taste or smell. No nausea, vomiting or diarrhea. No other associated symptoms or alleviating/aggravatin g factors. ROS Const Constitutional: Positive for other (ROS negative x6 except what was placed in HPI) Exam Const General: cooperative and healthy appearing HENMT Head: normal to inspection Ears: hearing grossly normal bilaterally, TM's normal bilaterally and EAC's normal Nose: nasal discharge purulent Face and sinus: sinus tenderness frontal and maxillary Mouth: oral mucosae normal Throat: abnormal tonsil bilaterally erythema and hypertrophy 1+ and postnasal drainage Resp Effort Inspection: normal respiratory effort Auscultation: Bilateral: Clear to Auscultation Cardio Palpation: normal PMI Rate: regular rate Rhythm: regular rhythm Neuro General: patient alert and CN's II-XI intact bilaterally Psych Appearance: grossly normal Mental Status: mental status grossly normal Coding Level of Care Code Off vis,est,level 3 Diagnoses Acute sinusitis J01.90 Assessment and Plan Assessment and Plan (1) Acute sinusitis: Status: Acute Medications: New amoxicillin-pot clavulanate 875-125 mg 1 TAB PO Q12H 20 tabs 0RF 10 days J01.90 - Acute sinusitis, unspecified benzonatate 200 mg (2 x 100 mg) PO TID PRN 30 caps 0RF cough benzonatate 200 mg (2 x 100 mg) PO TID PRN 60 caps 0RF cough Plan Augmentin and benzonatate as prescribed today. Encouraged to get plenty of rest, drink lots of clear liquids, and use Tylenol or Ibuprofen (unless contraindicated) for fever and comfort. Patient also educated on other symptomatic management techniques. To be seen in 7-10 days if no improvement; sooner if worsening of symptoms. Patient advised of potential red flags and when appropriate to report to the ED. Patient verbalized understanding and agreement with all the above. Clinical Quality Measures Falls Risk Screening/Assistive Devices Have you fallen in the past year?: No 03/07/24 1333 Date Lino Plata Signature: Date (if applicable) CC: Normal [facility] Surgery Visit Reporton 03-03 Surgery Visit Report [facility] [address] [place] [address]. [address] [place] [address] OFFICE VISIT Date of Service: 03/03/24 MR#: [id number] Acct: [id number] Name: JACI PORTER Rep #: [id number] : 1940 Provider: Dr. Joni patel MD Age/Sex: 83/F Location: [facility] Status: Signed Intake Vital Signs 01/09/24 18:50 03/03/24 09:46 Height 5 ft 3 in 5 ft 3 in Weight: 166 lb BMI 29.4 BP 165/79 H Blood Pressure Location Rt brachial Position Sitting Respiration 18 Intake Visit Reasons: UPPER AND LOWER - GERD Chief Complaint: egd Service Tester Required: No Is patient in pain?: No Allergies clarithromycin (From Biaxin) Adverse Reaction (Verified 03/03/24 09:48) Nausea Sulfa (Sulfonamide Antibiotics) Adverse Reaction (Verified 03/03/24 09:48) Nausea Medications ???Medication ???Instructions ???Recorded ???Confirmed ???Type calcium 600 mg (as 1 ea PO DAILY 08/07/15 03/03/24 History carbonate)-vitamin D3 10 mcg (400 unit) tablet omeprazole 40 mg capsule,delayed 20 mg PO BID 08/07/15 03/03/24 History release ascorbate calcium (vitamin C) 500 500 mg PO DAILY 05/07/19 03/03/24 History mg tablet acetaminophen 325 mg tablet 650 mg (2 x 325 mg) PO Q6H PRN PRN 05/09/19 03/03/24 Rx Pain Score 1-02/06 cetirizine 10 mg tablet (Zyrtec) 10 mg PO DAILY PRN Allergy Symptoms 08/25/20 03/03/24 History meloxicam 7.5 mg tablet 7.5 mg PO 06/22/23 03/03/24 History Have you fallen in the past year?: No PFSH Medical History Disease of gingiva due to infection Osteoarthritis Chronic back pain GERD (gastroesophageal reflux disease) Surgical History History of craniotomy History of cholecystectomy ( 04/2019) History of colonoscopy ( 06/2018) S/P hemorrhoidectomy S/P appendectomy S/P partial hysterectomy S/P cardiac catheterization S/P colonoscopy Family History Father Heart disease Thyroid disorder goiter Mother Cancer stomach Social History Smoking Status: Never smoker alcohol intake: never substance use type: does not use additional social history: no aspirin no ibuprofen HPI HPI HPI: Patient is an 83-year-old female here for dysphagia. She reports that she feels like it is in her throat. She says it has been slowly getting worse over the years. She feels like she has had a dilation several years ago but does not remember when. She had an EGD in 2018 which was normal. ROS General General: Yes fatigue; No weight change, appetite, colon cancer, breast cancer or weakness HEENT HEENT: Yes difficulty swallowing; No eye injury, eye surgery, swollen glands or hoarseness Endo Endocrine: No thyroid disease, diabetes mellitus, thyroid cancer, Hair loss, heat intolerance or cold intolerance Skin Skin: No rash or changing moles Musc Musculoskeletal: Yes back problems and arthritis; No rheumatoid arthritis, gout or joint pain Cardio Cardiovascular: No murmur, pacemaker, heart disease, atrial fibrillation, high blood pressure, heart attack, heart stent, palpitations, shortness of breat with exertion or chest pain Psych Psychiatric: No depression, anxiety or hearing voices Resp Respiratory: Yes shortness of breath, Yes sleep apnea, Yes cough, No COPD, No asthma, No emphysema and No wheezing Gastro Gastrointestinal: Yes abdominal pain, No nausea or vomiting, Yes diarrhea, No constipation, No blood in stool, Yes acid reflux, No hemorrhoids, No ulcers, No gallbladder problem and No black,tarry s tools [place] Hematologic: No blood thinners, No blood disorders, No bleeding, No anemia and No blood clots Neuro Neurologic: No system reviewed and no additional complaints, except as documented, No as per HPI, No abnormal gait, No abnormal hearing, No abnormal movements, No abnormal speech, No behavioral changes, No burning sensations, No confusion, No convulsions, No disequilibrium, No dizziness, No localized weakness, No frequent falls, No headache(s), No lack of coordination, No loss of vision, No memory loss, No numbness, No other visual disturbances, No radicular pain, No restless legs, No sensory deficit, No syncope, No tingling, No tremor(s), No weakness and No other Exam Const General: cooperative Orientation: alert and oriented x3 HENMT Head: normal to inspection Neck Neck: normal visual inspection and full ROM Chest Chest palpation inspection: normal inspection of the chest Resp Effort Inspection: normal respiratory effort Auscultation: clear to auscultation bilaterally Cardio Rate: regular rate Rhythm: regular rhythm GI Inspection: non-distended Palpation: (more content not included)... Normal [facility] Visit Reporton 1 05-01-2023 Urgent Care Visit Report [facility] [address], [address] [place] [address] OFFICE VISIT Date of Service: 03/01/24 MR#: [id number] Acct: [id number] Name: JACI PORTER Rep #: [id number] : 1940 Provider: GEREMIAS Novak Age/Sex: 83/F Location: [facility] Status: Signed Intake Vital Signs 01/09/24 18:50 03/01/24 10:35 Height 5 ft 3 in BP 156/70 H Blood Pressure Location Rt brachial Position Sitting Respiration 16 Pulse 62 Pulse Source NIBP Temp 98.1 F Temp Source Oral Pulse Oximetry (%) 98 Oxygen Delivery Method room air Intake Visit Reasons: CONCERN FOR SINUS INFECTION, SORE THROAT Chief Complaint: ST, ROSAS, PND, chest congest Service Tester Required: No Is patient in pain?: No Allergies clarithromycin (From Biaxin) Adverse Reaction (Verified 03/01/24 10:55) Nausea Sulfa (Sulfonamide Antibiotics) Adverse Reaction (Verified 03/01/24 10:55) Nausea Medications ???Medication ???Instructions ???Recorded ???Confirmed ???Type calcium 600 mg (as 1 ea PO DAILY 08/07/15 03/01/24 History carbonate)-vitamin D3 10 mcg (400 unit) tablet omeprazole 40 mg capsule,delayed 20 mg PO BID 08/07/15 03/01/24 History release ascorbate calcium (vitamin C) 500 500 mg PO DAILY 05/07/19 03/01/24 History mg tablet acetaminophen 325 mg tablet 650 mg (2 x 325 mg) PO Q6H PRN PRN 05/09/19 03/01/24 Rx Pain Score 1-02/06 cetirizine 10 mg tablet (Zyrtec) 10 mg PO DAILY PRN Allergy Symptoms 08/25/20 03/01/24 History meloxicam 7.5 mg tablet 7.5 mg PO 06/22/23 03/01/24 History Is last menstrual period known: No Post menopausal: Yes Patient : No Have you fallen in the past year?: No Nurse's Note: ST, ROSAS, PND, chest congest x 2-3 days without resolve. pt declines viral testing. [facility] Medical History Chronic back pain Disease of gingiva due to infection GERD (gastroesophageal reflux disease) Osteoarthritis Surgical History History of cholecystectomy ( 04/2019) History of colonoscopy ( 06/2018) History of craniotomy S/P appendectomy S/P cardiac catheterization S/P colonoscopy S/P hemorrhoidectomy S/P partial hysterectomy Family History Father Heart disease Thyroid disorder goiter Mother Cancer stomach Social History Smoking Status: Never smoker alcohol intake: never substance use type: does not use additional social history: no aspirin no ibuprofen HPI HPI Chief Complaint: ST, ROSAS, PND, chest congest Details: JACI PORTER, is a 83 F who presents to the office today for ST -BP elevated- states had recent visit with pcp and was elevated has follow up appt for bp recheck, no cp, palpitation, sob or edema -sx started ST couple days ago gargled with warm salt water and listerine. Dull headache, congestion in morning then improves or eases up, no runny nose. Denies cough, no myalgias. Denies fever or chills -tried salt water, listerine, throat soothers. No tylenol for these sx ROS Const Constitutional: Positive for other (ROS negative x6 except what was placed in HPI) Exam Const General: cooperative, comfortable and no acute distress Orientation: alert, awake and oriented x3 HENMT Head: normal to inspection and normocephalic Nose: external nose normal and other (+ congestion mild erythema and swelling) Face and sinus: normal facial exam, sinuses nontender and face symmetric Mouth: oral mucosae normal, lip normal, tongue normal, oropharynx normal and moist mucous membranes Throat: posterior oropharynx normal, tonsils normal, uvula midline, postnasal drainage and other (no erythema, swelling or exudate ) Neck Neck: normal visual inspection, full ROM and no lymphadenopathy Resp Effort Inspection: normal respiratory effort, able to speak in complete sentences and symmetric chest movement Auscultation: Bilateral: Clear to Auscultation, Left: Clear to Auscultation and Right: Clear to Auscultation Cardio Rate: regular rate Rhythm: regular rhythm Heart Sounds: S1 normal and S2 normal GI Auscultation: normal bowel sounds Palpation: soft Skin General: no rashes or lesions noted and turgor normal Neuro General: patient alert, patient awake and patient oriented x3 Cognition: normal cognition Speech: speech normal Psych Appearance: grossly normal Mental Status: mental status grossly normal Attitude: cooperative Thought Process: normal Thought Content: normal Coding Level of Care Code Off vis,est,level 3 Diagnoses Sore throat (viral) J02.8; B97.89 PND (post-nasal drip) R09.82 Assessment and Plan Assessment and Plan (1) Sore throa (more content not included)... Normal [facility] Basophil percentageOrdered B y: Joni Tiffanyjoe on 07-05-2023 Basophil percentage < 1.0 mg/dL 0.55-1.02 [facility] No Panel InformationOrdered By: Joni Garcias on 07-05-2023 Bedside Estimated GFR (eGFR) > 60.0000 mL/min >60 [facility] Culture, urineOrdered By: Wili Novak on 05-21-2023 Bacteria identified Cx Nom (U) Mixed Gram Pos & Gram Neg Org [facility] Bacteria identified Cx Nom (U) Mixed Gram Pos & Gram Neg Org [facility] Laboratory - Chemistry and C hemistry - challengeon 05-19-2023 Bilirubin Ql (U) Negative [facility] Glucose Ql (U) Negative [facility] Ketones Ql (U) Negative [facility] pH (U) 6.0 [pH] [facility] Specific gravity (U) [Rel density] 1.020 [facility] Urobilinogen (U) [Mass/Vol] Negative [facility] Laboratory - Hematology and Cell countson 05-19-2023 Hemoglobin Ql (U) Hemolyzed [facility] - Specimen inform ationon 05-19-2023 Clarity (U) Cloudy [facility] Color (U) YELLOW [facility] Laboratory - Urinalysison Nitrite Ql (U) Negative [facility] Protein Ql (U) Negative [facility] No Panel Informationon 05-19 Urine Leukocytes Positive [facility] Urine Non-Hemolyzed Blood Large [facility] Absolute lymphocyte counton 10-31-2021 Lymphocytes Auto (Unsp spec) [#/Vol] 2.68 10*3/uL 0.83-4.51 [facility] Work Phone: Basophil percentageon 2021 Basophils/100 WBC (Bld) 0.3 % 0-1 [facility] Work Phone: Chloride [Moles/Vol] 106 mmol/L 98-107 [facility] Work Phone: Eosinophils/100 WBC (Bld) 2.7 % 0-5 [facility] Work Phone: Glucose [Mass/Vol] 178 mg/dL 74-106 [facility] Work Phone: Comment on above: Fasting Glucose resu lt greater than or equal to 126 mg/dL suggests DIABETES MELLITUS per A.D.A. criteria. Neutrophils (Bld) [#/Vol] 2.4 10*3/uL 2.0-7.7 [facility] Work Phone: Neutrophils/100 WBC (Bld) 41.3 % 47-70 [facility] Work Phone: Potassium [Moles/Vol] 4.3 mmol/L 3.5-5.1 [facility] Work Phone: Sodium [Moles/Vol] 143 mmol/L 136-145 [facility] Work Phone: WBC (Bld) [#/Vol] 5.9 10*3/uL 4.4-11.0 [facility] Work Phone: Blood erythrocytes count (nu mber/volume)on 10-31-2021 RBC (Bld) [#/Vol] 4.14 10*6/uL 4.2-5.4 [facility] Work Phone: Blood hemoglobin measurement (mass/volume)on 10-31-2021 Hemoglobin (Bld) [Mass/Vol] 12.2 g/dL 12.0-15.0 [facility] Work Phone: Blood lymphocytes/100 leukoc yteson 10-31-2021 Lymphocytes/100 WBC (Bld) 45.3 % 19-41 [facility] Work Phone: Blood monocytes/100 leukocyt eson 10-31-2021 Monocytes/100 WBC (Bld) 10.2 % 0-10 [facility] Work Phone: Blood platelet mean volumeon 10-31-2021 Platelet mean volume (Bld) [Entitic vol] 10.1 fL 6.2-12.0 [facility] Work Phone: Determination of erythrocyte mean corpuscular volume (MCV)on 10-31-2021 MCV (RBC) [Entitic vol] 91.3 fL 81-99 [facility] Work Phone: [phone] Hematocrit Auto (Bld) [Volum e fraction]on 10-31-2021 Hematocrit (Bld) [Volume fraction] 37.8 % 37-47 [facility] Work Phone: [phone] Laboratory - Chemistry and C hemistry - challengeon 10-31-2021 CO2 [Moles/Vol] 31.0 mmol/L 21.0-32.0 [facility] Work Phone: [phone] Urea nitrogen/Creatinine [Mass ratio] 16.3 mg/mg 10-20 [facility] Work Phone: [phone] Laboratory - Hematology and Cell countson 10-31-2021 Erythrocyte distribution width (RBC) [Entitic vol] 43.5 fL 35.1-43.9 [facility] Work Phone: [phone] Erythrocyte distribution width (RBC) [Ratio] 13.0 % 11.6-14.6 [facility] Work Phone: [phone] Immature granulocytes/100 WBC (Bld) 0.200 % 0.0-0.9 [facility] Work Phone: [phone] Comment on above: IG% - Immature Granu locytes (promyelocytes, myelocytes and metamyelocytes) > 1% indicates that a LEFT SHIFT is Present. MCH (RBC) [Entitic mass] 29.5 pg 27.0-32.0 [facility] Work Phone: [phone] Nucleated RBC/100 WBC (Bld) [Ratio] 0 % 0-5 [facility] Work Phone: [phone] MCHC Auto (RBC) [Mass/Vol]on 10-31-2021 MCHC (RBC) [Mass/Vol] 32.3 g/dL 32-36 [facility] Work Phone: [phone] No Panel Informationon 10-31 Troponin I High Sensitivity 4 pg/mL 3.0-54.0 [facility] Work Phone: Comment on above: Please Note: [place] t Units and Gender Specific Reference Ranges. For more information see Policy Stat Procedure [place] High Sensitivity Troponin (TNIH) and attachments. D-Dimer Quantitative (PE/DVT) 0.94 FEU/ug/m 0.27-0.49 [facility] Work Phone: Comment on above: D-Dimer ELEVATED (>0 .49): Additional studies and clinicalassessments are indicated to conclude diagnosis of:Deep Vein Thrombosis (DVT) or Pulmonary Embolism (PE)CRITICAL VALUE VERIFIED. CALLED TO [id number] Yeimy Ryan.RESULTS READ BACK BY SAME . Estimated Creatinine Clearance Calc 40.34 ml/min [facility] Work Phone: Estimated GFR (MDRD) Amer 75 mL/min >60 [facility] Work Phone: Comment on above: GFR Calc Estimated GFR (MDRD) Non-Af Amer 62 mL/min >60 [facility] Work Phone: Comment on above: Non- GFR Calc Platelets bldon 10-31-2021 Platelets (Bld) [#/Vol] 206 10*3/uL 150-450 [facility] Work Phone: Serum or plasma calcium sandhya urement (mass/volume)on 10-31-2021 Calcium [Mass/Vol] 8.9 mg/dL 8.5-10.1 [facility] Work Phone: Serum or plasma creatinine m easurement (mass/volume)on 10-31-2021 Creatinine [Mass/Vol] 0.92 mg/dL 0.55-1.02 [facility] Work Phone: Comment on above: The validity of the calculated GFR & GFRAA in patients over 70 years has not been determined. Clinical correlation is essential. Serum or plasma urea nitroge n measurement (mass/volume)on 10-31-2021 Urea nitrogen [Mass/Vol] 15 mg/dL 7-18 [facility] Work Phone: [phone] Thin prep Papanicolaou smear with manual screeningon 10-31-2021 Thin prep Papanicolaou smear with manual screening 6 5-15 [facility] Work Phone: Absolute lymphocyte counton 08-11-2021 Lymphocytes Auto (Unsp spec) [#/Vol] 1.16 10*3/uL 0.83-4.51 [facility] Work Phone: Basophil percentageon 2021 Basophils/100 WBC (Bld) 0.3 % 0-1 [facility] Work Phone: Bilirubin [Mass/Vol] 0.40 mg/dL 0.20-1.00 [facility] Work Phone: Comment on above: For patients on eltr ombopag therapy, use of Dimension [place] TBIL is not recommended. Chloride [Moles/Vol] 103 mmol/L 98-107 [facility] Work Phone: Eosinophils/100 WBC (Bld) 0.1 % 0-5 [facility] Work Phone: Glucose [Mass/Vol] 106 mg/dL 74-106 [facility] Work Phone: Comment on above: Fasting Glucose resu lt from 100 to 125 mg/dL suggests IMPAIRED HOMEOSTASIS per A.D.A. criteria. Neutrophils (Bld) [#/Vol] 5.6 10*3/uL 2.0-7.7 [facility] Work Phone: Neutrophils/100 WBC (Bld) 73.9 % 47-70 [facility] Work Phone: Potassium [Moles/Vol] 3.4 mmol/L 3.5-5.1 [facility] Work Phone: Protein [Mass/Vol] 6.8 g/dL 6.4-8.2 [facility] Work Phone: Sodium [Moles/Vol] 136 mmol/L 136-145 [facility] Work Phone: WBC (Bld) [#/Vol] 7.6 10*3/uL 4.4-11.0 [facility] Work Phone: Blood erythrocytes count (nu mber/volume)on 08-11-2021 RBC (Bld) [#/Vol] 3.93 10*6/uL 4.2-5.4 [facility] Work Phone: Blood hemoglobin measurement (mass/volume)on 08-11-2021 Hemoglobin (Bld) [Mass/Vol] 11.7 g/dL 12.0-15.0 [facility] Work Phone: [phone] Blood lymphocytes/100 leukoc yteson 08-11-2021 Lymphocytes/100 WBC (Bld) 15.2 % 19-41 [facility] Work Phone: [phone] Blood monocytes/100 leukocyt eson 08-11-2021 Monocytes/100 WBC (Bld) 10.2 % 0-10 [facility] Work Phone: [phone] Blood platelet adequacy dete ction by light microscopyon 08-11-2021 Platelets LM Ql (Bld) ADEQUATE ADEQ [facility] Work Phone: [phone] Blood platelet mean volumeon 08-11-2021 Platelet mean volume (Bld) [Entitic vol] 10.7 fL 6.2-12.0 [facility] Work Phone: Determination of erythrocyte mean corpuscular volume (MCV)on 08-11-2021 MCV (RBC) [Entitic vol] 89.1 fL 81-99 [facility] Work Phone: [phone] Hematocrit Auto (Bld) [Volum e fraction]on 08-11-2021 Hematocrit (Bld) [Volume fraction] 35.0 % 37-47 [facility] Work Phone: [phone] Laboratory - Chemistry and C hemistry - challengeon 08-11-2021 ALP [Catalytic activity/Vol] 134 U/L 45-117 [facility] Work Phone: [phone] ALT [Catalytic activity/Vol] 41 U/L 13-56 [facility] Work Phone: [phone] CO2 [Moles/Vol] 29.0 mmol/L 21.0-32.0 [facility] Work Phone: [phone] Globulin (S) [Mass/Vol] 3.6 g/dL 2.2-4.2 [facility] Work Phone: [phone] Urea nitrogen/Creatinine [Mass ratio] 14.0 mg/mg 10-20 [facility] Work Phone: [phone] Laboratory - Hematology and Cell countson 08-11-2021 Erythrocyte distribution width (RBC) [Entitic vol] 44.1 fL 35.1-43.9 [facility] Work Phone: [phone] Erythrocyte distribution width (RBC) [Ratio] 13.4 % 11.6-14.6 [facility] Work Phone: [phone] Immature granulocytes/100 WBC (Bld) 0.300 % 0.0-0.9 [facility] Work Phone: [phone] Comment on above: IG% - Immature Granu locytes (promyelocytes, myelocytes and metamyelocytes) > 1% indicates that a LEFT SHIFT is Present. MCH (RBC) [Entitic mass] 29.8 pg 27.0-32.0 [facility] Work Phone: [phone] Nucleated RBC/100 WBC (Bld) [Ratio] 0 % 0-5 [facility] Work Phone: [phone] MCHC Auto (RBC) [Mass/Vol]on 08-11-2021 MCHC (RBC) [Mass/Vol] 33.4 g/dL 32-36 [facility] Work Phone: [phone] Panel Informationon 08-11 Atypical Lymphocytes 1+ % [facility] Work Phone: [phone] Estimated GFR (MDRD) Amer 101 mL/min >60 [facility] Work Phone: [phone] Comment on above: GFR Calc Estimated GFR (MDRD) Non-Af Amer 84 mL/min >60 [facility] Work Phone: [phone] Comment on above: Non- GFR Calc Platelets bldon 08-11-2021 Platelets (Bld) [#/Vol] 214 10*3/uL 150-450 [facility] Work Phone: RBC morphologyon 08-11-2021 RBC morphology finding Nom (Bld) NORM C+C NORMAL NORM C&C [facility] Work Phone: Serum or plasma albumin sandhya urement (mass/volume)on 08-11-2021 Albumin [Mass/Vol] 3.2 g/dL 3.2-5.0 [facility] Work Phone: Serum or plasma albumin/glob ulin mass ratioon 08-11-2021 Albumin/Globulin [Mass ratio] 0.9 {ratio} 0.9-2.4 [facility] Work Phone: Serum or plasma calcium sandhya urement (mass/volume)on 08-11-2021 Calcium [Mass/Vol] 8.2 mg/dL 8.5-10.1 [facility] Work Phone: Serum or plasma creatinine m easurement (mass/volume)on 08-11-2021 Creatinine [Mass/Vol] 0.71 mg/dL 0.55-1.02 [facility] Work Phone: Comment on above: The validity of the calculated GFR & GFRAA in patients over 70 years has not been determined. Clinical correlation is essential. Serum or plasma urea nitroge n measurement (mass/volume)on 08-11-2021 Urea nitrogen [Mass/Vol] 10 mg/dL 7-18 [facility] Work Phone: Serum or plasma uric acid me asurement (mass/volume)on 08-11-2021 Urate [Mass/Vol] 3.9 mg/dL 2.6-6.0 [facility] Work Phone: Comment on above: The drugs N-Acetylcy steine and Metamizole may falsely depress this assay. Thin prep Papanicolaou smear with manual screeningon 08-11-2021 Thin prep Papanicolaou smear with manual screening 18 U/L 15-37 [facility] Work Phone: Thin prep Papanicolaou smear with manual screening 4 5-15 [facility] Work Phone: [phone] Absolute lymphocyte counton 07-25-2021 Lymphocytes Auto (Unsp spec) [#/Vol] 2.65 10*3/uL 0.83-4.51 [facility] Work Phone: Basophil percentageon 2021 Basophils/100 WBC (Bld) 0.3 % 0-1 [facility] Work Phone: Chloride [Moles/Vol] 105 mmol/L 98-107 [facility] Work Phone: Eosinophils/100 WBC (Bld) 2.5 % 0-5 [facility] Work Phone: Glucose [Mass/Vol] 149 mg/dL 74-106 [facility] Work Phone: Comment on above: Fasting Glucose resu lt greater than or equal to 126 mg/dL suggests DIABETES MELLITUS per A.D.A. criteria. Neutrophils (Bld) [#/Vol] 2.4 10*3/uL 2.0-7.7 [facility] Work Phone: Neutrophils/100 WBC (Bld) 40.8 % 47-70 [facility] Work Phone: Potassium [Moles/Vol] 3.8 mmol/L 3.5-5.1 [facility] Work Phone: Sodium [Moles/Vol] 138 mmol/L 136-145 [facility] Work Phone: WBC (Bld) [#/Vol] 5.9 10*3/uL 4.4-11.0 [facility] Work Phone: Blood erythrocytes count (nu mber/volume)on 07-25-2021 RBC (Bld) [#/Vol] 4.28 10*6/uL 4.2-5.4 [facility] Work Phone: Blood hemoglobin measurement (mass/volume)on 07-25-2021 Hemoglobin (Bld) [Mass/Vol] 12.8 g/dL 12.0-15.0 [facility] Work Phone: Blood lymphocytes/100 leukoc yteson 07-25-2021 Lymphocytes/100 WBC (Bld) 44.7 % 19-41 [facility] Work Phone: Blood monocytes/100 leukocyt eson 07-25-2021 Monocytes/100 WBC (Bld) 11.5 % 0-10 [facility] Work Phone: [phone] Blood platelet mean volumeon 07-25-2021 Platelet mean volume (Bld) [Entitic vol] 9.9 fL 6.2-12.0 [facility] Work Phone: [phone] Determination of erythrocyte mean corpuscular volume (MCV)on 07-25-2021 MCV (RBC) [Entitic vol] 90.7 fL 81-99 [facility] Work Phone: [phone] Hematocrit Auto (Bld) [Volum e fraction]on 07-25-2021 Hematocrit (Bld) [Volume fraction] 38.8 % 37-47 [facility] Work Phone: Laboratory - Chemistry and C hemistry - challengeon 07-25-2021 CO2 [Moles/Vol] 27.0 mmol/L 21.0-32.0 [facility] Work Phone: [phone] Urea nitrogen/Creatinine [Mass ratio] 18.4 mg/mg 10-20 [facility] Work Phone: [phone] Laboratory - Hematology and Cell countson 07-25-2021 Erythrocyte distribution width (RBC) [Entitic vol] 46.8 fL 35.1-43.9 [facility] Work Phone: [phone] Erythrocyte distribution width (RBC) [Ratio] 14.0 % 11.6-14.6 [facility] Work Phone: [phone] Immature granulocytes/100 WBC (Bld) 0.200 % 0.0-0.9 [facility] Work Phone: [phone] Comment on above: IG% - Immature Granu locytes (promyelocytes, myelocytes and metamyelocytes) > 1% indicates that a LEFT SHIFT is Present. MCH (RBC) [Entitic mass] 29.9 pg 27.0-32.0 [facility] Work Phone: Nucleated RBC/100 WBC (Bld) [Ratio] 0 % 0-5 [facility] Work Phone: MCHC Auto (RBC) [Mass/Vol]on 07-25-2021 MCHC (RBC) [Mass/Vol] 33.0 g/dL 32-36 [facility] Work Phone: No Panel Informationon 07-25 Troponin I High Sensitivity < 3 pg/mL 3.0-54.0 [facility] Work Phone: Comment on above: Please Note: [place] t Units and Gender Specific Reference Ranges. For more information see Policy Stat Procedure [place] High Sensitivity Troponin (TNIH) and attachments. D-Dimer Quantitative (PE/DVT) 0.98 FEU/ug/m 0.27-0.49 [facility] Work Phone: Comment on above: D-Dimer ELEVATED (>0 .49): Additional studies and clinicalassessments are indicated to conclude diagnosis of:Deep Vein Thrombosis (DVT) or Pulmonary Embolism (PE)CRITICAL VALUE VERIFIED. CALLED TO STACEY IBARRA07/25/21 0121 Samantha Alvarado.RESULTS READ BACK BY SAME . Estimated Creatinine Clearance Calc 32.56 ml/min [facility] Work Phone: Estimated GFR (MDRD) Amer 59 mL/min >60 [facility] Work Phone: Comment on above: GFR Calc Estimated GFR (MDRD) Non-Af Amer 49 mL/min >60 [facility] Work Phone: Comment on above: Non- GFR Calc Platelets bldon 07-25-2021 Platelets (Bld) [#/Vol] 248 10*3/uL 150-450 [facility] Work Phone: [phone] Serum or plasma calcium sandhya urement (mass/volume)on 07-25-2021 Calcium [Mass/Vol] 9.0 mg/dL 8.5-10.1 [facility] Work Phone: [phone] Serum or plasma creatinine m easurement (mass/volume)on 03-28-2022 Creatinine [Mass/Vol] 1.14 mg/dL 0.55-1.02 [facility] Work Phone: Comment on above: The validity of the calculated GFR & GFRAA in patients over 70 years has not been determined. Clinical correlation is essential. Serum or plasma urea nitroge n measurement (mass/volume)on 07-25-2021 Urea nitrogen [Mass/Vol] 21 mg/dL 7-18 [facility] Work Phone: Thin prep Papanicolaou smear with manual screeningon 07-25-2021 Thin prep Papanicolaou smear with manual screening 6 5-15 [facility] Work Phone: CT CERVICAL SPINE WO CONTRAS Ton 06-13-2021 Patient Name: JACI PORTER Computed Tomography ACCESSION EXAM DATE/TIME PROCEDURE ORDERING PROVIDER [id number] 06/13/2021 16:[address] Spine Cervical w/o DO MORA EUGENE F. Contrast CPT code 60101 Reason For Exam (CT Spine Cervical w/o Contrast) neck pain after fall Report CT CERVICAL SPINE WITHOUT CONTRAST CLINICAL INDICATION: neck pain after fall TECHNIQUE: CT scan of the cervical spine without IV contrast. Multiplanar reformations. COMPARISON: None. FINDINGS: Moderate, multilevel degenerative disc disease and spondylosis. No acute compression deformity or gross malalignment of cervical vertebral bodies. No acute fracture. No acute, osseous central spinal canal encroachment. Paraspinal soft tissues grossly unremarkable. IMPRESSION: 1. No acute compression deformity or apparent fracture in the cervical spine. 2. Degenerative spondylosis. Report Dictated on Workstation: [email or web address] --- Final --- Dictating Physician: MD GAMBOA WENDELL Signed Date and Time: 06/13/2021 5:51 pm Signed by: MD GAMBOA WENDELL Transcribed Date and Time: 06/13/2021 5:53 [facility] Jose Champion MD - 06/13/2021 Patient Name: JACI PORTER Computed Tomography ACCESSION EXAM DATE/TIME PROCEDURE ORDERING PROVIDER [id number] 06/13/2021 16:[address] Spine Cervical w/o DO MORA EUGENE F. Contrast CPT code 39919 Reason For Exam (CT Spine Cervical w/o Contrast) neck pain after fall Report CT CERVICAL SPINE WITHOUT CONTRAST CLINICAL INDICATION: neck pain after fall TECHNIQUE: CT scan of the cervical spine without IV contrast. Multiplanar reformations. COMPARISON: None. FINDINGS: Moderate, multilevel degenerative disc disease and spondylosis. No acute compression deformity or gross malalignment of cervical vertebral bodies. No acute fracture. No acute, osseous central spinal canal encroachment. Paraspinal soft tissues grossly unremarkable. IMPRESSION: 1. No acute compression deformity or apparent fracture in the cervical spine. 2. Degenerative spondylosis. Report Dictated on Workstation: [email or web address] --- Final --- Dictating Physician: MD GAMBOA WENDELL Signed Date and Time: 06/13/2021 5:51 pm Signed by: MD GAMBOA WENDELL Transcribed Date and Time: 06/13/2021 5:53 [facility] Work Phone: CT CERVICAL SPINE WO CONTRAS TOrdered By: Jose Gamboa on 06-13-2021 [facility] Work Phone: CT HEAD WO CONTRASTon 2021 [facility]: [id number] ACCESSION EXAM DATE/TIME PROCEDURE ORDERING PROVIDER [id number] 06/13/2021 16:[address] Head or Brain w/o DO MORA EUGENE F. Contrast CPT code 23133 Reason For Exam (CT Head or Brain w/o Contrast) head ache Report CLINICAL INFORMATION: Persistent headache since closed head trauma approximately four weeks ago.. CT HEAD WITHOUT INTRAVENOUS CONTRAST: Volume acquisition CT images are obtained from foramen magnum to vertex without intravenous contrast with axial, coronal and sagittal 2-D reconstructions. The patient's head is slightly asymmetrically positioned within the gantry. There has been a prior right frontoparietal craniotomy. The ventricles and sulci are prominent consistent with mild cerebral volume loss not unusual for age. No intra-axial mass lesion or mass-effect is seen. There is no evidence of intracranial hemorrhage or other focal abnormal intra-axial densities. There is atherosclerotic calcification of the intracavernous portions of both internal carotid arteries. The bony calvarium is otherwise intact. The mastoid air cells and included paranasal sinuses are clear. IMPRESSION: Prior right frontal craniotomy. No evidence of acute intracranial abnormality. Report Dictated on --- Final --- Dictating Physician: MD SOLANO HARLAN Signed Date and Time: 06/13/2021 4:33 pm Signed by: MD SOLANO HARLAN Transcribed Date and Time: 06/13/2021 4:34 [facility] - 06/13/2021 Patient Name: JACI PORTER Computed Tomography ACCESSION EXAM DATE/TIME PROCEDURE ORDERING PROVIDER [id number] 06/13/2021 16:[address] Head or Brain w/o DO MORA EUGENE F. Contrast CPT code 08793 Reason For Exam (CT Head or Brain w/o Contrast) head ache Report CLINICAL INFORMATION: Persistent headache since closed head trauma approximately four weeks ago.. CT HEAD WITHOUT INTRAVENOUS CONTRAST: Volume acquisition CT images are obtained from foramen magnum to vertex without intravenous contrast with axial, coronal and sagittal 2-D reconstructions. The patient's head is slightly asymmetrically positioned within the gantry. There has been a prior right frontoparietal craniotomy. The ventricles and sulci are prominent consistent with mild cerebral volume loss not unusual for age. No intra-axial mass lesion or mass-effect is seen. There is no evidence of intracranial hemorrhage or other focal abnormal intra-axial densities. There is atherosclerotic calcification of the intracavernous portions of both internal carotid arteries. The bony calvarium is otherwise intact. The mastoid air cells and included paranasal sinuses are clear. IMPRESSION: Prior right frontal craniotomy. No evidence of acute intracranial abnormality. Report Dictated on --- Final --- Dictating Physician: MD SOLANO HARLAN Signed Date and Time: 06/13/2021 4:33 pm Signed by: MD SOLANO HARLAN Transcribed Date and Time: 06/13/2021 4:34 [facility] Work Phone: CT HEAD WO CONTRASTOrdered B y: Celso Solano on 06-13-2021 [facility] Work Phone: CT Head or Brain w/o Contras ton 06-13-2021 CT Head or Brain w/o Contrast Patient Name: JACI PORTER Computed Tomography ACCESSION EXAM DATE/TIME PROCEDURE ORDERING PROVIDER [id number] 06/13/2021 16:[address] Head or Brain w/o DO MORA EUGENE F. Contrast CPT code 56000 Reason For Exam (CT Head or Brain w/o Contrast) head ache Report CLINICAL INFORMATION: Persistent headache since closed head trauma approximately four weeks ago.. CT HEAD WITHOUT INTRAVENOUS CONTRAST: Volume acquisition CT images are obtained from foramen magnum to vertex without intravenous contrast with axial, coronal and sagittal 2-D reconstructions. The patient's head is slightly asymmetrically positioned within the gantry. There has been a prior right frontoparietal craniotomy. The ventricles and sulci are prominent consistent with mild cerebral volume loss not unusual for age. No intra-axial mass lesion or mass-effect is seen. There is no evidence of intracranial hemorrhage or other focal abnormal intra-axial densities. There is atherosclerotic calcification of the intracavernous portions of both internal carotid arteries. The bony calvarium is otherwise intact. The mastoid air cells and included paranasal sinuses are clear. IMPRESSION: Prior right frontal craniotomy. No evidence of acute intracranial abnormality. Report Dictated on Final Dictating Physician: MD SOLANO HARLAN Signed Date and Time: 06/13/2021 4:33 pm Signed by: MD SOLANO HARLAN Transcribed Date and Time: 06/13/2021 4:34 Normal [facility] CT Spine Cervical w/o Contra ston 06-13-2021 CT Spine Cervical w/o Contrast Patient Name: JACI PORTER Computed Tomography ACCESSION EXAM DATE/TIME PROCEDURE ORDERING PROVIDER [id number] 06/13/2021 16:[address] Spine Cervical w/o DO MORA EUGENE F. Contrast CPT code 83898 Reason For Exam (CT Spine Cervical w/o Contrast) neck pain after fall Report CT CERVICAL SPINE WITHOUT CONTRAST CLINICAL INDICATION: neck pain after fall TECHNIQUE: CT scan of the cervical spine without IV contrast. Multiplanar reformations. COMPARISON: None. FINDINGS: Moderate, multilevel degenerative disc disease and spondylosis. No acute compression deformity or gross malalignment of cervical vertebral bodies. No acute fracture. No acute, osseous central spinal canal encroachment. Paraspinal soft tissues grossly unremarkable. IMPRESSION: 1. No acute compression deformity or apparent fracture in the cervical spine. 2. Degenerative spondylosis. Report Dictated on Workstation: [id number] Final Dictating Physician: MD GAMBOA WENDELL Signed Date and Time: 06/13/2021 5:51 pm Signed by: MD GAMBOA WENDELL Transcribed Date and Time: 06/13/2021 5:53 Normal [facility] No Panel Informationon 06-13 Radiology Study observation (narrative) [facility] Work Phone: MRI BRAIN W WO CONTRASTOrder ed By: Yaya Lopez on 01-31-2021 Patient Name: JACI PORTER Magnetic Resonance Imaging ACCESSION EXAM DATE/TIME PROCEDURE ORDERING PROVIDER [id number] 01/31/2021 09:51 EDT MRI Brain w/ + w/o DO LOPEZ PAUL E. Contrast CPT code 93879 Reason For Exam (MRI Brain w/ + w/o Contrast) . Report MRI BRAIN WITHOUT & WITH CONTRAST: INDICATION: Left-sided headaches, history of prior right craniotomy. COMPARISON: None. CONTRAST: 7.5 mL of Gadolinium MR scan of the brain was performed with sagittal T1 weighted, axial T2 weighted and FLAIR scans, and axial diffusion scans. Following the administration of Gadolinium, axial T1 weighted images were performed. There has been a prior right craniotomy. The ventricles and sulci are normal in size for age. There is no evidence of mass lesion or cerebral edema. There is no suggestion of intracranial hemorrhage on the gradient echo T2 sequence. There is no hydrocephalus, midline shift, or herniation. No epidural or subdural collections are present. On the FLAIR sequence a mild degree of increased signal is seen to affected germinal matrix adjacent to the lateral ventricles. There is no evidence of white matter ischemic change. Diffusion weighted images are negative. The sella turcica is partially empty. The brain stem is unremarkable. Within the posterior fossa of the anatomy of the cerebellar pontine cistern is unremarkable as are the internal auditory canals and labyrinthine structures. Flow void is seen within the vessels of the nikolski of [place]. The globes and orbital contents are grossly normal. There is mild mucosal thickening of the ethmoid air cells. Following Gadolinium administration, there is no pathologic enhancement in the brain or meninges. There is normal enhancement of the cerebral vascular structures and choroid. IMPRESSION: Prior right craniotomy. No acute intracranial process. No midline shift or mass effect Mild mucosal thickening in the paranasal sinuses. Magnetic Resonance Imaging Report Report Dictated on --- Final --- Dictating Physician: DO HARRIS ALFRED Signed Date and Time: 01/31/2021 11:45 am Signed by: DO HARRIS ALFRED Transcribed Date and Time: 01/31/2021 11:46 [facility] Work Phone: [place] Incoming Radiology Results From [facility] - 01/31/2021 11:46 AM EDT Patient Name: JACI PORTER Magnetic Resonance Imaging ACCESSION EXAM DATE/TIME PROCEDURE ORDERING PROVIDER [id number] 01/31/2021 09:51 EDT MRI Brain w/ + w/o DO LOPEZ PAUL E. Contrast CPT code 88671 Reason For Exam (MRI Brain w/ + w/o Contrast) . Report MRI BRAIN WITHOUT & WITH CONTRAST: INDICATION: Left-sided headaches, history of prior right craniotomy. COMPARISON: None. CONTRAST: 7.5 mL of Gadolinium MR scan of the brain was performed with sagittal T1 weighted, axial T2 weighted and FLAIR scans, and axial diffusion scans. Following the administration of Gadolinium, axial T1 weighted images were performed. There has been a prior right craniotomy. The ventricles and sulci are normal in size for age. There is no evidence of mass lesion or cerebral edema. There is no suggestion of intracranial hemorrhage on the gradient echo T2 sequence. There is no hydrocephalus, midline shift, or herniation. No epidural or subdural collections are present. On the FLAIR sequence a mild degree of increased signal is seen to affected germinal matrix adjacent to the lateral ventricles. There is no evidence of white matter ischemic change. Diffusion weighted images are negative. The sella turcica is partially empty. The brain stem is unremarkable. Within the posterior fossa of the anatomy of the cerebellar pontine cistern is unremarkable as are the internal auditory canals and labyrinthine structures. Flow void is seen within the vessels of the nikolski of [place]. The globes and orbital contents are grossly normal. There is mild mucosal thickening of the ethmoid air cells. Following Gadolinium administration, there is no pathologic enhancement in the brain or meninges. There is normal enhancement of the cerebral vascular structures and choroid. IMPRESSION: Prior right craniotomy. No acute intracranial process. No midline shift or mass effect Mild mucosal thickening in the paranasal sinuses. Magnetic Resonance Imaging Report Report Dictated on --- Final --- Dictating Physician: DO HARRIS ALFRED Signed Date and Time: 01/31/2021 11:45 am Signed by: DO HARRIS ALFRED Transcribed Date and Time: 01/31/2021 11:46 [facility] Work Phone: [facility] Work Phone: MRI Brain w/ + w/o Contrasto n 01-31-2021 MRI Brain w/ + w/o Contrast Patient Name: JACI PORTER [facility]#: [id number] Magnetic Resonance Imaging ACCESSION EXAM DATE/TIME PROCEDURE ORDERING PROVIDER [id number] 01/31/2021 09:51 EDT MRI Brain w/ + w/o DO LOPEZ PAUL E. Contrast CPT code 62644 Reason For Exam (MRI Brain w/ + w/o Contrast) . Report MRI BRAIN WITHOUT and WITH CONTRAST: INDICATION: Left-sided headaches, history of prior right craniotomy. COMPARISON: None. CONTRAST: 7.5 mL of Gadolinium MR scan of the brain was performed with sagittal T1 weighted, axial T2 weighted and FLAIR scans, and axial diffusion scans. Following the administration of Gadolinium, axial T1 weighted images were performed. There has been a prior right craniotomy. The ventricles and sulci are normal in size for age. There is no evidence of mass lesion or cerebral edema. There is no suggestion of intracranial hemorrhage on the gradient echo T2 sequence. There is no hydrocephalus, midline shift, or herniation. No epidural or subdural collections are present. On the FLAIR sequence a mild degree of increased signal is seen to affected germinal matrix adjacent to the lateral ventricles. There is no evidence of white matter ischemic change. Diffusion weighted images are negative. The sella turcica is partially empty. The brain stem is unremarkable. Within the posterior fossa of the anatomy of the cerebellar pontine cistern is unremarkable as are the internal auditory canals and labyrinthine structures. Flow void is seen within the vessels of the nikolski of [place]. The globes and orbital contents are grossly normal. There is mild mucosal thickening of the ethmoid air cells. Following Gadolinium administration, there is no pathologic enhancement in the brain or meninges. There is normal enhancement of the cerebral vascular structures and choroid. IMPRESSION: Prior right craniotomy. No acute intracranial process. No midline shift or mass effect Mild mucosal thickening in the paranasal sinuses. Magnetic Resonance Imaging Report Report Dictated on Final Dictating Physician: DO HARRIS ALFRED Signed Date and Time: 01/31/2021 11:45 am Signed by: DO HARRIS ALFRED Transcribed Date and Time: 01/31/2021 11:46 Normal [facility] CR Spine Cervical 4+ Viewson 01-06-2021 CR Spine Cervical 4+ Views [id number] ACCESSION EXAM DATE/TIME PROCEDURE ORDERING PROVIDER [id number] 01/06/2021 11:52 EDT CR Spine Cervical 4+ DO LOPEZ PAUL E. Views CPT code 11548 Reason For Exam (CR Spine Cervical 4+ Views) . Report CERVICAL SPINE: CLINICAL INDICATION: Headache and difficulty swallowing. TECHNIQUE: AP, lateral, bilateral oblique and open mouth. COMPARISON: None FINDINGS: Alignment and positioning of cervical vertebra shows near anatomic. There is 3.7 mm of anterolisthesis of C4 on C5. There is no fracture or subluxation of the cervical vertebrae. Disc narrowing at multiple levels from C3-C4 through C6-C7 with uncovertebral and endplate osteophytes. Mild left-sided C3-C4, C4-C5 and left C5-C6 bony canal neural foraminal narrowing. The retropharyngeal and retrotracheal soft tissues are unremarkable. IMPRESSION: Moderate cervical degenerative spondylosis from C3-C4 through C6-C7 level with mild left-sided multilevel bony canal neural foraminal narrowing. Report Dictated on Workstation: [id number] Final Dictating Physician: CRISTIANA AYALA DO, I Signed Date and Time: 01/08/2021 9:54 pm Signed by: CRISTIANA AYALA DO, I Transcribed Date and Time: 01/08/2021 9:55 Normal [facility] XR CHEST STANDARD (2 VW)on 0 10-02-2019 Patient Name: JACI PORTER ---Diagnostic Radiology--- Exam Date/Time 10/02/2019 15:29:12 EDT Exam CR Chest PA/LAT Ordering Physician DO LOPEZ PAUL E. Accession Number [id number] CPT4 Codes 54933 () Reason For Exam . Report Examination: PA and lateral chest Clinical Indication: Cough and wheeze Comparison: 07/13/2017 Findings: Lungs appear normally inflated. There is no focal consolidation, effusion, or pulmonary edema identified. The cardiomediastinal silhouette is normal in size and configuration. Mild rotatory scoliosis with mild to moderate spondylosis unchanged. Mild atherosclerotic calcification aortic arch. Impression: No acute cardiopulmonary process. Report Dictated on Workstation: [id number] --- Final --- Dictating Physician: MD KIRAN ANTHONY J Signed Date and Time: 10/02/2019 4:09 pm Signed by: MD KIRAN ANTHONY J Transcribed Date and Time: 10/02/2019 4:10 [facility] [place], [facility] Incoming Radiology Results From [facility] - 10/02/2019 4:10 PM EDT Patient Name: JACI PORTER ---Diagnostic Radiology--- Exam Date/Time 10/02/2019 15:29:12 EDT Exam CR Chest PA/LAT Ordering Physician DO LOPEZ PAUL E. Accession Number [id number] CPT4 Codes 72847 () Reason For Exam . Report Examination: PA and lateral chest Clinical Indication: Cough and wheeze Comparison: 07/13/2017 Findings: Lungs appear normally inflated. There is no focal consolidation, effusion, or pulmonary edema identified. The cardiomediastinal silhouette is normal in size and configuration. Mild rotatory scoliosis with mild to moderate spondylosis unchanged. Mild atherosclerotic calcification aortic arch. Impression: No acute cardiopulmonary process. Report Dictated on Workstation: [employer] --- Final --- Dictating Physician: MD KIRAN ANTHONY J Signed Date and Time: 10/02/2019 4:09 pm Signed by: MD KIRAN ANTHONY J Transcribed Date and Time: 10/02/2019 4:10 [place], [place] CT Abdomen Pelvis W Contrast on 09-25-2019 Patient Name: JACI PORTER ---CT--- Exam Date/Time 09/25/2019 11:14:[address] Abdomen/Pelvis w/ IV Contrast (IV Onl Ordering Physician DO LOPEZ PAUL E. Accession Number [id number] CPT4 Codes 66847 (CT Abdomen/Pelvis w/ IV Contrast (IV Onl), Q9967 (CT ISOVUE 370MG/ML&[id number]&M L&1) Reason For Exam Abdominal pain, unspecified abdominal location [R10.9 (ICD-10-CM)] Report CLINICAL INFORMATION: Abdominal and pelvic pain. Prior appendectomy and cholecystectomy. CT ABDOMEN AND PELVIS WITH INTRAVENOUS CONTRAST: Contrast: Isovue-370, [address] ABDOMEN: Volume acquisition CT images are obtained from diaphragm to iliac crests following oral and intravenous contrast with axial, coronal and sagittal 2- D reconstructions. Comparison is made to the examination of 10/10/2018. Images through the upper abdomen which included lower chest demonstrate no significant abnormal pleural or parenchymal densities in the included lower lungs. Since the prior examination, the patient has undergone a cholecystectomy. The common bile duct is dilated extending into the head of the pancreas which is nonspecific following cholecystectomy. There is minimal intrahepatic biliary dilatation also nonspecific following cholecystectomy. There is pneumobilia in the left lobe the liver most likely related to prior ductal instrumentation and/or papillotomy. The liver is otherwise unremarkable in size, configuration and density. The spleen, pancreas and kidneys are unremarkable in size, configuration and density. There is no hydronephrosis. There is no abnormality of the stomach, small or large bowel. No ascites or retroperitoneal lymphadenopathy is seen. No focal mass, fluid collection or inflammatory changes are identified. There is atherosclerotic calcification of a normal caliber abdominal aorta. There are degenerative changes of the lumbar spine with mild levoscoliosis. CT PELVIS: Volume acquisition CT images were obtained from the iliac crests to the symphysis pubis following oral and intravenous contrast with axial, coronal and sagittal 2-D reconstructions.. Comparison is made to the same prior examination. There is an incompletely distended unopacified urinary bladder without visible abnormality. No focal mass or fluid collection is seen. There is no iliac or inguinal lymphadenopathy. No ascites or inflammatory changes are identified. IMPRESSION: 1. Status post interval cholecystectomy. New common bile duct and minimal intrahepatic biliary dilatation most likely related to interval cholecystectomy. Pneumobilia in the left lobe most likely related to interval ductal instrumentation and/or papillotomy. 2. No evidence of mass, lymphadenopathy or inflammatory process. Report Dictated on --- Final --- Dictating Physician: MD SOLANO HARLAN Signed Date and Time: 09/25/2019 1:53 pm Signed by: MD SOLANO HARLAN Transcribed Date and Time: 09/25/2019 1:54 [place], [place], [facility] Incoming Radiology Results From [facility] - 09/25/2019 1:54 PM EDT Patient Name: JACI PORTER ---CT--- Exam Date/Time 09/25/2019 11:14:[address] Abdomen/Pelvis w/ IV Contrast (IV Onl Ordering Physician DO LOPEZ PAUL E. Accession Number [id number] CPT4 Codes 90859 (CT Abdomen/Pelvis w/ IV Contrast (IV Onl), Q9967 (CT ISOVUE 370MG/ML&[id number]&M L&1) Reason For Exam Abdominal pain, unspecified abdominal location [R10.9 (ICD-10-CM)] Report CLINICAL INFORMATION: Abdominal and pelvic pain. Prior appendectomy and cholecystectomy. CT ABDOMEN AND PELVIS WITH INTRAVENOUS CONTRAST: Contrast: Isovue-370, [address] ABDOMEN: Volume acquisition CT images are obtained from diaphragm to iliac crests following oral and intravenous contrast with axial, coronal and sagittal 2- D reconstructions. Comparison is made to the examination of 10/10/2018. Images through the upper abdomen which included lower chest demonstrate no significant abnormal pleural or parenchymal densities in the included lower lungs. Since the prior examination, the patient has undergone a cholecystectomy. The common bile duct is dilated extending into the head of the pancreas which is nonspecific following cholecystectomy. There is minimal intrahepatic biliary dilatation also nonspecific following cholecystectomy. There is pneumobilia in the left lobe the liver most likely related to prior ductal instrumentation and/or papillotomy. The liver is otherwise unremarkable in size, configuration and density. The spleen, pancreas and kidneys are unremarkable in size, configuration and density. There is no hydronephrosis. There is no abnormality of the stomach, small or large bowel. No ascites or retroperitoneal lymphadenopathy is seen. No focal mass, fluid collection or inflammatory changes are identified. There is atherosclerotic calcification of a normal caliber abdominal aorta. There are degenerative changes of the lumbar spine with mild levoscoliosis. CT PELVIS: Volume acquisition CT images were obtained from the iliac crests to the symphysis pubis following oral and intravenous contrast with axial, coronal and sagittal 2-D reconstructions.. Comparison is made to the same prior examination. There is an incompletely distended unopacified urinary bladder without visible abnormality. No focal mass or fluid collection is seen. There is no iliac or inguinal lymphadenopathy. No ascites or inflammatory changes are identified. IMPRESSION: 1. Status post interval cholecystectomy. New common bile duct and minimal intrahepatic biliary dilatation most likely related to interval cholecystectomy. Pneumobilia in the left lobe most likely related to interval ductal instrumentation and/or papillotomy. 2. No evidence of mass, lymphadenopathy or inflammatory process. Report Dictated on --- Final --- Dictating Physician: MD SOLANO HARLAN Signed Date and Time: 09/25/2019 1:53 pm Signed by: MD SOLANO HARLAN Transcribed Date and Time: 09/25/2019 1:54 [facility], [place] US ABDOMEN COMPLETEOrdered B y: Yaya Piercemarquez on 04-18-2019 Patient Name: JACI PORTER ---Ultrasound--- Exam Date/Time 04/18/2019 13:47:54 EST Exam US Abdomen Complete Ordering Physician DO LOPEZ PAUL E. Accession Number [id number] CPT4 Codes 95451 () Reason For Exam . Report EXAMINATION: Ultrasound of the abdomen. COMPARISON: None. REASON FOR STUDY: Epigastric pain; postprandial nausea. TECHNIQUE: Real-time mayers scale as well as supplemental color and spectral doppler imaging was performed transabdominally. FINDINGS: Liver is mildly echogenic. Pancreas is partially obscured by acoustic shadowing from bowel gas but otherwise appears normal. Spleen and kidneys appear normal. The right and left kidneys measure 10.8 cm and 10.1 cm in length, respectively. The biliary tree is mildly dilated and common duct measures about 10 mm in diameter at its widest. The gallbladder appears normal in configuration and contains a layer of low-level echoes. No free intraperitoneal fluid is noted. The visualized abdominal aorta and inferior vena cava appear normal. CONCLUSIONS: 1. Mild biliary dilatation suspect for distal obstruction. 2. Distended gallbladder with a small layer of sludge. Report Dictated on --- Final --- Dictating Physician: MD CUNHA B NELSON Signed Date and Time: 04/18/2019 2:05 pm Signed by: MD CUNHA B NELSON Transcribed Date and Time: 04/18/2019 2:06 [facility] Work Phone: [place] Incoming Radiology Results From [facility] - 04/18/2019 2:07 PM EST Patient Name: JACI PORTER ---Ultrasound--- Exam Date/Time 04/18/2019 13:47:54 EST Exam US Abdomen Complete Ordering Physician DO LOPEZ PAUL E. Accession Number [id number] CPT4 Codes 59826 () Reason For Exam . Report EXAMINATION: Ultrasound of the abdomen. COMPARISON: None. REASON FOR STUDY: Epigastric pain; postprandial nausea. TECHNIQUE: Real-time mayers scale as well as supplemental color and spectral doppler imaging was performed transabdominally. FINDINGS: Liver is mildly echogenic. Pancreas is partially obscured by acoustic shadowing from bowel gas but otherwise appears normal. Spleen and kidneys appear normal. The right and left kidneys measure 10.8 cm and 10.1 cm in length, respectively. The biliary tree is mildly dilated and common duct measures about 10 mm in diameter at its widest. The gallbladder appears normal in configuration and contains a layer of low-level echoes. No free intraperitoneal fluid is noted. The visualized abdominal aorta and inferior vena cava appear normal. CONCLUSIONS: 1. Mild biliary dilatation suspect for distal obstruction. 2. Distended gallbladder with a small layer of sludge. Report Dictated on --- Final --- Dictating Physician: MD CUNHA B NELSON Signed Date and Time: 04/18/2019 2:05 pm Signed by: MD CUNHA B NELSON Transcribed Date and Time: 04/18/2019 2:06 [facility] Work Phone: CTA NECK W WO CONTRASTon Patient Name: JACI PORTER ---CT--- Exam Date/Time 03/12/2019 11:10:26 EST Exam CTA Neck w/ + w/o Contrast Ordering Physician DO LOPEZ PAUL E. Accession Number [id number] CPT4 Codes 10906 (), Q9967 (CT ISOVUE 370MG/ML&[id number]&M L&1) Reason For Exam . Report CTA neck with and without contrast HISTORY: Abnormal ultrasound Protocol: 0.5 mm axial images with without intravenous contrast, 3-D rendering performed by ca on an independent workstation The bilateral carotid and vertebral arteries are normal. A zero percent stenosis at the origins of the bilateral internal carotid arteries measured using the thoracic criteria. Soft tissues of the neck are unremarkable. IMPRESSION: Normal examination. Report Dictated on --- Final --- Dictating Physician: MD FITZGERALD MALAY Signed Date and Time: 03/12/2019 12:41 pm Signed by: MD FITZGERALD MALAY Transcribed Date and Time: 03/12/2019 12:42 [facility], [place], [facility] Incoming Radiology Results From [facility] - 03/12/2019 12:43 PM EST Patient Name: JACI PORTER ---CT--- Exam Date/Time 03/12/2019 11:10:26 EST Exam CTA Neck w/ + w/o Contrast Ordering Physician DO LOPEZ PAUL E. Accession Number [id number] CPT4 Codes 86127 (), Q9967 (CT ISOVUE 370MG/ML&[id number] L&1) Reason For Exam . Report CTA neck with and without contrast HISTORY: Abnormal ultrasound Protocol: 0.5 mm axial images with without intravenous contrast, 3-D rendering performed by me on an independent workstation The bilateral carotid and vertebral arteries are normal. A zero percent stenosis at the origins of the bilateral internal carotid arteries measured using the thoracic criteria. Soft tissues of the neck are unremarkable. IMPRESSION: Normal examination. Report Dictated on --- Final --- Dictating Physician: MD FITZGERALD MALAY Signed Date and Time: 03/12/2019 12:41 pm Signed by: MD FITZGERALD MALAY Transcribed Date and Time: 03/12/2019 12:42 [place], [place] Creatinine, Serumon 02-13-20 19 Creatinine [Mass/Vol] 0.87 mg/dL 0.52 - 1.25 mg/dL [place], [place] EGFR IF NonAfrican Serbian >60.0 >60 mL/min [place], [place] Comment on above: Source- MDRD equatio n with creatinine calibration to IDMS(NKDEP) eGFR not recommended for drug dose adjustment GFR/1.73 sq M predicted among blacks MDRD (S/P/Bld) [Vol rate/Area] mL/min/{1.73_m2} >60 mL/min [place], [place] Test Performed by [facility], [address] , [place], [place] [id number] [place] [address] Emergency Room Note on 10-09-2017 [place] [facility] Note Normal [facility] ([place]) Pat Eduon 10-09-2017 Pat Edu Normal [facility] ([place]) Patient Summary Documentson 10-09-2017 Patient Summary Documents Normal [facility] ([place]) Otheron 04-21-2003 CONVERTED ELECTRONIC SIGNATURE YESENIA BURNHAM M.D., PATHOLOGIST (Electronic signature on file) Final Signed Out: 04/21/2003 15:31 [facility] CONVERTED FINAL DIAGNOSIS BRAIN MASS, EXCISION - MENINGIOMA, TRANSITIONAL TYPE. MULTIPLE PSAMMOMA BODY CALCIFICATIONS. AGGRESSIVE FEATURES ARE NOT IDENTIFIED. [facility] CONVERTED ORDERING PROVIDER Ordering Provider: TYSON SHETTY [facility] Vital Signs Date Time Vital Sign Value Performing Clinician Facility 02-14-2025 09:30-0400 Body temperature 97.9 [degF] Dr. Earl Mora DO Work Phone: [facility] 02-14-2025 09:30-0400 Diastolic blood pressure 62 mm[Hg] Dr. Earl Mora DO Work Phone: [facility] 02-14-2025 09:30-0400 Heart rate 78 /min Dr. Earl Mora DO Work Phone: [facility] 02-14-2025 09:30-0400 Respiratory rate 16 /min Dr. Earl Mora DO Work Phone: [facility] 02-14-2025 09:30-0400 SaO2% (BldA) [Mass fraction] 98 % Dr. Earl Mora DO Work Phone: [facility] 02-14-2025 09:30-0400 Systolic blood pressure 148 mm[Hg] Dr. Earl Mora DO Work Phone: [facility] 11-21-2024 17:33-0400 Body temperature 98.6 [degF] Dr. Earl Mora DO Work Phone: [facility] 11-21-2024 17:33-0400 Diastolic blood pressure 58 mm[Hg] Dr. Earl Mora DO Work Phone: [facility] 11-21-2024 17:33-0400 Heart rate 74 /min Dr. Earl Mora DO Work Phone: [facility] 11-21-2024 17:33-0400 Respiratory rate 16 /min Dr. Earl Mora DO Work Phone: [facility] 11-21-2024 17:33-0400 SaO2% (BldA) [Mass fraction] 100 % Dr. Earl Mora DO Work Phone: [facility] 11-21-2024 17:33-0400 Systolic blood pressure 121 mm[Hg] Dr. Earl Mora DO Work Phone: [facility] 11-21-2024 13:10-0400 Body height 160.[address] Earl Mora DO Work Phone: [facility] 09-24-2024 13:12-0400 Diastolic blood pressure 70 mm[Hg] [facility] 09-24-2024 13:12-0400 Heart rate 78 /min [facility] 09-24-2024 13:12-0400 Systolic blood pressure 125 mm[Hg] [facility] 09-04-2024 11:00-0400 Body temperature 98.3 [degF] Dr. Earl Mora DO Work Phone: [facility] 09-04-2024 11:00-0400 Diastolic blood pressure 78 mm[Hg] Dr. Earl Mora DO Work Phone: [facility] 09-04-2024 11:00-0400 Heart rate 78 /min Dr. Earl Mora DO Work Phone: [facility] 09-04-2024 11:00-0400 Respiratory rate 18 /min Dr. Earl Mora DO Work Phone: [facility] 09-04-2024 11:00-0400 SaO2% (BldA) [Mass fraction] 98 % Dr. Earl Mora DO Work Phone: [facility] 09-04-2024 11:00-0400 Systolic blood pressure 120 mm[Hg] Dr. Earl Mora DO Work Phone: [facility] 09-04-2024 08:55-0400 Body height 160.[address] Earl Mora DO Work Phone: [facility] 09-04-2024 08:55-0400 Body mass index (BMI) [Ratio] 29 kg/m2 Dr. Earl Mora DO Work Phone: [facility] 09-04-2024 08:55-0400 Body weight 74.[address] Earl Mora DO Work Phone: [facility] 09-02-2024 14:57-0400 Body height 160 cm Earl Mora DO Work Phone: [facility] 09-02-2024 14:57-0400 Body mass index (BMI) [Ratio] 29.19 kg/m2 Earl Mora DO Work Phone: [facility] 09-02-2024 14:57-0400 Body temperature 97.39 [degF] Earl Mora DO Work Phone: [facility] 09-02-2024 14:57-0400 Body weight 74.75 kg Earl Mora DO Work Phone: [facility] 09-02-2024 14:57-0400 Diastolic blood pressure 82 mm[Hg] Earl Mora DO Work Phone: [facility] 09-02-2024 14:57-0400 Heart rate 86 /min Earl Mora DO Work Phone: [facility] 09-02-2024 14:57-0400 SaO2% (BldA) [Mass fraction] 96 % Earl Mora DO Work Phone: [facility] 09-02-2024 14:57-0400 Systolic blood pressure 150 mm[Hg] Earl Mora DO Work Phone: [facility] 08-27-2024 09:08-0400 Body temperature 98.6 [degF] Dr. Earl Mora DO Work Phone: [facility] 08-27-2024 09:08-0400 Diastolic blood pressure 62 mm[Hg] Dr. Earl Mora DO Work Phone: [facility] 08-27-2024 09:08-0400 Heart rate 77 /min Dr. Earl Mora DO Work Phone: [facility] 08-27-2024 09:08-0400 Respiratory rate 16 /min Dr. Earl Mora DO Work Phone: [facility] 08-27-2024 09:08-0400 SaO2% (BldA) [Mass fraction] 98 % Dr. Earl Mora DO Work Phone: [facility] 08-27-2024 09:08-0400 Systolic blood pressure 134 mm[Hg] Dr. Earl Mora DO Work Phone: [facility] 08-23-2024 11:05-0400 Body temperature 98.6 [degF] Dr. Earl Mora DO Work Phone: [facility] 08-23-2024 11:05-0400 Diastolic blood pressure 80 mm[Hg] Dr. Earl Mora DO Work Phone: [facility] 08-23-2024 11:05-0400 Heart rate 73 /min Dr. Earl Mora DO Work Phone: [facility] 08-23-2024 11:05-0400 SaO2% (BldA) [Mass fraction] 96 % Dr. Earl Mora DO Work Phone: [facility] 08-23-2024 11:05-0400 Systolic blood pressure 120 mm[Hg] Dr. Earl Mora DO Work Phone: [facility] 06-25-2024 15:56-0500 Diastolic blood pressure 84 mm[Hg] Samantha Torres PA-C Work Phone: [facility] 06-25-2024 15:56-0500 Systolic blood pressure 160 mm[Hg] Samantha Torres PA-C Work Phone: [facility] 06-25-2024 15:01-0500 Body height 160 cm Samantha Torres PA-C Work Phone: [facility] 06-25-2024 15:01-0500 Body mass index (BMI) [Ratio] 28.87 kg/m2 Samantha Torres PA-C Work Phone: [facility] 06-25-2024 15:01-0500 Body temperature 97.5 [degF] Samantha Pyleo PA-C Work Phone: [facility] 06-25-2024 15:01-0500 Body weight 73.94 kg Samantha Pyleo PA-C Work Phone: [facility] 06-25-2024 15:01-0500 Heart rate 86 /min Samantha Pyleo PA-C Work Phone: [facility] 06-25-2024 15:01-0500 SaO2% (BldA) [Mass fraction] 99 % Samantha Torres PA-C Work Phone: [facility] 06-05-2024 13:13-0500 Body mass index (BMI) [Ratio] 26.9 kg/m2 Dr. Earl Mora DO Work Phone: [facility] 06-05-2024 13:13-0500 Body temperature 97.5 [degF] Dr. Earl Mora DO Work Phone: [facility] 06-05-2024 13:13-0500 Body weight 68.[address] Earl Mora DO Work Phone: [facility] 06-05-2024 13:13-0500 Diastolic blood pressure 73 mm[Hg] Dr. Earl Mora DO Work Phone: [facility] 06-05-2024 13:13-0500 Heart rate 72 /min Dr. Earl Mora DO Work Phone: [facility] 06-05-2024 13:13-0500 Respiratory rate 18 /min Dr. Earl Mora DO Work Phone: [facility] 06-05-2024 13:13-0500 SaO2% (BldA) [Mass fraction] 99 % Dr. Earl Mora DO Work Phone: [facility] 06-05-2024 13:13-0500 Systolic blood pressure 143 mm[Hg] Dr. Earl Mora DO Work Phone: [facility] 04-17-2024 11:19-0500 Diastolic blood pressure 88 mm[Hg] [facility] 04-17-2024 11:19-0500 Systolic blood pressure 142 mm[Hg] [facility] 04-17-2024 10:59-0500 Heart rate 70 /min [facility] 04-03-2024 15:44-0500 Diastolic blood pressure 74 mm[Hg] Earl Mora DO Work Phone: [facility] 04-03-2024 15:44-0500 Heart rate 68 /min Earl Mora DO Work Phone: [facility] 04-03-2024 15:44-0500 Systolic blood pressure 150 mm[Hg] Earl Mora DO Work Phone: [facility] 04-03-2024 14:58-0500 Body height 160 cm Earl Mora DO Work Phone: [facility] 04-03-2024 14:58-0500 Body mass index (BMI) [Ratio] 29.23 kg/m2 Earl Mora DO Work Phone: [facility] 04-03-2024 14:58-0500 Body temperature 97.5 [degF] Earl Mora DO Work Phone: [facility] 04-03-2024 14:58-0500 Body weight 74.84 kg Earl Mora DO Work Phone: [facility] 04-03-2024 14:58-0500 SaO2% (BldA) [Mass fraction] 99 % Earl Mora DO Work Phone: [facility] 02-18-2024 10:32-0400 Body height 160 cm Earl Mora DO Work Phone: [facility] 02-18-2024 10:32-0400 Body mass index (BMI) [Ratio] 29.23 kg/m2 Earl Mora DO Work Phone: [facility] 02-18-2024 10:32-0400 Body temperature 98.6 [degF] Earl Mora DO Work Phone: [facility] 02-18-2024 10:32-0400 Body weight 74.84 kg Earl Mora DO Work Phone: [facility] 02-18-2024 10:32-0400 Diastolic blood pressure 80 mm[Hg] Earl Mora DO Work Phone: [facility] 02-18-2024 10:32-0400 Heart rate 84 /min Earl Mora DO Work Phone: [facility] 02-18-2024 10:32-0400 SaO2% (BldA) [Mass fraction] 99 % Earl Mora DO Work Phone: [facility] 02-18-2024 10:32-0400 Systolic blood pressure 150 mm[Hg] Earl Mora DO Work Phone: [facility] 09-17-2023 10:44-0400 Body height 160 cm Samantha Pyleo PA-C Work Phone: [facility] 09-17-2023 10:44-0400 Body mass index (BMI) [Ratio] 29.05 kg/m2 Samantha Pyleo PA-C Work Phone: [facility] 09-17-2023 10:44-0400 Body temperature 97.81 [degF] Samantha Pyleo PA-C Work Phone: [facility] 09-17-2023 10:44-0400 Body weight 74.39 kg Samantha Pyleo PA-C Work Phone: [facility] 09-17-2023 10:44-0400 Diastolic blood pressure 82 mm[Hg] Samantha Pyleo PA-C Work Phone: [facility] 09-17-2023 10:44-0400 Heart rate 89 /min Samantha Pyleo PA-C Work Phone: [facility] 09-17-2023 10:44-0400 SaO2% (BldA) [Mass fraction] 99 % Samantha Torres PA-C Work Phone: [facility] 09-17-2023 10:44-0400 Systolic blood pressure 139 mm[Hg] Samantha Torres PA-C Work Phone: [facility] 07-03-2023 09:34-0500 Body height 160.02 cm [facility]23 09:34-0500 Body mass index (BMI) [Ratio] 29 kg/m2 [facility]-03-2023 09:34-0500 Body temperature 97.7 [degF] [facility] 07-03-2023 09:34-0500 Body weight 74.38 kg [facility] 07-03-2023 09:34-0500 Diastolic blood pressure 96 mm[Hg] [facility] 07-03-2023 09:34-0500 Heart rate 96 /min [facility] 07-03-2023 09:34-0500 Respiratory rate 16 /min [facility] 07-03-2023 09:34-0500 SaO2% (BldA) [Mass fraction] 98 % [facility] 07-03-2023 09:34-0500 Systolic blood pressure 162 mm[Hg] [facility] 06-22-2023 08:37-0500 Body mass index (BMI) [Ratio] 29 kg/m2 [facility] 06-22-2023 08:37-0500 Body weight 74.38 kg [facility] 06-22-2023 08:37-0500 Diastolic blood pressure 75 mm[Hg] [facility] 06-22-2023 08:37-0500 Respiratory rate 16 /min [facility] 06-22-2023 08:37-0500 Systolic blood pressure 179 mm[Hg] Yaya Lopez [facility] 05-19-2023 10:10-0500 Body temperature 98.5 [degF] Yaya Lopez [facility] 05-19-2023 10:10-0500 Diastolic blood pressure 68 mm[Hg] Yaya Lopez [facility] 05-19-2023 10:10-0500 Heart rate 95 /min Yaya Lopez [facility] 05-19-2023 10:10-0500 Respiratory rate 14 /min Yaya Lopez [facility] 05-19-2023 10:10-0500 SaO2% (BldA) [Mass fraction] 97 % [facility] 05-19-2023 10:10-0500 Systolic blood pressure 152 mm[Hg] [facility] 03-17-2023 09:59-0500 Body height 160.02 cm [facility] 03-17-2023 09:59-0500 Body mass index (BMI) [Ratio] 29 kg/m2 [facility] 03-17-2023 09:59-0500 Body temperature 97.5 [degF] [facility] 03-17-2023 09:59-0500 Body weight 74.38 kg Yaya Lopez [facility] 03-17-2023 09:59-0500 Diastolic blood pressure 79 mm[Hg] [facility] 03-17-2023 09:59-0500 Heart rate 109 /min [facility] 03-17-2023 09:59-0500 Respiratory rate 16 /min Yaya [facility] 03-17-2023 09:59-0500 SaO2% (BldA) [Mass fraction] 93 % [facility] 03-17-2023 09:59-0500 Systolic blood pressure 179 mm[Hg] [facility] 03-01-2023 13:110400 Body height 160 cm Samantha Torres NIGEL-C Work Phone: [facility] 03-01-2023 13:11-0400 Body mass index (BMI) [Ratio] 29.05 kg/m2 Samantha Torres NIGEL-C Work Phone: [facility] 03-01-2023 13:11-0400 Body temperature 97.81 [degF] Samantha Torres PA-C Work Phone: [facility] 03-01-2023 13:11-0400 Body weight 74.39 kg Samantha Torres PA-C Work Phone: [facility] 03-01-2023 13:11-0400 Diastolic blood pressure 52 mm[Hg] Samantha Torres PA-C Work Phone: [facility] 03-01-2023 13:11-0400 Heart rate 83 /min Samantha Torres PA-C Work Phone: [facility] 03-01-2023 13:11-0400 SaO2% (BldA) [Mass fraction] 98 % Samantha MANNING-C Work Phone: [facility] 03-01-2023 13:11-0400 Systolic blood pressure 138 mm[Hg] Samantha MANNING-C Work Phone: [facility] 10-31-2021 23:23-0400 Diastolic blood pressure 77 mm[Hg] [facility] Work Phone: 10-31-2021 23:23-0400 Heart rate 64 /min [facility] Work Phone: 10-31-2021 23:23-0400 Respiratory rate 18 /min [facility] Work Phone: 10-31-2021 23:23-0400 SaO2% (BldA) [Mass fraction] 98 % [facility] Work Phone: 10-31-2021 23:23-0400 Systolic blood pressure 131 mm[Hg] [facility] Work Phone: 10-31-2021 19:10-0400 Body height 160.02 cm [facility] Work Phone: 10-31-2021 19:10-0400 Body mass index (BMI) [Ratio] 29.5 kg/m2 [facility] Work Phone: 10-31-2021 19:10-0400 Body temperature 98.8 [degF] [facility] Work Phone: 10-31-2021 19:10-0400 Body weight 75.7 kg [facility] Work Phone: 07-25-2021 03:54-0400 Diastolic blood pressure 72 mm[Hg] [facility] Work Phone: 07-25-2021 03:54-0400 Heart rate 66 /min [facility] Work Phone: 07-25-2021 03:54-0400 Respiratory rate 17 /min [facility] Work Phone: 07-25-2021 03:54-0400 SaO2% (BldA) [Mass fraction] 98 % [facility] Work Phone: 07-25-2021 03:54-0400 Systolic blood pressure 131 mm[Hg] [facility] Work Phone: 07-25-2021 00:34-0400 Body height 160.02 cm [facility] Work Phone: 07-25-2021 00:34-0400 Body mass index (BMI) [Ratio] 30.4 kg/m2 [facility] Work Phone: 07-25-2021 00:34-0400 Body temperature 97.6 [degF] [facility] Work Phone: 07-25-2021 00:34-0400 Body weight 78.1 kg [facility] Work Phone: Encounters Encounter Date Encounter Type Care Provider Facility Start: 03-02-2025 End: 03-02-2025 Refill Earl Mora DO Work Phone: [facility] Comment on above: Arthralgia of both k nees Start: 02-14-2025 End: 02-14-2025 Patient encounter procedure Kings Hwang [facility] Work Phone: Start: 02-14-2025 End: 02-14-2025 ambulatory [facility] Facility:[facility] Start: 12-25-2024 End: 12-25-2024 Refill Earl Melania Abby DO Work Phone: [facility] Start: 11-21-2024 End: 11-21-2024 Emergency department patient visit Dr. Earl Mora DO Work Phone: -Emergency Department Work Phone: Start: 10-23-2024 End: 10-24-2024 Refill Earl Mora DO Work Phone: [facility] Comment on above: Arthralgia of both k nees Start: 09-25-2024 End: 11-25-2024 Follow-up encounter Earl Mora DO Work Phone: [facility] Comment on above: XR chest 2 views Start: 09-24-2024 End: 09-24-2024 Subsequent hospital visit by physician Earl Mora DO Work Phone: [facility] Radiology Comment on above: History of pneumonia Essential hypertensi on (Primary Dx) Start: 09-24-2024 End: 09-24-2024 ambulatory [facility] Start: 09-04-2024 End: 09-04-2024 Emergency department patient visit Dr. Earl Mora DO Work Phone: -Emergency Department Work Phone: Start: 09-02-2024 End: 09-02-2024 Office outpatient visit 25 minutes Earl Mora DO Work Phone: [facility] [place] Comment on above: Essential hypertensi on (Primary Dx); NSAID long-term use; Gastroesophageal reflux disease without esophagitis; History of pneumonia; Recurrent sinus infections; Arthralgia of both knees; Degeneration of intervertebral disc of lumbosacral region with discogenic back pain Start: 09-02-2024 End: 09-02-2024 ambulatory EARL MORA [facility] Start: 08-27-2024 End: 08-27-2024 Patient encounter procedure El Abraham [facility] Work Phone: Start: 08-27-2024 End: 08-27-2024 ambulatory Earl Mora Facility:[facility] Start: 08-27-2024 End: 08-27-2024 ambulatory Earl Reciotoño Facility:[facility] Start: 08-23-2024 End: 08-23-2024 Patient encounter procedure Lauren Munroe [facility] Work Phone: Start: 08-23-2024 End: 08-23-2024 ambulatory Earl Reciotoño Facility:[facility] Start: 07-03-2024 End: 07-03-2024 Refill Earl Mora DO Work Phone: [facility] Start: 06-25-2024 End: 06-25-2024 Office outpatient visit 25 minutes Samantha Torres PA-C Work Phone: [facility] Comment on above: Essential hypertensi on (Primary Dx); Gastroesophageal reflux disease without esophagitis Start: 06-25-2024 End: 06-25-2024 ambulatory Dalila Dove RN [facility] Clinical Communication Start: 06-25-2024 End: 06-25-2024 Patient encounter procedure Dalila Dove RN [facility] Clinical Communication Start: 06-05-2024 End: 06-05-[address] Joni Garcias MD -[facility] Work Phone: Start: 06-05-2024 End: 06-05-2024 ambulatory Earl Mora Facility:[facility] Start: 04-18-2024 ambulatory Earl Mora Facilit y:[facility] Start: 04-18-2024 End: 04-18-2024 ambulatory Earl Mora Facility:[facility] Start: 04-17-2024 End: 04-17-2024 Clinical Support [facility] Schedule [facility] Comment on above: Essential hypertensi on Start: 04-03-2024 End: 04-03-2024 Office outpatient visit 15 minutes Earl Mora DO Work Phone: [facility] [place] Comment on above: Essential hypertensi on (Primary Dx); Polyuria; Gastroesophageal reflux disease without esophagitis; Dysphagia, unspecified type Start: 04-03-2024 End: 04-03-2024 Orders Only Earl Mora DO Work Phone: [facility] [place] Comment on above: Polyuria (Primary Dx ) Start: 03-14-2024 End: 03-14-2024 Clinical Support [facility] Schedule [facility] [place] Start: 03-07-2024 End: 03-07-2024 ambulatory Earl Mora Facility:[facility] Start: 03-03-2024 End: 03-03-2024 ambulatory Earl Mora Facility:[facility] Start: 03-01-2024 End: 03-01-2024 ambulatory Nitza Novak Facility:[facility] Start: 02-18-2024 End: 02-18-2024 Telephone encounter Earl Mora DO Work Phone: [facility] [place] Comment on above: Referral (Dr Gregory dunham) Start: 02-18-2024 End: 02-18-2024 Office outpatient visit 15 minutes Earl Mora DO Work Phone: [facility] [place] Comment on above: Labile essential hyp ertension (Primary Dx); Arthralgia of both knees; Seasonal allergic rhinitis due to pollen; NSAID long-term use; Gastroesophageal reflux disease without esophagitis; History of colon polyps Start: 09-23-2023 Refill Earl thurston DO Work Phone: [facility] Start: 09-17-2023 End: 09-17-2023 Assay of hemosiderin, cedric Torres PA-C Work Phone: [facility] Work Phone: Start: 09-17-2023 End: 09-17-2023 Patient encounter procedure Samantha Torres PA-C Work Phone: [facility] Comment on above: Routine general medi catrina examination at health care facility (Primary Dx); History of meningioma of the brain; NSAID long-term use; Gastroesophageal reflux disease without esophagitis Start: 07-05-2023 End: 07-05-2023 [facility] Start: 07-05-2023 End: 07-05-2023 Patient encounter procedure Yaya Valentinaalonsorosibel [facility]Cat [facility], [facility] Work Phone: Start: 07-03-2023 End: 07-03-2023 Patient encounter procedure Yaya RIVERO [facility] Work Phone: Start: 06-22-2023 End: 06-22-2023 Patient encounter procedure Yaya RIVERO [facility] Work Phone: Start: 05-21-2023 End: 05-21-2023 [facility] Start: 05-21-2023 End: 05-21-2023 [facility] Work Phone: Start: 05-19-2023 End: 05-19-2023 Patient encounter procedure Yaya RIVERO [facility] Work Phone: Start: 03-17-2023 End: 03-17-2023 Patient encounter procedure Yaya RIVERO [facility] Work Phone: Start: 03-01-2023 End: 03-01-2023 Office outpatient visit 15 minutes Samantha Torres PA-C Work Phone: [facility] Comment on above: Polyarthralgia (Prim shaina Dx); Other specified disorders of bone density and structure, multiple sites; Ganglion cyst of wrist, left Start: 02-22-2023 ambulatory Ester Anaya RN [facility] Clinical Communication Start: 02-22-2023 Patient encounter procedure Ester Anaya RN [facility] Clinical Communication Start: 08-31-2022 Refill Earl thurston DO Work Phone: [facility] Start: 01-31-2022 End: 01-31-2022 ambulatory [facility] Work Phone: Start: 01-31-2022 End: 01-31-2022 Patient encounter procedure [facility] Start: 10-31-2021 End: 10-31-2021 Emergency department patient visit [facility] Start: 08-11-2021 End: 08-11-2021 Patient encounter procedure [facility] Start: 07-25-2021 End: 07-25-2021 Emergency department patient visit [facility] Start: 06-13-2021 End: 06-13-2021 Subsequent hospital visit by physician Earl Mora DO Work Phone: [facility] Comment on above: Cervical disc diseas e; Cervical disc disease; Neck pain Start: 04-15-2021 Patient encounter procedure [facility]Radiology, [facility] Start: 01-31-2021 End: 01-31-2021 Subsequent hospital visit by physician Yaya Lopez DO Work Phone: [facility] Comment on above: Headache, unspecifie d; Personal history of other benign neoplasm; Nonintractable headache, unspecified chronicity pattern, unspecified headache type; History of meningioma Start: 01-06-2021 End: 01-06-2021 Subsequent hospital visit by physician Yaya Lopez DO Work Phone: [facility] Comment on above: Neck pain Start: 10-02-2019 End: 10-02-2019 Subsequent hospital visit by physician Yaya Lopez Work Phone: [facility] Comment on above: Bronchitis Start: 09-25-2019 End: 09-25-2019 Subsequent hospital visit by physician Yaya Lopez Work Phone: [facility] Comment on above: Abdominal pain, unsp ecified abdominal location Start: 04-18-2019 End: 04-18-2019 Subsequent hospital visit by physician Yaya Lopez DO Work Phone: [facility] Comment on above: Right upper quadrant pain; Right upper quadrant abdominal pain Start: 03-12-2019 End: 03-12-2019 Subsequent hospital visit by physician Yaya Lopez Work Phone: [facility] Comment on above: Occlusion and stenos is of unspecified carotid artery; Stenosis of carotid artery, unspecified laterality Start: 02-12-2019 End: 02-12-2019 Subsequent hospital visit by physician Yaya Lopez Work Phone: [facility] Comment on above: Cough; Pre-procedure lab exam; Chronic cough Start: 03-11-2018 Patient encounter procedure Earl [facility] Start: 01-10-2018 Patient encounter procedure Yaya [facility] Start: 10-09-2017 End: 10-09-2017 Emergency department patient visit ANDREA YAÑEZ Facility:B Start: 07-13-[address] [facility] Start: 04-16-2003 End: 04-16-2003 Patient encounter procedure Tyson Shetty Work Phone: [facility] Start: 04-16-2003 Results Only Tyson robert Work Phone: [facility] Procedures Date Procedure Procedure Detail Performing Clinician Start: 11-21-2024 X-ray of chest, PA a nd lateral views Dr. Earl Mora DO Work Phone: Start: 11-21-2024 D-dimer assay, quantitative Dr. Earl Mora DO Work Phone: Comment on above: D-Dimer ELEVATED (>0 .49): Additional studies and clinicalassessments are indicated to conclude diagnosis of:Deep Vein Thrombosis (DVT) or Pulmonary Embolism (PE) Start: 09-24-2024 Radiologic exam chest 2 views Earl Melania Abby DO Work Phone: Start: 09-04-2024 X-ray of chest, PA a nd lateral views Dr. Earl Mora DO Work Phone: Start: 09-04-[address] Earl Mora DO Work Phone: Start: 08-27-2024 X-ray of chest, PA a nd lateral views Dr. Earl Mora DO Work Phone: Start: 09-17-2023 Adult depression scr eening assessment Samantha Torres PA-C Work Phone: Start: 07-05-2023 Computed tomography of abdomen and pelvis with contrast Yaya Lopez O[facility] Start: 05-21-2023 Urine culture Yaya story O[facility] Start: 01-31-2022 Bilateral mammography Start: 01-31-2022 Ultrasonography of breast Start: 10-31-2021 CT angiography of ch est with contrast Start: 10-31-2021 Plain chest X-ray Start: 07-25-2021 CT angiography of ch est with contrast Start: 07-25-2021 Plain chest X-ray Start: 06-13-2021 Ct cervical spine w/ o contrast material Earl Velázquez Abby DO Work Phone: Start: 06-13-2021 Ct head/brain w/o co ntrast material Earl Velázquez Fostertoño DO Work Phone: Start: 04-15-2021 Radiography of esophagus Start: 01-31-2021 Mri brain brain stem w/o w/contrast material Yaya Lopez DO Work Phone: Start: 10-02-2019 Radiologic exam chest 2 views Yaya Lopez Work Phone: Start: 09-25-2019 CT ABDOMEN PELVIS W CONTRAST Yaya Lopez Work Phone: Start: 04-18-2019 Us abdominal real ti me w/image documentation Yaya Lopez DO Work Phone: Start: 03-12-2019 Ct angiography neck w/contrast/noncontrast Yaya Lopez Work Phone: Start: 02-12-2019 Creatinine blood Yaya Lopez Work Phone: Start: 04-16-2003 CONVERTED SURGICAL PATHOLOGY Tyson Shetty Work Phone: Plan of Treatment Date Care Activity Detail Author Start: 07-22-2028 Colon cancer screen colonoscopy Colon cancer screen colonoscopy [facility] [place] Start: 07-22-2028 Screening for malign ant neoplasm of colon Colon cancer screen colonoscopy [facility] Start: 12-29-2024 COVID-19 Vaccine ( season) COVID-19 Vaccine ( season) [facility] Start: 12-29-2024 Influenza vaccination S [facility] Start: 11-21-2024 [facility] Start: 11-21-2024 [facility] Start: 10-16-2024 Medicare Annual Well ness (AWV) Medicare Annual Wellness (AWV) [facility] Start: 09-24-2024 End: 09-24-2024 Clinical Support 09/24/2024 1:00 PM EDT Clinical Support [facility] - [address] [place] [id number] [facility] [place] Start: 09-22-2024 End: 09-02-2025 XR Chest 2 Views XR chest 2 views Imaging Routine History of pneumonia Expected: 09/22/2024, Expires: 09/02/2025 [facility] Work Phone: Comment on above: Expected: 09/22/2024 , Expires: 09/02/2025 Start: 09-16-2024 Depression Screening Depression Scre ening [facility] Start: 09-04-2024 [facility] Start: 09-04-2024 [facility] Start: 09-02-2024 End: 09-02-2025 CBC W Auto Differential panel - Blood CBC auto differential Lab Routine Essential hypertension Expected: 09/02/2024 (Approximate), Expires: 09/02/2025 [facility] Comment on above: Expected: 09/02/2024 (Approximate), Expires: 09/02/2025 Start: 09-02-2024 End: 09-02-2025 Comprehensive metabolic 1998 panel - Serum or Plasma Comprehensive metabolic panel Lab Routine Essential hypertension Expected: 09/02/2024 (Approximate), Expires: 09/02/2025 [facility] Comment on above: Expected: 09/02/2024 (Approximate), Expires: 09/02/2025 Start: 08-18-2024 End: 08-18-2024 Patient encounter procedure 08/18/2024 10:30 AM EDT Office Visit [facility] [place] [address] [place] [address] Earl Mora DO [address] [place] [address] [facility] [place] Start: 05-15-2024 End: 05-15-2024 Clinical Support 05/15/2024 2:20 PM EST Clinical Support [facility] [place] [address] [place] [phone] [facility] [place] Start: 04-17-2024 End: 04-17-2024 Clinical Support 04/17/2024 11:00 AM EST Clinical Support [facility] [place] [address] [place] [address] [facility] [place] Start: 04-03-2024 End: 04-03-2024 Patient encounter procedure 04/03/2024 3:00 PM EST Office Visit [facility] [place] [address] [place] [address] Earl Mora DO [address] [place] [address] [place] [address] [facility] Start: 03-24-2024 End: 03-24-2024 Clinical Support 03/24/2024 10:00 AM EST [facility] [address] [place] [address] [facility] Start: 02-18-2024 End: 02-17-2025 CBC W Auto Differential panel - Blood CBC auto differential Lab Routine Labile essential hypertension Expected: 02/18/2024 (Approximate), Expires: 02/17/2025 [facility] Work Phone: Comment on above: Expected: 02/18/2024 (Approximate), Expires: 02/17/2025 Start: 02-18-2024 End: 02-17-2025 Comprehensive metabolic 1998 panel - Serum or Plasma Comprehensive metabolic panel Lab Routine Labile essential hypertension Expected: 02/18/2024 (Approximate), Expires: 02/17/2025 [facility] Comment on above: Expected: 02/18/2024 (Approximate), Expires: 02/17/2025 Start: 02-18-2024 End: 02-18-2024 Patient encounter procedure 02/18/2024 10:30 AM EDT Office Visit [facility] [address] [place] [address] Earl Mora DO [address] [place] [address] [facility] Start: 12-30-2023 COVID-19 Vaccine ( season) COVID-19 Vaccine ( season) [facility] Start: 12-30-2023 COVID-19 Vaccine ( season) COVID-19 Vaccine ( season) [facility] Start: 12-30-2023 Influenza vaccination [facility] Start: 09-17-2023 End: 09-16-2024 Comprehensive metabolic 1998 panel - Serum or Plasma Comprehensive metabolic panel Lab Routine NSAID long-term use Expected: 09/17/2023 (Approximate), Expires: 09/16/2024 [facility] Comment on above: Expected: 09/17/2023 (Approximate), Expires: 09/16/2024 Start: 09-17-2023 End: 09-16-2024 MR Brain WO contrast MR brain wo contrast Imaging Routine History of meningioma of the brain Expected: 09/17/2023, Expires: 09/16/2024 [employer] Work Phone: Comment on above: Expected: 09/17/2023 , Expires: 09/16/2024 Start: 03-01-2023 End: 03-01-2024 DXA Skeletal system Views for bone density DEXA bone density peripheral Imaging Routine Polyarthralgia Other specified disorders of bone density and structure, multiple sites Expected: 03/01/2023, Expires: 03/01/2024 [employer] Work Phone: Comment on above: Expected: 03/01/2023 , Expires: 03/01/2024 Start: 03-01-2023 End: 03-01-2023 Patient encounter procedure 03/01/2023 1:20 PM EDT Office Visit [facility] [address] [place] [address] Samantha Torres PA-C [address] [place] [address] [facility] Start: 12-29-2022 COVID-19 Vaccine ( season) COVID-19 Vaccine ( season) [facility] Start: 12-29-2022 Influenza vaccination [facility] Start: 09-13-2022 End: 09-13-2022 Patient encounter procedure 09/13/2022 Office Visit Family Medicine Earl Mora, DO [address] [place] [address] [facility] Start: 07-05-2022 COVID-19 Vaccine (1) COVID-19 Vaccin e (1) [facility] Comment on above: Postponed from 11/11 (Patient Refused) Start: 02-04-2022 Influenza vaccination Flu vaccine (# 1) [facility] Comment on above: Postponed from 12/29 (Patient Refused) Start: 10-31-2021 [facility] Work Phone: Start: 08-17-2021 Annual Wellness Visi t (AWV) Annual Wellness Visit (AWV) [facility] Start: 08-16-2021 Depression Screen Depression Screen [facility] Start: 07-25-2021 [facility] Work Phone: Start: 02-04-2021 End: 02-04-2021 Patient encounter procedure 02/04/2021 Office Visit Family Medicine Yaya Lopez, DO [address] [place] [address] [facility] Start: 12-29-2020 Influenza vaccination Flu vaccine (# 1) [facility] Work Phone: Start: 07-09-2020 Annual Wellness Visi t (AWV) Annual Wellness Visit (AWV) [place], [place] Start: 02-26-2020 Influenza vaccination M [place] Comment on above: Postponed from 12/29 (Patient Refused) Postponed from 12/29 (Patient Refused) Start: 06-25-2019 Annual Wellness Visi t (AWV) Annual Wellness Visit (AWV) [place] Start: 12-29-2018 Influenza vaccination Flu vaccine (# 1) [place] Start: 11-12-2015 RSV Immunization for Adults (1 - 1-dose 75+ series) RSV Immunization for Adults (1 - 1-dose 75+ series) [facility] Start: 2000 RSV Immunization age d 60 or older (1 - 1-dose 60+ series) RSV Immunization aged 60 or older (1 - 1-dose 60+ series) [facility] Start: 1990 Shingles Vaccine (1 of 2) Shingles Vaccine (1 of 2) [facility] Start: 1990 Zoster Vaccines (1 of 2) Zoster Vacc lara (1 of 2) [facility] Start: 11-12-1959 DTaP/Tdap/Td vaccine (1 - Tdap) DTaP/Tdap/Td vaccine (1 - Tdap) [facility] Start: 11-12-1959 DTaP/Tdap/Td Vaccine s (1 - Tdap) DTaP/Tdap/Td Vaccines (1 - Tdap) [facility] Start: 1952 COVID-19 Vaccine (1) COVID-19 Vaccin e (1) [facility] Work Phone: Start: 1952 Depression Screening Depression Scre ening [facility] Start: 11-12-1951 DTaP/Tdap/Td vaccine (1 - Tdap) DTaP/Tdap/Td vaccine (1 - Tdap) [place] Start: 05-14-1941 COVID-19 Vaccine (#1) COVID-19 Vacci ne (#1) [facility] Start: 1940 Hepatitis B Vaccines (1 of 3 - 3-dose series) Hepatitis B Vaccines (1 of 3 - 3-dose series) [facility] Start: 1940 Lipid panel Lipid Panel [facility] Start: 1940 Screening for osteoporosis Bone Density Scan [facility] End: 09-25-2019 CT ABDOMEN PELVIS W IV CONTRAST Additional Contrast? Radiologist Recommendation CT ABDOMEN PELVIS W IV CONTRAST Additional Contrast? Radiologist Recommendation Imaging Routine Abdominal pain, unspecified abdominal location 1 Occurrences starting 09/25/2019 until 09/25/2019 [place] Comment on above: 1 Occurrences starti ng 09/25/2019 until 09/25/2019 End: 02-12-2019 CT CHEST W CONTRAST CT CHEST W CONTRAST Imaging Routine Chronic cough 1 Occurrences starting 02/12/2019 until 02/12/2019 [place] Comment on above: 1 Occurrences starti ng 02/12/2019 until 02/12/2019 CT CHEST W CONTRAST CT CHEST W C ONTRAST Imaging Routine Chronic cough 02/12/2019 10:45 AM EDT [place] Patient Education [facility] Work Phone: Patient referral [facility] Work Phone: Urinalysis macro (dipstick) panel - Urine POCT urinalysis dipstick manually resulted Point of Care Testing Routine Polyuria Ordered: 04/03/2024 [facility] [employer] Work Phone: Comment on above: Ordered: 04/03/2024 End: 01-06-2021 XR CERVICAL SPINE (4-5 VIEWS) XR CERVICAL SPINE (4-5 VIEWS) Imaging Routine Neck pain 1 Occurrences starting 01/06/2021 until 01/06/2021 [facility] Work Phone: Comment on above: 1 Occurrences starti ng 01/06/2021 until 01/06/2021 XR CERVICAL SPINE (4 -5 VIEWS) XR CERVICAL SPINE (4-5 VIEWS) Imaging Routine Neck pain 01/06/2021 11:27 AM EDT [facility] Work Phone: Immunizations Immunization Date Immunization Notes Care Provider Nasreen dotson 05-08-2018 pneumococcal polysac charide vaccine, 23 valent [place], [place] 09-13-2016 pneumococcal conjuga te vaccine, 13 valent [facility] Payers Date Payer Category Payer Self-pay [id number] 2017 Medicare [id number] 2015 Private Health Insurance [employer] SENIOR MEDICARE SUPP xxxxxxxxxx 2015-Present [phone] [address] [place] [address] xxxxxxxxxx [id number] 2014 Medicare MEDICARE MEDICAR E PART A AND B xxxxxxxxxxx 2014-Present [phone] [place] [address] xxxxxxxxxxx [id number] 2009 Medicare supplementa l policy (as second payer) [employer] SENIOR SUPPLEMENT [id number] 2009 Private Health Insurance 2005 Medicare 2005 Private Health Insurance [id number] 2005 Medicare [id number] 1940 Unknown [id number]. [id number] 1940 Unknown [id number]. [id number] 1940 Unknown [id number]. [id number] Unknown [id number]. 2.462 Unknown [id number]. 2.462 Unknown [id number]. 2.462 Unknown [id number] [id number]. 2.462 Unknown [id number] [id number]. 2.462 Unknown [id number] [id number]. 2.462 Unknown [id number] [id number]. 2.462 Unknown [id number]. 2.462 Unknown [id number]. 2.462 Unknown [id number]. 2.462 Unknown [id number]. 2.462 Unknown [id number]. 2.462 Social History Date Type Detail Facility Start: 02-25-2019 End: 11-21-2024 Tobacco smoking status NHIS Never smoker [place] Start: 02-25-2019 End: 09-02-2024 Alcohol intake Current non-drinker of alcohol (finding) [place] Start: 08-29-2018 End: 06-13-2021 History SDOH Alcohol Frequency 1 [place] Start: 08-29-2018 End: 06-13-2021 History SDOH Social Connections Phone 5 [place] Start: 08-29-2018 End: 09-17-2018 History SDOH Social Connections Get Together 3 [place] Start: 08-29-2018 History SDOH Social Connections [employer] [address] [place] Start: 08-29-2018 History SDOH Social Connections Membership 2 [place] Start: 1940 Sex Assigned At Not on file M [place], [place] Exposure to SARS-CoV -2 (event) Unable to assess [place] Start: 02-03-2019 End: 09-17-2023 Alcohol intake No [place] Start: 11-09-2014 End: 11-17-2020 Tobacco use and exposure Never used Prescription [employer] Work Phone: Start: 11-17-2020 End: 09-17-2023 Alcohol intake Prescription [employer] Work Phone: Start: 07-25-2021 End: 07-03-2023 Tobacco smoking status NHIS Unknown if ever smoked [facility] Start: 08-07-2015 None [facility] Start: 08-07-2015 Spouse/ Signif icant Other [facility] Start: 08-25-2020 Non-smoker [facility] Start: 1940 Sex Assigned At Female W [facility] Has the electric, [employer], oil, or water company threatened to shut off services in your home in past 12Mo No [facility] Are you now , , , , never or living with a partner? [facility] How often to you hav e a drink containing alcohol? Never [facility] How many standard dr inks containing alcohol do you have on a typical day? Patient does not drink [facility] Do you feel stress - tense, restless, nervous, or anxious, or unable to sleep at night because your mind is troubled all the time - these days [OSQ] Not at all [facility] (I/We) worried wheth er (my/our) food would run out before (I/we) got money to buy more. Never true [facility] Start: 11-28-2021 Sex Female (finding) [facility] Procedure Code Equipment Code Equipment Original Text Equipment Identifier Dates Total cholecystectomy with exploration of common bile duct CLIP,LEVON AMAYA FDA Start: 05-08-2019 Total cholecystectomy with exploration of common bile duct CLIP,LEVON AMAYA FDA Start: 05-08-2019 Total cholecystectomy with exploration of common bile duct CLIP,LVEON AMAYA FDA Start: 05-08-2019 Total cholecystectomy with exploration of common bile duct CLIP,LEVON AMAYA FDA Start: 05-08-2019 Total cholecystectomy with exploration of common bile duct CLIP,LEVON AMAYA FDA Start: 05-08-2019 Total cholecystectomy with exploration of common bile duct CLIP,LEVON AMAYA FDA Start: 05-08-2019 Total cholecystectomy with exploration of common bile duct CLIP,LEVON AMAYA FDA Start: 05-08-2019 Total cholecystectomy with exploration of common bile duct CLIP,LEVON AMAYA FDA Start: 05-08-2019 Total cholecystectomy with exploration of common bile duct CLIP,LEVON AMAYA FDA Start: 05-08-2019 Total cholecystectomy with exploration of common bile duct CLIP,LEVON AMAYA FDA Start: 05-08-2019 Total cholecystectomy with exploration of common bile duct CLIP,HEMSTANLEY AMAYA FDA Start: 05-08-2019 Total cholecystectomy with exploration of common bile duct CLIP,HEMSTANLEY AMAYA FDA Start: 05-08-2019 Total cholecystectomy with exploration of common bile duct CLIP,HEMSTANLEY AMAYA FDA Start: 05-08-2019 Total cholecystectomy with exploration of common bile duct CLIP,HEMSTANLEY AMAYA FDA Start: 05-08-2019 Total cholecystectomy with exploration of common bile duct CLIP,HEMSTANLEY AMAYA FDA Start: 05-08-2019 Total cholecystectomy with exploration of common bile duct CLIP,HEMSTANLEY AMAYA FDA Start: 05-08-2019 Total cholecystectomy with exploration of common bile duct CLIP,HEMSTANLEY AMAYA FDA Start: 05-08-2019 Total cholecystectomy with exploration of common bile duct CLIP,HEMSTANLEY AMAYA FDA Start: 05-08-2019 Mental Status Date Assessment Result Facility 11-21-2024 Cognitive function Voice/Name [facility] Work Phone: 10-31-2021 Cognitive function Level Of Cons ciousness Awake;Alert;Appropriate;Follow s Commands [facility] Work Phone: 07-25-2021 Cognitive function Awake;Alert;Appropriat e [facility] Work Phone: Clinical Notes 08-31-2022 to 03-03-2025 Telephone Encounter - Miriam Mcmanus MA - 03/03/2025 8:25 AM ESTTelephone Encounter - Miriam Mcmanus MA - 03/03/2025 8:25 AM ESTTelephone Encounter - Donal Topete - 12/25/2024 3:12 PM EDT Note Date & Type Note Facility 03-03-2025 Telephone encounter Note Form atting of this note might be different from the original. Patient aware [facility] 03-03-2025 Miscellaneous Notes Formattin g of this note might be different from the original. Patient aware documented in this encounter [facility] 02-14-2025 Progress note [facility] 12-25-2024 Telephone encount er Note Medication name: omeprazole (PriLOSEC) DR capsule Medication dosage: 40 mg (Miligrams Monthly quantity needed: 30 How many day supply requestin days Medication route: oral (PO) Medication administration time(s): daily If taking medication PRN, reason for taking medication: N/A If this is a controlled substance do you receive this or any other controlled medication from any other doctor or facility: N/A Ordering provider: Jamel Date of last office visit: 09.24.2024 Date of next office visit: None Date of last refill: (see medication tab): 06.25.2024 Updated/Validated preferred pharmacy: Yes Patient instructed to contact the pharmacy prior to picking up the medication: Yes [facility] 12-25-2024 Miscellaneous Notes Formattin g of this note might be different from the original. Medication name: omeprazole (PriLOSEC) DR capsule Medication dosage: 40 mg (Miligrams Monthly quantity needed: 30 How many day supply requestin days Medication route: oral (PO) Medication administration time(s): daily If taking medication PRN, reason for taking medication: N/A If this is a controlled substance do you receive this or any other controlled medication from any other doctor or facility: N/A Ordering provider: Jamel Date of last office visit: 09.24.2024 Date of next office visit: None Date of last refill: (see medication tab): 06.25.2024 Updated/Validated preferred pharmacy: Yes Patient instructed to contact the pharmacy prior to picking up the medication: Yes documented in this encounter [facility] 11-21-2024 Discharge summary [facility] 11-21-2024 Radiology Diagnostic study note [facility] Imaging Services [address] [place] [address] Chest PA and Lateral MR#: [id number] Acct: [id number] Name: AJCI PORTER Rep #: [id number] : 1940 F 84 From: Marco A Edge MD PCP: Dr. Earl Mora DO Status: RE G ER Study:Chest PA and Lateral Date of Exam: 11/21/24 Exam# [id number] Ordering Dr: Malvin Sifuentes MD PROCEDURE: CHEST PA AND LATERAL 11/21/2024 REASON FOR EXAM: CHEST PAIN LEFT, PLEURITIC TECHNIQUE: CHEST PA AND LATERAL COMPARISON: September 04, 2024 FINDINGS: Hardware: EKG leads are present. Heart: Normal. Aortic atherosclerotic disease Mediastinum: Normal Lungs: Clear Bones: Curvature thoracolumbar spine to the left. Degenerative changes throughout the thoracic and lumbar spine. RAD/Chest PA and Lateral IMPRESSION: No acute abnormality Reading Location: [id number] CC: Dr. Benigno Sifuentes MD; Dr. Earl Mora DO ~ Paper Inserter: Signed [facility] 11-21-2024 Discharge summary Note Date/Time November 21, 2024 5:14pm [facility] Medical Records Department [address] [place] [address] Emergency Department Summary 11/21/24 MR#: [id number] Acct: [id number] Name: JACI PORTER Rep #:[id number] : 1940 84 From: Benigno Sifuentes MD PCP: Dr. Earl Mora DO Status:RE G ER Location: ED HPI History of Present Illness Chief Complaint: Chest Pain Informant: patient and family Narrative Narrative: 84-year-old female states couple hours ago this morning she was resting and had sudden spontaneous onset of discomfort in her left hemithorax that is pleuritic. She feels it more in her back around the tip of her scapula, it does not hurt to move but it does hurt to breathe. She feels some discomfort in her left shoulder as well but it does not hurt to move her shoulder. No numbness in her hand. No jaw or neck discomfort, however she felt lightheaded several times andto some degree near syncopal, which prompted her to come to the ED. She denies a history of DVT or PE and she takes no anticoagulants for anything else. She denies any recent travel, immobilization, hospitalization, or surgery. No calf pain. She states her left ankle swells off-and-on chronically that is no different today. She denies any recent illness although she has had a cough that is chronic, and has been worse a little recently, but nonproductive. [facility] Medical History Wears hearing aid Wears glasses Wears partial dentures Wears dentures Post-menopausal Bladder disease Arthritis Back pain Migraine headache Difficulty swallowing Non-smoker History of edema History of stress test Hypertension Osteoarthritis Chronic back pain GERD (gastroesophageal reflux disease) Home Medications ?Medication ?Instructions ?Recorded ?Last Taken ?Type calcium 600 mg (as 1 ea PO DAILY 08/07/1508/06 08:30 History carbonate)-vitamin D3 10 mcg (400 unit) tablet omeprazole 40 mg capsule,delayed 20 mg PO DAILY 04/18/24 History release ascorbate calcium (vitamin C) 500 500 mg PO DAILY 12/17 Unknown History mg tablet meloxicam 7.5 mg tablet 7.5 mg PO DAILY 06/22/23 Unk nown History carvedilol 6.25 mg tablet 6.25 mg PO BID BP 04/16/24 1 06/19/23 History lisinopril 5 mg tablet 5 mg PO QDAY 08/23/24 Unknow n History mecobalamin (vitamin B12) 500 mcg mcg PO 08/23/24 Unkn own History chewable tablet montelukast 10 mg tablet 10 mg PO QDAY 08/23/24 Unkno wn History azithromycin 250 mg tablet See Rx Instructions PO .COM PLEX #6 08/27/24 Unknown Rx tabs albuterol sulfate 90 mcg/actuation 1 - 2 puff inhalati on Q4H PRN PRN 09/04/24 Unknown Rx aerosol inhaler (Ventolin HFA) Wheezing #1 ea Allergy/AdvReac Type Severity Reaction Status Date / Time clarithromycin (From Biaxin) AdvReac Nausea Verified 11/21/24 13:12 Sulfa (Sulfonamide AdvReac Nausea Verified 11/21/24 13:12 Antibiotics) Family History Father Heart disease Thyroid disorder goiter Mother Cancer stomach Surgical History History of ERCP History of craniotomy History of cholecystectomy (~04/2019) History of colonoscopy (~06/2018) S/P hemorrhoidectomy S/P appendectomy S/P partial hysterectomy S/P cardiac catheterization S/P colonoscopy Social History household members: spouse housing: house Smoking Status: Never smoker alcohol intake: never substance use type: does not use additional social history: no aspirin no ibuprofen ROS ROS ED Constitutional Constitutional ED: Denies chills or fever(s) Eyes Eyes: Denies change in vision or diplopia ENT ENT ED: Denies rhinorrhea or sore throat Cardiovascular Cardiovascular: Reports lightheadedness; Denies chest pain, orthopnea, palpitations or syncope Respiratory/Chest Respiratory/Chest: Reports dyspnea; Denies cough or orthopnea Gastrointestinal Gastrointestinal: Denies abdominal pain, diarrhea, nausea or vomiting Genitourinary Genitourinary ED: Denies dysuria or hematuria Musculoskeletal Musculoskeletal: Reports back pain; Denies neck pain Integumentary Denies abscess or rash Neurologic Neurologic: Denies headache(s), paresthesias or weakness Psychiatric Psychiatric: Denies anxiety or suicidal thoughts EXAM Physical Exam Const Vital Signs: 11/21/24 13:10 11/21/24 13:52 11/21/24 14:10 Temperature 98.6 F Temperature Source Oral Pulse Rate 86 73 Respiratory Rate 18 Blood Pressure 151/71 H 141/61 H Blood Pressure Mean 97 87 Pulse Ox 99 97 Oxygen Delivery Method Room Air Room Air Room Air 11/21/24 15:00 11/21/24 16:00 Temperature Temperature Source Pulse Rate Respiratory Rate Blood Pressure 159/56 H 144/58 H Blood Pressure Mean 90 86 Pulse Ox 99 97 Oxygen Delivery Method Room Air Room Air Positive well nourished and well developed Constitutional Narrative: Well-appearing in no distress General Appearance ED: well developed and NAD HEENT Reports moist mucous membranes normocephalic and atraumatic Eyes PERRL and EOMs intact bilaterally Neck full ROM and supple Chest Wall inspection of chest normal and palpation of chest normal Resp normal respiratory effort and clear to auscultation bilaterally Cardio regular rate, regular rhythm and no murmurs Peripheral Pulses: pulses 2+ throughout GI non-tender and non-distended Auscultation: normoactive bowel sounds Palpation: soft Back/Spine no CVA tenderness General Back: other FROM Extremity normal to inspection Extremity Narrative: A little bit of swelling around the left ankle that the patient states is chronic, there is no pedal edema more proximally, and no calf tenderness or palpable cords. General Extremety ED: Negative for pulses abnormal or tenderness General Extremity: Negative for pulses abnormal Neuro oriented x3, CN's II-XII intact bilaterally and no sensory deficits noted Sensorium / Orientation: awake and alert Motor Exam: strength 5/5 throughout Psych mental status grossly normal Skin no rashes or lesions noted and no wounds MDM MDM MDM Narrative Medical decision making narrative: Differential here includes musculoskeletal etiologies, pleurisy, pulmonary embolus, pneumothorax, pneumonia. Chest x-ray 2 views of my interpretation shows no evidence of pneumonia or pneumothorax. Her EKG is unremarkable, less likely to be acute coronary syndrome, her initial troponin is 16 slightly abnormal, we are awaiting a second troponin. In meantime also sent basic labs showing no significant anemia, her D-dimer is a little bit abnormal at 0.69 but when corrected for age it is within normal limits and has enough power to rule out PE without further studies. She has had a cough recently, I do not see pneumonia on the x-ray. Offered her analgesics but she declined. Second troponin came back a little lower at 15. These are nonspecific findings but trending down no further emergent readings need to be obtained. She is doing well and declines analgesics again. There is no effusion on her x-ray, etiology of this is unknown. Could be viral. If the symptoms persist a week orso I would follow-up with her doctor. She comfortable with that plan we discussed reasons to return. Lab Data Attestation: I reviewed the patient's lab results. Labs: Laboratory Results - last 24 hr 11/21/24 11/21/24 14:08 15:45 WBC 4.1 L RBC 4.08 L Hgb 12.3 Hct 37.0 MCV 90.7 MCH 30.1 MCHC 33.2 RDW Std Deviation 41.5 RDW Coeff of Haresh 12.5 Plt Count 195 MPV 9.7 Immature Gran % (Auto) 0.200 Neut % (Auto) 62.5 Lymph % (Auto) 24.7 Hettinger % (Auto) 10.9 H Eos % (Auto) 1.2 Baso % (Auto) 0.5 Absolute Neuts (auto) 2.6 Absolute Lymphs (auto) 1.02 Nucleated RBC % 0 D-Dimer Quant (PE/DVT) 0.69 H* Sodium 139 Potassium 4.0 Chloride 105 Carbon Dioxide 23.5 Anion Gap 11 BUN 17 Creatinine 0.91 Est GFR (MDRD) Non-Af 63 BUN/Creatinine Ratio 19.1 Glucose 147 H Calcium 9.2 Troponin T High Sens 16 H Troponin T Hi Sens 2 Hr 15 H Radiography Diagnostic Testing: Clinical Impression(s) from Imaging Studies Chest X-Ray 11/21/24 14:14 IMPRESSION: No acute abnormality Reading Location: [id number] Rhythm Strip Rhythm Strip: Sinus Rhythm Rate: 70 Ectopy: None EKG Initial EKG: Attestation: I personally reviewed and interpreted this EKG as follows: Interpretation: Sinus Rhythm, No Acute Injury Pattern and LAFB Comments: Nml intervals; left axis; otherwise nml EKG Prior EKG tracings: available for review Prior: Unchanged Discharge Plan Triage Chief Complaint: Chest Pain ED Provider: Benigno Sifuentes Dx/Rx/DC Orders Clinical Impression: Pleurisy, Lightheadedness Instructions: ED Pleurisy Prescriptions: No Action ascorbate calcium (vitamin C) 500 mg tablet 500 mg PO DAILY meloxicam 7.5 mg tablet 7.5 mg PO DAILY Patient Comments: take 1 tablet by mouth once daily montelukast 10 mg tablet 10 mg PO QDAY lisinopril 5 mg tablet 5 mg PO QDAY mecobalamin (vitamin B12) 500 mcg tablet,chewable PO azithromycin 250 mg tablet See Rx Instructions PO .COMPLEX Qty: 6 0RF Rx Instructions: For 250 mg dose pack: take 500 mg today (day 1), then 250 mg for 4 days (days2-5) PO omeprazole 40 MG capsule 20 mg PO DAILY Patient Comments: acid refulux calcium carbonate-vitamin D3 1 EACH tablet 1 ea PO DAILY Patient Comments: bone health carvedilol 6.25 mg tablet 6.25 mg PO BID albuterol sulfate [Ventolin HFA] 90 mcg/actuation HFA aerosol inhaler 1 - 2 puff inhalation Q4H PRN PRN (Reason: Wheezing) Qty: 1 0RF Primary Care Provider: Earl Mora Referrals: Earl Mora DO [Primary Care Provider] - 3-5 Days if not improving Print Language: Egyptian Disposition Disposition: Home, Self Care What to do if you have Problems For any increased pain, shortness of breath, bleeding, nausea or vomiting, chestpain, or any unexpected problems, contact your Primary Care Provider. Call [facility] ([phone]) or report to the closest Emergency Room. Call 911 if necessary. 11/21/24 1714 <Electronically signed by Benigno Sifuentes MD> Cosigner Signature (if applicable): CC: Dr. Earl Mora, ~ Signed [facility] Work Phone: [phone] 880-727506-26-2025 Telephone encounter Note* Telephone Encounter - Chetan Berger - 10/23/2024 9:44 AM EDT Medication name: Diclofenac Sodium (Voltaren) 1 % gel Medication dosage: 2 g (Grams) Monthly quantity needed: 150 g How many day supply requestin days Medication route: topical (on skin) Medication administration time(s): 2 times a day (BID) If taking medication PRN, reason for taking medication: N/A If this is a controlled substance do you receive this or any other controlled medication from any other doctor or facility: N/A Ordering provider: Dr. Mora Date of last office visit: 09/02/24 Date of next office visit: none Date of last refill: (see medication tab): 02/18/24 Updated/Validated preferred pharmacy: Yes Patient instructed to contact the pharmacy prior to picking up the medication: Yes T [id number] Miscellaneous Notes* Telephone Encounter - Chetan Berger - 10/23/2024 9:44 AM EDT Medication name: Diclofenac Sodium (Voltaren) 1 % gel Medication dosage: 2 g (Grams) Monthly quantity needed: 150 g How many day supply requestin days Medication route: topical (on skin) Medication administration time(s): 2 times a day (BID) If taking medication PRN, reason for taking medication: N/A If this is a controlled substance do you receive this or any other controlled medication from any other doctor or facility: N/A Ordering provider: Dr. Mora Date of last office visit: 09/02/24 Date of next office visit: none Date of last refill: (see medication tab): 02/18/24 Updated/Validated preferred pharmacy: Yes Patient instructed to contact the pharmacy prior to picking up the medication: Yes documented in this [facility]05-28-2025 History of Present illness Narrative* Miriam Mcmanus MA - 09/24/2024 1:00 PM EDT Images from the original note were not included. [address] [place] [address] [address] [facility] [phone] @patname@ Patient arrived for nurse visit today. Two patient identifiers used to confirm correct patient yes Supervising provider for clinic visit Dr. Mora is taking Lisinopril 10mg BID for hypertension with excellent compliance and no side effects regular Shortness of breath no Medication compliance yes Medication Reconciliation yes BP Medication taken prior to visit yes at what time 6:45am B/P Reading taken manual Home Monitoring no Patient advised if follow up is needed, outreach will occur in 48 hours BP:125/70 HR:78 * Earl Mora DO - 09/24/2024 1:00 PM EDT Blood pressure stable, no med changes documented in this [facility]05-08-2025 Discharge summary [facility] Medical Records Department [address] [place] [address] Emergency Department Summary 09/04/24 MR#: [id number] Acct: [id number] Name: JACI PORTER Rep #:[id number] : 1940 83 From: Andrei Rios MD PCP: Dr. Earl Mora, DO Status:RE G ER Location: ED HPI History of Present Illness Chief Complaint: Shortness of Breath Narrative Narrative: 83-year-old female presents with her daughter because of not feeling well, shortness of breath withcough. Patient relates history that approximately 2 weeks ago she started out having a sinus infection. She was put on Augmentin. She started having cough as well with subjective fever. She states that chest x- ray was performed and that she was told she had the beginnings of pneumonia soa Z-Robbie wasadded. She saw her primary care provider, and was put on Levaquin recently. She took her second dose last night, and experienced facial redness. She feels she may be having a reaction to her third antibiotic. She states thatshe was told that if she is not feeling better, that she should come to the emergency department. Patient states that last night she slept in her recliner because she was not feeling well. [facility] Medical History Wears hearing aid Wears glasses Wears partial dentures Wears dentures Post-menopausal Bladder disease Arthritis Back pain Migraine headache Difficulty swallowing Non-smoker History of edema History of stress test Hypertension Osteoarthritis Chronic back pain GERD (gastroesophageal reflux disease) Home Medications ?Medication ?Instructions ?Recorded ?Last Taken ?Type calcium 600 mg (as 1 ea PO DAILY 08/07/1508/06 08:30 History carbonate)-vitamin D3 10 mcg (400 unit) tablet omeprazole 40 mg capsule,delayed 20 mg PO DAILY 04/18/24 History release ascorbate calcium (vitamin C) 500 500 mg PO DAILY 12/17 Unknown History mg tablet meloxicam 7.5 mg tablet 7.5 mg PO DAILY 06/22/23 Unk nown History carvedilol 6.25 mg tablet 6.25 mg PO BID BP 04/16/24 1 06/19/23 History lisinopril 5 mg tablet 5 mg PO QDAY 08/23/24 Unknow n History mecobalamin (vitamin B12) 500 mcg mcg PO 08/23/24 Unkn own History chewable tablet montelukast 10 mg tablet 10 mg PO QDAY 08/23/24 Unkno wn History azithromycin 250 mg tablet See Rx Instructions PO .COM PLEX #6 08/27/24 Unknown Rx tabs albuterol sulfate 90 mcg/actuation 1 - 2 puff inhalati on Q4H PRN PRN 09/04/24 Unknown Rx aerosol inhaler (Ventolin HFA) Wheezing #1 ea Allergy/AdvReac Type Severity Reaction Status Date / Time clarithromycin (From Biaxin) AdvReac Nausea Verified 09/04/24 08:55 Sulfa (Sulfonamide AdvReac Nausea Verified 09/04/24 08:55 Antibiotics) Family History Father Heart disease Thyroid disorder goiter Mother Cancer stomach Surgical History History of ERCP History of craniotomy History of cholecystectomy (~04/2019) History of colonoscopy (~06/2018) S/P hemorrhoidectomy S/P appendectomy S/P partial hysterectomy S/P cardiac catheterization S/P colonoscopy Social History (Updated 09/04/24 @ 09:35 by Jayson Bach) household members: spouse housing: house Smoking Status: Never smoker alcohol intake: never substance use type: does not use additional social history: no aspirin no ibuprofen ROS ROS ED ROS Narrative Review of systems positive for subjective fever, cough with sputum production, mild shortness of breath. No chest pain. No leg swelling. She has been treated for sinusitis and postnasal drip as well. EXAM Physical Exam Narrative Exam Narrative: Afebrile. Vital signs noted. Nontoxic-appearing. Ambulatory to room. HEENT examination grossly unremarkable. Cardiovascular examination regular rate and rhythm. Occasional expiratory wheeze right base greater than left. Abdomen soft nontender with normoactive bowel sounds. No pedal edema. Neurological examination nonfocal, nonlateralizing. Const Vital Signs: 09/04/24 08:55 09/04/24 09:21 09/04/24 09:34 Temperature 98.9 F 98.3 F Temperature Source Temporal Oral Pulse Rate 79 79 79 Respiratory Rate 14 16 12 Respiratory Effort Respiratory Depth Respiratory Pattern Blood Pressure 165/89 H 117/69 Blood Pressure Mean 114 85 Pulse Ox 98 96 Oxygen Delivery Method Room Air Room Air 09/04/24 09:34 09/04/24 09:34 Temperature Temperature Source Pulse Rate Respiratory Rate Respiratory Effort Normal Non-Labored Respiratory Depth Normal Respiratory Pattern Normal Blood Pressure Blood Pressure Mean Pulse Ox 100 Oxygen Delivery Method Room Air Room Air MDM MDM MDM Narrative Medical decision making narrative: Differential diagnosis includes but not limited to bronchitis versus worsening pneumonia versus pneumothorax. History and physical does not support pneumothorax. Pulse ox 98% on room air without evidence of hypoxia. CHF would also be in the differential versus undiagnosed COPD. Comprehensive workupwas pursued. She was given albuterol aerosolized treatment. She states that she was started on levofloxacin and prednisone, but is not currently using an inhaler. EKG obtained and interpreted by myself independently as normal sinus rhythm at 70 bpm without ectopy or acute ST changes. No STEMI. No significant change from EKG in December 2023 when compared. I reviewed her laboratory work and she has normal white count of 9.2 with hemoglobin 12.1, platelet count normal at262. Electrolyte panel grossly unremarkable. BNP 382. Chest x-ray in 2 views interpreted by myself independently shows no pneumothoraxor pneumonia. I reviewed the radiology report which confirms my independent interpretation. Repeat examination after aerosolized treatment shows no expiratory wheezing, moving a good amount of air. However, she states that she really did not feel a difference. She is already on steroids. She had redness and a reactionto the Levaquin. She has already taken Augmentin and azithromycin so I do not feel that she requires more antibiotics and was told todiscontinue use of the Levaquin and perhaps avoid its use in the future if she was having a reaction. I do not feel that she has anaphylaxis or requires epinephrine currently. She is stable. She was written a prescription for an albuterol inhaler to use 1 to 2 puffsinhaled every 4-6 hours as needed, and shewill continue the prednisone that she was given. At this point in time, I do not feel she requires observation or hospitalization. I feel she can be discharged to follow-up with her primary care provider with diagnosis of bronchitis. She was told that she could cough for up to a month, and states that she has a chronic cough regardless. Disposition is discharged home in stable condition. History & Record Review Discussion w/independent historian: Patient and Family Lab Data Attestation: I reviewed the patient's lab results. Labs: Laboratory Results - last 24 hr 09/04/24 09:19 WBC 9.2 RBC 3.97 L Hgb 12.1 Hct 34.7 L MCV 87.4 MCH 30.5 MCHC 34.9 RDW Std Deviation 38.9 RDW Coeff of Haresh 12.1 Plt Count 262 MPV 9.3 Immature Gran % (Auto) 0.800 Neut % (Auto) 77.1 H Lymph % (Auto) 12.9 L Hettinger % (Auto) 9.0 Eos % (Auto) 0.0 Baso % (Auto) 0.2 Absolute Neuts (auto) 7.1 Absolute Lymphs (auto) 1.19 Nucleated RBC % 0 Sodium 140 Potassium 3.6 Chloride 106 Carbon Dioxide 23.3 Anion Gap 10 BUN 19 Creatinine 0.81 Estim Creat Clear Calc 50.84 Est GFR (MDRD) Non-Af 72 BUN/Creatinine Ratio 22.8 H Glucose 110 H Calcium 9.2 NT pro BNP II 382 Radiography Chest X-Ray - ED: 2 View, Read by ED Physician, Read by Radiologist and No Infiltrates Diagnostic Testing: Clinical Impression(s) from Imaging Studies Chest X-Ray 09/04/24 09:40 IMPRESSION: No acute cardiopulmonary process. Reading Location: [facility] Discharge Plan Triage Chief Complaint: Shortness of Breath ED Provider: Andrei Rios Dx/Rx/DC Orders Clinical Impression: Bronchitis, Medication reaction Instructions: ED Bronchitis, No Antibiotic (Adult) Prescriptions: New albuterol sulfate [Ventolin HFA] 90 mcg/actuation HFA aerosol inhaler 1 - 2 puff inhalation Q4H PRN PRN (Reason: Wheezing) Qty: 1 0RF No Action ascorbate calcium (vitamin C) 500 mg tablet 500 mg PO DAILY meloxicam 7.5 mg tablet 7.5 mg PO DAILY Patient Comments: take 1 tablet by mouth once daily montelukast 10 mg tablet 10 mg PO QDAY lisinopril 5 mg tablet 5 mg PO QDAY mecobalamin (vitamin B12) 500 mcg tablet,chewable PO azithromycin 250 mg tablet See Rx Instructions PO .COMPLEX Qty: 6 0RF Rx Instructions: For 250 mg dose pack: take 500 mg today (day 1), then 250 mg for 4 days (days2- 5) PO omeprazole 40 MG capsule 20 mg PO DAILY Patient Comments: acid refulux calcium carbonate-vitamin D3 1 EACH tablet 1 ea PO DAILY Patient Comments: bone health carvedilol 6.25 mg tablet 6.25 mg PO BID Primary Care Provider: Earl Mora Referrals: Earl Mora DO [Primary Care Provider] - 3-5 Days Activity Restrictions/Additional Instructions: Avoid use of Levaquin. You have already taken Augmentin and azithromycin. Follow-up with your primary care provider. Use albuterol inhaler 1 to 2 puffs inhaled every 4-6 hours for shortness of breath. Return with difficulty breathing, new or worsening symptoms. Print Language: Egyptian Disposition Disposition: Home, Self Care What to do if you have Problems For any increased pain, shortness of breath, bleeding, nausea or vomiting, chestpain, or any unexpected problems, contact your Primary Care Provider. Call [facility] ([phone]) or report tothe closest Emergency Room. Call 911 if necessary. 09/04/24 1058 Cosigner Signature (if applicable): CC: Dr. Earl Mora DO ~ Signed [facility]05-08-2025 Radiology Diagnostic study note [facility] Imaging Services [address] [place] [address] [id number] Chest PA and Lateral MR#: [id number] Acct: [id number] Name: JACI PORTER Rep #: [id number] : 1940 F 83 From: Poonam Rojas MD PCP: Dr. Earl Mora DO Status: RE G ER Study:Chest PA and Lateral Date of Exam: 09/04/24 Exam# [id number] Ordering Dr: Andrei Rios MD EXAM: XR Chest, 2 Views CLINICAL INDICATION: SHORTNESS OF BREATH TECHNIQUE: Frontal and lateral views of the chest. COMPARISON: No relevant prior studies available. FINDINGS: LUNGS AND PLEURAL SPACES: Unremarkable. No consolidation. No pneumothorax. HEART: Unremarkable. No cardiomegaly. MEDIASTINUM: Unremarkable. Normal mediastinal contour. BONES/JOINTS: Unremarkable. No acute fracture. RAD/Chest PA and Lateral IMPRESSION: No acute cardiopulmonary process. Reading Location: [facility] CC: Dr. Andrei Rios MD; Dr. Earl Mora DO ~ Paper Inserter: Signed [facility]05-08-2025 Hospital Discharge instructions Additional Instructions Avoid use of Levaquin. You have already taken Augmentin and azithromycin. Follow-up with your primary care provider. Use albuterol inhaler 1 to 2 puffs inhaled every 4-6 hours for shortness of breath. Return with difficulty breathing, new or worsening symptoms.[facility] Work Phone: 1(384) 357-579305-06-2025 History of Present illness Narrative* Earl Mora, - 09/02/2024 3:00 PM EDT Images from the original note were not included. [facility] - [address] [facility] [address] Visit type: Established Patient Reason for Visit: Follow-up (Med Check ) and Pneumonia (Dx this past Sunday [facility]patient finished antibiotics this morning, patient still having cough (yellow mucus) and nasal drainage ) Assessment / Plan: Jaci was seen today for follow-up and pneumonia. Diagnoses and all orders for this visit: Essential hypertension (Primary) Comments: Control, to streamline meds stop carvedilol and increased lisinopril to 10 mg daily. BP check 4 weeks Orders: - CBC auto differential; Future - Comprehensive metabolic panel; Future - CBC auto differential - Comprehensive metabolic panel NSAID long-term use Comments: Stable on meloxicam, GI precautions discussed show continue Prilosec Gastroesophageal reflux disease without esophagitis Comments: Stable continue Prilosec History of pneumonia Comments: X-ray, add Levaquin and prednisone Orders: - XR chest 2 views; Future Recurrent sinus infections Arthralgia of both knees Comments: Stable, meloxicam and diclofenac Orders: - meloxicam (Mobic) 7.5 MG tablet; Take 1 tablet (7.5 mg) by mouth daily. Degeneration of intervertebral disc of lumbosacral region with discogenic back pain - Handicap Placard Other orders - benzonatate (Tessalon) 100 MG capsule; 1-2 qid prn , no more than 6 a day - lisinopril 10 MG tablet; Take 1 tablet (10 mg) by mouth daily. - levoFLOXacin (Levaquin) 500 MG tablet; Take 1 tablet (500 mg) by mouth daily for 7 doses. - predniSONE (Deltasone) 20 MG tablet; Take 1 tablet (20 mg) by mouth 2 times daily for 10 doses. Subjective: Patient ID: Jaci Porter is a 83 y.o. female. HPI checkup for hypertensive non-smoker on NSAID therapy for knee and lumbar pain. Was doing well until she developed "pneumonia" that was found by chest x- ray through [facility] evaluations. Has been on Augmentin and Z-Robbie with partial improvement. No fever or chest pain. Some cough and wheezing. Not allergies but her rhinorrhea is still purulent. No facial pain headache or fever or confusion. Review of Systems no constitutional symptoms. Has a good appetite. No heartburn on Prilosec. Takes meloxicam daily. No change in arthralgias. She does need a parking placard. Denies exertional chest pain or dyspnea or PND orthopnea or edema. No vomiting or diarrhea. No abdominal pain. No dysuria. Allergies Allergen Reactions Clarithromycin Diarrhea Other reaction(s): Nausea Other reaction(s): Nausea Other reaction(s): Nausea Other reaction(s): Nausea Other Other reaction(s): Nausea Sulfa Antibiotics Nausea And Vomiting Other reaction(s): Nausea Current Outpatient Medications: Acetaminophen (TYLENOL ARTHRITIS PAIN PO), Take 650 mg by mouth daily., Disp: , Rfl: ascorbic acid (Vitamin C) 100 MG tablet, Take 400 mg by mouth daily., Disp: , Rfl: calcium 500 MG tablet, Take 500 mg by mouth daily., Disp: , Rfl: cetirizine (ZyrTEC) 10 MG tablet, Take 10 mg by mouth Daily as needed., Disp: , Rfl: Diclofenac Sodium (Voltaren) 1 % gel, Apply 2 g topically 2 times daily., Disp: 150 g, Rfl: 1 montelukast (Singulair) 10 MG tablet, Take 1 tablet (10 mg) by mouth daily., Disp: 90 tablet, Rfl: 1 mupirocin (Bactroban) 2 % ointment, Apply topically., Disp: , Rfl: slkgthvz-miqquhtov-jkaWAZHQeeiux (Maxitrol) 3.5-36732-7.1 ophthalmic suspension, Administer 1 drop into the right eye in the morning and 1 drop at noon and 1 drop in the evening and 1 drop before bedtime., Disp: , Rfl: omeprazole (PriLOSEC) [address] capsule, Take 1 capsule (40 mg) by mouth every morning (before breakfast). Do not crush or chew., Disp: 90 capsule, Rfl: 1 benzonatate (Tessalon) 100 MG capsule, 1-2 qid prn , no more than 6 a day, Disp: 42 capsule, Rfl: 0 levoFLOXacin (Levaquin) 500 MG tablet, Take 1 tablet (500 mg) by mouth daily for 7 doses., Disp: 7 tablet, Rfl: 0 lisinopril 10 MG tablet, Take 1 tablet (10 mg) by mouth daily., Disp: 90 tablet, Rfl: 1 meloxicam (Mobic) 7.5 MG tablet, Take 1 tablet (7.5 mg) by mouth daily., Disp: 90 tablet, Rfl: 1 predniSONE (Deltasone) 20 MG tablet, Take 1 tablet (20 mg) by mouth 2 times daily for 10 doses., Disp: 10 tablet, Rfl: 0 Patient Active Problem List Diagnosis H/O meningioma of the brain Family history of colon cancer in mother DDD (degenerative disc disease), cervical Varicosities of leg Hearing aid worn Allergic rhinitis DDD (degenerative disc disease), lumbosacral GERD (gastroesophageal reflux disease) NSAID long-term use Essential hypertension H/O colonoscopy with polypectomy MVP (mitral valve prolapse) Social History Tobacco Use Smoking status: Never Smokeless tobacco: Never Substance Use Topics Alcohol use: No Alcohol/week: 0.0 standard drinks of alcohol Past Surgical History: Procedure Laterality Date APPENDECTOMY 195 BLADDER REPAIR 1973 BRAIN TUMOR EXCISION 2002 benign tumor CARDIAC CATHETERIZATION 1990 neg per [facility] CATARACT EXTRACTION Bilateral 2017 CHOLECYSTECTOMY 2019 ERCP and Sphincterotomy-Dr. Garcias COLONOSCOPY 06/2018 neg per [place]- int hem COLONOSCOPY 2017 turowski COLONOSCOPY W/ POLYPECTOMY 2013 HEMORRHOID SURGERY 2007 PARTIAL HYSTERECTOMY 1973 unilat SO UPPER GASTROINTESTINAL ENDOSCOPY 2012 with dilation UPPER GASTROINTESTINAL ENDOSCOPY 2017 neg per [facility] Family History Problem Relation Name Age of Onset Colon cancer Mother age 45- ? [employer] [place] Ulcers Mother Prostate cancer Father Ed Cutlip Heart disease Father Ed Cutlip MS at age 77 Lung cancer Sister Probable lung cancer with brain met, age 72 in 11/14 Heart disease Sister Kinjal Congenital heart Heart attack Brother age 77 Heart disease Father's Sister 50 sudden cardiac Objective: BP (!) 150/82 Pulse 86 Temp 36.3 C (97.4 F) (Temporal) Ht 5' 3" (1.6 m) Wt 164 lb 12.8 oz (74.8 kg) SpO2 96% BMI 29.19 kg/m Physical Exam Pleasant alert and cooperative. Some upper rhonchi. Not toxic in appearance. No JVD adenopathy or thyroid lesions. No carotid bruits. [place] oropharynx. Clear postnasal drip. Heart is regular without murmurs or gallops or ectopy. Lungs have upper rhonchi that clear with cough. No rales or egophony. Abdomen soft nontender without pain hepatosplenomegaly or masses. No bruits or ascites. Extremities are pink without pallor cyanosis or edema. No motor loss of the legs. documented in this [facility]05-06-2025 Instructions* Patient Instructions* Earl Mora DO - 09/02/2024 3:00 PM EDT Blood pressure ch in 4 wks documented in this [facility]04-26-2025 Evaluation note* Diagnosis Onset Date Resolution Status Admit Date Sinusitis acute August 23 10:50am [facility] Work Phone: [phone]) 465-516203-06-2025 Telephone encounter Note* Telephone Encounter - Nan Quintero - 07/03/2024 11:31 AM EST Medication name: montelukast (Singulair) 10 MG tablet Medication dosage: 10 mg (Miligrams Monthly quantity needed: 30 How many day supply requestin days Medication route: oral (PO) Medication administration time(s): daily If taking medication PRN, reason for taking medication: N/A If this is a controlled substance do you receive this or any other controlled medication from any other doctor or facility: N/A Ordering provider: Dr. Mora Date of last office visit: 06/25/24 Date of next office visit: 08/18/24 Date of last refill: (see medication tab): 09/25/23 Updated/Validated preferred pharmacy: Yes Patient instructed to contact the pharmacy prior to picking up the medication: Yes Please send to [facility] on chart. Pt is completely out of medication. Please advise [id number] Miscellaneous Notes* Telephone Encounter - Nan Quintero - 07/03/2024 11:31 AM EST Medication name: montelukast (Singulair) 10 MG tablet Medication dosage: 10 mg (Miligrams Monthly quantity needed: 30 How many day supply requestin days Medication route: oral (PO) Medication administration time(s): daily If taking medication PRN, reason for taking medication: N/A If this is a controlled substance do you receive this or any other controlled medication from any other doctor or facility: N/A Ordering provider: Dr. Mora Date of last office visit: 06/25/24 Date of next office visit: 08/18/24 Date of last refill: (see medication tab): 09/25/23 Updated/Validated preferred pharmacy: Yes Patient instructed to contact the pharmacy prior to picking up the medication: Yes Please send to [facility] on chart. Pt is completely out of medication. Please advise documented in this [facility] [id number] Evaluation + Plan note* Assessment & Plan Note - Samantha Torres PA-C - 06/25/2024 3:57 PM ESTAssociated Problem(s): GERD (gastroesophageal reflux disease) - Chronic and unstable increasing omeprazole up to 40 mg daily was previously taking 20 mg [id number]. [id number] Miscellaneous Notes* Assessment & Plan Note - Samantha Torres PA-C - 06/25/2024 3:57 PM ESTAssociated Problem(s): GERD (gastroesophageal reflux disease) - Chronic and unstable increasing omeprazole up to 40 mg daily was previously taking 20 mg [id number]. * Assessment & Plan Note - Samantha Torres PA-C - 06/25/2024 3:56 PM ESTAssociated Problem(s): Essential hypertension - Chronic and unstable not tolerating the increased dose of carvedilol well so we are going to cut her back to one 6.25 mg tablet in the evening and add lisinopril 5 mg in the morning. documented in this [facility]02-26-2025 Evaluation + Plan note* Assessment & Plan Note - Samantha Torres PA-C - 06/25/2024 3:56 PM ESTAssociated Problem(s): Essential hypertension - Chronic and unstable not tolerating the increased dose of carvedilol well so we are going to cut her back to one 6.25 mg tablet in the evening and add lisinopril 5 mg in the morning. [facility] [id number] History of Present illness Narrative* Samantha Torres PA-C - 06/25/2024 3:00 PM EST Images from the original note were not included. [facility] - [address] [facility] [address] Dept: [phone] Dept Loc: [phone] Visit type: Established Patient Reason for Visit: Medication Reaction (To BP med) Assessment and Plan 1. Essential hypertension Assessment & Plan: - Chronic and unstable not tolerating the increased dose of carvedilol well so we are going to cut her back to one 6.25 mg tablet in the evening and add lisinopril 5 mg in the morning. 2. Gastroesophageal reflux disease without esophagitis Assessment & Plan: - Chronic and unstable increasing omeprazole up to 40 mg daily was previously taking 20 mg [id number]. No follow-ups on file. Subjective HPI this is an elderly 83-year-old female with an underlying history of hypertension and mitral valve prolapse and chronic degenerative disc disease who was last seen in March blood pressure was uncontrolled and her carvedilol was increased to 6.25 mg twice daily. Patient reports that ever sincethen she has been having dull headaches upset stomach and believes it is a possible side effect of carvedilol she feels the symptoms started back in March and she was requesting a follow-up immediately today to determine if this is the medication or something else was going on. Medicine has been upsetting stomach and was given medicine for stomach medicine and given sucralafate but never work Feeling ok today, but stomach still upset and BP still up Did try to cut back coffee. But still drinking about 2 cups a day. Patient does report ongoing issues with her stomach but she does states seems to be little bit better since cutting out the coughing or at least cutting back on the coffee she still continues to drink her coffee in the morning. She does report occasional headaches as well. Otherwise she feels like she is doing well and her health has been doing well. She does report multiple blood pressure readings at home are usually 140s to 150s systolic range Review of Systems Constitutional: Negative for chills and fever. HENT: Negative for congestion and sore throat. Respiratory: Negative for cough and shortness of breath. Cardiovascular: Negative for chest pain. Gastrointestinal: Positive for abdominal pain. Negative for diarrhea, nausea and vomiting. Genitourinary: Negative for difficulty urinating, dysuria, frequency and urgency. Musculoskeletal: Negative for back pain. Neurological: Positive for headaches. Negative for dizziness and light-headedness. All other systems reviewed and are negative. Allergies Allergen Reactions Clarithromycin Diarrhea Other reaction(s): Nausea Other reaction(s): Nausea Other reaction(s): Nausea Other reaction(s): Nausea Other Other reaction(s): Nausea Sulfa Antibiotics Nausea And Vomiting Other reaction(s): Nausea Current Outpatient Medications Medication Sig Dispense Refill Acetaminophen (TYLENOL ARTHRITIS PAIN PO) Take 650 mg by mouth daily. ascorbic acid (Vitamin C) 100 MG tablet Take 400 mg by mouth daily. calcium 500 MG tablet Take 500 mg by mouth daily. carvedilol (Coreg) 6.25 MG tablet Take 1 tablet (6.25 mg) by mouth 2 times daily (with meals). 180 tablet 1 cetirizine (ZyrTEC) 10 MG tablet Take 10 mg by mouth Daily as needed. Diclofenac Sodium (Voltaren) 1 % gel Apply 2 g topically 2 times daily. 150 g 1 meloxicam (Mobic) 7.5 MG tablet Take 1 tablet (7.5 mg) by mouth daily. 90 tablet 1 montelukast (Singulair) 10 MG tablet take 1 tablet by mouth once daily 90 tablet 1 mupirocin (Bactroban) 2 % ointment Apply topically. hgvrxrcu-qhpbyzdnz-vobIEKLNepggr (Maxitrol) 3.5-68509-0.1 ophthalmic suspension Administer 1 drop into the right eye in the morning and 1 drop at noon and 1 drop in the evening and 1 drop before bedtime. lisinopril 5 MG tablet Take 1 tablet (5 mg) by mouth daily. 30 tablet 5 omeprazole (PriLOSEC) [address] capsule Take 1 capsule (40 mg) by mouth every morning (before breakfast). Do not crush or chew. 90 capsule 1 No current facility-administered medications for this visit. Past Medical History: Diagnosis Date Allergic rhinitis Kim eval 2007 DDD (degenerative disc disease), cervical [address] DDD (degenerative disc disease), lumbosacral Essential hypertension 02/2024 Family history of colon cancer in mother age 45 GERD (gastroesophageal reflux disease) 2018 EGD per [facility], negative H/O colonoscopy with polypectomy 06/2018 small polyps- Christin/ Patricia- ? need to repeat H/O meningioma of the brain 03/2003 right side ([place]) - neg MRI 10/21 Hearing aid worn 2016 MVP (mitral valve prolapse) Varicosities of leg 2018 Social History Tobacco Use Smoking status: Never Smokeless tobacco: Never Substance Use Topics Alcohol use: No Alcohol/week: 0.0 standard drinks of alcohol Past Surgical History: Procedure Laterality Date APPENDECTOMY 1952 BLADDER REPAIR 1973 BRAIN TUMOR EXCISION 2003 benign tumor CARDIAC CATHETERIZATION 1991 neg per [facility] CATARACT EXTRACTION Bilateral 2017 CHOLECYSTECTOMY 2019 ERCP and Sphincterotomy-Dr. Garcias COLONOSCOPY 06/2018 neg per [facility]- int hem COLONOSCOPY 2017 tu[place]ski COLONOSCOPY W/ POLYPECTOMY 2013 HEMORRHOID SURGERY 2007 PARTIAL HYSTERECTOMY 1973 unilat SO UPPER GASTROINTESTINAL ENDOSCOPY 2012 with dilation UPPER GASTROINTESTINAL ENDOSCOPY 2018 neg per [facility] Family History Problem Relation Name Age of Onset Colon cancer Mother age 45- ? [employer] [place] Ulcers Mother Prostate cancer Father Ed Cutlip Heart disease Father Ed Cutlip MS at age 77 Lung cancer Sister Probable lung cancer with brain met, age 72 in 11/14 Heart disease Sister Kinjal Congenital heart Heart attack Brother age 77 Heart disease Father's Sister 50 sudden cardiac Objective BP (!) 160/84 (BP Location: Left arm, Patient Position: Sitting, BP Cuff Size: Adult) Pulse 86 Temp 36.4 C (97.5 F) (Temporal) Ht 5' 3" (1.6 m) Wt 163 lb (73.9 kg) SpO2 99% BMI 28.87 kg/m Physical Exam Vitals reviewed. Constitutional: General: She is not in acute distress. Appearance: Normal appearance. She is not ill-appearing or toxic-appearing. HENT: Right Ear: Tympanic membrane and ear canal normal. Left Ear: Tympanic membrane and ear canal normal. Mouth/Throat: Mouth: Mucous membranes are moist. Pharynx: No oropharyngeal exudate or posterior oropharyngeal erythema. Eyes: General: No scleral icterus. Conjunctiva/sclera: Conjunctivae normal. Pupils: Pupils are equal, round, and reactive to light. Cardiovascular: Rate and Rhythm: Normal rate and regular rhythm. Heart sounds: Normal heart sounds. No murmur heard. Pulmonary: Effort: Pulmonary effort is normal. No respiratory distress. Breath sounds: Normal breath sounds. No wheezing or rales. Musculoskeletal: Cervical back: Normal range of motion and neck supple. Right lower leg: No edema. Left lower leg: No edema. Comments: Mild edema noted of the left foot but is chronic Skin: General: Skin is warm and dry. Neurological: Mental Status: She is alert. Psychiatric: Mood and Affect: Mood normal. Data Reviewed and Summarized Labs: Imaging/Testing: Samantha Torres PA-C 06/25/2024 Please note that portions of this note may have been completed with voice recognition software. Documentation reviewed prior to signing but minor errors in cot assembler may have occurred. documented in this [facility]02-26-2025 Telephone encounter Note* Telephone Encounter - Dalila Dove RN - 06/25/2024 10:56 AM EST S: Patient spoke with [facility] nurse regarding possible medication side effects to carvedilol, wants blood pressure checked. B: Onset of symptoms/concern began over a month ago. A: Patient has been having a dull headache and upset stomach, believes it could be side effects from carvedilol that she started in March. Symptoms started a few weeks after starting the medication. States does not know how her blood pressures have been running. She is still taking the medication as directed. Requesting an appt to discuss and have her blood pressure checked. No COVID symptoms. R: Appt made with Samantha OCONNOR for today at 3:00p. Insurance verified with patient as Medicare/[employer]. Advised patient to bring photo ID, insurance card, and arrive 15 minutes early to appointment. No further needs at this time. Patient instructed to call back with new or worsening symptoms. Reason for Disposition Patient wants to be seen Protocols used: Blood Pressure - [id number] [facility] [id number] Miscellaneous Notes* Telephone Encounter - Dalila Dove RN - 06/25/2024 10:56 AM EST S: Patient spoke with [facility] nurse regarding possible medication side effects to carvedilol, wants blood pressure checked. B: Onset of symptoms/concern began over a month ago. A: Patient has been having a dull headache and upset stomach, believes it could be side effects from carvedilol that she started in March. Symptoms started a few weeks after starting the medication. States does not know how her blood pressures have been running. She is still taking the medication as directed. Requesting an appt to discuss and have her blood pressure checked. No COVID symptoms. R: Appt made with Samantha OCONNOR for today at 3:00p. Insurance verified with patient as Medicare/[employer]. Advised patient to bring photo ID, insurance card, and arrive 15 minutes early to appointment. No further needs at this time. Patient instructed to call back with new or worsening symptoms. Reason for Disposition Patient wants to be seen Protocols used: Blood Pressure - [id number] documented in this [facility]02-06-2025 Evaluation note* Diagnosis Onset Date Resolution Status Admit Date Nausea acute June 05, 2024 1:05pm Sinusitis acute August 23 10:50am [facility] Work Phone: [phone]) 765-383812-20-2024 [facility] Medical Records Department [address] [place] [address] History Physical Exam 04/18/24916 MR#: [id number] Acct: [id number] Name: JACI PORTER Rep #: [id number] : 1940 83 From: Joni Garcias MD PCP: Dr. Earl Mora, DO Status:[facility] Location: [place] [address] History and Physical Date of Admission: 04/18/24 Intake Vital Signs 01/08/2418:50 03/03/2409:46 Height 5 ft 3 in 5 ft 3 in Weight: 166 lb BMI 29.4 BP 165/79 H Blood Pressure Location Rt brachial Position Sitting Respiration 18 Intake Visit Reasons: UPPER AND LOWER - GERD Chief Complaint: egd Service Tester Required: No Is patient in pain?: No Allergies clarithromycin (From Biaxin) Adverse Reaction (Verified 03/03/24 09:48) NauseaSulfa (Sulfonamide Antibiotics) Adverse Reaction (Verified 03/03/24 09:48) Nausea Medications ???Medication ???Instructions ???Recorded ???Confirmed ???Type calcium 600 mg (as 1 ea PO DAILY 08/07/15 03/03/24 History carbonate)-vitamin D3 10 mcg (400 unit) tablet omeprazole 40 mg capsule,delayed 20 mg PO BID 08/07/15 03/03/24 History release ascorbate calcium (vitamin C) 500 500 mg PO DAILY 05/07/19 03/03/24 History mg tablet acetaminophen 325 mg tablet 650 mg (2 x 325 mg) PO Q6H PRN PRN 05/09/19 03/03/24 Rx Pain Score 1-1010 cetirizine 10 mg tablet (Zyrtec) 10 mg PO DAILY PRN Allergy Symptoms 08/25/20 03/03/24 History meloxicam 7.5 mg tablet 7.5 mg PO 06/22/23 03/03/24 History Have you fallen in the past year?: No PFSH Medical History 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 She reports that she feels like it is in her throat. She says it has been slowly getting worse over the years. She feels like she has had a dilation several years ago but does not remember when. She had an EGD in 2018 which was normal. ROS General General: Yes fatigue; No weight change, appetite, colon cancer, breast cancer or weakness HEENT HEENT: Yes difficulty swallowing; No eye injury, eye surgery, swollen glands or hoarseness Endo Endocrine: No thyroid disease, diabetes mellitus, thyroid cancer, Hair loss, heat intolerance or cold intolerance Skin Skin: No rash or changing moles Musc Musculoskeletal: Yes back problems and arthritis; No rheumatoid arthritis, gout or joint pain Cardio Cardiovascular: No murmur, pacemaker, heart disease, atrial fibrillation, high blood pressure, heart attack, heart stent, palpitations, shortness of breat with exertion or chest pain Psych Psychiatric: No depression, anxiety or hearing voices Resp Respiratory: Yes shortness of breath, Yes sleep apnea, Yes cough, No COPD, No asthma, No emphysema and No wheezing Gastro Gastrointestinal: Yes abdominal pain, No nausea or vomiting, Yes diarrhea, No constipation, No blood in stool, Yes acid reflux, No hemorrhoids, No ulcers, No gallbladder problem and No black,tarry stools Jordan Hematologic: No blood thinners, No blood disorders, No bleeding, No anemia and No blood clots Neuro Neurologic: No system reviewed and no additional complaints, except as documented, No as per HPI, No abnormal gait, No abnormal hearing, No abnormal movements, No abnormal speech, No behavioral changes, No burning sensations, No confusion, No convulsions, No disequilibrium, No dizziness, No localized weakness, No frequent falls, No headache(s), No lack of coordination, No loss of vision, No memory loss, No numbness, No other visual disturbances, No radicular pain, No restless legs, No sensory deficit, No syncope, No tingling, No tremor(s), No weakness and No other Exam Const General: cooperative Orientation: alert and oriented x3 HENMT Head: normal to inspection Neck Neck: normal visual inspection and full ROM Chest Chest palpation inspection: normal inspection of the chest Resp Effort Inspection: normal respiratory effort Auscultation: clear to auscultation bilaterally Cardio Rate: regular rate Rhythm: regular rhythm GI Inspection: non-distende (more content not included)...[facility]12-19-2024 History of Present illness Narrative* Miriam Mcmanus MA - 04/17/2024 11:00 AM EST Images from the original note were not included. [address] [facility] [id number] @patname@ Patient arrived for nurse visit today. Two patient identifiers used to confirm correct patient yes Supervising provider for clinic visit Dr. Mora is taking Carvedilol 6.25mg for hypertension with excellent compliance and no side effects regular Shortness of breath no Medication compliance yes Medication Reconciliation yes BP Medication taken prior to visit no at what time 7am B/P Reading taken manual Home Monitoring yes Patient advised if follow up is needed, outreach will occur in 48 hours First BP:152/90 Second BP:142/88 HR:70 Patient stated she feels her BP could be elevated dur to being nervous for her endoscopy tomorrow and her lower back pain from making cookies all week * Earl Mora DO - 04/17/2024 11:00 AM EST Since the patient feels she has had some stress at this time lets have her continue carvedilol as is and recheck blood pressure with staff in 4 weeks * Miriam Mcmanus MA - 04/17/2024 11:00 AM EST Pt aware. Stated her score went well today. Nurse visit scheduled documented in this [facility]12-05-2024 History of Present illness Narrative* Earl Mora DO - 04/03/2024 3:00 PM EST Images from the original note were not included. [facility] - [address] [facility] [id number] Visit type: Established Patient Reason for Visit: Follow-up (Bp ) and Flu Vaccine (Patient has declined the flu vaccine ) Assessment / Plan: Jaci was seen today for follow-up and flu vaccine. Diagnoses and all orders for this visit: Essential hypertension (Primary) Comments: Uncontrolled, increased carvedilol 6.25 twice daily. BP check 4 weeks Polyuria - POCT urinalysis dipstick manually resulted Gastroesophageal reflux disease without esophagitis Comments: Stable for EGD Dysphagia, unspecified type Other orders - carvedilol (Coreg) 6.25 MG tablet; Take 1 tablet (6.25 mg) by mouth 2 times daily (with meals). Subjective: Patient ID: Jaci Porter is a 83 y.o. female. HPI newly diagnosed hypertensive patient presents for refill on carvedilol. Blood pressure still slightly elevated at home. Of note she will be getting upper endoscopy for possible esophageal dilatation in a few weeks. cardiac and pulmonary hernandez she feels fine Review of Systems no recent headache or chest pain or palpitations. No dyspnea. Having some difficulty swallowing pills and getting upper endoscopy in a few weeks. No loss of weight or appetite. No melena or blood. No abdominal pain. No colonoscopy indicated. Does complain of polyuria but no dysuria hematuria. No flank pain. History of hysterectomy and bladder suspension years ago Allergies Allergen Reactions Clarithromycin Diarrhea Other reaction(s): Nausea Other reaction(s): Nausea Other reaction(s): Nausea Other reaction(s): Nausea Other Other reaction(s): Nausea Sulfa Antibiotics Nausea And Vomiting Other reaction(s): Nausea Current Outpatient Medications on File Prior to Visit Medication Sig Dispense Refill Acetaminophen (TYLENOL ARTHRITIS PAIN PO) Take 650 mg by mouth daily. ascorbic acid (Vitamin C) 100 MG tablet Take 400 mg by mouth daily. calcium 500 MG tablet Take 500 mg by mouth daily. cetirizine (ZyrTEC) 10 MG tablet Take 10 mg by mouth Daily as needed. Diclofenac Sodium (Voltaren) 1 % gel Apply 2 g topically 2 times daily. 150 g 1 meloxicam (Mobic) 7.5 MG tablet Take 1 tablet (7.5 mg) by mouth daily. 90 tablet 1 montelukast (Singulair) 10 MG tablet take 1 tablet by mouth once daily 90 tablet 1 mupirocin (Bactroban) 2 % ointment Apply topically. dzgjibva-sufrhmlwp-raiYGFEWgfdqn (Maxitrol) 3.5-03810-5.1 ophthalmic suspension Administer 1 drop into the right eye in the morning and 1 drop at noon and 1 drop in the evening and 1 drop before bedtime. omeprazole (PriLOSEC) [address] capsule Take 20 mg by mouth. [DISCONTINUED] carvedilol (Coreg) 3.125 MG tablet Take 1 tablet (3.125 mg) by mouth 2 times daily (with meals). 60 tablet 3 No current facility-administered medications on file prior to visit. Patient Active Problem List Diagnosis H/O meningioma of the brain Family history of colon cancer in mother DDD (degenerative disc disease), cervical Varicosities of leg Hearing aid worn Allergic rhinitis DDD (degenerative disc disease), lumbosacral GERD (gastroesophageal reflux disease) NSAID long-term use Essential hypertension H/O colonoscopy with polypectomy MVP (mitral valve prolapse) Social History Tobacco Use Smoking status: Never Smokeless tobacco: Never Substance Use Topics Alcohol use: No Alcohol/week: 0.0 standard drinks of alcohol Past Surgical History: Procedure Laterality Date APPENDECTOMY 1952 BLADDER REPAIR 1973 BRAIN TUMOR EXCISION 2003 benign tumor CARDIAC CATHETERIZATION 1990 neg per Black CATARACT EXTRACTION Bilateral 2017 CHOLECYSTECTOMY 2019 ERCP and Sphincterotomy-Dr. Garcias COLONOSCOPY 06/2018 neg per [facility]- int hem COLONOSCOPY 2016 christin COLONOSCOPY W/ POLYPECTOMY 2014 HEMORRHOID SURGERY 2007 PARTIAL HYSTERECTOMY 1973 unilat SO UPPER GASTROINTESTINAL ENDOSCOPY 2012 with dilation UPPER GASTROINTESTINAL ENDOSCOPY 2018 neg per [place] Family History Problem Relation Name Age of Onset Colon cancer Mother age 45- ? [employer] [place] Ulcers Mother Prostate cancer Father Ed Cutlip Heart disease Father Ed Cutlip MS at age 77 Lung cancer Sister Probable lung cancer with brain met, age 72 in 11/14 Heart disease Sister Kinjal Congenital heart Heart attack Brother age 77 Heart disease Father's Sister 50 sudden cardiac Objective: BP (!) 150/74 Pulse 68 Temp 36.4 C (97.5 F) (Temporal) Ht 5' 3" (1.6 m) Wt 165 lb (74.8 kg) SpO2 99% BMI 29.23 kg/m Physical Exam he is is unchanged. Blood pressure recheck is too high. No neck masses JVD or adenopathy. No thyroid lesions. No carotid bruits. Heart is regular with a faint mitral regurg murmur. Lungs are clear. Abdomen without pain hepatosplenomegaly masses or bruits. No ascites. Extremities are pink without appreciable edema. documented in this [facility]12-05-2024 Instructions* Patient Instructions* Earl Mora DO - 04/03/2024 3:00 PM EST BP check with staff in 2 wks documented in this [facility]11-15-2024 History of Present illness Narrative* Miriam Mcmanus MA - 03/14/2024 10:30 AM EST Images from the original note were not included. [address] [facility] [phone] @patname@ Patient arrived for nurse visit today. Two patient identifiers used to confirm correct patient yes Supervising provider for clinic visit Dr. Mora is currently not taking any anti- hypertensive medications regular Shortness of breath no Medication compliance yes Medication Reconciliation yes BP Medication taken prior to visit no at what time n/a B/P Reading taken manual Home Monitoring yes Patient advised if follow up is needed, outreach will occur in 48 hours Patient walked in for a blood pressure check, stated it has been high at home and she is having headaches, eye burning, and flush/hot face, nose bleeds Fist check:150/80 Second check:146/80 HR:82 Patient was instructed to go to ED with any chest pains, back pain, jaw pain, arm pain, SOB * Earl Mora DO - 03/14/2024 10:30 AM EST Blood pressure readings still too high. I recommend beginning low-dose beta- rolando for hypertension management. That has been prescribed. Checkup with me in 3 to 4 weeks * Earl Mora DO - 03/14/2024 10:30 AM EST Blood pressure still too high. I recommend beginning a blood pressure lowering med called carvedilol. That has been prescribed. Checkup with me in 1 month or so * Miriam Mcmanus MA - 03/14/2024 10:30 AM EST Pt aware. Appointment scheduled. documented in this encounterSUniversity [facility]als St. [facility] Medical [id number] Telephone encounter Note* Telephone Encounter - Sherrie Frye - 02/18/2024 1:23 PM EDT Referral to Dr Garcias pended for doctor's signature [facility] [id number] Miscellaneous Notes* Telephone Encounter - Sherrie Frye - 02/18/2024 1:23 PM EDT Referral to Dr Garcias pended for doctor's signature documented in this [facility]10-21-2024 History of Present illness Narrative* Earl Velázquez Enriquebertrand, - 02/18/2024 10:30 AM EDT Images from the original note were not included. [facility] - [place] [address] [facility] [id number] Visit type: Established Patient Reason for Visit: Follow-up (Med check) and Flu Vaccine (Patient has declined the flu vaccine ) Assessment / Plan: Jaci was seen today for follow-up and flu vaccine. Diagnoses and all orders for this visit: Labile essential hypertension (Primary) Comments: New onset, BP check 4 weeks Orders: - CBC auto differential; Future - Comprehensive metabolic panel; Future - CBC auto differential - Comprehensive metabolic panel Arthralgia of both knees Comments: Stable, meloxicam and diclofenac Orders: - Diclofenac Sodium (Voltaren) 1 % gel; Apply 2 g topically 2 times daily. - meloxicam (Mobic) 7.5 MG tablet; Take 1 tablet (7.5 mg) by mouth daily. Seasonal allergic rhinitis due to pollen NSAID long-term use Comments: Stable, GI precautions discussed Gastroesophageal reflux disease without esophagitis Comments: Recurrent, GI referral, continue omeprazole History of colon polyps Comments: GI referral Subjective: Patient ID: Jaci Porter is a 83 y.o. female. HPI patient on meloxicam for generalized arthritis including her neck and low back and knee pain presents for checkup. No change in past medical history. Taking diclofenac gel as well. Has had good response. Review of Systems recent MRI of the brain done for follow-up meningioma was unremarkable in September. Denies recent earache sore throat or cough. Had a "sinusitis" few months ago. No exertional chest pain shortness of breath or dyspnea. On Prilosec and having some breakthrough symptoms. She inquires about the need for upper endoscopy. Her mother either of colon or [employer] cancer and she is due for colonoscopy. History of polyps remotely. Would like to see Dr. Brasher No change in bowels. No constipation diarrhea melena or blood Allergies Allergen Reactions Clarithromycin Diarrhea Other reaction(s): Nausea Other reaction(s): Nausea Other reaction(s): Nausea Other reaction(s): Nausea Other Other reaction(s): Nausea Sulfa Antibiotics Nausea And Vomiting Other reaction(s): Nausea Current Outpatient Medications on File Prior to Visit Medication Sig Dispense Refill Acetaminophen (TYLENOL ARTHRITIS PAIN PO) Take 650 mg by mouth daily. ascorbic acid (Vitamin C) 100 MG tablet Take 400 mg by mouth daily. calcium 500 MG tablet Take 500 mg by mouth daily. cetirizine (ZyrTEC) 10 MG tablet Take 10 mg by mouth Daily as needed. montelukast (Singulair) 10 MG tablet take 1 tablet by mouth once daily 90 tablet 1 vdlpmxah-paaexnqef-somRQQSRkftee (Maxitrol) 3.5-95394-3.1 ophthalmic suspension Administer 1 drop into the right eye in the morning and 1 drop at noon and 1 drop in the evening and 1 drop before bedtime. omeprazole (PriLOSEC) [address] capsule Take 20 mg by mouth. [DISCONTINUED] Diclofenac Sodium (Voltaren) 1 % gel Apply 2 g topically 2 times daily. 150 g 1 [DISCONTINUED] meloxicam (Mobic) 7.5 MG tablet Take 1 tablet (7.5 mg) by mouth daily. 30 tablet 11 [DISCONTINUED] mupirocin (Bactroban) 2 % ointment apply SMALL AMOUNT topically to affected area three times a day No current facility-administered medications on file prior to visit. Patient Active Problem List Diagnosis History of meningioma of the brain Family history of colon cancer in mother DDD (degenerative disc disease), cervical Varicosities of leg History of colon polyps Hearing aid worn Family history of colon cancer Allergic rhinitis DDD (degenerative disc disease), lumbosacral GERD (gastroesophageal reflux disease) NSAID long-term use Social History Tobacco Use Smoking status: Never Smokeless tobacco: Never Substance Use Topics Alcohol use: No Alcohol/week: 0.0 standard drinks of alcohol Past Surgical History: Procedure Laterality Date APPENDECTOMY 1952 BLADDER REPAIR 1973 BRAIN TUMOR EXCISION 2003 benign tumor CARDIAC CATHETERIZATION 1991 neg per [facility] CATARACT EXTRACTION Bilateral 2017 CHOLECYSTECTOMY 2019 ERCP and Sphincterotomy-Dr. Garcias COLONOSCOPY 06/2018 neg per [place]- int hem COLONOSCOPY 2016 christin COLONOSCOPY W/ POLYPECTOMY 2013 polyps HEMORRHOID SURGERY 2007 PARTIAL HYSTERECTOMY 1973 unilat SO UPPER GASTROINTESTINAL ENDOSCOPY 2012 with dilation UPPER GASTROINTESTINAL ENDOSCOPY 2017 neg per [place] Family History Problem Relation Name Age of Onset Colon cancer Mother age 45- ? [employer] [place] Ulcers Mother Prostate cancer Father Ed Cutlip Heart disease Father Ed Cutlip MS at age 77 Lung cancer Sister Probable lung cancer with brain met, age 72 in 11/14 Heart disease Sister Kinjal Congenital heart Heart attack Brother age 77 Heart disease Father's Sister 50 sudden cardiac Objective: BP (!) 150/80 (BP Location: Left arm, Patient Position: Sitting, BP Cuff Size: Large adult) Pulse84 Temp 37 C (98.6 F) (Temporal) Ht 5' 3" (1.6 m) Wt 165 lb (74.8 kg) SpO2 99% BMI 29.23 kg/m Physical Exam Besides blood pressure elevation noted exam is unremarkable. Normal eardrums and oropharynx. No thyroid or neck masses. No carotid bruits or adenopathy. Reflexes normal. Heart is regular without change in mild aortic stenotic murmur. Lungs are clear. Abdomen soft nontender without pain hepatosplenomegaly masses or bruits. No ascites. Femoral and pedal pulses well. Fair hip and knee range of motion. No appreciable leg edema documented in this [facility]05-28-2024 Telephone encounter Note* Telephone Encounter - Miriam Mcmanus MA - 09/25/2023 2:53 PM EDT Recent Visits Date Type Provider Dept 09/17/23 Office Visit Samantha Torres PA-C [facility] 03/01/23 Office Visit Samantha Torres PA-C [facility] Showing recent visits within past 365 days and meeting all other requirements Future Appointments No visits were found meeting these conditions. Showing future appointments within next 90 days and meeting all other requirements Requested Prescriptions Pending Prescriptions Disp Refills montelukast (Singulair) 10 MG tablet [Pharmacy Med Name: MONTELUKAST SOD 10 MG TABLET] 30 tablet 5 Sig: take 1 tablet by mouth once daily Provider: Earl Mora DO Verified pharmacy: yes Verified day(s) supplied: yes Verified refill(s) needed (previous prescription showing no refills in chart): Yes Have you received any controlled medications from any other provider? N/A Overdue for visit: No If yes - patient scheduled? Yes Most recent labs completed in chart? N/A [id number] Miscellaneous Notes* Telephone Encounter - Miriam Mcmanus MA - 09/25/2023 2:53 PM EDT Recent Visits Date Type Provider Dept 09/17/23 Office Visit Samantha Torres PA-C [facility] 03/01/23 Office Visit Samantha Torres PA-C [facility] Showing recent visits within past 365 days and meeting all other requirements Future Appointments No visits were found meeting these conditions. Showing future appointments within next 90 days and meeting all other requirements Requested Prescriptions Pending Prescriptions Disp Refills montelukast (Singulair) 10 MG tablet [Pharmacy Med Name: MONTELUKAST SOD 10 MG TABLET] 30 tablet 5 Sig: take 1 tablet by mouth once daily Provider: Earl Mora DO Verified pharmacy: yes Verified day(s) supplied: yes Verified refill(s) needed (previous prescription showing no refills in chart): Yes Have you received any controlled medications from any other provider? N/A Overdue for visit: No If yes - patient scheduled? Yes Most recent labs completed in chart? N/A documented in this encounterSUniversity Hospitals St. John Medical [id number] Evaluation + Plan note* Assessment & Plan Note - Samantha Torres PA-C - 09/17/2023 12:16 PM EDT Associated Problem(s): NSAID long-term use - Chronic stable polyarthralgias primarily knees responding well to Voltaren topical and oral meloxicam 7.5mg daily [facility] [id number] Miscellaneous Notes* Assessment & Plan Note - Samantha Torres PA-C - 09/17/2023 12:16 PM EDTAssociated Problem(s): NSAID long-term use - Chronic stable polyarthralgias primarily knees responding well to Voltaren topical and oral meloxicam 7.5mg daily * Assessment & Plan Note - Samantha Torres PA-C - 09/17/2023 12:15 PM EDT Associated Problem(s): History of meningioma of the brain - History of meningioma with previous craniotomy repair resection in 2002 having recurring and persistent worsening headaches x 1 month requesting reevaluation MRI * Assessment & Plan Note - Samantha Torres PA-C - 09/17/2023 12:14 PM EDT Associated Problem(s): GERD (gastroesophageal reflux disease) Chronic and stable continue on omeprazole 20 mg daily. documented in this [facility]05-20-2024 Evaluation + Plan note* Assessment & Plan Note - Samantha Torres PA-C - 09/17/2023 12:15 PM EDT Associated Problem(s): History of meningioma of the brain - History of meningioma with previous craniotomy repair resection in 2002 having recurring and persistent worsening headaches x 1 month requesting reevaluation MRI [facility] [id number] Evaluation + Plan note* Assessment & Plan Note - Samantha Torres PA-C - 09/17/2023 12:14 PM EDTAssociated Problem(s): GERD (gastroesophageal reflux disease) Chronic and stable continue on omeprazole 20 mg daily. [facility] [id number] History of Present illness Narrative* Samantha Torres PA-C - 09/17/2023 10:40 AM EDT Images from the original note were not included. [facility] [address] [facility] [id number] Dept: [phone] Dept Chief Complaint: Jaci Porter is an 82 y.o. female here for an annual wellness visit. Assessment/Plan : Problem List Items Addressed This Visit History of meningioma of the brain - History of meningioma with previous craniotomy repair resection in 2002 having recurring and persistent worsening headaches x 1 month requesting reevaluation MRI Relevant Orders MR brain wo contrast GERD (gastroesophageal reflux disease) Chronic and stable continue on omeprazole 20 mg daily. NSAID long-term use - Chronic stable polyarthralgias primarily knees responding well to Voltaren topical and oral meloxicam 7.5mg daily Relevant Orders Comprehensive metabolic panel Other Visit Diagnoses Routine general medical examination at health care facility - Primary I have reviewed and reconciled the medication list with the patient today. Current Outpatient Medications Medication Sig Dispense Refill Acetaminophen (TYLENOL ARTHRITIS PAIN PO) Take 650 mg by mouth daily. ascorbic acid (Vitamin C) 100 MG tablet Take 400 mg by mouth daily. calcium 500 MG tablet Take 500 mg by mouth daily. cetirizine (ZyrTEC) 10 MG tablet Take 10 mg by mouth Daily as needed. Diclofenac Sodium (Voltaren) 1 % gel Apply 2 g topically 2 times daily. 150 g 1 meloxicam (Mobic) 7.5 MG tablet Take 1 tablet (7.5 mg) by mouth daily. 30 tablet 11 montelukast (Singulair) 10 MG tablet Take 1 tablet (10 mg) by mouth daily. 30 tablet 5 mupirocin (Bactroban) 2 % ointment apply SMALL AMOUNT topically to affected area three times a day omeprazole (PriLOSEC) [address] capsule Take 20 mg by mouth. No current facility-administered medications for this visit. Also reviewed during this visit: The following health maintenance schedule was reviewed with the patient and provided in printed form in the after visit summary: Health Maintenance Topic Date Due Bone Density Scan Never done Depression Screening Never done DTaP/Tdap/Td Vaccines (1 - Tdap) Never done Zoster Vaccines (1 of 2) Never done RSV Immunization aged 60 or older (1 - 1-dose 60+ series) Never done COVID-19 Vaccine ( season) Never done Influenza Vaccine (Season Ended) 2023 Pneumococcal Vaccine: 65+ Years Completed RSV Immunization under 20 Months Aged Out HIB Vaccines Aged Out Hepatitis B Vaccines Aged Out IPV Vaccines Aged Out Hepatitis A Vaccines Aged Out Meningococcal Vaccine Aged Out Rotavirus Vaccines Aged Out HPV Vaccines Aged Out List of current healthcare providers: Patient Care Team: Earl Mora DO as PCP - General (Family Medicine) Orders Placed This Encounter Procedures MR brain wo contrast Standing Status: Future Standing Expiration Date: 09/16/2024 Order Specific Question: Is this a [facility] clinic patient? Answer: No Comprehensive metabolic panel Standing Status: Future Number of Occurrences: 1 Standing Expiration Date: 09/16/2024 Review of Systems Constitutional: Negative for chills and fever. HENT: Negative for congestion and sore throat. Respiratory: Negative for cough and shortness of breath. Cardiovascular: Negative for chest pain. Gastrointestinal: Negative for abdominal pain, diarrhea, nausea and vomiting. Genitourinary: Positive for frequency. Negative for difficulty urinating, dysuria and urgency. Musculoskeletal: Positive for arthralgias and back pain. Neurological: Positive for headaches. Negative for dizziness, tremors, speech difficulty, light-headedness and numbness. All other systems reviewed and are negative. Physical Exam Vitals reviewed. Constitutional: General: She is not in acute distress. Appearance: Normal appearance. She is not ill-appearing or toxic-appearing. HENT: Right Ear: Tympanic membrane and ear canal normal. Left Ear: Tympanic membrane and ear canal normal. Mouth/Throat: Mouth: Mucous membranes are moist. Pharynx: No oropharyngeal exudate or posterior oropharyngeal erythema. Eyes: General: No scleral icterus. Conjunctiva/sclera: Conjunctivae normal. Pupils: Pupils are equal, round, and reactive to light. Neck: Vascular: No carotid bruit. Cardiovascular: Rate and Rhythm: Normal rate and regular rhythm. Heart sounds: Normal heart sounds. No murmur heard. Pulmonary: Effort: Pulmonary effort is normal. No respiratory distress. Breath sounds: Normal breath sounds. Abdominal: General: Bowel sounds are normal. There is no distension. Palpations: Abdomen is soft. There is no mass. Tenderness: There is no abdominal tenderness. There is no guarding. Musculoskeletal: Cervical back: Normal range of motion and neck supple. No rigidity or tenderness. Right lower leg: No edema. Left lower leg: No edema. Lymphadenopathy: Cervical: No cervical adenopathy. Skin: General: Skin is warm and dry. Neurological: Mental Status: She is alert. Psychiatric: Mood and Affect: Mood normal. Objective : BP 139/82 Pulse 89 Temp 36.6 C (97.8 F) (Temporal) Ht 5' 3" (1.6 m) Wt 164 lb (74.4 kg) SpO2 99% BMI 29.05 kg/m No results found. Subjective : This is a 82-year-old female with an underlying history of meningioma, degenerative disc disease within her neck hard of hearing with hearing aid devices, low back pain and history of GERD who presents to the office today for her Medicare annual wellness. Review of her chart shows the patient has not had baseline blood work obtained since August 2022. Was started on meloxicam and voltaren approximately 6 months ago reports marked improvement of generalized pain. She states that helped immensely with her knee still has some generalized pain in her knees when she goes from a seated to a standing position but otherwise states pain is much more greatly controlled using the 2 in combination. Health Risk Assessment: General: General In general, how would you say your health is?: Good In the past 7 days, have you experienced any of the following: New or Increased Pain, New or Increased Fatigue, Loneliness, Social Isolation, Stress or Anger?: No Do you get the social and emotional suppport you need?: Yes Health Habits/Nutrition: Health Habits / Nutrition On average, how many days per week do you engage in moderate to strenous exercise (like a brisk walk)?: (!) 0 days On average, how man minutes do you engage in exercise at this level?: (!) 0 min Have you lost any weight without trying in the past 3 months? : No Have you seen the dentist within the past year?: (!) No (has dentures) Interventions: Normal walking, and work in garden and do light housework. Hearing/ Vision: Hearing / Vision Do you or your family notice any trouble with your hearing that hasn't been managed with hearing aids?: No Do you have difficulty driving, watching TV, or doing any of your daily activities because of your eyesight?: No Have you had an eye exam within the past year?: Yes No results found. Safety: Safety Do you have a working smoke detector?: Yes Do you have any tripping hazards - loose or unsecured carpets or rugs?: No Do you have any tripping hazards - clutter in doorways, halls, or stairs?: No Do you have either shower bars, grab bars, non-slip mats or non-slip surfaces in your shower or bathtub? : Yes Do all your stairways have a railing or banister? : Not Applicable Do you fasten your seatbelt when you are in a car?: Yes ADL: ADL In the past 7 days, did you need help from others to perform any of the following everyday activities: Eating, dressing, grooming,bathing, toileting, or walking / balance? : No In the past 7 days, did you need help from others to take care of any of the following: laundry, housekeeping, banking / finances,shopping, telephone use, food preparation, transportation, or taking medications? : No Living Will: Living Will Do you have a living will?: Yes Cognitive: Cognitive Screening: Mini-Cog Clock Drawing Test (CDT): 2 Words Recalled: 3 (used words apple car tonny) Total Score: 5 Total Score Interpretation: Normal Mini-Cog Fall Risk: Fall Risk One or more falls in the last year:: No Advised to use a cane or walker to get around safely:: No Feels unsteady when walking:: No Steadies self on furniture while walking at home:: No Worried about falling:: No Depression Screening: Over the past 2 weeks, how often have you been bothered by any of the following problems? Little interest or pleasure in doing things: Not at all Feeling down, depressed, or hopeless: Not at all Patient Health Questionnaire-2 Score: 0 Interventions: Tobacco Use: Social History Tobacco Use Smoking Status Never Smokeless Tobacco Never Alcohol Use: Audit Alcohol Screening Q1: How often do you have a drink containing alcohol?: Never Q2: How many drinks containing alcohol do you have on a typical day when you are drinking?: Patientdoes not drink Q3: How often do you have six or more drinks on one occasion?: Never Audit-C Score: 0 Skip to questions 9-10?: 1 documented in this [facility]05-20-2024 Instructions* Patient Instructions* Samantha Torres PA-C - 09/17/2023 10:40 AM EDT A bone density, and MRI of your brain has been ordered for you. Central scheduling should reach outto you within the next several days to schedule this appropriately. If you do not hear from centralscheduling within the next several days please do not wait more than 1 week. Reach out to central scheduling to verify that the test has been ordered and to get it scheduled. Their number is [phone]. Personalized Preventative Plan for Jaci Porter - 09/17/2023 Medicare offers a range of preventative health benefits. Some of the tests and screenings are paid in full while others may be subject to a deductible, co- insurance, and / or copay. Some of these benefits include a comprehensive review of your medical history including lifestyle, illnesses that mayrun in your family, and various assessments and screenings as appropriate. After reviewing your medical record and screening and assessments performed today, your provider may have ordered immunizations, labs, imaging, and / or referrals for you. A list of these orders (if applicable) as well as your Preventative Care list are included within your After Visit Summary for your review. Other Preventative Recommendations: A preventive eye exam by an production support specialist is recommended every 1-2 years to screen for glaucoma, cataracts, macular degeneration, and other eye disorders. A preventive dental visit is recommended every 6 months. Try to get at least 150 minutes of exercise per week or 10,000 steps per day on a pedometer. You need 1200-1500mg of calcium and 6329-4372 international units of vitamin D per day. It is possible to meet your calcium requirement with diet alone, but a vitamin D supplement is usually necessary to meet this goal. When exposed to the sun, use a sunscreen that protects against both UVA and UVB radiation with an SPF of 30 or greater. Reapply every 2-3 hours or after sweating, drying off with a towel, or swimming. Always wear a seat belt when traveling in a car. Always wear a helmet when riding a bicycle or a motorcycle documented in this [facility]11-02-2023 History of Present illness Narrative* Samantha Torres PA-C - 03/01/2023 1:20 PM EDT Images from the original note were not included. [facility] [address] [place] [address] [address] [facility] [id number] Dept: [phone] Dept Loc: [phone] Visit type: Established Patient Reason for Visit: hurts all over and Mass (On left wrist area came this wk ) Assessment and Plan 1. Polyarthralgia - DEXA bone density peripheral - meloxicam (Mobic) 7.5 MG tablet; Take 1 tablet (7.5 mg) by mouth daily., Starting Yanna 03/01/2023, Until Sun02/29/2024, Normal - Diclofenac Sodium (Voltaren) 1 % gel; Apply 2 g topically 2 times daily., Starting Yanna 03/01/2023,Normal 2. Other specified disorders of bone density and structure, multiple sites - DEXA bone density peripheral 3. Ganglion cyst of wrist, left Patient was told she had arthritis in the past but she does not believe she was ever told she had osteoporosis or osteoarthritis. She does take a calcium supplementation but she states more so recently she has been reporting increasing "bone pain and arthritic type pain primarily in her hips her back and her shoulders. She is tried Tylenol arthritis and half the dose 3 times a day which does seemto help her symptoms but still having significant mount of pain primarily in her back. She denies any falls or injuries. She has no findings of cauda equina syndrome and she does have difficulty rising from a seated position is no indication for emergent imaging at this point time there is no signsof neurologic deficit. We did discuss use of Voltaren as well as meloxicam she is comfortable with this plan. We will obtain a scan to see if there is any further indications of osteopenia or osteoporosis. Follow up if symptoms worsen or fail to improve, for Next scheduled follow-up. Subjective HPI this is a 82-year-old female with an underlying history of GERD, degenerative disc disease but is otherwise fairly healthy for age takes almost no medications contacted the [facility] a week ago for concerns that she has pain in her joints arms and legs. She states the pain is a "7 out of 10 she has been taking Tylenol arthritis with some relief but she states she is not getting any rest because sheis finding it difficult to ambulate. Baseline blood work was obtained August of this year CMP CBC and a thyroid were all normal. Otherwise patient says she is doing well no acute history of injury trauma or falls. Daughter is at bedside states mom is having a harder time getting around and becoming more functional as of late. Review of Systems Constitutional: Negative for chills and fever. HENT: Negative for congestion and sore throat. Respiratory: Negative for cough and shortness of breath. Cardiovascular: Negative for chest pain. Gastrointestinal: Negative for abdominal pain, diarrhea, nausea and vomiting. Genitourinary: Negative for difficulty urinating, dysuria, frequency and urgency. Musculoskeletal: Positive for arthralgias and gait problem. Negative for back pain, joint swelling,myalgias and neck pain. Neurological: Negative for dizziness and light-headedness. All other systems reviewed and are negative. Allergies Allergen Reactions Clarithromycin Diarrhea Other reaction(s): Nausea Other reaction(s): Nausea Other reaction(s): Nausea Other reaction(s): Nausea Other Other reaction(s): Nausea Sulfa Antibiotics Nausea And Vomiting Other reaction(s): Nausea Outpatient Medications Prior to Visit Medication Sig Dispense Refill Acetaminophen (TYLENOL ARTHRITIS PAIN PO) Take 650 mg by mouth daily. ascorbic acid (Vitamin C) 100 MG tablet Take 400 mg by mouth daily. calcium 500 MG tablet Take 500 mg by mouth daily. cetirizine (ZyrTEC) 10 MG tablet Take 10 mg by mouth Daily as needed. omeprazole (PriLOSEC) [address] capsule Take 20 mg by mouth. montelukast (Singulair) 10 MG tablet Take 1 tablet (10 mg) by mouth daily. (Patient not taking: Reported on 03/01/2023) 30 tablet 5 mupirocin (Bactroban) 2 % ointment apply SMALL AMOUNT topically to affected area three times a day No facility-administered medications prior to visit. Past Medical History: Diagnosis Date Allergic rhinitis Kim figueroa 2007 DDD (degenerative disc disease), cervical DDD (degenerative disc disease), lumbosacral Family history of colon cancer in mother age 45 GERD (gastroesophageal reflux disease) 2018 EGD per Patricia, negative H/O colonoscopy 2016 and 07/16 small polyps- Christin/ Patricia- ? need to repeat H/O meningioma of the brain 03/2003 right side ([place]) - neg MRI 11/13 Hearing aid worn 2016 MVP (mitral valve prolapse) Right carotid bruit Varicosities of leg 2018 Social History Tobacco Use Smoking status: Never Smokeless tobacco: Never Substance Use Topics Alcohol use: No Alcohol/week: 0.0 standard drinks of alcohol Past Surgical History: Procedure Laterality Date APPENDECTOMY 1952 BLADDER REPAIR 1973 BRAIN TUMOR EXCISION 2002 benign tumor CARDIAC CATHETERIZATION 1990 neg per Rangel CATARACT EXTRACTION Bilateral 2017 CHOLECYSTECTOMY 04/2019 ERCP and Sphincterotomy-Dr. Garcias COLONOSCOPY 06/2018 neg per Patricia- int hem COLONOSCOPY 07/2016 christin COLONOSCOPY 2014 polyps HEMORRHOID SURGERY 2007 PARTIAL HYSTERECTOMY 1973 unilat SO UPPER GASTROINTESTINAL ENDOSCOPY 12/2012 with dilation UPPER GASTROINTESTINAL ENDOSCOPY 11/2017 neg per Patricia Family History Problem Relation Name Age of Onset Colon cancer Mother age 45 Other (02797) Mother PUD Prostate cancer Father Heart disease Father MS at age 77 Lung cancer Sister Probable lung cancer with brain met, age 72 in 11/14 Heart disease Sister Congenital heart Heart attack Brother age 77 Heart disease Father's Sister 50 sudden cardiac Objective BP 138/52 (BP Location: Left arm, Patient Position: Sitting, BP Cuff Size: Large adult) Pulse 83 Temp 36.6 C (97.8 F) (Temporal) Ht 5' 3" (1.6 m) Wt 164 lb (74.4 kg) SpO2 98% BMI 29.05 kg/m Physical Exam Vitals reviewed. Constitutional: General: She is not in acute distress. Appearance: Normal appearance. She is not ill-appearing or toxic-appearing. Eyes: General: No scleral icterus. Conjunctiva/sclera: Conjunctivae normal. Pupils: Pupils are equal, round, and reactive to light. Cardiovascular: Rate and Rhythm: Normal rate and regular rhythm. Heart sounds: Normal heart sounds. Pulmonary: Effort: Pulmonary effort is normal. No respiratory distress. Breath sounds: Normal breath sounds. Musculoskeletal: General: Normal range of motion. Cervical back: Normal range of motion and neck supple. Comments: Difficulty with rising from a seated position but otherwise negative straight leg raise negative cross leg raise does have some mild arthritic appearance of the knees left greater than right visible signs of injury or trauma or infection. Skin: General: Skin is warm and dry. Neurological: Mental Status: She is alert. Psychiatric: Mood and Affect: Mood normal. Data Reviewed and Summarized Labs: Imaging/Testing: Samantha Torres PA-C 03/01/2023 Please note that portions of this note may have been completed with voice recognition software. Documentation reviewed prior to signing but minor errors in cot assembler may have occurred. documented in this encounterSUniversity Hospitals St. John Medical [id number] Telephone encounter Note* Telephone Encounter - Ester Anaya RN - 02/22/2023 3:37 PM EDT S: Patient called the clinical access center with complaint of pain in joints, legs, arms B: Ongoing several weeks. Last OV 09.13.22 A: Patient c/o pain in joints, legs, arms. 11/06. Patient is taking Tylenol Arthritis with some relief. Patient is not getting rest. Difficulty ambulating is increasing. R: Appointment scheduled 11..23 @ 1320 with Radha Torres PA-C. Insurance verified. Home care advice provided. Patient instructed to call back with worsening symptoms, concerns or questions. Patient verbalized understanding. Reason for Disposition Patient wants to be seen Protocols used: Leg [id number] [facility] [id number] Miscellaneous Notes* Telephone Encounter - Ester Anaya RN - 02/22/2023 3:37 PM EDT S: Patient called the clinical access center with complaint of pain in joints, legs, arms B: Ongoing several weeks. Last OV 09.13.22 A: Patient c/o pain in joints, legs, arms. 710. Patient is taking Tylenol Arthritis with some relief. Patient is not getting rest. Difficulty ambulating is increasing. R: Appointment scheduled 11..23 @ 1320 with Radha Torres PA-C. Insurance verified. Home care advice provided. Patient instructed to call back with worsening symptoms, concerns or questions. Patient verbalized understanding. Reason for Disposition Patient wants to be seen Protocols used: Leg [id number] documented in this [facility]05-04-2023 Telephone encounter Note* Telephone Encounter - Katherine Cardona LPN - 08/31/2022 10:00 AM EDT Rx loaded Last ov 01/05/23 Next ov 09/13/22 [id number] Miscellaneous Notes* Telephone Encounter - Katherine Cardona LPN - 08/31/2022 10:00 AM EDT Rx loaded Last ov 01/05/23 Next ov 09/13/22 * Telephone Encounter - Ruthann Gonzales - 08/31/2022 8:40 AM EDT Ordering provider: Dr. Mora Date of last office visit: Date of next office visit: 09/13/22 Updated/Validated preferred pharmacy: Yes Patient instructed to contact the pharmacy prior to picking up the medication: Yes (1) Medication name: montelukast (SINGULAIR) 10 MG tablet Medication dosage: 10 mg tablet Monthly quantity needed: 30 How many day supply requestin days Medication route: oral (PO) Medication administration time(s): daily If taking medication PRN, reason for taking medication: N/A If this is a controlled substance do you receive this or any other controlled medication from any other doctor or facility: No Date of last refill (see medication tab): 05/24/21 documented in this [facility]05-04-2023 Telephone encounter Note* Telephone Encounter - Ruthann Gonzales - 08/31/2022 8:40 AM EDT Ordering provider: Dr. Mora Date of last office visit: Date of next office visit: 09/13/22 Updated/Validated preferred pharmacy: Yes Patient instructed to contact the pharmacy prior to picking up the medication: Yes (1) Medication name: montelukast (SINGULAIR) 10 MG tablet Medication dosage: 10 mg tablet Monthly quantity needed: 30 How many day supply requestin days Medication route: oral (PO) Medication administration time(s): daily If taking medication PRN, reason for taking medication: N/A If this is a controlled substance do you receive this or any other controlled medication from any other doctor or facility: No Date of last refill (see medication tab): [facility]i [facility] Note Date/Time September 04, 2024 10:58a m [facility] Medical Records Department [address] [place] [address] Emergency Department Summary 09/04/24 MR#: [id number] Acct: [id number] Name: JACI PORTER Rep #:[id number] : 1940 83 From: Andrei Rios MD PCP: Dr. Earl Mora, DO Status:RE G ER Location: ED HPI History of Present Illness Chief Complaint: Shortness of Breath Narrative Narrative: 83-year-old female presents with her daughter because of not feeling well, shortness of breath with cough. Patient relates history that approximately 2 weeks ago she started out having a sinus infection. She was put on Augmentin. She started having cough as well with subjective fever. She states that chest x-ray was performed and that she was told she had the beginnings of pneumonia soa Z-Robbie was added. She saw her primary care provider, and was put on Levaquin recently. She took her second dose last night, and experienced facial redness. She feels she may be having a reaction to her third antibiotic. She states thatshe was told that if she is not feeling better, that she should come to the emergency department. Patient states that last night she slept in her recliner because she was not feeling well. [facility] Medical History Wears hearing aid Wears glasses Wears partial dentures Wears dentures Post-menopausal Bladder disease Arthritis Back pain Migraine headache Difficulty swallowing Non-smoker History of edema History of stress test Hypertension Osteoarthritis Chronic back pain GERD (gastroesophageal reflux disease) Home Medications ?Medication ?Instructions ?Recorded ?Last Taken ?Type calcium 600 mg (as 1 ea PO DAILY 08/07/1508/06 08:30 History carbonate)-vitamin D3 10 mcg (400 unit) tablet omeprazole 40 mg capsule,delayed 20 mg PO DAILY 04/18/24 History release ascorbate calcium (vitamin C) 500 500 mg PO DAILY 12/17 Unknown History mg tablet meloxicam 7.5 mg tablet 7.5 mg PO DAILY 06/22/23 Unk nown History carvedilol 6.25 mg tablet 6.25 mg PO BID BP 04/16/24 1 06/19/23 History lisinopril 5 mg tablet 5 mg PO QDAY 08/23/24 Unknow n History mecobalamin (vitamin B12) 500 mcg mcg PO 08/23/24 Unkn own History chewable tablet montelukast 10 mg tablet 10 mg PO QDAY 08/23/24 Unkno wn History azithromycin 250 mg tablet See Rx Instructions PO .COM PLEX #6 08/27/24 Unknown Rx tabs albuterol sulfate 90 mcg/actuation 1 - 2 puff inhalati on Q4H PRN PRN 09/04/24 Unknown Rx aerosol inhaler (Ventolin HFA) Wheezing #1 ea Allergy/AdvReac Type Severity Reaction Status Date / Time clarithromycin (From Biaxin) AdvReac Nausea Verified 09/04/24 08:55 Sulfa (Sulfonamide AdvReac Nausea Verified 09/04/24 08:55 Antibiotics) Family History Father Heart disease Thyroid disorder goiter Mother Cancer stomach Surgical History History of ERCP History of craniotomy History of cholecystectomy (~04/2019) History of colonoscopy (~06/2018) S/P hemorrhoidectomy S/P appendectomy S/P partial hysterectomy S/P cardiac catheterization S/P colonoscopy Social History (Updated 09/04/24 @ 09:35 by Jayson Bach) household members: spouse housing: house Smoking Status: Never smoker alcohol intake: never substance use type: does not use additional social history: no aspirin no ibuprofen ROS ROS ED ROS Narrative Review of systems positive for subjective fever, cough with sputum production, mild shortness of breath. No chest pain. No leg swelling. She has been treated for sinusitis and postnasal drip as well. EXAM Physical Exam Narrative Exam Narrative: Afebrile. Vital signs noted. Nontoxic-appearing. Ambulatory to room. HEENT examination grossly unremarkable. Cardiovascular examination regular rate and rhythm. Occasional expiratory wheeze right base greater than left. Abdomen soft nontender with normoactive bowel sounds. No pedal edema. Neurological examination nonfocal, nonlateralizing. Const Vital Signs: 09/04/24 08:55 09/04/24 09:21 09/04/24 09:34 Temperature 98.9 F 98.3 F Temperature Source Temporal Oral Pulse Rate 79 79 79 Respiratory Rate 14 16 12 Respiratory Effort Respiratory Depth Respiratory Pattern Blood Pressure 165/89 H 117/69 Blood Pressure Mean 114 85 Pulse Ox 98 96 Oxygen Delivery Method Room Air Room Air 09/04/24 09:34 09/04/24 09:34 Temperature Temperature Source Pulse Rate Respiratory Rate Respiratory Effort Normal Non-Labored Respiratory Depth Normal Respiratory Pattern Normal Blood Pressure Blood Pressure Mean Pulse Ox 100 Oxygen Delivery Method Room Air Room Air MDM MDM MDM Narrative Medical decision making narrative: Differential diagnosis includes but not limited to bronchitis versus worsening pneumonia versus pneumothorax. History and physical does not support pneumothorax. Pulse ox 98% on room air without evidence of hypoxia. CHF would also be in the differential versus undiagnosed COPD. Comprehensive workup was pursued. She was given albuterol aerosolized treatment. She states that she was started on levofloxacin and prednisone, but is not currently using an inhaler. EKG obtained and interpreted by myself independently as normal sinus rhythm at 70 bpm without ectopy or acute ST changes. No STEMI. No significant change from EKG in December 2023 when compared. I reviewed her laboratory work and she has normal white count of 9.2 with hemoglobin 12.1, platelet count normal at262. Electrolyte panel grossly unremarkable. BNP 382. Chest x-ray in 2 views interpreted by myself independently shows no pneumothoraxor pneumonia. I reviewed the radiology report which confirms my independent interpretation. Repeat examination after aerosolized treatment shows no expiratory wheezing, moving a good amount of air. However, she states that she really did not feel a difference. She is already on steroids. She had redness and a reaction to the Levaquin. She has already taken Augmentin and azithromycin so I do not feel that she requires more antibiotics and was told todiscontinue use of the Levaquin and perhaps avoid its use in the future if she was having a reaction. I do not feel that she has anaphylaxis or requires epinephrine currently. She is stable. She was written a prescription for an albuterol inhaler to use 1 to 2 puffs inhaled every 4-6 hours as needed, and shewill continue the prednisone that she was given. At this point in time, I do not feel she requires observation or hospitalization. I feel she can be discharged to follow-up with her primary care provider with diagnosis of bronchitis. She was told that she could cough for up to a month, and states that she has a chronic cough regardless. Disposition is discharged home in stable condition. History & Record Review Discussion w/independent historian: Patient and Family Lab Data Attestation: I reviewed the patient's lab results. Labs: Laboratory Results - last 24 hr 09/04/24 09:19 WBC 9.2 RBC 3.97 L Hgb 12.1 Hct 34.7 L MCV 87.4 MCH 30.5 MCHC 34.9 RDW Std Deviation 38.9 RDW Coeff of Haresh 12.1 Plt Count 262 MPV 9.3 Immature Gran % (Auto) 0.800 Neut % (Auto) 77.1 H Lymph % (Auto) 12.9 L Hettinger % (Auto) 9.0 Eos % (Auto) 0.0 Baso % (Auto) 0.2 Absolute Neuts (auto) 7.1 Absolute Lymphs (auto) 1.19 Nucleated RBC % 0 Sodium 140 Potassium 3.6 Chloride 106 Carbon Dioxide 23.3 Anion Gap 10 BUN 19 Creatinine 0.81 Estim Creat Clear Calc 50.84 Est GFR (MDRD) Non-Af 72 BUN/Creatinine Ratio 22.8 H Glucose 110 H Calcium 9.2 NT pro BNP II 382 Radiography Chest X-Ray - ED: 2 View, Read by ED Physician, Read by Radiologist and No Infiltrates Diagnostic Testing: Clinical Impression(s) from Imaging Studies Chest X-Ray 09/04/24 09:40 IMPRESSION: No acute cardiopulmonary process. Electronically Signed By: Mac Head 09/04/2024 10:14 Reading Location: [facility] Discharge Plan Triage Chief Complaint: Shortness of Breath ED Provider: Andrei Rios Dx/Rx/DC Orders Clinical Impression: Bronchitis, Medication reaction Instructions: ED Bronchitis, No Antibiotic (Adult) Prescriptions: New albuterol sulfate [Ventolin HFA] 90 mcg/actuation HFA aerosol inhaler 1 - 2 puff inhalation Q4H PRN PRN (Reason: Wheezing) Qty: 1 0RF No Action ascorbate calcium (vitamin C) 500 mg tablet 500 mg PO DAILY meloxicam 7.5 mg tablet 7.5 mg PO DAILY Patient Comments: take 1 tablet by mouth once daily montelukast 10 mg tablet 10 mg PO QDAY lisinopril 5 mg tablet 5 mg PO QDAY mecobalamin (vitamin B12) 500 mcg tablet,chewable PO azithromycin 250 mg tablet See Rx Instructions PO .COMPLEX Qty: 6 0RF Rx Instructions: For 250 mg dose pack: take 500 mg today (day 1), then 250 mg for 4 days (days2- 5) PO omeprazole 40 MG capsule 20 mg PO DAILY Patient Comments: acid refulux calcium carbonate-vitamin D3 1 EACH tablet 1 ea PO DAILY Patient Comments: bone health carvedilol 6.25 mg tablet 6.25 mg PO BID Primary Care Provider: Earl Mora Referrals: Earl Mora DO [Primary Care Provider] - 3-5 Days Activity Restrictions/Additional Instructions: Avoid use of Levaquin. You have already taken Augmentin and azithromycin. Follow-up with your primary care provider. Use albuterol inhaler 1 to 2 puffs inhaled every 4-6 hours for shortness of breath. Return with difficulty breathing, new or worsening symptoms. Print Language: Egyptian Disposition Disposition: Home, Self Care What to do if you have Problems For any increased pain, shortness of breath, bleeding, nausea or vomiting, chestpain, or any unexpected problems, contact your Primary Care Provider. Call [facility] ([phone]) or report to the closest Emergency Room. Call 911 if necessary. 09/04/24 1058 <Electronically signed by Andrei Rios MD> Cosigner Signature (if applicable): CC: Dr. Earl Mora DO ~ Signed [facility] Work Phone: Evaluation note* Diagnosis Neck pain Cervicalgia documented in this encounter [facility] Work Phone: Evaluation note* Diagnosis Nonintractable headache, unspecified chronicity pattern, unspecified headache type Personal history of other benign neoplasm History of meningioma Personal history of other specified diseases documented in this encounter [facility] Work Phone: Evaluation note* Diagnosis Cervical disc disease Other and unspecified disc disorder of cervical region Neck pain Cervicalgia documented in this encounter [facility] Work Phone: Evaluation note* Diagnosis Right upper quadrant pain Abdominal pain, right upper quadrant Right upper quadrant abdominal pain Abdominal pain, right upper quadrant documented in this encounter [facility] Work Phone: Evaluation noteNo assessment information available [facility] Work Phone: Evaluation note* Diagnosis Polyarthralgia- Primary Pain in joint, multiple sites Other specified disorders of bone density and structure, multiple sites Ganglion cyst of wrist, left documented in this encounter [facility] [employer] note* Diagnosis Onset Date Resolution Status UTI (urinary tract infection) acute [facility] Work Phone: Evaluation note* Diagnosis Onset Date Resolution Status UTI (urinary tract infection) acute Left lower quadrant pain acu te [facility] Work Phone: Evaluation note* Diagnosis Routine general medical examination at health care facility- Primary Routine general medical examination at a health care facility History of meningioma of the brain NSAID long-term use Encounter for long-term (current) use of non-steroidal anti-inflammatories Gastroesophageal reflux disease without esophagitis Esophageal reflux documented in this encounter [facility] [employer] note* Diagnosis Labile essential hypertension- Primary Arthralgia of both knees Seasonal allergic rhinitis due to pollen NSAID long-term use Encounter for long-term (current) use of non-steroidal anti-inflammatories Gastroesophageal reflux disease without esophagitis Esophageal reflux History of colon polyps documented in this encounter [facility] [employer] note* Diagnosis Gastroesophageal reflux disease without esophagitis Esophageal reflux History of colon polyps Colon cancer screening Special screening for malignant neoplasms, colon documented in this encounter [facility] [employer] note* Diagnosis Routine general medical examination at health care facility- Primary Routine general medical examination at a health care facility History of meningioma of the brain NSAID long-term use Encounter for long-term (current) use of non-steroidal anti-inflammatories Gastroesophageal reflux disease without esophagitis Esophageal reflux Polyuria- Primary [facility] examination at [facility]- Primary Routine general medical examination at a [facility] History of meningioma of the brain NSAID long-term use Encounter for long-term (current) use of non-steroidal anti-inflammatories Gastroesophageal reflux disease without esophagitis Esophageal reflux Essential hypertension- Primary Unspecified essential hypertension Polyuria Gastroesophageal reflux disease without esophagitis Esophageal reflux Dysphagia, unspecified type [facility] Diagnosis Routine general medical examination at [facility]- Primary Routine general medical examination at a [facility] History of meningioma of the brain NSAID long-term use Encounter for long-term (current) use of non-steroidal anti-inflammatories Gastroesophageal reflux disease without esophagitis Esophageal reflux Essential hypertension Unspecified essential hypertension [facility] Routine general medical examination at [facility]- Primary Routine general medical examination at a [facility] History of meningioma of the brain NSAID long-term use Encounter for long-term (current) use of non-steroidal anti-inflammatories Gastroesophageal reflux disease without esophagitis Esophageal reflux Essential hypertension- Primary Unspecified essential hypertension Gastroesophageal reflux disease without esophagitis Esophageal reflux [facility] Diagnosis Routine general medical examination at [facility]- Primary Routine general medical examination at a [facility] History of meningioma of the brain NSAID long-term use Encounter for long-term (current) use of non-steroidal anti-inflammatories Gastroesophageal reflux disease without esophagitis Esophageal reflux Essential hypertension- Primary Unspecified essential hypertension Gastroesophageal reflux disease without esophagitis Esophageal reflux Essential hypertension- Primary Unspecified essential hypertension NSAID long-term use Encounter for long-term (current) use of non-steroidal anti-inflammatories Gastroesophageal reflux disease without esophagitis Esophageal reflux History of pneumonia Personal history of pneumonia (recurrent) Recurrent sinus infections Unspecified sinusitis (chronic) Arthralgia of both knees Degeneration of intervertebral disc of lumbosacral region with discogenic back pain [facility] Routine general medical examination at [facility]- Primary Routine general medical examination at a [facility] History of meningioma of the brain NSAID long-term use Encounter for long-term (current) use of non-steroidal anti-inflammatories Gastroesophageal reflux disease without esophagitis Esophageal reflux Essential hypertension- Primary Unspecified essential hypertension Gastroesophageal reflux disease without esophagitis Esophageal reflux History of pneumonia Personal history of pneumonia (recurrent) [facility] Diagnosis Routine general medical examination at health care facility- Primary Routine general medical examination at a [facility] History of meningioma of the brain NSAID long-term use Encounter for long-term (current) use of non-steroidal anti-inflammatories Gastroesophageal reflux disease without esophagitis Esophageal reflux Essential hypertension- Primary Unspecified essential hypertension Gastroesophageal reflux disease without esophagitis Esophageal reflux Essential hypertension- Primary Unspecified essential hypertension [facility] Diagnosis Routine general medical examination at health care facility- Primary Routine general medical examination at a [facility] facility History of meningioma of the brain NSAID long-term use Encounter for long-term (current) use of non-steroidal anti-inflammatories Gastroesophageal reflux disease without esophagitis Esophageal reflux Essential hypertension- Primary Unspecified essential hypertension Gastroesophageal reflux disease without esophagitis Esophageal reflux Arthralgia of both knees documented [facility]* Diagnosis Routine general medical examination at health care facility- Primary Routine general medical examination at a [facility] History of meningioma of the brain NSAID long-term use Encounter for long-term (current) use of non-steroidal anti-inflammatories Gastroesophageal reflux disease without esophagitis Esophageal reflux Essential hypertension- Primary Unspecified essential hypertension Gastroesophageal reflux disease without esophagitis Esophageal reflux Arthralgia of both knees [facility] Diagnosis Onset Date Resolution Status Admit Date Impetigo acute February 14, 2025 9:25am Sinusitis acute February 14, 2025 9:25am [facility] Work Phone: Progress note Author Kings Hwang [facility] Note Date/Time February 14, 2025 1 0:44am [facility] [address], [address] [place] [address] OFFICE VISIT Date of Service: 02/14/25 MR#: [id number] Acct: [id number] Name: JACI PORTER Rep #: [id number] : 1940 Provider: NIGEL Kingston Age/Sex: 84/F Location: [facility] Status: Signed Intake Vital Signs 11/21/24 13:10 02/14/25 09:30 Height 5 ft 3 in BP 148/62 H Blood Pressure Location Lt brachial Position Sitting Respiration 16 Pulse 78 Pulse Source NIBP Temp 97.9 F Temp Source Oral Pulse Oximetry (%) 98 Oxygen Delivery Method room air Intake Visit Reasons: CONCERN FOR SINUS INFECTION Chief Complaint: ROSAS, face/eye pain, drainage Service Tester Required: No Is patient in pain?: Yes Allergies clarithromycin (From Biaxin) Adverse Reaction (Verified 02/14/25 09:31) Nausea Sulfa (Sulfonamide Antibiotics) Adverse Reaction (Verified 02/14/25 09:31) Nausea Medications ?Medication ?Instructions ?Recorded ?Confirmed ?Type calcium 600 mg (as 1 ea PO DAILY 08/07/1508/23 History carbonate)-vitamin D3 10 mcg (400 unit) tablet omeprazole 40 mg capsule,delayed 20 mg PO DAILY 08/23/24 History release ascorbate calcium (vitamin C) 500 500 mg PO DAILY 12/1708/23/24 History mg tablet meloxicam 7.5 mg tablet 7.5 mg PO DAILY 06/22/23 History carvedilol 6.25 mg tablet 6.25 mg PO BID BP 04/16/24 0 08/23/24 History lisinopril 5 mg tablet 5 mg PO QDAY 08/23/24 History mecobalamin (vitamin B12) 500 mcg mcg PO 08/23/2407/30 History chewable tablet montelukast 10 mg tablet 10 mg PO QDAY 08/23/2408/23 History albuterol sulfate 90 mcg/actuation 1 - 2 puff inhalati on Q4H PRN PRN 09/04/24 Rx aerosol inhaler (Ventolin HFA) Wheezing #1 ea amoxicillin 875 mg tablet 875 mg PO BID 7 days #14 tab s 02/14/25 02/14/25 Rx mupirocin 2 % topical ointment 1 applic topical TID 7 days #15 02/14/25 02/14/25 Rx (Centany) grams Is last menstrual period known: No Post menopausal: Yes Patient : No Have you fallen in the past year?: No Nurse's Note: ROSAS, face/eye pain, drainage x 3 days. hx frequent sinus infections, feels same. declines viral testing. [facility] Medical History Wears hearing aid Wears glasses Wears partial dentures Wears dentures Post-menopausal Bladder disease Arthritis Back pain Migraine headache Difficulty swallowing Non-smoker History of edema History of stress test Hypertension Osteoarthritis Chronic back pain GERD (gastroesophageal reflux disease) Surgical History History of ERCP History of craniotomy History of cholecystectomy (~04/2019) History of colonoscopy (~06/2018) S/P hemorrhoidectomy S/P appendectomy S/P partial hysterectomy S/P cardiac catheterization S/P colonoscopy Family History Father Heart disease Thyroid disorder goiter Mother Cancer stomach Social History household members: spouse housing: house Smoking Status: Never smoker alcohol intake: never substance use type: does not use additional social history: no aspirin no ibuprofen HPI HPI Chief Complaint: ROSAS, face/eye pain, drainage Details: JACI PORTER, is a 84 F who presents to the office today for evaluation of URI symptoms. Patient states that over the past 3-4 days she has been experiencing headaches, nasal congestion, sinus pain, and nasal discharge. Patient states that she has a history of recurrent sinusitis for which she was last treated approximately 6 months ago. She states that she is limited in regards to OTC treatment options due to current medication regimen and inability to use nasal sprays/rinses, currently patient is utilizing OTC Zyrtec and acetaminophen for symptom relief with little improvement. Patient denies recent contact with otherindividuals with similar symptoms. Patient also notes concern for a sore on the inner aspect of her left nares, she would like this evaluated since it does not seem to be improving with use of OTC Triple Antibiotic Ointment. ROS Const Constitutional: Positive for headache(s); No chills, fever(s) or weakness Eyes Eyes: Positive for eye pain; No irritation or discharge ENT ENT: Positive for nasal congestion, sinus pressure, sinus pain, nasal discharge and headache(s); No ear or mastoid pain or sore throat Resp Respiratory: Positive for cough; No chest congestion, excessive phlegm production, shortness of breath or wheezing Cardio Cardiology: No chest pain at rest, chest pain with exertion, dyspnea on exertion, irregular heart rhythm or palpitations Neuro Neurology: Positive for headache(s); No dizziness, weakness or tremor(s) Aller/Imm Allergy/Immunologic: No seasonal allergy symptoms or wheezing Exam Const General: cooperative and no acute distress HENMT Ears: external ears normal and TM's normal bilaterally Nose: mucous membranes and turbinates abnormal boggy bilaterally and nasal discharge other (non-purulent mucoid) Face and sinus: sinus tenderness frontal and maxillary Mouth: oral mucosae normal Throat: posterior oropharynx normal Eyes Conjunctivae: conjunctivae normal Sclera: sclerae normal Neck Lymphatic: no lymphadenopathy noted Resp Auscultation: Bilateral: Clear to Auscultation Cardio Rate: regular rate Rhythm: regular rhythm Heart Sounds: S1 normal and S2 normal Coding Level of Care Code Established Pt Off vis,est,level 3 Patient Type Established History Expanded Problem Focused Exam Expanded Problem Focused Medical Decision Making Moderate Complexity Diagnoses Acute sinusitis, recurrence not specified, unspecified location J01.90 Sinusitis location: unspecified location Chronicity: acute Recurrence: not specified as recurrent Impetigo L01.00 Assessment and Plan Assessment and Plan (1) Sinusitis: Status: Acute Qualifiers: Sinusitis location: unspecified location Chronicity: acute Recurrence:not specified as recurrent Qualified Code(s): J01.90 - Acute sinusitis, unspecified Plan: Discussed appropriate timing for initiating treatment for sinusitis (14 days from symptom onset) however due to history of recurrent infection will provide Rx at this time for management. Patient will utilize OTC treatment options as discussed in office and if no improvement of symptoms in 3-5 days begin empiric Abx treatment. F/u with PCP or [facility] with persistent or worsening despite treatment. Patient voiced understanding and agreement with plan. (2) Impetigo: Status: Acute Plan: Skin care reviewed, treat as indicated below. If persistent or worsening f/u with PCP or back in the [facility] for reevaluation. Patient voiced understanding and agreement with plan. Medications: New amoxicillin 875 mg PO BID 14 tabs 0RF 7 days mupirocin 2% (Centany) 1 applic topical TID 15 grams 0RF 7 days Clinical Quality Measures Falls Risk Screening/Assistive Devices Have you fallen in the past year?: No 02/14/25 0952 <Electronically signed by Kings MANNING> Date _ Kings MANNING Cosigner Signature: Date (if applicable) CC: ~ [facility] Work Phone: Reason for referral (narrative)* Consultation (Routine) - Pending Review Specialty Diagnoses / Procedures Referred By Kelly mejias Referred To Contact Gastroenterology Diagnoses Gastroesophageal reflux disease without esophagitis History of colon polyps Colon cancer screening Procedures [facility] OFFICE/OUTPATIENT [facility] HIGH MDM 60 MINUTES Earl Mora DO [address] [place] [address] [place] [address] Referral ID Status Reason Start Date Expiration Date Visits Requested Visits Authorized [id number] Pending Review Specialty Services Required 4 02/17/2025 1 1 [facility]No reason for referral information [facility]WSouthwest [facility] Work Phone: Summary Purpose Family History Relationship Condition Age at Onset Recorded Date/T vivienne father Cardiac disease Unknown Disorder of thyroid Unknown mother Malignant neoplasm Unknown Advance Directives Documents on File Type Date Recorded 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 Expl 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 Advance Directives and Living Will Power of Radial Arm Saw Operator Latest Code Status on File Code Status Date Activated Date Inactivated Comments Full Code 07/31/2016 7:14 AM 07/31/2016 12:06 PM Documents on File Type Date Recorded 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 Expl 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 Advance Directives and Living Will Power of Radial Arm Saw Operator Latest Code Status on File Code Status Date Activated Date Inactivated Comments Full Code 07/31/2016 7:14 AM 07/31/2016 12:06 PM Documents on File Type Date Recorded 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 Expl anation ACP-Advance Directive ACP-Power of Radial Arm Saw Operator Documents on File Type Date Recorded 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 Expl anation ACP-Advance Directive ACP-Power of Radial Arm Saw Operator Advance Directive Response Recorded Date/ Time Advance Directives Yes August 06 2:28pm Living Will Yes July 25, 2021 12:38am Power of Radial Arm Saw Operator Yes July 25 12:38am Advance Directive Response Recorded Date/ Time Name of Medical Power of Radial Arm Saw Operator sapna forrer -daughter July 25, 2021 12:38am Name of Medical Power of Radial Arm Saw Operator SAPNA October 31, 2021 7:15pm Advance Directives Yes August 06 2:28pm Living Will Yes October 31, 2021 7 :15pm Power of Radial Arm Saw Operator Yes October 31, 2021 7:15pm Advance Directive Response Recorded Date/ Time Advance Directives Yes August 06 16 2:28pm Living Will Yes October 31, 2021 7 :15pm Power of Radial Arm Saw Operator Yes October 31, 2021 7:15pm Name of Medical Power of Radial Arm Saw Operator SAPNA October 31, 2021 7:15pm Advance Directive Response Recorded Date/ Time Advance Directives Yes February 9:43am Living Will Yes March 17 023 9:43am Power of Radial Arm Saw Operator Yes March 17, 2023 9:43am Advance Directive Response Recorded Date/ Time Advance Directives Yes February 10:43am Living Will Yes March 17 023 10:43am Power of Radial Arm Saw Operator Yes March 17, 2023 10:43am Advance Directive Response Recorded Date/ Time Do you have a Healthcare Power of Radial Arm Saw Operator? No September 04, 2024 9:34am Advance Directives Yes February 10:43am Advance Directive Response Recorded Date/ Time Do you have a Healthcare Power of Radial Arm Saw Operator? No September 04, 2024 9:34am Do you have a Healthcare Power of Radial Arm Saw Operator? Yes November 21, 2024 2:15pm Advance Directives Yes February 10:43am Advance Directive Response Recorded Date/ Time Do you have a Healthcare Power of Radial Arm Saw Operator? Yes November 21, 2024 1:15pm Advance Directives Yes February 9:43am Reason for Referral Status Reason Specialty Diagnoses / Procedures Referre d By Contact Referred To Contact Open Radiology Diagnoses Stenosis of carotid artery, unspecified laterality Procedures CTA NECK W WO CONTRAST Yaya Lopez, DO [address] [place] [address] Status Reason Specialty Diagnoses / Procedures Re ferred By Contact Referred To Contact Open Radiology Diagnoses Abdominal pain, unspecified abdominal location Procedures CT ABDOMEN PELVIS W IV CONTRAST Additional Contrast? Radiologist Recommendation Yaya Lopez, DO [address] [place] [address] Status Reason Specialty Diagnoses / Procedures Referre d By Contact Referred To Contact Open Radiology Diagnoses Chronic cough Procedures CT CHEST W CONTRAST Yaya Lopez, DO [address] [place] [address] Status Reason Specialty Diagnoses / Procedures Referre d By Contact Referred To Contact Open Radiology Diagnoses Nonintractable headache, unspecified chronicity pattern, unspecified headache type History of meningioma Procedures MRI BRAIN W WO CONTRAST Yaya Lopez, DO [address] [place] [address] Specialty Diagnoses / Procedures Referred By Contac t Referred To Contact Radiology Diagnoses Cervical disc disease Neck pain Procedures CT CERVICAL SPINE WO CONTRAST Earl Mora, DO [address] [place] [address] Referral ID Status Reason Start Date Expiration Date Visits Re quested Visits Authorized [id number] Open 06/13/2021 06/13/2022 1 1 Specialty Diagnoses / Procedures Referred By Contac t Referred To Contact Radiology Diagnoses Cervical disc disease Procedures CT HEAD WO CONTRAST Earl Mora F, DO [address] [place] [address] Referral ID Status Reason Start Date Expiration Date Visits Re quested Visits Authorized [id number] Open 06/13/2021 06/13/2022 1 1 Status Reason Specialty Diagnoses / Procedures Referre d By Contact Referred To Contact Open Radiology Diagnoses Right upper quadrant abdominal pain Procedures US Abdomen Complete Yaya Lopez, DO [address] [place] [address] Specialty Diagnoses / Procedures Referred By Contlester t Referred To Contact Radiology Diagnoses History of meningioma of the brain Procedures MR brain wo contrast Samantha Torres PA-C [address] [place] [address] Referral ID Status Reason Start Date Expiration Date V isits Requested Visits Authorized [id number] Authorized 09/17/2023 09/16/2024 1 1 Assessments Diagnosis Occlusion and stenosis of unspecified carotid artery Stenosis of carotid artery, unspecified laterality Diagnosis Abdominal pain, unspecified abdominal location Diagnosis Bronchitis Bronchitis, not specified as acute or chronic Diagnosis Cough Pre-procedure lab exam Pre-procedural laboratory examination Chronic cough Cough Chief Complaint and Reason for Visit Chief Complaint DYSPHAGIA (12MM TABL ET) chest pain Chief Complaint chest pain GOUT LEFT ANKLE Chief Complaint chest pain GOUT LEFT ANKLE CHEST PAIN Chief Complaint CHEST PAIN CYSTIC BREAST R Chief Complaint INFECTED TOOTH /PK ESTION URINARY COMPLAINTS Reason for Visit UTI (urinary tract i nfection) Chief Complaint INFECTED TOOTH /PK ESTION URINARY COMPLAINTS SELF REFERRED ABD PAIN/DIARRHEA Sinus Pressure/Post Nasal Drip llq pain Reason for Visit UTI (urinary tract i nfection) Left lower quadrant pain Chief Complaint Admit Date PERSISTENT ABD PAIN June 05, 2024 1 :05pm SINUS INFECTION August 23, 2024 10: 50am COUGH, BODYACHES August 27, 2024 9:0 0am cough August 27, 2024 9:2 5am PNE September 04, 2024 8:54am Reason for Visit Admit Date Nausea June 05, 2024 1 :05pm Sinusitis August 23, 2024 10: 50am Chief Complaint Admit Date SINUS INFECTION August 23, 2024 10: 50am COUGH, BODYACHES August 27, 2024 9:0 0am cough August 27, 2024 9:2 5am PNE September 04, 2024 8:54am chest back pain November 21, 2024 1:10 pm Reason for Visit Admit Date Sinusitis August 23, 2024 10: 50am Chief Complaint Admit Date chest back pain November 21, 2024 1:10 pm CONCERN FOR SINUS INFECTION January 9:25am Reason for Visit Admit Date Impetigo February 14, 2025 9 :25am Sinusitis February 14, 2025 9 :25am Additional Source Comments INFORMATION SOURCE (unrecogn ized section and content) DATE CREATED AUTHOR 10/16/2017 [facility] ([place]) DATE CREATED AUTHOR AUTHOR'S ORGANIZ ATION 04/08/2018 [facility] DATE CREATED AUTHOR AUTHOR'S ORGANIZ ATION 06/14/2021 [facility] DATE CREATED AUTHOR AUTHOR'S ORGANIZ ATION 02/15/2025 [facility] DATE CREATED AUTHOR AUTHOR'S ORGANIZ ATION 03/04/2025 [facility] Source Comments (unrecognize d section and content) In the event this informatio n is protected by the Federal Confidentiality of Alcohol and Drug Abuse Patient Records regulations: The Federal rules restrict any use of the information to criminally investigate or prosecute any alcohol or drug abuse patient.[facility] Care Teams (unrecognized sec tion and content) Group Chief Operator Relationship Specialty Start Date End Date Yaya Lopez DO [address] [place], [place] [id number] PCP - General Family Medicine 11/09/14 Group Chief Operator Relationship Specialty Start Date End Date Yaya Lopez DO [address] [place], [place] [id number] PCP - General 09/28/18 Group Chief Operator Relationship Specialty Start Date End Date AbbyEarl DO [address] [place] [address] PCP - General Family Medicine 09/13/22 Group Chief Operator Relationship Specialty Start Date End Date EnriquenatalietoñoEarl DO [address] [place] [address] PCP - General Family Medicine 09/13/22 Team Status: Active Member Role Status Dates Dr. Yaya Lopez DO Family Provider Active Yaya RIVERO Primary Care Provider Active Team Status: Inactive Member Role Status Dates Yaya RIVERO Primary Care Provider, Referring Pro vider Active El MANNING, PA Attending Provider Active Team Status: Inactive Member Role Status Dates Yaya RIVERO Primary Care Provider, Referring Pro vider Active Nitza Novak [employer]ILVER [employer]-C Attending Provider Active Team Status: Inactive Member Role Status Dates Yaya RIVERO Primary Care Provider Active Nitza Novak [employer]ILVER [employer]-C Attending Provider, Referring Provider Active Team Status: Active Member Role Status Dates Dr. Yaya Lopez DO Family Provider Active Dr. Earl Mora DO Primary Care Provider Active Team Status: Inactive Member Role Status Dates Yaya RIVERO Primary Care Provider, Referring Pro vider Active Dr. Joni Garcias MD Attending Provider Active Team Status: Inactive Member Role Status Dates Dr. Earl Mora DO Primary Care Provider, Referr ing Provider Active El MANNING, PA Attending Provider Active Team Status: Inactive Member Role Status Dates Dr. Joni Garcias MD Attending Provider, Referr ing Provider Active Dr. Earl Mora DO Primary Care Provider Active Group Chief Operator Relationship Specialty Start Date End Date Abby Earl Velázquez DO [address] [place] [address] PCP - General Family Medicine 09/13/22 Group Chief Operator Relationship Specialty Start Date End Date Earl Mora Melania, DO [address] [place] [phone] PCP - General Family Medicine 09/13/22 Group Chief Operator Relationship Specialty Start Date End Date AbbyEarl, DO [address] [place] [place] [phone] PCP - General Family Medicine 09/13/22 Group Chief Operator Relationship Specialty Start Date End Date Abby Earl Velázquez, DO [address] [place] [phone] PCP - General Family Medicine 09/13/22 Group Chief Operator Relationship Specialty Start Date End Date Abby Earl Velázquez, DO [address] [place] [phone] PCP - General Family Medicine 09/13/22 Group Chief Operator Relationship Specialty Start Date End Date Abby Earl Velázquez, DO [address] [place] [phone] PCP - General Family Medicine 09/13/22 Group Chief Operator Relationship Specialty Start Date End Date Abby Earl Velázquez, DO [address] [place] [phone] PCP - General Family Medicine 09/13/22 Group Chief Operator Relationship Specialty Start Date End Date Abby Earl Velázquez, DO [address] [place] [phone] PCP - General Family Medicine 09/13/22 Group Chief Operator Relationship Specialty Start Date End Date Earl Mora Melania, DO [address] [place] [address] PCP - General Family Medicine 09/13/22 Group Chief Operator Relationship Specialty Start Date End Date Earl Mora DO [address] [place] [address] PCP - General Family Medicine 09/13/22 Team Status: Active Member Role Status Dates Dr. Earl Mora DO Primary Care Provider Active Team Status: Inactive Member Role Status Dates Dr. Earl Mora DO Primary Care Provider Active Start: June 05, 2024 End: June 05, 2024 Dr. Earl Mora DO Referring Provider Active Start: June 05, 2024 End: June 05, 2024 Dr. Joni Garcias MD Attending Provider Active Start: June 05, 2024 End: June 05, 2024 Team Status: Inactive Member Role Status Dates Dr. Earl Mora DO Primary Care Provider Active Start: August 23, 2024 End: August 23, 2024 Dr. Earl Mora DO Referring Provider Active Start: August 23, 2024 End: August 23, 2024 NIGEL Shrestha Attending Provider Active S tart: August 23, 2024 End: August 23, 2024 Team Status: Inactive Member Role Status Dates Dr. Earl Mora DO Primary Care Provider Active Start: August 27, 2024 End: August 27, 2024 Dr. Earl Mora DO Referring Provider Active Start: August 27, 2024 End: August 27, 2024 El MANNING PA Attending Provider Active Start: August 27, 2024 End: August 27, 2024 Team Status: Inactive Member Role Status Dates Dr. Earl Mora DO Primary Care Provider Active Start: August 27, 2024 End: August 27, 2024 El MANNING PA Attending Provider Active Start: August 27, 2024 End: August 27, 2024 El MANNING PA Referring Provider Active Start: August 27, 2024 End: August 27, 2024 Team Status: Inactive Member Role Status Dates Dr. Earl Mora DO Primary Care Provider Active Start: September 04, 2024 End: September 04, 2024 Andrei Rios MD Emergency Provider Active Star t: September 04, 2024 End: September 04, 2024 Group Chief Operator Relationship Specialty Start Date End Date EnriquenatalietoñoEarl [address] [place] [address] PCP - General Family Medicine 09/13/22 Group Chief Operator Relationship Specialty Start Date End Date Earl Mora Melania [address] [place] [address] PCP - General Family Medicine 09/13/22 Team Status: Active Member Role/Relationship Status Dates Dr. Earl Mora DO Primary Care Provider Active Team Status: Inactive Member Role/Relationship Status Dates Dr. Earl Mora DO Primary Care Provider Active Start: August 23, 2024 End: August 23, 2024 Dr. Earl Mora DO Referring Provider Active Start: August 23, 2024 End: August 23, 2024 NIGEL Shrestha Attending Provider Active S tart: August 23, 2024 End: August 23, 2024 Team Status: Inactive Member Role/Relationship Status Dates Dr. Earl Mora DO Primary Care Provider Active Start: August 27, 2024 End: August 27, 2024 Dr. Earl Mora DO Referring Provider Active Start: August 27, 2024 End: August 27, 2024 NIGEL Villarreal Attending Provider Active Start: August 27, 2024 End: August 27, 2024 Team Status: Inactive Member Role/Relationship Status Dates Dr. Earl Mora DO Primary Care Provider Active Start: August 27, 2024 End: August 27, 2024 El MANNING PA Attending Provider Active Start: August 27, 2024 End: August 27, 2024 El MANNING PA Referring Provider Active Start: August 27, 2024 End: August 27, 2024 Team Status: Inactive Member Role/Relationship Status Dates Dr. Earl Mora DO Primary Care Provider Active Start: September 04, 2024 End: September 04, 2024 Andrei Rios MD Attending Provider Active Star t: September 04, 2024 End: September 04, 2024 Andrei Rios MD Emergency Provider Active Star t: September 04, 2024 End: September 04, 2024 Team Status: Inactive Member Role/Relationship Status Dates Dr. Earl Mora DO Primary Care Provider Active Start: November 21, 2024 End: November 21, 2024 Dr. Benigno Sifuentes MD Emergency Provider Active Start: November 21, 2024 End: November 21, 2024 Team Status: Active Member Role/Relationship Status Dates Dr. Earl Mora DO Primary care physician Active Team Status: Inactive Member Role/Relationship Status Dates Dr. Earl Mora DO Primary care physician Active Start: November 21, 2024 End: November 21, 2024 Dr. Benigno Sifuentes MD Attending physician Active Start: November 21, 2024 End: November 21, 2024 Dr. Benigno Sifuentes MD Emergency Department Physician Active Start: November 21, 2024 End: November 21, 2024 Team Status: Inactive Member Role/Relationship Status Dates Dr. Earl Mora DO Primary care physician Active Start: February 14, 2025 End: February 14, 2025 Dr. Earl Mora DO Referring Provider Active Start: February 14, 2025 End: February 14, 2025 NIGEL Acosta Attending physician Active Start: February 14, 2025 End: February 14, 2025 Goals (unrecognized section and content) Goals may be documented in a n alternate sectionGoals may be documented in an alternate sectionGoals may be documented in an alternate sectionGoals may be documented in an alternate sectionGoals may be documented in an alternate sectionGoals may be documented in an alternate sectionGoals may be documented in an alternate sectionGoals may be documented in an alternate sectionGoals may be documented in an alternate section Reason for Visit (unrecogniz ed section and content) Reason Onset Date Comments Med Refill 08/31/2022 Reason Onset Date Comments Joint Swelling 02/22/2023 Leg Pain 02/22/2023 Reason Comments hurts all over [place] On left wrist area c xu this wk Reason Comments Medicare Annual Wellness Visit Subsequen t Reason Comments Med Refill Reason Comments Follow-up Med check Flu Vaccine Patient has declined the flu vaccine Reason Onset Date Comments Referral 02/18/2024 Dr Garcias Reason Comments Hypertension Reason Comments Follow-up Bp Flu Vaccine Patient has declined the flu vaccine Reason Comments Blood Pressure Check Reason Onset Date Comments Medication Problem 06/25/2024 Reason Comments Medication Reaction To BP med Reason Onset Date Comments Med Refill 07/03/2024 Reason Comments Follow-up Med Check Pneumonia Dx this past ay [facility] patient finished antibiotics this morning, patient still having cough (yellow mucus) and nasal drainage Reason Onset Date Comments Med Refill 10/23/2024 Reason Onset Date Comments Med Refill 12/25/2024 FOR RECORDS PERTAINING TO PATIENTS WHO ARE OR HAVE BEEN ENROLLED IN A CHEMICAL DEPENDENCY/SUBSTANCEABUSE PROGRAM, SOME INFORMATION MAY BE OMITTED. This clinical summary was aggregated from multiple sources. Caution should be exercised in using it in the provision of clinical care. This summary normalizes information from multiple sources, and as a consequence, information in this document may materially change the coding, format and clinical context of patient data. In addition, data may be omitted in some cases. CLINICAL DECISIONS SHOULD BE BASED ON THE PRIMARY CLINICAL RECORDS. [facility]. provides no warranty or guarantee of the accuracy or completeness of information in this document.
== END | disposition home or self-care (01) ==
LOC: BFHLAB 14:52
PROVIDERS: PCP Nurse Practitioner Family; Visit Provider Nurse Practitioner Family
DX: I10 Essential (primary) hypertension (principal)
CPT/HCPCS: 36415; 80053